=== PATIENT | female | born 1945 | race Caucasian/White ===

== ENCOUNTER 2017-10-26 15:45 | Inpatient (IN) ==
[2017-10-26] MEDS ORDERED: methylPREDNISolone 125 MG/2 ML VIAL IVP ONE (15:48)
[2017-10-26] MEDS ORDERED: Ipratropium/Albuterol Neb 3 ML IH ONE (15:48)
--- NOTE | 2017-10-26 15:49 | Emergency Department Note ---
Disposition Clinical Impression: Acute exacerbation of chronic obstructive airways disease, Community acquired pneumonia, NSTEMI (non-ST elevated myocardial infarction), Elevated troponin Disposition: Admitted As Inpatient Condition: Fair Referrals: Jim Figueroa MD [Primary Care Provider] - Time of Disposition: 18:30 SOB HPI - General Stated Complaint: SOB Time Seen by Provider: 10/26/17 15:48 Source: patient, EMS Mode of arrival: EMS Limitations: no limitations Nursing Notes Reviewed: Yes Vital Signs Reviewed: Yes - History of Present Illness 72-year-old female history of COPD on 2L home oxygen supplementation presents an emergency department via EMS for difficulty breathing. She reports progressive worsening shortness of breath for the past 4 days. She is been using your inhalers with minimal relief. She reports nonproductive cough. Denies any fevers. Denies any chest pain. She does feel more sure breath when she exerts herself and so recently she has a placed herself on 4 L nasal cannula. She denies being on any recent antibiotic or steroids. Of note her initial complaint was also bright red blood per rectum. She is not able to fully describe it. States daughter is at bedside and states she noticed in the toilet earlier today. Patient denies any abdominal pain. She denies any hemoptysis, hematemesis or black tarry stools. She is not take any anticoagulants. At this time she is currently getting a breathing treatment given by EMS which she reports some improvement. At this time will worker up for COPD exacerbation. Final disposition pending. - Related Data Home Medications Medication Instructions Recorded Confirmed Albuterol Sulfate [Ventolin Hfa] 2 puff IH Q4-6H PRN 10/26/17 10/26/17 Alendronate Sodium [Alendronate 70 mg PO FR 10/26/17 10/26/17 Sodium] Amlodipine Besylate [Amlodipine 10 mg PO DAILY 10/26/17 10/26/17 Besylate] Aspirin 81 mg PO DAILY 10/26/17 10/26/17 Baclofen [Lioresal] 10 mg PO TID PRN 10/26/17 10/26/17 Budesonide/Formoterol 160/4.5 2 puff IH BID 10/26/17 10/26/17 [Symbicort 160/4.5] Ergocalciferol (VITAMIN D2) 50,000 unit PO QWEEK 10/26/17 10/26/17 [Vitamin D2] Lisinopril [Zestril] 40 mg PO DAILY 10/26/17 10/26/17 Roflumilast [Daliresp] 500 mg PO DAILY 10/26/17 10/26/17 Tiotropium [Spiriva] 1 puff IH DAILY 10/26/17 10/26/17 Allergies Allergy/AdvReac Type Severity Reaction Status Date / Time No Known Allergies Allergy Verified 04/30/15 15:13 All systems ED: reviewed and negative except as stated. Review of Systems: As Per HPI Constitutional: Denies: fever, chills ENT ED: Denies: congestion Cardiovascular: Denies: chest pain Respiratory: Reports: cough, dyspnea Gastrointestinal: Reports: hematochezia. Denies: abdominal pain, nausea, vomiting, hematemesis, melena Genitourinary: Denies: urgency, dysuria Musculoskeletal: Denies: back pain, neck pain Integumentary: Denies: rash, abrasion, lesions Neurological: Denies: headache, weakness Psychiatric: Denies: anxiety Past Medical History - Past Medical History Attestation: Yes The following information was validated with the patient. Source: patient Medical history: Reports: hypertension, other - Social History Smoking Status: Current every day smoker Smokeless Tobacco Status: No Alcohol use: Reports: none Physical Exam - General Limitations: no limitations General appearance: alert, in distress (RESPIRATORY) - Head Head exam: atraumatic, normocephalic, normal inspection - Eye Eye exam: Present: normal appearance, PERRL, EOMI - ENT ENT exam: normal exam, normal oropharynx, mucous membranes moist - Neck Neck exam: Present: normal inspection, full ROM, trachea midline - Chest Chest inspection: Present: normal inspection, symmetric chest wall rise - Respiratory Respiratory exam: Present: respiratory distress, wheezes, prolonged expiratory phase, other (TIGHT AERATION) - Expanded Respiratory Exam Location: wheezes: Left, Right, rales: Lower, decreased breath sounds: Lower - Cardiovascular Cardiovascular exam: Present: regular rate, normal rhythm, normal heart sounds - Expanded Cardiovascular Exam Peripheral pulses: 2+: radial (R), radial (L) - Abdominal Exam Abdominal exam: Present: soft, Non-Tender, normal bowel sounds. Absent: tenderness, distention, guarding, rebound, rigidity - Rectal Exam Ignition Mechanic present during exam: Yes Rectal exam: Present: normal inspection, normal rectal tone, heme (-) stool, hemorrhoids (EXTERNAL). Absent: bloody stool - Extremities Exam Extremities exam: Present: normal inspection, full ROM, normal capillary refill , pedal edema (+2 PITTING, BILATERAL). Absent: tenderness - Back Exam Back exam: Present: normal inspection, full ROM. Absent: tenderness - Neurological Exam Neurological exam: Present: alert, oriented X3 - Psychiatric Psychiatric exam: Present: normal affect, normal mood - Skin Skin exam: Present: warm, dry, intact, normal color. Absent: rash, cyanosis, diaphoresis Course Course Narrative: Patient reports significant improvement after breathing treatments. She has better aeration with some scattered wheezing. Review of her chest x-ray shows bibasilar opacities with trace pleural effusion concerning for possible pneumonia. Patient has not been hospitalized in the past 3 months. Given her symptoms of shortness of breath and leukocytosis will treat her for possible pneumonia as well as her COPD exacerbation. Patient will be given Levaquin. She is responded well to the breathing treatment and steroids were continue this and consider admission. EKG did not show any acute ischemic changes. However her troponin did come back critical 1.76. Patient was given full dose aspirin as a result. A stool Hemoccult test was performed and negative for blood. Will touch base with cardiology interns of treating this with a heparin drip given her symptoms. Patients agreeable to admission for NSTEMI, COPD exacerbation, CAP. - Consultations Consultation #1: Spoke to cardiology Dr. Kurt Fernandez regarding the patient's presentation in case. Elevated troponin 1.76. Patient denies any chest pain. She is likely a COPD exacerbation with possible pneumonia on chest x-ray. Patient also initially per presented with complaint of bright red blood per rectum. Stool Hemoccult negative. Patient did have external hemorrhoids. Patients hemoglobin is 12. At this time the quarry plant crusher operator did recommend putting on low- dose heparin given the absence of the chest pain. Time: 18:15 Consultation #2: Spoke with on-call hospitalist tyron Burton to admit for NSTEMI, COPD exacerbation, CAP. No further orders at this time. Time: 18:22 Vital Signs Temperature 98.2 F 10/26/17 15:47 Pulse Rate 98 10/26/17 15:47 Respiratory Rate 18 10/26/17 15:47 Blood Pressure 132/86 10/26/17 15:47 O2 Sat by Pulse Oximetry 95 10/26/17 15:47 Temperature 98.9 F 10/26/17 15:52 Pulse Rate 113 10/26/17 18:28 Respiratory Rate 22 10/26/17 18:28 Blood Pressure 150/99 10/26/17 18:28 O2 Sat by Pulse Oximetry 94 10/26/17 18:28 Oxygen Delivery Oxygen Delivery Nasal Cannula Shortness of Breath/Dyspnea - MDM Narrative Medical decision making narrative: Patient was discussed with my attending physician who agrees with ED management and final disposition. They independently evaluated the patient. Please refer to their attestation to this encounter for additional information. This note was generated by [employer] voice recognition software and as a result grammatical or spelling errors may occur using this program. - Medical Records Medical records reviewed: Yes I reviewed the patient's medical records. - Lab Data Lab results reviewed: Yes I reviewed the patient's lab results. Result diagrams: 10/26/17 15:58 10/26/17 15:58 Lab Results 10/26/17 10/26/17 Range/Units 15:58 15:58 WBC 17.1 H (4.3-11.1) K/mcL RBC 4.54 (3.82-4.97) M/mcL Hgb 12.6 (11.5-15.4) g/dL Hct 40.5 (35.3-44.9) % MCV 89.2 (83.0-100.0) fL MCH 27.8 L (28.0-33.3) pg MCHC 31.1 L (31.6-35.5) g/dL RDW 15.2 H (11.5-14.5) % Plt Count 327 (140-400) K/mcL MPV 10.4 (9.4-12.4) fL Immature Gran % 1.0 (0-4) % Seg Neutrophils % 84.2 % Lymphocytes % 8.7 % Monocytes % 5.2 % Eosinophils % 0.6 % Basophils % 0.3 % Neutrophils # 14.4 H (1.6-8.9) K/mcL Lymphocytes # 1.5 (0.6-4.6) K/mcL Monocytes # 0.9 (0.0-1.3) K/mcL Eosinophils # 0.1 (0.0-0.6) K/mcL Basophils # 0.1 (0.0-0.2) K/mcL Sodium 142 (136-145) mEq/L Potassium 4.5 (3.5-5.1) mEq/L Chloride 100 (98-107) mEq/L Carbon Dioxide 32 H (23-29) mEq/L BUN 20 (8-23) mg/dL Creatinine 0.70 (0.60-1.20) mg/dL Est GFR ( Amer) > 60 (> 60) Est GFR (Non-Af Amer) > 60 (> 60) BUN/Creatinine Ratio 29 H (6-26) Glucose 100 (70-105) mg/dL Calculated Osmolality 297 (280-300) Calcium 9.3 (8.6-10.3) mg/dL Troponin I 1.76 H* (< 0.04) ng/mL - Radiology Data Radiology results reviewed: Yes I reviewed the patient's radiology results. Chest X-Ray 10/26/17 15:48 IMPRESSION: 1. Increased bibasilar pulmonary opacities may represent atelectasis, and/or pneumonia. Recommend radiographic follow-up to complete resolution. 2. Question trace bilateral pleural effusions. D/ / Denny Steve MD / Denny Steve MD Interpreting Provider: Denny Steve MD - EKG Data EKG attestation: Yes I reviewed and interpreted this EKG. EKG results narrative: EKG performed 1547 normal sinus rhythm with short MT interval 97 beats per minute, MT interval 108, no ST elevation or depression, no T wave inversion, intervals within normal limits. Compared to prior EKG performed 08/29/2012 shows consistent similar findings. There was finding of prolonged QT interval on prior EKG that is not present on today's EKG. No signs of acute ischemic changes. On repeat EKG 1704 sinus tachycardia [address] morphology. No acute ischemic changes. No STEMI. Attestation Statement - Attestation Attestation: I, Louis Mayfield DO, examined this patient [id number] and my medical decision-making was reviewed with Jeffrey Ramos DO , Resident Physician. I agree with the documented findings, disposition and treatment plan as described except to the extent set forth below. Please see my progress notes for details.
[2017-10-26 16:29] LABS: Basophils # 0.1 K/mcL (0.0-0.2); Basophils % 0.3 %; Eosinophils # 0.1 K/mcL (0.0-0.6); Eosinophils % 0.6 %; Hematocrit 40.5 % (35.3-44.9); Hemoglobin 12.6 g/dL (11.5-15.4); Lymphocytes # 1.5 K/mcL (0.6-4.6); Lymphocytes % 8.7 %; Mean Corpuscular HGB Conc 31.1 g/dL (31.6-35.5); Mean Corpuscular Hemoglobin 27.8 pg (28.0-33.3); Mean Corpuscular Volume 89.2 fL (83.0-100.0); Mean Platelet Volume 10.4 fL (9.4-12.4); Monocytes # 0.9 K/mcL (0.0-1.3); Monocytes % 5.2 %; Neutrophils # 14.4 K/mcL (1.6-8.9); Platelet Count 327 K/mcL (140-400); Red Blood Count 4.54 M/mcL (3.82-4.97); Red Cell Distribution Width 15.2 % (11.5-14.5); Segmented Neutrophils % 84.2 %
[2017-10-26 16:47] LABS: BUN/Creatinine Ratio 29 (6-26); Blood Urea Nitrogen 20 mg/dL (8-23); Calcium 9.3 mg/dL (8.6-10.3); Carbon Dioxide 32 mEq/L (23-29); Chloride 100 mEq/L (98-107); Glucose 100 mg/dL (70-105); Osmolality,Calculated 297 (280-300); Potassium 4.5 mEq/L (3.5-5.1); Sodium 142 mEq/L (136-145); eGFR For African Americans > 60 (> 60); eGFR For Non-African Americans > 60 (> 60)
[2017-10-26 16:49] LABS: Troponin I 1.76 ng/mL (< 0.04)
[2017-10-26] MEDS ORDERED: Aspirin 81 MG TAB.CHEW PO STA (16:51)
[2017-10-26] MEDS ORDERED: Levofloxacin 750 MG/150 ML 750 MG/150 ML BAG IVPB ONE (16:58)
[2017-10-26] MEDS ORDERED: *HR* Heparin 5,000 UNIT/ML VIAL IVP ONE ×2 (17:54→18:20)
[2017-10-26] MEDS ORDERED: *HR* Heparin 5,000 UNIT/ML VIAL IVP PRN ×4 (17:54→18:20)
[2017-10-26] MEDS ORDERED: Heparin 25,000 UNIT/500 ML D5W 25,000 UNIT/500 ML BAG IVC SCH ×2 (18:00→18:30)
--- NOTE | 2017-10-26 18:04 | Emergency Department Note ---
Disposition Clinical Impression: Community acquired pneumonia, Acute exacerbation of chronic obstructive airways disease, Elevated troponin Disposition: Admitted As Inpatient Condition: Fair Referrals: Jim Figueroa MD [Primary Care Provider] - Time of Disposition: 18:22 General Adult HPI - General Chief complaint: ED Shortness of Breath/Dyspnea Stated complaint: SOB Time Seen by Provider: 10/26/17 15:48 Source: patient, EMS Mode of arrival: EMS Limitations: no limitations - History of Present Illness Pain Scale: 0 - Related Data Home Medications Medication Instructions Recorded Confirmed Albuterol Sulfate [Ventolin Hfa] 2 puff IH Q4-6H PRN 10/26/17 10/26/17 Alendronate Sodium [Alendronate 70 mg PO FR 10/26/17 10/26/17 Sodium] Amlodipine Besylate [Amlodipine 10 mg PO DAILY 10/26/17 10/26/17 Besylate] Aspirin 81 mg PO DAILY 10/26/17 10/26/17 Baclofen [Lioresal] 10 mg PO TID PRN 10/26/17 10/26/17 Budesonide/Formoterol 160/4.5 2 puff IH BID 10/26/17 10/26/17 [Symbicort 160/4.5] Ergocalciferol (VITAMIN D2) 50,000 unit PO QWEEK 10/26/17 10/26/17 [Vitamin D2] Lisinopril [Zestril] 40 mg PO DAILY 10/26/17 10/26/17 Roflumilast [Daliresp] 500 mg PO DAILY 10/26/17 10/26/17 Tiotropium [Spiriva] 1 puff IH DAILY 10/26/17 10/26/17 Allergies Allergy/AdvReac Type Severity Reaction Status Date / Time No Known Allergies Allergy Verified 04/30/15 15:13 Past Medical History - Past Medical History Medical history: Reports: hypertension, other Psychiatric history: Reports: no psych history - Social History Smoking Status: Current every day smoker Smokeless Tobacco Status: No Alcohol use: Reports: none Drug use: Reports: none Physical Exam - General Limitations: no limitations General appearance: alert Course Vital Signs Temperature 98.2 F 10/26/17 15:47 Pulse Rate 98 10/26/17 15:47 Respiratory Rate 18 10/26/17 15:47 Blood Pressure 132/86 10/26/17 15:47 O2 Sat by Pulse Oximetry 95 10/26/17 15:47 Temperature 98.9 F 10/26/17 15:52 Pulse Rate 110 10/26/17 17:43 Respiratory Rate 15 10/26/17 17:43 Blood Pressure 122/40 10/26/17 17:43 O2 Sat by Pulse Oximetry 93 10/26/17 17:43 Oxygen Delivery Oxygen Delivery Nasal Cannula Medical Decision Making - Lab Data Result diagrams: 10/26/17 15:58 10/26/17 15:58 Lab Results 10/26/17 10/26/17 Range/Units 15:58 15:58 WBC 17.1 H (4.3-11.1) K/mcL RBC 4.54 (3.82-4.97) M/mcL Hgb 12.6 (11.5-15.4) g/dL Hct 40.5 (35.3-44.9) % MCV 89.2 (83.0-100.0) fL MCH 27.8 L (28.0-33.3) pg MCHC 31.1 L (31.6-35.5) g/dL RDW 15.2 H (11.5-14.5) % Plt Count 327 (140-400) K/mcL MPV 10.4 (9.4-12.4) fL Immature Gran % 1.0 (0-4) % Seg Neutrophils % 84.2 % Lymphocytes % 8.7 % Monocytes % 5.2 % Eosinophils % 0.6 % Basophils % 0.3 % Neutrophils # 14.4 H (1.6-8.9) K/mcL Lymphocytes # 1.5 (0.6-4.6) K/mcL Monocytes # 0.9 (0.0-1.3) K/mcL Eosinophils # 0.1 (0.0-0.6) K/mcL Basophils # 0.1 (0.0-0.2) K/mcL Sodium 142 (136-145) mEq/L Potassium 4.5 (3.5-5.1) mEq/L Chloride 100 (98-107) mEq/L Carbon Dioxide 32 H (23-29) mEq/L BUN 20 (8-23) mg/dL Creatinine 0.70 (0.60-1.20) mg/dL Est GFR ( Amer) > 60 (> 60) Est GFR (Non-Af Amer) > 60 (> 60) BUN/Creatinine Ratio 29 H (6-26) Glucose 100 (70-105) mg/dL Calculated Osmolality 297 (280-300) Calcium 9.3 (8.6-10.3) mg/dL Troponin I 1.76 H* (< 0.04) ng/mL Critical Care Time Critical Care Time: Yes Total Critical Care Time: 35 Attestation: Critical care performed: Time is exclusive of separately billable procedures. Time includes: direct patient care, patient reassessment, coordination of patient care, interpretation of data (laboratory data, radiology data, and respiratory data), review of patient's medical records, medical consultation and documentation of patient care. Procedures included in critical care time: Procedures excluded from critical care time: Attestation Statement - Attestation Attestation: I, Louis Mayfield DO, examined this patient [id number] and my medical decision-making was reviewed with Jeffrey Ramos DO , Resident Physician. I agree with the documented findings, disposition and treatment plan as described except to the extent set forth below. Please see my progress notes for details. 72-year-old female presents to the emergency room with what she describes as acute exacerbation of her COPD. Over the last several days she has had a persistent cough and increased work of breathing and shortness of breath with anything that she does. She denies any chest pain fevers chills nausea vomiting or diarrhea. She has had nonproductive cough with intermittent sputum. Patient denies any other medical issues or symptoms at this point. She has been trying to manage her symptoms at home with her breathing treatments but has not resolved the issue at this time. She does typically use 2 L oxygen at home. She feels issues required more oxygen at this time. Patient denies any other symptoms or issues on presentation. Patient is sitting upright in the bed with breathing treatments and placed by EMS on presentation. Patient's lungs are diffusely wheezy with intermittent coarse crackles. Patient's heart is regular. Abdomen is soft nontender nondistended no guarding no rigidity. Chest x-ray EKG CBC chemistry troponin and BMP will be ordered here at this time in the emergency room. Patient will be started on antibiotics as really needed. Patient does not have any recent admissions or hospitalizations. Medical intervention. Patient will most likely require admission once the workup and treatment course are completed. See detailed documentation of physical exam, medical intervention, medical decision-making and disposition in the resident physician's note. No critical care of this patient's treatment course at this time. 1800 Patient is still having increased work of breathing. Treatments will be utilized. Patient's chest x-ray does show bilateral infiltrates. Antibiotic regimen started. Hospitalist was contacted for admission. No other acute issues pathology noted at this time. Patient will be stabilized the hospital setting for what appears to be COPD exacerbation secondary to bilateral pneumonia. Patient does not have any acute signs of septic-like presentation and has been resuscitated and evaluated appropriately here in the emergency room. Patient also noted have a significantly elevated troponin of 1.76. Repeat EKG was collected with no acute changes at this time. The morphology was reviewed from previous EKGs. Heparin infusion was started. Patient denies any GI bleed and colonic-like stools at this point. Patient had bright red blood on her stool. Rectal examination was deferred at this point patient does not have any occult bleed history. Cardiology will be consult with the hospitalist will be informed of the recommendations for the admission process. 1820 Discussion was had with the on-call accounts administrator. Recommended a second hyperbaric. Patient does not have any active bleeding based on rectal examination occult testing at this time. Hemoglobin is stable. This benefits and alternatives were discussed with the accounts administrator as well as the patient. Patient will be admitted at this time.
[2017-10-26 19:55] LABS: INR 1.1; Prothrombin Time 12.2 Seconds (9.4-12.1)
[2017-10-26 19:58] LABS: Activated Partial Thrombo Time 25.5 Seconds (26.0-36.0)
[2017-10-26] MEDS ORDERED: Naloxone 0.4 MG/ML INJ IVP PRN (21:20)
[2017-10-26] MEDS ORDERED: Ipratropium/Albuterol Neb 3 ML IH PRN (21:24)
[2017-10-26] MEDS: Ipratropium/Albuterol Neb 3 ML IH SCH (22:36)
--- NOTE | 2017-10-26 23:05 | Internal Med History&Physical ---
Date of Encounter: 10/26/17 Time of Encounter: 20:00 Internal Medicine - H&P: HPI Chief complaint: Shortness of breath Admitted From: Home Plans for Post Hospital Care: Home History of present illness: Ms. Montenegro is a 72 year old female present to ER for shortness of breath. Past medical history is significant for COPD on home oxygen. Patient presented to ER for shortness of breath for 2 days. Patient has nonproductive cough. No fever. Patient to use 2 L oxygen at home, apparently, her oxygen requirement has increased and the need 4-5 L ER to maintain oxygen saturation. Patient denies chest pain, nausea, or diaphoresis. Patient has bilateral increased leg swelling. In the emergency room, chest x-ray shows bilateral basal pneumonia. Patient was treated with antibiotic, steroid, and bronchodilator. Her symptoms has improved. Patient's first of troponin shows 1.76, however repeat troponin is less than 0.03, patient had no chest pain and EKG is unremarkable, consider lab error on first troponin. heparin drip will be discontinued. Past Med Surg Social Fam HX - Past Medical History Medical history: COPD, coronary artery disease, hyperlipidemia, hypertension, osteoporosis, other Psychiatric history: no psych history - Social History Smoking Status: Current every day smoker Smokeless Tobacco Status: No Alcohol use: none Drug use: none - Family History Mother Hx Family Cardiac Disorders: Yes Internal Medicine - H&P: Meds Albuterol Sulfate [Ventolin Hfa] 2 puff IH Q4-6H PRN 10/26/17 [History] Alendronate Sodium [Alendronate Sodium] 70 mg PO FR 10/26/17 [History] Amlodipine Besylate [Amlodipine Besylate] 10 mg PO DAILY 10/26/17 [History] Aspirin 81 mg PO DAILY 10/26/17 [History] Baclofen [Lioresal] 10 mg PO TID PRN 10/26/17 [History] Budesonide/Formoterol 160/4.5 [Symbicort 160/4.5] 2 puff IH BID 10/26/17 [ History] Ergocalciferol (VITAMIN D2) [Vitamin D2] 50,000 unit PO QWEEK 10/26/17 [History] Lisinopril [Zestril] 40 mg PO DAILY 10/26/17 [History] Roflumilast [Daliresp] 500 mg PO DAILY 10/26/17 [History] Tiotropium [Spiriva] 1 puff IH DAILY 10/26/17 [History] 3 Allergy/AdvReac Type Severity Reaction Status Date / Time No Known Allergies Allergy Verified 04/30/15 15:13 All Systems PM: A 10-system review of systems was performed and is negative for pertinent findings except as documented above in the HPI. - Constitutional Vitals: Temp Pulse Resp BP Pulse Ox 98.8 F 118 20 128/83 96 10/26/17 21:20 10/26/17 21:20 10/26/17 22:36 10/26/17 22:36 10/26/17 22:36 General appearance: Present: mild distress, A&O X 3, answers questions appropriately - Head Head exam: Present: atraumatic, normocephalic - Eye Eye exam: Present: PERRL, conjuntiva pink, sclera anicteric Pupils: Present: PERRL - Neck Neck exam general surgery: Present: supple, trachea midline. Absent: lymphadenopathy - Respiratory Respiratory exam: Present: CTAB. Absent: accessory muscle use, rales, rhonchi, wheezes Additional comments: Coarse breath sound b/l - Cardiovascular Cardiovascular exam: Present: RRR, +S1, +S2. Absent: diastolic murmur, gallop, rubs, systolic murmur - GI/Abdominal GI/Abdominal exam: Present: normal bowel sounds, soft, no peritoneal signs. Absent: distended, tenderness - Extremities Exam Extremities exam: Present: pedal edema (Bilaterally moderate pedal pitting edema ), warm, radial pulses palpable and symmetrical. Absent: calf tenderness, cyanotic - Neurological Exam Neurological exam: Present: CN II-XII intact, oriented X3, no focal deficits. Absent: pronater drift, facial droop, speech deficit - Skin Skin exam: Present: dry, intact Internal Med - H&P Results - Labs CBC & Chem 7: 10/26/17 15:58 10/26/17 15:58 Labs: Cardiac Enzymes 10/26/17 Range/Units 22:21 Troponin I < 0.03 (< 0.04) ng/mL - EKG Data -: EKG Interpreted by Myself EKG shows normal: sinus rhythm Rate: tachycardia - Assessment and plan (1) DVT prophylaxis Current Visit: Yes Status: Acute Assessment and plan: Heparin subcutaneously (2) Acute exacerbation of chronic obstructive airways disease Current Visit: Yes Status: Acute Assessment and plan: Patient has history of COPD on home oxygen. Increased shortness of breath with wheezing. Improved after treatment. - Place patient on antibiotic, steroid, and bronchodilator - Continuous oxygen supportive treatment (3) Community acquired pneumonia Current Visit: Yes Status: Acute Assessment and plan: We will treat patient with IV Levaquin. Continue supportive treatment and symptomatic treatment Qualifiers: Laterality: unspecified laterality Qualified Code(s): J18.9 - Pneumonia, unspecified organism (4) Elevated troponin Current Visit: Yes Status: Acute Assessment and plan: Patient has first troponin 1.76. However second troponin is within normal limit. Consider lab error as patient has no chest pain and negative EKG. - Hold heparin drip - Continue follow the 3rd troponin - Continue cardiac monitoring (5) Leg swelling Current Visit: Yes Status: Acute Assessment and plan: We will check echocardiogram and BNP to rule out CHF. - Time Spent With Patient Total time spent is greater than 50% in coordination of care (as documented) at patient's floor/unit and/or counseling patient: 40 minutes Greater than 35 minutes
[2017-10-27] MEDS: Ipratropium/Albuterol Neb 3 ML IH SCH ×4 (03:20→21:46)
[2017-10-27 05:18] LABS: Basophils % 0.2 %; Hematocrit 37.2 % (35.3-44.9); Hemoglobin 11.7 g/dL (11.5-15.4); Lymphocytes % 6.5 %; Mean Corpuscular HGB Conc 31.5 g/dL (31.6-35.5); Mean Corpuscular Hemoglobin 28.2 pg (28.0-33.3); Mean Corpuscular Volume 89.6 fL (83.0-100.0); Mean Platelet Volume 11.1 fL (9.4-12.4); Monocytes % 0.9 %; Platelet Count 313 K/mcL (140-400); Red Blood Count 4.15 M/mcL (3.82-4.97); Red Cell Distribution Width 15.1 % (11.5-14.5); Segmented Neutrophils % 91.4 %
[2017-10-27 05:19] LABS: Lymphocytes # 0.9 K/mcL (0.6-4.6); Monocytes # 0.1 K/mcL (0.0-1.3); Neutrophils # 12.1 K/mcL (1.6-8.9)
[2017-10-27] MEDS: *HR* Heparin 5,000 UNIT/ML VIAL SQ SCH ×2 (05:37→17:45)
[2017-10-27 07:08] LABS: BUN/Creatinine Ratio 26 (6-26); Blood Urea Nitrogen 26 mg/dL (8-23); Calcium 8.9 mg/dL (8.6-10.3); Carbon Dioxide 32 mEq/L (23-29); Chloride 101 mEq/L (98-107); Glucose 192 mg/dL (70-105); Magnesium 1.8 mg/dL (1.6-2.6); Osmolality,Calculated 298 (280-300); Potassium 4.8 mEq/L (3.5-5.1); Sodium 139 mEq/L (136-145); eGFR For African Americans > 60 (> 60); eGFR For Non-African Americans 54 (> 60)
[2017-10-27] MEDS: Aspirin 81 MG TAB.CHEW PO SCH (09:30)
[2017-10-27] MEDS: Lisinopril 20 MG TABLET PO SCH (09:30)
[2017-10-27] MEDS: (Roflumilast [Daliresp] 500 MG) PO SCH (09:30)
[2017-10-27] MEDS: predniSONE 20 MG TABLET PO SCH (09:30)
[2017-10-27] MEDS: amLODIPine 5 MG TABLET PO SCH (09:30)
--- NOTE | 2017-10-27 09:49 | Internal Med Progress Note ---
Date of Encounter: 10/27/17 Time of Encounter: 09:46 - Assessment and plan (1) Acute exacerbation of chronic obstructive airways disease Current Visit: Yes Status: Acute Assessment and plan: Acute on chronic hypoxic respiratory failure secondary to acute COPD exacerbation due to community-acquired pneumonia/unknown agent in combination with acute CHF exacerbation systolic versus diastolic Continue prednisone and Levaquin day #2 Start IV Lasix, echocardiogram pending Oxygen therapy and DuoNeb nebs Chest x-ray shows bibasilar opacities (2) Community acquired pneumonia Current Visit: Yes Status: Acute Assessment and plan: Levaquin Qualifiers: Laterality: unspecified laterality Qualified Code(s): J18.9 - Pneumonia, unspecified organism (3) Elevated troponin Current Visit: Yes Status: Acute Assessment and plan: Patient has first troponin 1.76. Likely lab error. However second and third troponins were normal, the patient has no chest pain and has a normal EKG. - Heparin drip was discontinued - Continue cardiac monitoring (4) Leg swelling Current Visit: Yes Status: Acute Assessment and plan: echocardiogram - Time Spent With Patient Total time spent is greater than 50% in coordination of care (as documented) at patient's floor/unit and/or counseling patient: - Subjective Interval history: Feeling less short of breath, her legs have become very swollen, denies any chest pain, no abdominal pain, no diarrhea or dysuria - Constitutional Vitals: Temp Pulse Resp BP Pulse Ox 97.8 F 99 15 138/77 93 10/27/17 06:57 10/27/17 06:57 10/27/17 06:57 10/27/17 06:57 10/27/17 06:57 General appearance: Present: mild distress, A&O X 3, answers questions appropriately - Head Head exam: Present: atraumatic, normocephalic - Eye Eye exam: Present: PERRL, conjuntiva pink, sclera anicteric Pupils: Present: PERRL - Neck Neck exam general surgery: Present: supple, trachea midline. Absent: lymphadenopathy - Respiratory Respiratory exam: Present: decreased breath sounds, CTAB, rales (Very diminished breath sounds with diffuse minimal wheezing and bibasilar crackles). Absent: accessory muscle use, rhonchi, wheezes - Cardiovascular Cardiovascular exam: Present: RRR, +S1, +S2. Absent: diastolic murmur, gallop, rubs, systolic murmur - GI/Abdominal GI/Abdominal exam: Present: normal bowel sounds, soft, no peritoneal signs. Absent: distended, tenderness - Extremities Exam Extremities exam: Present: pedal edema (+3 pitting edema in both lower extremities), warm, radial pulses palpable and symmetrical. Absent: calf tenderness, cyanotic - Neurological Exam Neurological exam: Present: CN II-XII intact, oriented X3, no focal deficits. Absent: pronater drift, facial droop, speech deficit - Skin Skin exam: Present: dry, intact Internal Medicine: Result - Labs CBC & Chem 7: 10/27/17 04:18 10/27/17 06:35 Labs: Short CBC 10/27/17 Range/Units 04:18 WBC 13.2 H (4.3-11.1) K/mcL Hgb 11.7 (11.5-15.4) g/dL Hct 37.2 (35.3-44.9) % Plt Count 313 (140-400) K/mcL Neutrophils # 12.1 H (1.6-8.9) K/mcL BMP 10/27/17 10/27/17 04:18 06:35 Sodium Cancelled 139 Potassium Cancelled 4.8 Chloride Cancelled 101 Carbon Dioxide Cancelled 32 H BUN Cancelled 26 H Creatinine Cancelled 1.00 Glucose Cancelled 192 H Calcium Cancelled 8.9 Cardiac Enzymes 10/26/17 10/27/17 Range/Units 22:21 04:18 Troponin I < 0.03 < 0.03 (< 0.04) ng/mL - ABG Interpretation ABG results: PT/INR, D-dimer PT 12.2 Seconds (9.4-12.1) H 10/26/17 15:58 Consult Discharge Plan - Plan
[2017-10-27] MEDS: Budesonide/Formoterol 160/4.5 MDI IH SCH ×2 (10:47→21:46)
[2017-10-27] MEDS ORDERED: Perflutren Lipid Microsphere 1.3 ML in 0.9 % Sodium Chloride 8.7 ML IVP ONE (12:54)
[2017-10-27] MEDS: Furosemide 20 MG/2 ML VIAL IVP SCH ×2 (13:56→20:32)
[2017-10-28] MEDS: Ipratropium/Albuterol Neb 3 ML IH SCH ×3 (03:37→15:24)
[2017-10-28] MEDS: *HR* Heparin 5,000 UNIT/ML VIAL SQ SCH (06:19)
[2017-10-28 07:16] VITALS: BP 126/77
[2017-10-28] MEDS: Aspirin 81 MG TAB.CHEW PO SCH (09:43)
[2017-10-28] MEDS: (Roflumilast [Daliresp] 500 MG) PO SCH (09:43)
[2017-10-28] MEDS: Lisinopril 20 MG TABLET PO SCH (09:43)
[2017-10-28] MEDS: amLODIPine 5 MG TABLET PO SCH (09:43)
[2017-10-28] MEDS: predniSONE 20 MG TABLET PO SCH (09:43)
[2017-10-28] MEDS: Furosemide 20 MG/2 ML VIAL IVP SCH (09:43)
[2017-10-28] MEDS: Budesonide/Formoterol 160/4.5 MDI IH SCH (09:50)
--- NOTE | 2017-10-28 11:01 | Discharge Summary ---
- NOTES TO OUTPATIENT PROVIDER Notes to Outpatient Provider: Complete 5 more days of Levquin, quit smoking. Prednisone taper: 40 mg daily for 3 days, 30 mg for 3 days, 20 mg for 3 days, 10 mg for 3 days Date of Encounter: 10/28/17 Time of Encounter: 10:59 - Discharge Diagnosis (1) Acute exacerbation of chronic obstructive airways disease Priority: Primary Status: Acute Assessment and Plan: Acute on chronic hypoxic respiratory failure secondary to acute COPD exacerbation due to community-acquired pneumonia/unknown agent in combination with acute diastolic CHF exacerbation (2) Community acquired pneumonia Priority: Primary Status: Acute Assessment and Plan: Levaquin Qualifiers: Laterality: unspecified laterality Qualified Code(s): J18.9 - Pneumonia, unspecified organism (3) Elevated troponin Priority: Secondary Status: Acute Assessment and Plan: Patient has first troponin 1.76. Likely lab error. However second and third troponins were normal, the patient has no chest pain and has a normal EKG. - Heparin drip was discontinued (4) Leg swelling Priority: Secondary Status: Acute Assessment and Plan: Hospital course: Ms. Montenegro is a 72 year old female with Past medical history is significant for COPD on home oxygen 2 L , COAD, HTN, HLD, osteoporosis, tobacco use, who presented to the ER for shortness of breath for 2 days. Patient had nonproductive cough. No fever. Apparently, her oxygen requirements increased at home to 4-5 L to maintain oxygen saturation. Patient denied chest pain, nausea, or diaphoresis. Patient had bilateral increased leg swelling. In the emergency room, chest x-ray shows bilateral basal pneumonia. Her symptoms has improved. Improved on Lasix, echocardiogram showed an ejection fraction of 70% with mild diastolic dysfunction, mild aortic stenosis suggested Chest x-ray shows bibasilar opacities Patient had a first troponin of 1.76. Likely lab error as her second and third troponins were normal, the patient had no chest pain and has a normal EKG. - Heparin drip was discontinued Continue prednisone and Levaquin Time spent discussing smoking cessation with patient: 3 to 10 minutes - Time Spent with Patient Total time spent providing and/or coordinating discharge services: Greater than 30 minutes (40 min) - Discharge Medications Prescriptions: Furosemide [Lasix] 20 mg PO DAILY #30 tablet Levofloxacin [Levaquin] 500 mg PO DAILY #5 tablet predniSONE [PredniSONE] 10 mg PO DAILY 12 Days tablet Home Medications: Albuterol Sulfate [Ventolin Hfa] 2 puff IH Q4-6H PRN 10/26/17 [History] Alendronate Sodium 70 mg PO FR 10/26/17 [History] Amlodipine Besylate 10 mg PO DAILY 10/26/17 [History] Aspirin 81 mg PO DAILY 10/26/17 [History] Baclofen [Lioresal] 10 mg PO TID PRN 10/26/17 [History] Budesonide/Formoterol 160/4.5 [Symbicort 160/4.5] 2 puff IH BID 10/26/17 [ History] Ergocalciferol (VITAMIN D2) [Vitamin D2] 50,000 unit PO QWEEK 10/26/17 [History] Lisinopril [Zestril] 40 mg PO DAILY 10/26/17 [History] Roflumilast [Daliresp] 500 mg PO DAILY 10/26/17 [History] Tiotropium [Spiriva] 1 puff IH DAILY 10/26/17 [History] Furosemide [Lasix] 20 mg PO DAILY #30 tablet 10/28/17 [Rx] Levofloxacin [Levaquin] 500 mg PO DAILY #5 tablet 10/28/17 [Rx] predniSONE [PredniSONE] 10 mg PO DAILY 12 Days tablet 10/28/17 [Rx] Allergies/Adverse Reactions: 3 Allergy/AdvReac Type Severity Reaction Status Date / Time No Known Allergies Allergy Verified 04/30/15 15:13 Date of admission: 10/26/17 21:20 Primary care physician: Jim Figueroa MD Consults: 10/27/17 20:33 Consult to Occupational Therapy [CONS] Routine Comment: Evaluate, develop and implement POC Reason for Consult: pt lives at home alone, may need home PT/OT or rehab. Does patient have active BEDREST order?: No Is patient medically & hemodynamically stable?: Yes Patient assessed for mobility or mobilized this visit?: Yes Consult to Physical Therapy [CONS] Routine Comment: Evaluate, develop and implement POC Reason for Consult: pt lives at home alone, may need home PT/OT or rehab. Does patient have active BEDREST order?: No Is patient medically & hemodynamically stable?: Yes Patient assessed for mobility or mobilized this visit?: Yes - Constitutional Vitals: Temp Pulse Resp BP Pulse Ox 97.8 F 86 16 126/77 90 10/28/17 07:12 10/28/17 07:12 10/28/17 09:53 10/28/17 07:12 10/28/17 09:53 General appearance: Present: mild distress, A&O X 3, answers questions appropriately - Head Head exam: Present: atraumatic, normocephalic - Eye Eye exam: Present: PERRL, conjuntiva pink, sclera anicteric Pupils: Present: PERRL - Neck Neck exam general surgery: Present: supple, trachea midline. Absent: lymphadenopathy - Respiratory Respiratory exam: Present: decreased breath sounds, CTAB. Absent: accessory muscle use, rales, rhonchi, wheezes - Cardiovascular Cardiovascular exam: Present: RRR, +S1, +S2. Absent: diastolic murmur, gallop, rubs, systolic murmur - GI/Abdominal GI/Abdominal exam: Present: normal bowel sounds, soft, no peritoneal signs. Absent: distended, tenderness - Extremities Exam Extremities exam: Present: warm, radial pulses palpable and symmetrical. Absent : calf tenderness, cyanotic, pedal edema - Neurological Exam Neurological exam: Present: CN II-XII intact, oriented X3, no focal deficits. Absent: pronater drift, facial droop, speech deficit - Skin Skin exam: Present: dry, intact - Patient Status Disposition: Transfer SNF Condition: Fair Overall status at discharge: patient is progressing back to baseline - Discharge Instructions Follow Up With: Jim Figueroa MD [Primary Care Provider] - Forms: ED Satisfaction Letter Additional Instructions: Complete 5 more days of Levquin, quit smoking. Prednisone taper: 40 mg daily for 3 days, 30 mg for 3 days, 20 mg for 3 days, 10 mg for 3 days - Diet and Activity Activity: increase activity as tolerated Diet: low fat, low cholesterol
--- NOTE | 2017-10-28 11:18 | Physician Discharge Referral ---
ExtendedCare Referral Info Provider in Charge after Transfer: PCP Institutional Level of Care: Skilled - Diagnosis (1) Acute exacerbation of chronic obstructive airways disease Status: Acute (2) Community acquired pneumonia Status: Acute (3) Elevated troponin Status: Acute (4) Leg swelling Status: Acute - Transfer Medications Prescriptions: Furosemide [Lasix] 20 mg PO DAILY #30 tablet Levofloxacin [Levaquin] 500 mg PO DAILY #5 tablet predniSONE [PredniSONE] 10 mg PO DAILY 12 Days tablet Home Medications: Albuterol Sulfate [Ventolin Hfa] 2 puff IH Q4-6H PRN 10/26/17 [History] Alendronate Sodium 70 mg PO FR 10/26/17 [History] Amlodipine Besylate 10 mg PO DAILY 10/26/17 [History] Aspirin 81 mg PO DAILY 10/26/17 [History] Baclofen [Lioresal] 10 mg PO TID PRN 10/26/17 [History] Budesonide/Formoterol 160/4.5 [Symbicort 160/4.5] 2 puff IH BID 10/26/17 [ History] Ergocalciferol (VITAMIN D2) [Vitamin D2] 50,000 unit PO QWEEK 10/26/17 [History] Lisinopril [Zestril] 40 mg PO DAILY 10/26/17 [History] Roflumilast [Daliresp] 500 mg PO DAILY 10/26/17 [History] Tiotropium [Spiriva] 1 puff IH DAILY 10/26/17 [History] Furosemide [Lasix] 20 mg PO DAILY #30 tablet 10/28/17 [Rx] Levofloxacin [Levaquin] 500 mg PO DAILY #5 tablet 10/28/17 [Rx] predniSONE [PredniSONE] 10 mg PO DAILY 12 Days tablet 10/28/17 [Rx] Allergies/Adverse Reactions: 3 Allergy/AdvReac Type Severity Reaction Status Date / Time No Known Allergies Allergy Verified 04/30/15 15:13 - Respiratory Orders Oxygen / L per min (2) Smoking Cessation: Smoking cessation has been advised. For more information, call the [place] Tobacco Quit Line at 4-647-FIOR-NOW. - Advance Directives Code Status: Full Code - Diet Orders No Added Salt (MALIK) House Supplement per Dietary: Complete 5 more days of Levquin, quit smoking. Prednisone taper: 40 mg daily for 3 days, 30 mg for 3 days, 20 mg for 3 days, 10 mg for 3 days. COntinue Lasix CERTIFICATION: I certify that the transfer of the above named patient to an Extended Care Facility is necessary for the continuing treatment of the diagnosis listed. The above information is true and accurate reflection of patient's current condition. Confidential - Redisclosure prohibited without a patient's written consent.
--- NOTE | 2017-10-28 16:16 | Physician Discharge Referral ---
Home Health/Hosp Referral Info Transfer to: Home Health Provider in Charge Post Discharge: PCP - Diagnosis (1) Acute exacerbation of chronic obstructive airways disease Status: Acute (2) Community acquired pneumonia Status: Acute (3) Elevated troponin Status: Acute (4) Leg swelling Status: Acute - Respiratory Orders Smoking Cessation: Smoking cessation has been advised. For more information, call the [place] Tobacco Quit Line at 9-928-XOSC-NOW. - Diet/Nutrition Diet/Nutrition Orders: No Added Salt (MALIK) - Services Needed Following services are medically necessary services: Nursing, Home Health Aide, Physical Therapy, Occupational Therapy Home Care Orders: Complete 5 more days of Levquin, quit smoking. Prednisone taper: 40 mg daily for 3 days, 30 mg for 3 days, 20 mg for 3 days, 10 mg for 3 days. COntinue Lasix - Transfer Medications Prescriptions: Furosemide [Lasix] 20 mg PO DAILY #30 tablet Levofloxacin [Levaquin] 500 mg PO DAILY #5 tablet predniSONE [PredniSONE] 10 mg PO DAILY 12 Days tablet Home Medications: Albuterol Sulfate [Ventolin Hfa] 2 puff IH Q4-6H PRN 10/26/17 [History] Alendronate Sodium 70 mg PO FR 10/26/17 [History] Amlodipine Besylate 10 mg PO DAILY 10/26/17 [History] Aspirin 81 mg PO DAILY 10/26/17 [History] Baclofen [Lioresal] 10 mg PO TID PRN 10/26/17 [History] Budesonide/Formoterol 160/4.5 [Symbicort 160/4.5] 2 puff IH BID 10/26/17 [ History] Ergocalciferol (VITAMIN D2) [Vitamin D2] 50,000 unit PO QWEEK 10/26/17 [History] Lisinopril [Zestril] 40 mg PO DAILY 10/26/17 [History] Roflumilast [Daliresp] 500 mg PO DAILY 10/26/17 [History] Tiotropium [Spiriva] 1 puff IH DAILY 10/26/17 [History] Furosemide [Lasix] 20 mg PO DAILY #30 tablet 10/28/17 [Rx] Levofloxacin [Levaquin] 500 mg PO DAILY #5 tablet 10/28/17 [Rx] predniSONE [PredniSONE] 10 mg PO DAILY 12 Days tablet 10/28/17 [Rx] Allergies/Adverse Reactions: 3 Allergy/AdvReac Type Severity Reaction Status Date / Time No Known Allergies Allergy Verified 04/30/15 15:13 Certification: Further, I certify that my clinical findings support that this patient is homebound (i.e. absences from home require considerable and taxing effort and are for medical reasons or rastafarian services or infrequently or short duration when for other reasons) because: Homebound Reason: Patient requires assistance of a person or device to safely leave home Attestation: My signature below is to certify that this patient is under my care and that I, or nurse practitioner, or a physician's education administrative assistant working with me, has a face-to -face encounter with this patient.
[2017-10-28] MEDS ORDERED: Levofloxacin 750 MG/150 ML 750 MG/150 ML BAG IVPB SCH (18:00)
--- NOTE | 2017-10-29 17:10 | Electrocardiograph Report ---
[place] [id number] Test Date: 2017-10-26 Pat Name: Lina Montenegro Department: 103 Room: [facility] Gender: F Highway Maintainer: MSC : [id number] Requested By: Jeffrey Ramos Order Number: [id number] Reading MD: Kristal Fernandez Measurements Intervals [place] Rate: 97 P: 73 [place]: 108 QRS: 67 QRSD: 90 T: 69 QT: 317 QTc: 372 Interpretive Statements SINUS RHYTHM WITH SHORT [place] INTERVAL Electronically Signed On 10-29-2017 17:08:47 EDT by Kristal Fernandez
--- NOTE | 2017-10-29 17:11 | Electrocardiograph Report ---
[place] [id number] Test Date: 2017-10-26 Pat Name: Lina Montenegro Department: 103 Room: 2N1 Gender: F Director Property: MSC : 1945 Requested By: Louis Mayfield Order Number: [id number] Reading MD: Kristal Fernandez Measurements Intervals [place] Rate: 102 P: 76 NV: 137 QRS: 69 QRSD: 94 T: 71 QT: 310 QTc: 369 Interpretive Statements SINUS TACHYCARDIA ABNORMAL RHYTHM ECG Electronically Signed On 10-29-2017 17:10:16 EDT by Kristal Fernandez
== END 2017-10-28 16:28 | DRG 193 ==
LOC: EMEROO 15:45 → 2NENU 15:45
PROVIDERS: ADMIT Internal Medicine Cardiovascular Disease; ATTEND Internal Medicine Cardiovascular Disease

== ENCOUNTER 2018-05-09 21:50 | Inpatient (IN) ==
[2018-05-09] MEDS ORDERED: Ipratropium/Albuterol Neb 3 ML IH ONE (22:09)
[2018-05-09] MEDS ORDERED: methylPREDNISolone 125 MG/2 ML VIAL IVP ONE (22:09)
--- NOTE | 2018-05-09 22:09 | Emergency Department Note ---
Disposition Clinical Impression: COPD exacerbation, Hypoxia Acute and chronic respiratory failure Qualifiers: Respiratory failure complication: hypoxia and hypercapnia Qualified Code(s): J96.21 - Acute and chronic respiratory failure with hypoxia Disposition: Admitted As Inpatient Condition: Serious Time of Disposition: 00:51 SOB HPI - General Chief Complaint: ED Shortness of Breath/Dyspnea Stated Complaint: Aaron Time Seen by Provider: 05/09/18 22:03 Source: EMS Mode of arrival: EMS Limitations: altered mental status Nursing Notes Reviewed: Yes Vital Signs Reviewed: Yes - History of Present Illness 73-year-old female reported history of COPD on 2L home oxygen supplementation presenting to the emergency department via EMS for hypoxia, difficulty breathing and altered mental status. History was obtained through the EMS report. They report an EMS call earlier today for the patient's difficulty breathing when they evaluated the patient they exchanged the oxygen tubing and the patient's oxygen saturation went up as well as her mental status. Patient also did not want to be transferred for evaluation. Earlier this evening similar episode with daughter they attempted to increase her oxygen without any significant improvement. Squad was called and her oxygen was increased at 4 L nasal cannula and she was 89% when patient was being transport via squad she had the saturated to 70% and was then supplemented on non-rebreather. Currently the patient is 100% on non-rebreather. She opens her eyes to voice and follow some commands. On auscultation she has bilateral crackles with tightness in wheezing concerning for COPD versus pneumonia. Will attempt BiPAP at this time and consider intubation. Suspect this is a component of CO2 retention. Pt Subjective Complaint: shortness of breath - Related Data Home Medications Medication Instructions Recorded Confirmed Alendronate Sodium 70 mg PO FR 10/26/17 05/09/18 Amlodipine Besylate 10 mg PO DAILY 10/26/17 05/09/18 Aspirin 81 mg PO DAILY 10/26/17 05/09/18 Ergocalciferol (VITAMIN D2) 50,000 unit PO QWEEK 10/26/17 05/09/18 [Vitamin D2] Lisinopril [Zestril] 40 mg PO DAILY 10/26/17 05/09/18 Tiotropium [Spiriva] 1 puff IH DAILY 10/26/17 05/09/18 Previous Rx's Medication Instructions Recorded Furosemide [Lasix] 20 mg PO DAILY #30 tablet 10/28/17 Allergies Allergy/AdvReac Type Severity Reaction Status Date / Time No Known Allergies Allergy Verified 04/30/15 15:13 Limitations: ROS unobtainable due to patients medical condition Past Medical History - Past Medical History Source: old records reviewed Medical history: Reports: COPD, coronary artery disease, hyperlipidemia, hypertension, osteoporosis, other Psychiatric history: Reports: no psych history - Social History Smoking Status: Current every day smoker Smokeless Tobacco Status: No Alcohol use: Reports: none Drug use: Reports: none Physical Exam - General Limitations: altered mental status General appearance: obtunded, other (Patient is somnolent but opens eyes to voice) - Head Head exam: atraumatic, normocephalic, normal inspection - Eye Eye exam: Present: normal appearance, PERRL, EOMI. Absent: nystagmus - ENT ENT exam: normal exam, normal oropharynx, mucous membranes moist, other (Dentures) - Neck Neck exam: Present: normal inspection, full ROM, trachea midline - Chest Chest inspection: Present: normal inspection, symmetric chest wall rise. Absent: tenderness - Respiratory Respiratory exam: Present: wheezes, prolonged expiratory phase, other (Tight aeration with crackles and wheezing) - Expanded Respiratory Exam Location: wheezes: Right, Left, rales: Left, Right, decreased breath sounds: Left, Right - Cardiovascular Cardiovascular exam: Present: regular rate, normal rhythm, normal heart sounds. Absent: systolic murmur, diastolic murmur - Expanded Cardiovascular Exam Peripheral pulses: 2+: radial (R), radial (L) - Abdominal Exam Abdominal exam: Present: soft, Non-Tender, distention. Absent: tenderness, guarding, rebound, rigidity - Extremities Exam Extremities exam: Present: normal inspection, full ROM, normal capillary refill. Absent: tenderness, pedal edema - Expanded Neurological Exam Coma Scale Eye Opening: To Voice Coma Scale Motor Response: Localizes to Pain Coma Scale Verbal Response: None Coma Scale Total: 9 - Skin Skin exam: Present: warm, dry, intact, normal color. Absent: rash, cyanosis Course Course Narrative: Patient presents somnolent and in some respiratory distress. She opens her eyes to voice and withdrawals the pain. She is unable to follow simple commands at this time. Her oxygen saturation is 100% on the non-rebreather. We had brought it down to 4 L nasal cannula and she remains 100%. Her lungs sounds are tight with some diffuse wheezing and crackles. Concern for CO2 retention caused by COPD exacerbation. At this time will attempt BiPAP but may consider immediate intubation if not improving significantly. She has not been admitted recently. - Reevaluation(s) Reevaluation #1: Her daughter is now at bedside to assist with the history. States some confusio n today and somnolent. Similar episode earlier this year due to pneumonia. Recently saw her hammer operator Dr. Oliveira who reports she has severe COPD. No reported recent illness or fever. Her initial GBG shows a CO2 retention with acidosis of 7.18. Her bicarb is greater than 40 which makes is appear more acute on chronic hypercapnia. Clinically she is improving as she is following some commands but denies quickly as we had hoped. We have discussed code status with the daughter who wishes to await her brother the patient's son to determine further code status. Her chest x-ray does not reveal pneumonia. CT of the head did not reveal any abnormality. Patient has been administered trip le DuoNeb treatment and steroid. Time: 23:26 Reevaluation #2: Clinically the patient is improving to where she opens her eyes to voice which she was doing before but is now following simple commands such as squeezing my fingers and giving me a thumbs up. Her blood gas however shows the opposite. She has been on the BiPAP for almost an hour and her CO2 level on the arterial blood gases 130 with a pH of 7.18. At this time anticipate intubation after discussing with the family which states they patient did not discuss intubation or CPR however at this time would be agreeable to endotracheal intubation. Time: 23:52 Reevaluation #3: Agent was successively intubated. She is synchronized with the ventilator. The ET tube appears within appropriate position. Patient will be started on jak thromycin and ceftriaxone and admitted to the intensive care unit. - Consultations Consultation #1: Spoke with on-call hospitalist tyron Barrow to admit for hypoxia, CO2 retention, COPD exacerbation, respiratory failure. Patient will be admitted to the intensive care unit. No further orders at this time Time: 00:50 Vital Signs Temperature 98.1 F 05/09/18 21:53 Pulse Rate 95 05/09/18 21:53 Respiratory Rate 24 05/09/18 21:53 Blood Pressure 141/59 05/09/18 21:53 O2 Sat by Pulse Oximetry 99 05/09/18 21:53 Temperature 98.1 F 05/09/18 21:53 Pulse Rate 129 05/10/18 00:42 Respiratory Rate 16 05/10/18 01:00 Blood Pressure 170/96 05/10/18 01:00 O2 Sat by Pulse Oximetry 100 05/10/18 00:42 Oxygen Delivery Oxygen Delivery Ventilator Procedures - Intubation Time out performed: Yes sedative: Etomidate Mg Given: 20 paralytic: Rocuronium Mg Given: 70 Laryngoscope: Yen ET Tube Size: 7.5 ET Tube Uncuffed: No Tube Secured Depth (cm): 22 Tube Secured Location: lips Tube Placement Confirmation: visualized tube passing through cords, equal breath sounds bilaterally, no breath sounds over epigastrium, confirmation by capnometry Patient Tolerated Procedure: well, no complications Intubation Complications: none Shortness of Breath/Dyspnea - MDM Narrative Medical decision making narrative: Patient was discussed with my attending physician who agrees with ED management and final disposition. They independently evaluated the patient. Please refer to their attestation to this encounter for additional information. This note was generated by [employer] voice recognition software and as a result grammatical or spelling errors may occur using this program. - Medical Records Medical records reviewed: Yes I reviewed the patient's medical records. - Lab Data Lab results reviewed: Yes I reviewed the patient's lab results. Result diagrams: 05/09/18 22:10 05/09/18 22:10 Lab Results 05/09/18 05/09/18 05/09/18 Range/Units 22:10 22:10 22:56 WBC 11.2 H (4.3-11.1) K/mcL RBC 4.53 (3.82-4.97) M/mcL Hgb 12.4 (11.5-15.4) g/dL Hct 42.8 (35.3-44.9) % MCV 94.5 (83.0-100.0) fL MCH 27.4 L (28.0-33.3) pg MCHC 29.0 L (31.6-35.5) g/dL RDW 14.8 H (11.5-14.5) % Plt Count 182 (140-400) K/mcL MPV 10.4 (9.4-12.4) fL Immature Gran % 0.4 (0-4) % Seg Neutrophils % 90.6 % Lymphocytes % 3.8 % Monocytes % 4.9 % Eosinophils % 0.0 % Basophils % 0.3 % Neutrophils # 10.2 H (1.6-8.9) K/mcL Lymphocytes # 0.4 L (0.6-4.6) K/mcL Monocytes # 0.6 (0.0-1.3) K/mcL Eosinophils # 0.0 (0.0-0.6) K/mcL Basophils # 0.0 (0.0-0.2) K/mcL Platelet Estimate Normal (Normal) Hypochromasia Present A (Not Present) Sample Site ABG pH (7.32-7.45) pH Units ABG pCO2 (35-45) mmHg ABG pO2 (85-104) mmHg ABG HCO3 (21-27) mEq/L ABG Total CO2 (20-26) mEq/L ABG O2 Saturation (95-98) % ABG Base Excess (-2 to 3) mEq/L Brendon Test VBG pH (7.32-7.42) pH Units VBG pCO2 (41-51) mmHg VBG pO2 (25-50) mmHg VBG HCO3 (21-27) mEq/L O2 Delivery Device Blood Gas Modality Inspired O2 (1-15=lpm [id number]=%) PEEP cm H2O Sodium 142 (136-145) mEq/L Potassium 4.7 (3.5-5.1) mEq/L Chloride 100 (98-107) mEq/L Carbon Dioxide 38 H (23-29) mEq/L BUN 34 H (8-23) mg/dL Creatinine 1.08 (0.60-1.20) mg/dL Est GFR ( Amer) 60 (> 60) Est GFR (Non-Af Amer) 49 L (> 60) BUN/Creatinine Ratio 31 H (6-26) Glucose 197 H (70-105) mg/dL Calculated Osmolality 307 H (280-300) Lactic Acid 0.6 (0.5-2.2) mmol/L Calcium 9.2 (8.6-10.3) mg/dL Troponin I < 0.03 (< 0.04) ng/mL B-Natriuretic Peptide (Less than 100) pg/mL Urine Color (Yellow) Urine Clarity (Clear) Urine pH (5.0-8.0) pH Units Ur Specific Merrill (1.010-1.025) Urine Protein (Neg-Trace) mg/dL Urine Glucose (UA) (Normal) mg/dL Urine Ketones (Negative) mg/dL Urine Blood (Negative) Urine Nitrite (Negative) Urine Bilirubin (Negative) Urine Urobilinogen (Normal) mg/dL Ur Leukocyte Esterase (Negative) Urine Microscopic RBC (0-3) per hpf Urine Microscopic WBC (0-3) per hpf Ur Squamous Epith Cells (None-Few) per lpf Urine Bacteria (None-Few) per hpf Hyaline Casts (None-Few) per lpf Ur Culture Indicated? (NO) Person Notif of Crit 05/09/18 05/09/18 05/09/18 Range/Units 22:56 23:02 23:28 WBC (4.3-11.1) K/mcL RBC (3.82-4.97) M/mcL Hgb (11.5-15.4) g/dL Hct (35.3-44.9) % MCV (83.0-100.0) fL MCH (28.0-33.3) pg MCHC (31.6-35.5) g/dL RDW (11.5-14.5) % Plt Count (140-400) K/mcL MPV (9.4-12.4) fL Immature Gran % (0-4) % Seg Neutrophils % % Lymphocytes % % Monocytes % % Eosinophils % % Basophils % % Neutrophils # (1.6-8.9) K/mcL Lymphocytes # (0.6-4.6) K/mcL Monocytes # (0.0-1.3) K/mcL Eosinophils # (0.0-0.6) K/mcL Basophils # (0.0-0.2) K/mcL Platelet Estimate (Normal) Hypochromasia (Not Present) Sample Site L Radial ABG pH 7.12 L* (7.32-7.45) pH Units ABG pCO2 131 H* (35-45) mmHg ABG pO2 66 L (85-104) mmHg ABG HCO3 42 H (21-27) mEq/L ABG Total CO2 46 H (20-26) mEq/L ABG O2 Saturation 81 L (95-98) % ABG Base Excess 7 H (-2 to 3) mEq/L Brendon Test N/A VBG pH 7.18 L* (7.32-7.42) pH Units VBG pCO2 109 H* (41-51) mmHg VBG pO2 55 H (25-50) mmHg VBG HCO3 41 H (21-27) mEq/L O2 Delivery Device BiPAP Blood Gas Modality BiLevel Inspired O2 40.0 (1-15=lpm [id number]=%) PEEP 7 cm H2O Sodium (136-145) mEq/L Potassium (3.5-5.1) mEq/L Chloride (98-107) mEq/L Carbon Dioxide (23-29) mEq/L BUN (8-23) mg/dL Creatinine (0.60-1.20) mg/dL Est GFR ( Amer) (> 60) Est GFR (Non-Af Amer) (> 60) BUN/Creatinine Ratio (6-26) Glucose (70-105) mg/dL Calculated Osmolality (280-300) Lactic Acid (0.5-2.2) mmol/L Calcium (8.6-10.3) mg/dL Troponin I (< 0.04) ng/mL B-Natriuretic Peptide 75 (Less than 100) pg/mL Urine Color (Yellow) Urine Clarity (Clear) Urine pH (5.0-8.0) pH Units Ur Specific Merrill (1.010-1.025) Urine Protein (Neg-Trace) mg/dL Urine Glucose (UA) (Normal) mg/dL Urine Ketones (Negative) mg/dL Urine Blood (Negative) Urine Nitrite (Negative) Urine Bilirubin (Negative) Urine Urobilinogen (Normal) mg/dL Ur Leukocyte Esterase (Negative) Urine Microscopic RBC (0-3) per hpf Urine Microscopic WBC (0-3) per hpf Ur Squamous Epith Cells (None-Few) per lpf Urine Bacteria (None-Few) per hpf Hyaline Casts (None-Few) per lpf Ur Culture Indicated? (NO) Person Notif of Crit 05/10/18 Range/Units 00:20 WBC (4.3-11.1) K/mcL RBC (3.82-4.97) M/mcL Hgb (11.5-15.4) g/dL Hct (35.3-44.9) % MCV (83.0-100.0) fL MCH (28.0-33.3) pg MCHC (31.6-35.5) g/dL RDW (11.5-14.5) % Plt Count (140-400) K/mcL MPV (9.4-12.4) fL Immature Gran % (0-4) % Seg Neutrophils % % Lymphocytes % % Monocytes % % Eosinophils % % Basophils % % Neutrophils # (1.6-8.9) K/mcL Lymphocytes # (0.6-4.6) K/mcL Monocytes # (0.0-1.3) K/mcL Eosinophils # (0.0-0.6) K/mcL Basophils # (0.0-0.2) K/mcL Platelet Estimate (Normal) Hypochromasia (Not Present) Sample Site ABG pH (7.32-7.45) pH Units ABG pCO2 (35-45) mmHg ABG pO2 (85-104) mmHg ABG HCO3 (21-27) mEq/L ABG Total CO2 (20-26) mEq/L ABG O2 Saturation (95-98) % ABG Base Excess (-2 to 3) mEq/L Brendon Test VBG pH (7.32-7.42) pH Units VBG pCO2 (41-51) mmHg VBG pO2 (25-50) mmHg VBG HCO3 (21-27) mEq/L O2 Delivery Device Blood Gas Modality Inspired O2 (1-15=lpm [id number]=%) PEEP cm H2O Sodium (136-145) mEq/L Potassium (3.5-5.1) mEq/L Chloride (98-107) mEq/L Carbon Dioxide (23-29) mEq/L BUN (8-23) mg/dL Creatinine (0.60-1.20) mg/dL Est GFR ( Amer) (> 60) Est GFR (Non-Af Amer) (> 60) BUN/Creatinine Ratio (6-26) Glucose (70-105) mg/dL Calculated Osmolality (280-300) Lactic Acid (0.5-2.2) mmol/L Calcium (8.6-10.3) mg/dL Troponin I (< 0.04) ng/mL B-Natriuretic Peptide (Less than 100) pg/mL Urine Color Yellow (Yellow) Urine Clarity Cloudy A (Clear) Urine pH 5.0 (5.0-8.0) pH Units Ur Specific Merrill 1.025 (1.010-1.025) Urine Protein 30 H (Neg-Trace) mg/dL Urine Glucose (UA) Normal (Normal) mg/dL Urine Ketones Negative (Negative) mg/dL Urine Blood Negative (Negative) Urine Nitrite Negative (Negative) Urine Bilirubin Negative (Negative) Urine Urobilinogen Normal (Normal) mg/dL Ur Leukocyte Esterase Negative (Negative) Urine Microscopic RBC 0-3 (0-3) per hpf Urine Microscopic WBC 0-3 (0-3) per hpf Ur Squamous Epith Cells Many H (None-Few) per lpf Urine Bacteria None Seen (None-Few) per hpf Hyaline Casts Moderate H (None-Few) per lpf Ur Culture Indicated? NO (NO) Person Notif of Crit - Radiology Data Radiology results reviewed: Yes I reviewed the patient's radiology results. Head CT 05/09/18 22:49 IMPRESSION: No acute intracranial abnormality. D/ / Nestor Meraz MD / Nestor Meraz MD Interpreting Provider: Nestro Meraz MD Chest X-Ray 05/10/18 00:16 IMPRESSION: 1. ETT tip 6 cm above the beau. 2. Otherwise, stable chest without acute cardiopulmonary abnormality. D/ / Ritika Pittman MD / Ritika Pittman MD Interpreting Provider: Ritika Pittman MD - EKG Data EKG attestation: Yes I reviewed and interpreted this EKG. EKG results narrative: EKG performed 2202 normal sinus rhythm 96 beats per minute, normal axis, good R wave progression, intervals appear within normal limits. No acute ischemic changes.
[2018-05-09 23:02] LABS: Mean Corpuscular Hemoglobin 27.4 pg (28.0-33.3)
[2018-05-09 23:04] LABS: Basophils % 0.3 %; Hematocrit 42.8 % (35.3-44.9); Hemoglobin 12.4 g/dL (11.5-15.4); Immature Granulocytes % 0.4 % (0-4); Lymphocytes # 0.4 K/mcL (0.6-4.6); Lymphocytes % 3.8 %; Mean Corpuscular Volume 94.5 fL (83.0-100.0); Mean Platelet Volume 10.4 fL (9.4-12.4); Monocytes # 0.6 K/mcL (0.0-1.3); Monocytes % 4.9 %; Platelet Count 182 K/mcL (140-400); Red Blood Count 4.53 M/mcL (3.82-4.97); Red Cell Distribution Width 14.8 % (11.5-14.5); Segmented Neutrophils % 90.6 %
[2018-05-09 23:07] LABS: Neutrophils # 10.2 K/mcL (1.6-8.9)
[2018-05-09 23:19] LABS: VBG HCO3 41 mEq/L (21-27); VBG PCO2 109 mmHg (41-51); VBG PH 7.18 pH Units (7.32-7.42); VBG PO2 55 mmHg (25-50)
[2018-05-09 23:23] LABS: BUN/Creatinine Ratio 31 (6-26); Blood Urea Nitrogen 34 mg/dL (8-23); Calcium 9.2 mg/dL (8.6-10.3); Carbon Dioxide 38 mEq/L (23-29); Chloride 100 mEq/L (98-107); Glucose 197 mg/dL (70-105); Osmolality,Calculated 307 (280-300); Potassium 4.7 mEq/L (3.5-5.1); Sodium 142 mEq/L (136-145); Troponin I < 0.03 ng/mL (< 0.04); eGFR For Non-African Americans 49 (> 60)
[2018-05-09 23:32] LABS: ABG Base Excess 7 mEq/L (-2 to 3); ABG HCO3 42 mEq/L (21-27); ABG Oxygen Saturation 81 % (95-98); ABG PCO2 131 mmHg (35-45); ABG PH 7.12 pH Units (7.32-7.45); ABG PO2 66 mmHg (85-104); ABG TCO2 46 mEq/L (20-26); Blood Gas Modality BiLevel; Blood Gas PEEP 7 cm H2O
[2018-05-09 23:37] LABS: Hypochromasia Present (Not Present)
[2018-05-09 23:38] LABS: Platelet Estimate Normal (Normal)
[2018-05-10] MEDS ORDERED: Propofol 500 MG/50 ML INFUS..BTL ONE (00:14)
[2018-05-10] MEDS ORDERED: *HR* FentaNYL (PF) 100 MCG/2 ML VIAL IVP ONE (00:21)
[2018-05-10] MEDS ORDERED: *HR* Rocuronium Bromide 50 MG/5 ML VIAL IVP ONE (00:22)
[2018-05-10] MEDS ORDERED: *HR* Etomidate 20 MG/10 ML AMPUL IVP ONE (00:22)
[2018-05-10 00:35] LABS: Bilirubin,Urine Negative (Negative); Blood,Urine Negative (Negative); Clarity,Urine Cloudy (Clear); Color,Urine Yellow (Yellow); Glucose,Urine (UA) Normal (Normal); Ketones,Urine Negative (Negative); Leukocyte Esterase,Urine Negative (Negative); Nitrite,Urine Negative (Negative); Protein,Urine 30 mg/dL (Neg-Trace); Specific Gravity,Urine 1.025 (1.010-1.025); Urobilinogen,Urine Normal (Normal)
[2018-05-10 00:36] LABS: Bacteria,Urine None Seen per hpf (None-Few); RBC,Urine 0-3 per hpf (0-3); Squamous Epithelial Cell,Urine Many per lpf (None-Few); WBC,Urine 0-3 per hpf (0-3)
[2018-05-10] MEDS ORDERED: Azithromycin 500 MG in D5% in Water 250 ML IVPB ONE (00:47)
[2018-05-10] MEDS ORDERED: cefTRIAXone 2,000 MG in Water for inj. (sterile) 20 ML 20 ML IVPB ONE (00:47)
[2018-05-10] MEDS ORDERED: Naloxone 0.4 MG/ML INJ IVP PRN (00:56)
[2018-05-10 01:00] LABS: Hyaline Casts,Urine Moderate per lpf (None-Few)
[2018-05-10] MEDS ORDERED: Artificial Tears SOLN 15 ML BOTTLE BOTH EYES PRN (01:00)
--- NOTE | 2018-05-10 01:09 | Internal Med History&Physical ---
Addendum entered and electronically signed by Flo Low MD 05/10/18 06:21: At least 30 minutes of critical care time was spent in the management of this patient. Original Note: <Bhargav Garduno - Last Filed: 05/10/18 03:29> Date of Encounter: 05/10/18 Time of Encounter: 01:52 Internal Medicine - H&P: HPI Chief complaint: shortenss of breath Admitted From: Emergency Dept Plans for Post Hospital Care: Home History of present illness: Ms. Montenegro is a 73 year old female with past medical history of COPD (wears 2L oxygen at home), hypertension, hyperlipidemia, spinal stenosis, coronary artery disease, carotid stenosis, osteoporosis, history of tobacco use, diastolic CHF. Patient presented to the emergency department earlier this evening via EMS for chief complaint of hypoxia, difficulty in breathing, altered mental status. Her oxygen saturation's were low at home on her usual 2 L of oxygen. Her oxygen was increased to 4 L without any improvement. When patient was initially evaluated by EMS she did not want transferred to the emergency department for further evaluation. Patient's oxygen saturation eventually decreased down to 70%, with altered mental status and she was brought to the emergency department by EMS. Per ED notes, on initial evaluation she would respond to voice and follow simple commands. Initial ABG in the emergency department showed pH 7.12, CO2 131, O2 66, HCO3 42. She was initially treated with BiPAP with very little improvement and continue to Desat, and then was subsequently intubated. Past Med Surg Social Fam HX - Past Medical History Medical history: COPD, coronary artery disease, hyperlipidemia, hypertension, osteoporosis, other Additional medical history: lung problems Psychiatric history: no psych history - Past Surgical History Additional surgical history: Back surgery - Social History Smoking Status: Current every day smoker Smokeless Tobacco Status: No Alcohol use: none Drug use: none - Family History Mother Hx Family Cardiac Disorders: Yes Internal Medicine - H&P: Meds Alendronate Sodium 70 mg PO FR 10/26/17 [History] Amlodipine Besylate 10 mg PO DAILY 10/26/17 [History] Aspirin 81 mg PO DAILY 10/26/17 [History] Ergocalciferol (VITAMIN D2) [Vitamin D2] 50,000 unit PO QWEEK 10/26/17 [History] Lisinopril [Zestril] 40 mg PO DAILY 10/26/17 [History] Tiotropium [Spiriva] 1 puff IH DAILY 10/26/17 [History] Furosemide [Lasix] 20 mg PO DAILY #30 tablet 10/28/17 [Rx] Allergy/AdvReac Type Severity Reaction Status Date / Time No Known Allergies Allergy Verified 04/30/15 15:13 ROS unobtainable: due to endotracheal tube, due to mental status - Constitutional Vitals: Temp Pulse Resp BP Pulse Ox 98.1 F 129 16 170/96 100 05/09/18 21:53 05/10/18 00:42 05/10/18 01:00 05/10/18 01:00 05/10/18 00:42 Exam: patient is intubated, sedated. She is laying in bed and appears comfortable. - Head Head exam: Present: atraumatic, normocephalic - Eye Eye exam: Present: PERRL. Absent: conjunctival injection, nystagmus, scleral icterus Pupils: Present: PERRL - ENT ENT exam: Present: mucous membranes dry - Neck Neck exam general surgery: Present: supple, trachea midline - Respiratory Additional comments: diffuse rales and wheezes present in all lung mojica. - Cardiovascular Cardiovascular exam: Present: RRR, +S1, +S2. Absent: bradycardia, clicks, diastolic murmur, gallop, systolic murmur - GI/Abdominal GI/Abdominal exam: Present: distended, hyperactive bowel sounds, soft. Absent: firm, guarding, splenomegaly Additional comments: soft, distended, no grimacing with abdominal palpation. Bowel sounds present. - Extremities Exam Extremities exam: Present: pedal edema (+1 bialteral lower extremity pitting edema. ), radial pulses palpable and symmetrical. Absent: cyanotic - Skin Skin exam: Present: dry, intact. Absent: cyanosis, erythema Internal Med - H&P Results - Labs CBC & Chem 7: 05/09/18 22:10 05/09/18 22:10 Labs: Short CBC 05/09/18 Range/Units 22:10 WBC 11.2 H (4.3-11.1) K/mcL Hgb 12.4 (11.5-15.4) g/dL Hct 42.8 (35.3-44.9) % Plt Count 182 (140-400) K/mcL Neutrophils # 10.2 H (1.6-8.9) K/mcL BMP 05/09/18 22:10 Sodium 142 Potassium 4.7 Chloride 100 Carbon Dioxide 38 H BUN 34 H Creatinine 1.08 Glucose 197 H Calcium 9.2 Cardiac Enzymes 05/09/18 Range/Units 22:10 Troponin I < 0.03 (< 0.04) ng/mL Urine 05/10/18 Range/Units 00:20 Urine Color Yellow (Yellow) Urine Clarity Cloudy A (Clear) Urine pH 5.0 (5.0-8.0) pH Units Ur Specific [place] 1.025 (1.010-1.025) Urine Protein 30 H (Neg-Trace) mg/dL Urine Glucose (UA) Normal (Normal) mg/dL - ABG Interpretation ABG results: 05/09/18 05/09/18 23:02 23:28 ABG pH 7.12 L* ABG pCO2 131 H* ABG pO2 66 L ABG HCO3 42 H ABG Total CO2 46 H ABG O2 Saturation 81 L ABG Base Excess 7 H VBG pH 7.18 L* VBG pCO2 109 H* VBG pO2 55 H VBG HCO3 41 H - Impressions ITS Impressions Chest X-Ray 05/09/18 22:05 IMPRESSION: No acute findings. D/ / 05/09/2018 22:46:32 Gio Montenegro MD / Frances Simon Interpreting Provider: Gio Montenegro MD Head CT 05/09/18 22:49 IMPRESSION: No acute intracranial abnormality. D/ / Nestor Meraz MD / Nestor Meraz MD Interpreting Provider: Nestor Meraz MD - Assessment and plan (1) Acute on chronic respiratory failure with hypoxia and hypercapnia Current Visit: Yes Status: Acute Assessment and plan: 73-year-old female admitted for hypoxia, difficulty in breathing, altered mental status secondary to CO2 narcosis. EMS was called by family due to decreased O2 saturation, but patient was initially reluctant to come to ER for evaluation. Etiology likely secondary to COPD exacerbation. Patient met two sirs criteria upon arriving to ER with tachycardia, tachypnea. Did not meet sepsis criteria, as WBC was borderline at 11.2, CXR showed no focal consolidation. lactic acid normal. No known source of infection at this time. in ED, ABG showed pH: 7.12, PCO2 131, PO2 66. Patient failed to improve with BiPAP and was intubated in ER. Plan: blood cultures x2, sputum culture, respiratory infectious panel, legionella, strep pneumo antigens pending scheduled DuoNe Levaquin day 1 continue mechanical ventilation with FIO2 60%, Tv: 400, RR: 16, PEEP: 5 repeat ABG and CXR with morning labs. sedation with propofol and fentanyl (2) Acute exacerbation of chronic obstructive airways disease Current Visit: No Status: Acute Assessment and plan: plan as above (3) Altered mental status Current Visit: Yes Status: Acute Assessment and plan: Emergency department, she would follow some commands and open eyes to voice. Etiology likely secondary to retained CO2 Plan as #1 above. Qualifiers: Altered mental status type: somnolence Qualified Code(s): R40.0 - Somnolence (4) Diastolic CHF Current Visit: Yes Status: Acute Assessment and plan: Last echo from 10/27/17 showed EF 70%, normal LV chamber size and function, mild diastolic dysfunction, mild aortic stenosis, no pulmonary hypertension Plan: hold lasix for now, reassess volume status and diurese as needed. Qualifiers: Heart failure chronicity: chronic Qualified Code(s): I50.32 - Chronic diastolic (congestive) heart failure (5) Hyperlipidemia Current Visit: Yes Status: Acute Qualifiers: Hyperlipidemia type: unspecified Qualified Code(s): E78.5 - Hyperlipidemia, unspecified (6) Coronary artery disease Current Visit: Yes Status: Acute Qualifiers: Coronary Disease-Associated Artery/Lesion type: unspecified vessel or lesion type [place] vs. transplanted heart: unspecified whether [place] or transplanted heart Associated angina: angina presence unspecified Qualified Code(s): I25.10 - Atherosclerotic heart disease of [place] coronary artery without angina pectoris (7) DVT prophylaxis Current Visit: No Status: Acute Assessment and plan: Heparin SQ protonix for GI prophylaxis - Time Spent With Patient Total time spent is greater than 50% in coordination of care (as documented) at patient's floor/unit and/or counseling patient: <Flo Low - Last Filed: 05/10/18 06:21> Date of Encounter: 05/10/18 Internal Medicine - H&P: HPI History of present illness: Ms. Montenegro is a 73 year old female All Systems PM: A 10-system review of systems was performed and is negative for pertinent findings except as documented above in the HPI. - Constitutional Vitals: Temp Pulse Resp BP Pulse Ox 98.8 F 91 16 92/59 100 05/10/18 04:00 05/10/18 06:00 05/10/18 06:00 05/10/18 06:00 05/10/18 06:00 Internal Med - H&P Results - Labs CBC & Chem 7: 05/10/18 05:21 05/10/18 05:21 Labs: Short CBC 05/09/18 05/10/18 Range/Units 22:10 05:21 WBC 11.2 H 9.3 (4.3-11.1) K/mcL Hgb 12.4 11.7 (11.5-15.4) g/dL Hct 42.8 40.2 (35.3-44.9) % Plt Count 182 169 (140-400) K/mcL Neutrophils # 10.2 H 8.7 (1.6-8.9) K/mcL BMP 05/09/18 05/10/18 22:10 05:21 Sodium 142 144 Potassium 4.7 4.2 Chloride 100 103 Carbon Dioxide 38 H 33 H BUN 34 H 39 H Creatinine 1.08 1.38 H Glucose 197 H 174 H Calcium 9.2 8.3 L Cardiac Enzymes 05/09/18 Range/Units 22:10 Troponin I < 0.03 (< 0.04) ng/mL Liver Function 05/10/18 Range/Units 05:21 Total Bilirubin 0.5 (0.3-1.0) mg/dL AST 17 (13-39) Units/L ALT 18 (7-52) Units/L Alkaline Phosphatase 72 (34-104) Units/L Albumin 3.4 L (3.5-5.7) g/dL Urine 05/10/18 Range/Units 00:20 Urine Color Yellow (Yellow) Urine Clarity Cloudy A (Clear) Urine pH 5.0 (5.0-8.0) pH Units Ur Specific [place] 1.025 (1.010-1.025) Urine Protein 30 H (Neg-Trace) mg/dL Urine Glucose (UA) Normal (Normal) mg/dL - ABG Interpretation ABG results: 05/09/18 05/09/18 05/10/18 23:02 23:28 02:11 ABG pH 7.12 L* 7.31 L D ABG pCO2 131 H* 73 H* D ABG pO2 66 L 133 H D ABG HCO3 42 H 37 H ABG Total CO2 46 H 39 H ABG O2 Saturation 81 L 99 H ABG Base Excess 7 H 7 H VBG pH 7.18 L* VBG pCO2 109 H* VBG pO2 55 H VBG HCO3 41 H 05/10/18 04:59 ABG pH 7.34 ABG pCO2 64 H ABG pO2 63 L D ABG HCO3 35 H ABG Total CO2 37 H ABG O2 Saturation 89 L ABG Base Excess 7 H VBG pH VBG pCO2 VBG pO2 VBG HCO3 - Impressions ITS Impressions Chest X-Ray 05/09/18 22:05 IMPRESSION: No acute findings. D/ / 05/09/2018 22:46:32 Gio Montenegro MD / Frances Simon Interpreting Provider: Gio Montenegro MD Head CT 05/09/18 22:49 IMPRESSION: No acute intracranial abnormality. D/ / Nestor Meraz MD / Nestor Meraz MD Interpreting Provider: Nestor Meraz MD Chest X-Ray 05/10/18 00:16 IMPRESSION: 1. ETT tip 6 cm above the beau. 2. Otherwise, stable chest without acute cardiopulmonary abnormality. D/ / Ritika Pittman MD / Ritika Pittman MD Interpreting Provider: Ritika Pittman MD - Time Spent With Patient Total time spent is greater than 50% in coordination of care (as documented) at patient's floor/unit and/or counseling patient: - Attending Attestation I performed a history and physical examination of the patient and discussed her management with the resident. I reviewed the resident's note and agree with the documented findings and plan of care. Patient admitted for COPD exacerbation.; currently intubated with improving repeat ABGs.
--- NOTE | 2018-05-10 01:58 | Emergency Department Note ---
Disposition Clinical Impression: COPD exacerbation, Hypoxia Acute and chronic respiratory failure Qualifiers: Respiratory failure complication: hypoxia and hypercapnia Qualified Code(s): J96.21 - Acute and chronic respiratory failure with hypoxia Disposition: Admitted As Inpatient Condition: Serious General Adult HPI - General Chief complaint: ED Shortness of Breath/Dyspnea Stated complaint: Aaron/AMS Time Seen by Provider: 05/09/18 22:03 Source: EMS Mode of arrival: EMS Limitations: altered mental status Nursing Notes Reviewed: Yes Vital Signs Reviewed: Yes - History of Present Illness Pain Scale: 0 - Related Data Home Medications Medication Instructions Recorded Confirmed Alendronate Sodium 70 mg PO FR 10/26/17 05/09/18 Amlodipine Besylate 10 mg PO DAILY 10/26/17 05/09/18 Aspirin 81 mg PO DAILY 10/26/17 05/09/18 Ergocalciferol (VITAMIN D2) 50,000 unit PO QWEEK 10/26/17 05/09/18 [Vitamin D2] Lisinopril [Zestril] 40 mg PO DAILY 10/26/17 05/09/18 Tiotropium [Spiriva] 1 puff IH DAILY 10/26/17 05/09/18 Previous Rx's Medication Instructions Recorded Furosemide [Lasix] 20 mg PO DAILY #30 tablet 10/28/17 Allergies Allergy/AdvReac Type Severity Reaction Status Date / Time No Known Allergies Allergy Verified 04/30/15 15:13 Past Medical History - Past Medical History Medical history: Reports: COPD, coronary artery disease, hyperlipidemia, hypertension, osteoporosis, other Psychiatric history: Reports: no psych history - Social History Smoking Status: Current every day smoker Smokeless Tobacco Status: No Alcohol use: Reports: none Drug use: Reports: none Physical Exam - General Limitations: altered mental status General appearance: obtunded, other (Patient is somnolent but opens eyes to voice) Course Vital Signs Temperature 98.1 F 05/09/18 21:53 Pulse Rate 95 05/09/18 21:53 Respiratory Rate 24 05/09/18 21:53 Blood Pressure 141/59 05/09/18 21:53 O2 Sat by Pulse Oximetry 99 05/09/18 21:53 Temperature 97.9 F 05/10/18 01:26 Pulse Rate 98 05/10/18 01:45 Respiratory Rate 16 05/10/18 01:31 Blood Pressure 99/66 05/10/18 01:31 O2 Sat by Pulse Oximetry 100 05/10/18 01:31 Oxygen Delivery Oxygen Delivery Ventilator Medical Decision Making - Medical Records Medical records reviewed: Yes I reviewed the patient's medical records. - Lab Data Lab results reviewed: Yes I reviewed the patient's lab results. Result diagrams: 05/09/18 22:10 05/09/18 22:10 Lab Results 05/09/18 05/09/18 05/09/18 Range/Units 22:10 22:10 22:56 WBC 11.2 H (4.3-11.1) K/mcL RBC 4.53 (3.82-4.97) M/mcL Hgb 12.4 (11.5-15.4) g/dL Hct 42.8 (35.3-44.9) % MCV 94.5 (83.0-100.0) fL MCH 27.4 L (28.0-33.3) pg MCHC 29.0 L (31.6-35.5) g/dL RDW 14.8 H (11.5-14.5) % Plt Count 182 (140-400) K/mcL MPV 10.4 (9.4-12.4) fL Immature Gran % 0.4 (0-4) % Seg Neutrophils % 90.6 % Lymphocytes % 3.8 % Monocytes % 4.9 % Eosinophils % 0.0 % Basophils % 0.3 % Neutrophils # 10.2 H (1.6-8.9) K/mcL Lymphocytes # 0.4 L (0.6-4.6) K/mcL Monocytes # 0.6 (0.0-1.3) K/mcL Eosinophils # 0.0 (0.0-0.6) K/mcL Basophils # 0.0 (0.0-0.2) K/mcL Platelet Estimate Normal (Normal) Hypochromasia Present A (Not Present) Sample Site ABG pH (7.32-7.45) pH Units ABG pCO2 (35-45) mmHg ABG pO2 (85-104) mmHg ABG HCO3 (21-27) mEq/L ABG Total CO2 (20-26) mEq/L ABG O2 Saturation (95-98) % ABG Base Excess (-2 to 3) mEq/L Brendon Test VBG pH (7.32-7.42) pH Units VBG pCO2 (41-51) mmHg VBG pO2 (25-50) mmHg VBG HCO3 (21-27) mEq/L O2 Delivery Device Blood Gas Modality Inspired O2 (1-15=lpm [id number]=%) PEEP cm H2O Sodium 142 (136-145) mEq/L Potassium 4.7 (3.5-5.1) mEq/L Chloride 100 (98-107) mEq/L Carbon Dioxide 38 H (23-29) mEq/L BUN 34 H (8-23) mg/dL Creatinine 1.08 (0.60-1.20) mg/dL Est GFR ( Amer) 60 (> 60) Est GFR (Non-Af Amer) 49 L (> 60) BUN/Creatinine Ratio 31 H (6-26) Glucose 197 H (70-105) mg/dL Calculated Osmolality 307 H (280-300) Lactic Acid 0.6 (0.5-2.2) mmol/L Calcium 9.2 (8.6-10.3) mg/dL Troponin I < 0.03 (< 0.04) ng/mL B-Natriuretic Peptide (Less than 100) pg/mL Urine Color (Yellow) Urine Clarity (Clear) Urine pH (5.0-8.0) pH Units Ur Specific [place] (1.010-1.025) Urine Protein (Neg-Trace) mg/dL Urine Glucose (UA) (Normal) mg/dL Urine Ketones (Negative) mg/dL Urine Blood (Negative) Urine Nitrite (Negative) Urine Bilirubin (Negative) Urine Urobilinogen (Normal) mg/dL Ur Leukocyte Esterase (Negative) Urine Microscopic RBC (0-3) per hpf Urine Microscopic WBC (0-3) per hpf Ur Squamous Epith Cells (None-Few) per lpf Urine Bacteria (None-Few) per hpf Hyaline Casts (None-Few) per lpf Ur Culture Indicated? (NO) Person Notif of Crit 05/09/18 05/09/18 05/09/18 Range/Units 22:56 23:02 23:28 WBC (4.3-11.1) K/mcL RBC (3.82-4.97) M/mcL Hgb (11.5-15.4) g/dL Hct (35.3-44.9) % MCV (83.0-100.0) fL MCH (28.0-33.3) pg MCHC (31.6-35.5) g/dL RDW (11.5-14.5) % Plt Count (140-400) K/mcL MPV (9.4-12.4) fL Immature Gran % (0-4) % Seg Neutrophils % % Lymphocytes % % Monocytes % % Eosinophils % % Basophils % % Neutrophils # (1.6-8.9) K/mcL Lymphocytes # (0.6-4.6) K/mcL Monocytes # (0.0-1.3) K/mcL Eosinophils # (0.0-0.6) K/mcL Basophils # (0.0-0.2) K/mcL Platelet Estimate (Normal) Hypochromasia (Not Present) Sample Site L Radial ABG pH 7.12 L* (7.32-7.45) pH Units ABG pCO2 131 H* (35-45) mmHg ABG pO2 66 L (85-104) mmHg ABG HCO3 42 H (21-27) mEq/L ABG Total CO2 46 H (20-26) mEq/L ABG O2 Saturation 81 L (95-98) % ABG Base Excess 7 H (-2 to 3) mEq/L Brendon Test N/A VBG pH 7.18 L* (7.32-7.42) pH Units VBG pCO2 109 H* (41-51) mmHg VBG pO2 55 H (25-50) mmHg VBG HCO3 41 H (21-27) mEq/L O2 Delivery Device BiPAP Blood Gas Modality BiLevel Inspired O2 40.0 (1-15=lpm [id number]=%) PEEP 7 cm H2O Sodium (136-145) mEq/L Potassium (3.5-5.1) mEq/L Chloride (98-107) mEq/L Carbon Dioxide (23-29) mEq/L BUN (8-23) mg/dL Creatinine (0.60-1.20) mg/dL Est GFR ( Amer) (> 60) Est GFR (Non-Af Amer) (> 60) BUN/Creatinine Ratio (6-26) Glucose (70-105) mg/dL Calculated Osmolality (280-300) Lactic Acid (0.5-2.2) mmol/L Calcium (8.6-10.3) mg/dL Troponin I (< 0.04) ng/mL B-Natriuretic Peptide 75 (Less than 100) pg/mL Urine Color (Yellow) Urine Clarity (Clear) Urine pH (5.0-8.0) pH Units Ur Specific [place] (1.010-1.025) Urine Protein (Neg-Trace) mg/dL Urine Glucose (UA) (Normal) mg/dL Urine Ketones (Negative) mg/dL Urine Blood (Negative) Urine Nitrite (Negative) Urine Bilirubin (Negative) Urine Urobilinogen (Normal) mg/dL Ur Leukocyte Esterase (Negative) Urine Microscopic RBC (0-3) per hpf Urine Microscopic WBC (0-3) per hpf Ur Squamous Epith Cells (None-Few) per lpf Urine Bacteria (None-Few) per hpf Hyaline Casts (None-Few) per lpf Ur Culture Indicated? (NO) Person Notif of Crit SHARIF DAY 05/10/18 Range/Units 00:20 WBC (4.3-11.1) K/mcL RBC (3.82-4.97) M/mcL Hgb (11.5-15.4) g/dL Hct (35.3-44.9) % MCV (83.0-100.0) fL MCH (28.0-33.3) pg MCHC (31.6-35.5) g/dL RDW (11.5-14.5) % Plt Count (140-400) K/mcL MPV (9.4-12.4) fL Immature Gran % (0-4) % Seg Neutrophils % % Lymphocytes % % Monocytes % % Eosinophils % % Basophils % % Neutrophils # (1.6-8.9) K/mcL Lymphocytes # (0.6-4.6) K/mcL Monocytes # (0.0-1.3) K/mcL Eosinophils # (0.0-0.6) K/mcL Basophils # (0.0-0.2) K/mcL Platelet Estimate (Normal) Hypochromasia (Not Present) Sample Site ABG pH (7.32-7.45) pH Units ABG pCO2 (35-45) mmHg ABG pO2 (85-104) mmHg ABG HCO3 (21-27) mEq/L ABG Total CO2 (20-26) mEq/L ABG O2 Saturation (95-98) % ABG Base Excess (-2 to 3) mEq/L Brendon Test VBG pH (7.32-7.42) pH Units VBG pCO2 (41-51) mmHg VBG pO2 (25-50) mmHg VBG HCO3 (21-27) mEq/L O2 Delivery Device Blood Gas Modality Inspired O2 (1-15=lpm [id number]=%) PEEP cm H2O Sodium (136-145) mEq/L Potassium (3.5-5.1) mEq/L Chloride (98-107) mEq/L Carbon Dioxide (23-29) mEq/L BUN (8-23) mg/dL Creatinine (0.60-1.20) mg/dL Est GFR ( Amer) (> 60) Est GFR (Non-Af Amer) (> 60) BUN/Creatinine Ratio (6-26) Glucose (70-105) mg/dL Calculated Osmolality (280-300) Lactic Acid (0.5-2.2) mmol/L Calcium (8.6-10.3) mg/dL Troponin I (< 0.04) ng/mL B-Natriuretic Peptide (Less than 100) pg/mL Urine Color Yellow (Yellow) Urine Clarity Cloudy A (Clear) Urine pH 5.0 (5.0-8.0) pH Units Ur Specific [place] 1.025 (1.010-1.025) Urine Protein 30 H (Neg-Trace) mg/dL Urine Glucose (UA) Normal (Normal) mg/dL Urine Ketones Negative (Negative) mg/dL Urine Blood Negative (Negative) Urine Nitrite Negative (Negative) Urine Bilirubin Negative (Negative) Urine Urobilinogen Normal (Normal) mg/dL Ur Leukocyte Esterase Negative (Negative) Urine Microscopic RBC 0-3 (0-3) per hpf Urine Microscopic WBC 0-3 (0-3) per hpf Ur Squamous Epith Cells Many H (None-Few) per lpf Urine Bacteria None Seen (None-Few) per hpf Hyaline Casts Moderate H (None-Few) per lpf Ur Culture Indicated? NO (NO) Person Notif of Crit - Radiology Data Radiology results reviewed: Yes I reviewed the patient's radiology results. Head CT 05/09/18 22:49 IMPRESSION: No acute intracranial abnormality. D/ / Nestor Meraz MD / Nestor Meraz MD Interpreting Provider: Nestor Meraz MD Chest X-Ray 05/10/18 00:16 IMPRESSION: 1. ETT tip 6 cm above the beau. 2. Otherwise, stable chest without acute cardiopulmonary abnormality. D/ / Ritika Pittman MD / Ritika Pittman MD Interpreting Provider: Ritika Pittman MD - EKG Data EKG #1 EKG attestation: Yes I reviewed and interpreted this EKG. EKG results narrative: EKG shows a normal sinus rhythm with ventricular rate of 96. No acute ST segment elevation or depression. No arrhythmia or ectopy. Critical Care Time Critical Care Time: Yes Total Critical Care Time: 60 Attestation: Critical care performed: Time is exclusive of separately billable procedures. Time includes: direct patient care, patient reassessment, coordination of patient care, interpretation of data (laboratory data, radiology data, and respiratory data), review of patient's medical records, medical consultation and documentation of patient care. Procedures included in critical care time: Procedures excluded from critical care time: Endotracheal intubation Attestation Statement - Attestation Attestation: I, Ryan Brown MD, personally evaluated this patient and discussed their management with the resident physician. I reviewed the resident's note and agree with the documented findings, medical decision making, and plan of care. 73-year-old female with history of COPD on home oxygen at 2-3 L/m by nasal cannula presents to the emergency department with difficulty breathing, hypoxia, and altered mental status. History obtained from EMS and family. Patient unable to provide any significant history or review of systems. EMS reports they were called to the house earlier today for altered mental status. They report they placed her on a shorter oxygen tubing and her oxygen saturations improved and she became more alert and refused to come to the hospital at that time. Again this evening they were called for decreased mental status and hypoxia. They report that she was on oxygen at 4 L by nasal cannula when they arrived and her O2 sat was 89. Her in the ambulance her oxygen saturation dropped into the 70s so they placed her on a nonrebreather. Her oxygen saturation improved to the mid and upper 90s on the nonrebreather however she has not showed any improvement in her mental status. On arrival here she does respond to verbal stimuli but is unable to answer questions or follow commands. No obvious gross focal deficits noted. Family arrived later and reported that she may have been more confused than usual yesterday. She is normally alert and oriented and actually lives alone and cares for herself but family keeps a close check on her. On examination patient is a well-developed well-nourished elderly female. She is drowsy and somnolent but responds to verbal stimuli. She is unable to answer questions or follow commands. There is no cyanosis or diaphoresis. Breath sounds are markedly decreased bilaterally with some coarse rhonchi bilaterally and some faint expiratory wheezes bilaterally. Heart regular rate and rhythm. Abdomen soft with normal bowel sounds. No obvious tenderness. No significant tympany or distention. No gross focal neurological deficits. Patient moves all 4 extremities. Labs reviewed. Patient is acidotic and hypercapnic. He was placed on BiPAP and seemed to improve clinically and was able to answer some questions and follow commands however on repeat labs her condition seems to be worsening. Her pH dropped from 7.18-7.12 and her PCO2 increased from 109-131. At this point the decision was made to go ahead and intubate patient. After discussion with family and patient they were agreeable to this. Patient was intubated orally on first attempt by Dr. Ramos under my direct supervision. She received etomidate IV for the intubation. After intubated patient received rocuronium IV and was placed on propofol and fentanyl for sedation. The hospitalist, Dr. Saavedra, was consulted and accepted admission of the patient to ICU.
[2018-05-10] MEDS ORDERED: Levofloxacin 750 MG/150 ML 750 MG/150 ML BAG IVPB SCH (02:00)
[2018-05-10] MEDS: Nystatin OINT 15 GM TUBE TP SCH ×5 (02:02→20:32)
[2018-05-10] MEDS: FentaNYL (PF) 1,000 MCG in 0.9 % Sodium Chloride 80 ML IVC SCH ×4 (02:03→23:54)
[2018-05-10 02:19] LABS: ABG Base Excess 7 mEq/L (-2 to 3); ABG HCO3 37 mEq/L (21-27); ABG Oxygen Saturation 99 % (95-98); ABG PCO2 73 mmHg (35-45); ABG PH 7.31 pH Units (7.32-7.45); ABG PO2 133 mmHg (85-104); ABG TCO2 39 mEq/L (20-26); Blood Gas Modality PRVC; Blood Gas PEEP 5 cm H2O; Blood Gas Respiration Rate 16; Blood Gas VT 400 cc
[2018-05-10] MEDS: Dexmedetomidine HCl 400 MCG/100 ML MLS IVC SCH ×5 (03:41→23:53)
[2018-05-10] MEDS: Artificial Tears SOLN 15 ML BOTTLE BOTH EYES SCH ×6 (03:45→23:02)
[2018-05-10] MEDS: Ipratropium/Albuterol Neb 3 ML IH SCH ×6 (03:48→23:26)
[2018-05-10] MEDS ORDERED: 0.9 % Sodium Chloride 1,000 ML IVC ONE ×3 (04:04→13:38)
[2018-05-10 04:59] LABS: Adenovirus Not Detected (Not Detect); Bordetella Pertussis Not Detected (Not Detect); Chlamydophila pneumoniae Not Detected (Not Detect); Coronavirus 229E Not Detected (Not Detect); Coronavirus HKU1 Not Detected (Not Detect); Coronavirus NL63 Not Detected (Not Detect); Coronavirus OC43 Not Detected (Not Detect); Human Metapneumovirus Not Detected (Not Detect); Human Rhinovirus/Enterovirus Not Detected (Not Detect); Influenza A Subtype 2009 H1 Not Detected (Not Detect); Influenza A Untypeable Not Detected (Not Detect); Influenza B Not Detected (Not Detect); Mycoplasma pneumoniae Not Detected (Not Detect); Parainfluenza Virus 1 Not Detected (Not Detect); Parainfluenza Virus 2 Not Detected (Not Detect); Parainfluenza Virus 3 Not Detected (Not Detect); Parainfluenza Virus 4 Not Detected (Not Detect); Respiratory Syncytial Virus DETECTED (Not Detect)
[2018-05-10 05:04] LABS: ABG Base Excess 7 mEq/L (-2 to 3); ABG HCO3 35 mEq/L (21-27); ABG Oxygen Saturation 89 % (95-98); ABG PCO2 64 mmHg (35-45); ABG PH 7.34 pH Units (7.32-7.45); ABG PO2 63 mmHg (85-104); ABG TCO2 37 mEq/L (20-26); Blood Gas Modality ASSIST CONTROL; Blood Gas PEEP 5 cm H2O; Blood Gas Respiration Rate 16; Blood Gas VT 400 cc
[2018-05-10] MEDS: *HR* Heparin 5,000 UNIT/ML VIAL SQ SCH ×3 (05:16→20:32)
[2018-05-10] MEDS: Pantoprazole 40 MG VIAL IVP SCH (05:16)
[2018-05-10 05:43] LABS: Basophils % 0.1 %; Hematocrit 40.2 % (35.3-44.9); Hemoglobin 11.7 g/dL (11.5-15.4); Immature Granulocytes % 0.4 % (0-4); Lymphocytes # 0.3 K/mcL (0.6-4.6); Lymphocytes % 2.7 %; Mean Corpuscular HGB Conc 29.1 g/dL (31.6-35.5); Mean Corpuscular Hemoglobin 27.5 pg (28.0-33.3); Mean Corpuscular Volume 94.4 fL (83.0-100.0); Mean Platelet Volume 10.6 fL (9.4-12.4); Monocytes # 0.3 K/mcL (0.0-1.3); Monocytes % 2.7 %; Neutrophils # 8.7 K/mcL (1.6-8.9); Platelet Count 169 K/mcL (140-400); Red Blood Count 4.26 M/mcL (3.82-4.97); Red Cell Distribution Width 14.6 % (11.5-14.5); Segmented Neutrophils % 94.1 %
[2018-05-10 05:55] LABS: VBG Ionized Calcium 1.07 mmol/L (1.15-1.35)
[2018-05-10 06:09] LABS: Alanine Aminotransferase 18 Units/L (7-52); Albumin 3.4 g/dL (3.5-5.7); Albumin/Globulin Ratio 1.4 (1.1-2.2); Alkaline Phosphatase 72 Units/L (34-104); Aspartate Amino Transferase 17 Units/L (13-39); BUN/Creatinine Ratio 28 (6-26); Bilirubin,Total 0.5 mg/dL (0.3-1.0); Blood Urea Nitrogen 39 mg/dL (8-23); Calcium 8.3 mg/dL (8.6-10.3); Carbon Dioxide 33 mEq/L (23-29); Chloride 103 mEq/L (98-107); Globulin 2.5 g/dL (2.4-3.5); Glucose 174 mg/dL (70-105); Magnesium 1.9 mg/dL (1.6-2.6); Osmolality,Calculated 312 (280-300); Phosphorous < 1.0 mg/dL (2.7-4.5); Potassium 4.2 mEq/L (3.5-5.1); Sodium 144 mEq/L (136-145); Total Protein 5.9 g/dL (6.4-8.9); eGFR For Non-African Americans 37 (> 60)
[2018-05-10] MEDS ORDERED: Potassium Phosphate 44 MEQ in 0.9 % Sodium Chloride 250 ML IVPB ONE (06:13)
--- NOTE | 2018-05-10 07:08 | Pulmonology Consult Note ---
<Bethany Lopez S - Last Filed: 05/10/18 10:49> Date of Encounter: 05/10/18 Medications and Allergies Alendronate Sodium 70 mg PO FR 10/26/17 [History] Amlodipine Besylate 10 mg PO DAILY 10/26/17 [History] Aspirin 81 mg PO DAILY 10/26/17 [History] Ergocalciferol (VITAMIN D2) [Vitamin D2] 50,000 unit PO QWEEK 10/26/17 [History] Lisinopril [Zestril] 40 mg PO DAILY 10/26/17 [History] Tiotropium [Spiriva] 1 puff IH DAILY 10/26/17 [History] Albuterol Sulfate [Ventolin Hfa] 2 puff IH Q4H PRN 05/10/18 [History] Budesonide/Formoterol 160/4.5 [Symbicort 160/4.5] 2 puff IH BID 05/10/18 [History] Furosemide [Lasix] 20 mg PO DAILY PRN 05/10/18 [History] Allergy/AdvReac Type Severity Reaction Status Date / Time No Known Allergies Allergy Verified 05/10/18 09:26 All Systems: The remainder of the systems were reviewed and are negative Physical Examination Vital Signs: Vital Signs, Last 4 Hours Temp Pulse Resp BP Pulse Ox 05/10/18 09:00 85 16 80/54 95 05/10/18 08:15 14 97 05/10/18 08:00 76 16 73/53 95 05/10/18 07:27 79 05/10/18 07:00 98.8 F 79 16 80/54 100 05/10/18 06:00 91 16 92/59 100 Ventilator Settings Ventilator Settings: Ventilator Settings, Last 8 Hours Ventilator Tidal Volume 400 Setting Ventilator Tidal Volume 400 Setting Ventilator Tidal Volume 400 Setting Ventilator Tidal Volume 400 Setting Ventilator Tidal Volume 400 Setting Ventilator Tidal Volume 400 Setting Ventilator Tidal Volume 400 Setting Ventilator Tidal Volume 400 Setting Ventilator Tidal Volume 400 Setting Ventilator Tidal Volume 400 Setting Ventilator Tidal Volume 400 Setting Ventilator Tidal Volume 400 Setting Ventilator Tidal Volume 400 Setting Ventilator Respiratory Rate 16 Setting Ventilator Respiratory Rate 14 Setting Ventilator Respiratory Rate 16 Setting Ventilator Respiratory Rate 16 Setting Ventilator Respiratory Rate 16 Setting Ventilator Respiratory Rate 16 Setting Ventilator Respiratory Rate 16 Setting Ventilator Respiratory Rate 16 Setting Ventilator Respiratory Rate 16 Setting Ventilator Respiratory Rate 16 Setting Ventilator Respiratory Rate 16 Setting Ventilator Respiratory Rate 16 Setting Ventilator Respiratory Rate 16 Setting Actual Respiratory Rate 16 Actual Respiratory Rate 14 Actual Respiratory Rate 16 Actual Respiratory Rate 16 Actual Respiratory Rate 16 Actual Respiratory Rate 16 Actual Respiratory Rate 16 Actual Respiratory Rate 16 Actual Respiratory Rate 16 Actual Respiratory Rate 16 Actual Respiratory Rate 16 Positive End Expiratory 5 Pressure Positive End Expiratory 5 Pressure Positive End Expiratory 5 Pressure Positive End Expiratory 5 Pressure Positive End Expiratory 5 Pressure Positive End Expiratory 5 Pressure Positive End Expiratory 5 Pressure Positive End Expiratory 5 Pressure Positive End Expiratory 5 Pressure Positive End Expiratory 5 Pressure Positive End Expiratory 5 Pressure Positive End Expiratory 5 Pressure Positive End Expiratory 5 Pressure Peak Inspiratory Airway 38 Pressure Peak Inspiratory Airway 42 Pressure Peak Inspiratory Airway 38 Pressure Peak Inspiratory Airway 38 Pressure Peak Inspiratory Airway 38 Pressure Peak Inspiratory Airway 37 Pressure Peak Inspiratory Airway 38 Pressure Peak Inspiratory Airway 33 Pressure Peak Inspiratory Airway 40 Pressure Peak Inspiratory Airway 37 Pressure Peak Inspiratory Airway 42 Pressure Results - Laboratory Findings CBC and BMP: 05/10/18 05:21 05/10/18 05:21 ABG ABG pH 7.34 pH Units (7.32-7.45) 05/10/18 04:59 ABG pCO2 64 mmHg (35-45) H 05/10/18 04:59 ABG pO2 63 mmHg (85-104) L D 05/10/18 04:59 ABG O2 Saturation 89 % (95-98) L 05/10/18 04:59 PT/INR, D-dimer PT 14.3 Seconds (9.4-12.1) H 05/10/18 08:20 Abnormal lab findings: Abnormal lab results MCH 27.5 pg (28.0-33.3) L 05/10/18 05:21 MCHC 29.1 g/dL (31.6-35.5) L 05/10/18 05:21 RDW 14.6 % (11.5-14.5) H 05/10/18 05:21 Lymphocytes # 0.3 K/mcL (0.6-4.6) L 05/10/18 05:21 Hypochromasia Present (Not Present) A 05/09/18 22:10 PT 14.3 Seconds (9.4-12.1) H 05/10/18 08:20 ABG pCO2 64 mmHg (35-45) H 05/10/18 04:59 ABG pO2 63 mmHg (85-104) L D 05/10/18 04:59 ABG HCO3 35 mEq/L (21-27) H 05/10/18 04:59 ABG Total CO2 37 mEq/L (20-26) H 05/10/18 04:59 ABG O2 Saturation 89 % (95-98) L 05/10/18 04:59 ABG Base Excess 7 mEq/L (-2 to 3) H 05/10/18 04:59 VBG pH 7.18 pH Units (7.32-7.42) L* 05/09/18 23:02 VBG pCO2 109 mmHg (41-51) H* 05/09/18 23:02 VBG pO2 55 mmHg (25-50) H 05/09/18 23:02 VBG HCO3 41 mEq/L (21-27) H 05/09/18 23:02 Carbon Dioxide 33 mEq/L (23-29) H 05/10/18 05:21 BUN 39 mg/dL (8-23) H 05/10/18 05:21 Creatinine 1.38 mg/dL (0.60-1.20) H 05/10/18 05:21 Est GFR ( Amer) 45 (> 60) L 05/10/18 05:21 Est GFR (Non-Af Amer) 37 (> 60) L 05/10/18 05:21 BUN/Creatinine Ratio 28 (6-26) H 05/10/18 05:21 Glucose 174 mg/dL (70-105) H 05/10/18 05:21 Calculated Osmolality 312 (280-300) H 05/10/18 05:21 Calcium 8.3 mg/dL (8.6-10.3) L 05/10/18 05:21 Venous Ioniz Calcium 1.07 mmol/L (1.15-1.35) L 05/10/18 05:52 Phosphorus < 1.0 mg/dL (2.7-4.5) L* 05/10/18 05:21 Serum Total Protein 5.9 g/dL (6.4-8.9) L 05/10/18 05:21 Albumin 3.4 g/dL (3.5-5.7) L 05/10/18 05:21 Urine Clarity Cloudy (Clear) A 05/10/18 00:20 Urine Protein 30 mg/dL (Neg-Trace) H 05/10/18 00:20 Ur Squamous Epith Cells Many per lpf (None-Few) H 05/10/18 00:20 Hyaline Casts Moderate per lpf (None-Few) H 05/10/18 00:20 RSV (PCR) DETECTED (Not Detect) A 05/10/18 02:33 - Microbiology Findings Microbiology Findings: Microbiology, Last 48 Hours 05/10/18 03:14 Sputum Culture - Preliminary Sputum 05/10/18 02:36 Legionella Antigen - Final Urine,[place] Streptococcus pneumoniae Antigen (M - Final 05/09/18 22:56 Blood Culture - Preliminary Peripheral Venipuncture Culture is incubating and being continuously monitored for growth. Final report to follow. 05/09/18 22:56 Blood Culture - Preliminary Peripheral Venipuncture Culture is incubating and being continuously monitored for growth. Final report to follow. - Clinical Findings Intake & Output: Intake & Output 05/09/18 05/10/18 05/10/18 23:59 07:59 15:59 Intake Total 1249.0 / 1249.0 0 / 0 Output Total 250 / 250 Balance 999 / 999.0 0 / 0 Weight 83.189 kg 84.4 kg Consult Discharge Plan - Plan Referrals: Jim Figueroa MD [Primary Care Provider] - - Attending Attestation I saw and evaluated this patient and my medical decision-making was reviewed with the Resident Physician. I agree with the documented findings, disposition and treatment plan as described except to the extent set forth below. We independently had [id number] contact with the patient I spent 45 minutes of Critical Care time with this patient. It involved decision making of high complexity to assess, manipulate, and support vital organ system failure and/or to prevent further life threatening deterioration of the patient's condition. The time involved in the performance of separately reportable procedures was not counted toward critical care time. Patient seen and examined at bedside Labs, radiology, chart personally reviewed. Management was reviewed during multidisciplinary critical care rounds. OVERNIGHT ASSOCIATE: Patient is conscious following commands no focal neurological deficit metabolic encephalopathy is improving after improved gas exchange. Pulm: Patient presented with viral exacerbation of COPD with worsening V/Q mismatch causing acute on chronic hypoxic and hypercarbic respiratory failure patient needing intubation failed BiPAP therapy chest x-ray did not show evidence of any lobar pneumonia cover with broad-spectrum antibiotic as patient has background history of very severe obstructive ventilatory impairment. Adjusted tidal volume inspiratory time and respiratory rate to reduce air-trapping. Cards: Patient is hemodynamically unstable trend her troponins will get an echo most likely she is volume depleted lactic acid is normal no evidence of tissue hyperperfusion with patient has compromised urine output resuscitate with fluids if patient does not respond to that and we will start her on vasopressors. Culture sent. FEN-GI: Patient has abdominal tenderness with guarding and rigidity concern for intra-abdominal process will get a CT abdomen pelvis without contrast will keep her nothing by mouth Renal: Patient has acute kidney injury most likely prerenal versus ATN will reevaluate and trend serum creatinine. ID: Cultures sent to follow cultures to start on broad-spectrum gram-negative coverage if there is any respiratory or intra-abdominal source. Heme/Onc: Thromboprophylaxis Endo: Glucose Monitored Integ/MSK: Skin Care per routine ICU Nursing Protocol to prevent ulcers. Lines: All lines examined without evidence of infection : Dispo: Patient is critically ill , tried contacting the son . CODE:Full Code <Marilyn Renteria R - Last Filed: 05/10/18 15:34> Date of Encounter: 05/10/18 Time of Encounter: 07:07 Assessment and Plan (1) Acute on chronic respiratory failure with hypoxia and hypercapnia Current Visit: Yes Status: Acute 73-year-old female admitted for hypoxia, difficulty in breathing, altered mental status secondary to CO2 narcosis. EMS was called by family due to decreased O2 saturation, but patient was initially reluctant to come to ER for evaluation. Etiology likely secondary to COPD exacerbation. Patient met two sirs criteria upon arriving to ER with tachycardia, tachypnea. Did not meet sepsis criteria, as WBC was borderline at 11.2 - and has decreased to 9.3 this morning, CXR showed no focal consolidation. lactic acid normal. No known source of infection at this time. in ED, ABG showed pH: 7.12, PCO2 131, PO2 66. Patient failed to improve with BiPAP and was intubated in ER. Repeat ABG pH 7.34, PCO2 64, PO2 63, HCO3 35 Plan: blood cultures x2, sputum culture Respiratory infectious panel positive for RSV Legionella and strep pneumo antigens pending scheduled DuoNebs Levaquin day 1 Solumedrol continue mechanical ventilation with FIO2 35%, Tv: 400, RR: 16, PEEP: 5 repeat ABG and CXR sedation with Precedex and fentanyl (2) Acute exacerbation of chronic obstructive airways disease Current Visit: Yes Status: Acute Plan as above (3) Altered mental status Current Visit: Yes Status: Acute Was able to follow some commands in ED - likely secondary to CO2 retention Continue to wean from sedation and assess mental status Plan as #1 above Qualifiers: Altered mental status type: somnolence Qualified Code(s): R40.0 - Somnolence (4) SARAHI (acute kidney injury) Current Visit: Yes Status: Acute Pt has an increase in Cre from 1.10 to 1.38 today Pt has been anuric since 8 am with no urine on bladder scan 1L NS bolus given Trend BMP and continue to hydrate Diurese as needed, consider nephro consult (5) Diastolic CHF Current Visit: Yes Status: Acute Last echo from 10/27/17 showed EF 70%, normal LV chamber size and function, mild diastolic dysfunction, mild aortic stenosis, no pulmonary hypertension Plan: hold lasix for now, reassess volume status and diurese as needed. Qualifiers: Heart failure chronicity: chronic Qualified Code(s): I50.32 - Chronic diastolic (congestive) heart failure (6) Coronary artery disease Current Visit: Yes Status: Acute Qualifiers: Coronary Disease-Associated Artery/Lesion type: unspecified vessel or lesion type [place] vs. transplanted heart: unspecified whether [place] or transplanted heart Associated angina: angina presence unspecified Qualified Code(s): I25.10 - Atherosclerotic heart disease of [place] coronary artery without angina pectoris (7) Hypophosphatemia Current Visit: Yes Status: Acute Phos <1.0 with labs in ICU Nutra-Phos given Repeat Phos level 4.5 Replace as needed (8) DVT prophylaxis Current Visit: No Status: Acute Heparin SQ protonix for GI prophylaxis History of Present Illness Consult date: 05/10/18 Requesting physician: Bhargav Garduno Reason for consult: dyspnea, other (intubated) Chief complaint: SOB History of present illness: Pt is a 73 yo female presenting from home via EMS for SOB. She has a PMHx of COPD and wears 2L oxygen at home, HTN, HLD, CAD, and CHF. She was feeling more short of breath and her O2 sats were low at home, so she increased her oxygen to 4L without improvement. Once arriving at [facility], an initial trial of BiPAP was unsuccessful and the patient was intubated. Her initial ABG showed pH 7.12, CO2 131, O2 66, HCO3 42. Repeat ABG this am was improved at pH 7.34, CO2 64, O2 63, HCO3 35. Respiratory infectious panel showed a positive RSV. The patient is currently on Levaquin, Solumedrol, and breathing treatments. Pt abdomen was distended, hard and tender this am. BP declining. Will stabilize with fluids and place PICC line for potential pressors. CT abdomen/pelvis ordered, awaiting results. Bladder scan negative for urine and no UOP this am. 3L bolus of NS has been given, will continue to try to hydrate pt with fluids. Echo ordered to determine if EF has declined. Past Med Surg Social Fam HX - Past Medical History Medical history: COPD, coronary artery disease, hyperlipidemia, hypertension, osteoporosis, other Additional medical history: lung problems Psychiatric history: no psych history - Past Surgical History Additional surgical history: Back surgery - Social History Smoking Status: Current every day smoker Smokeless Tobacco Status: No Alcohol use: none Drug use: none - Family History Mother History Unknown: Yes Hx Family Cardiac Disorders: Yes ROS unobtainable: due to endotracheal tube All Systems: The remainder of the systems were reviewed and are negative Physical Examination Vital Signs: Vital Signs, Last 4 Hours Temp Pulse Resp BP Pulse Ox 05/10/18 06:00 91 16 92/59 100 05/10/18 05:02 16 101/61 97 05/10/18 05:00 95 16 101/61 97 05/10/18 04:00 98.8 F 100 16 70/54 99 05/10/18 03:48 16 82/51 97 General appearance: no acute distress, asleep Eyes: nonicteric ENT: oropharynx dry Neck: supple Effort: mildly labored Inspection: hyperextended Auscultation: bilateral: wheezes Cardiovascular: regular rate and rhythm Gastrointestinal: tender, guarding Integumentary: normal Extremities: no cyanosis, no edema, pulses normal pupils equal and round Ventilator Settings Ventilator Settings: Ventilator Settings, Last 8 Hours Ventilator Tidal Volume 400 Setting Ventilator Tidal Volume 400 Setting Ventilator Tidal Volume 400 Setting Ventilator Tidal Volume 400 Setting Ventilator Tidal Volume 400 Setting Ventilator Tidal Volume 400 Setting Ventilator Tidal Volume 400 Setting Ventilator Tidal Volume 400 Setting Ventilator Tidal Volume 400 Setting Ventilator Tidal Volume 400 Setting Ventilator Tidal Volume 400 Setting Ventilator Tidal Volume 400 Setting Ventilator Respiratory Rate 16 Setting Ventilator Respiratory Rate 16 Setting Ventilator Respiratory Rate 16 Setting Ventilator Respiratory Rate 16 Setting Ventilator Respiratory Rate 16 Setting Ventilator Respiratory Rate 16 Setting Ventilator Respiratory Rate 16 Setting Ventilator Respiratory Rate 16 Setting Ventilator Respiratory Rate 16 Setting Ventilator Respiratory Rate 16 Setting Ventilator Respiratory Rate 16 Setting Ventilator Respiratory Rate 16 Setting Actual Respiratory Rate 16 Actual Respiratory Rate 16 Actual Respiratory Rate 16 Actual Respiratory Rate 16 Actual Respiratory Rate 16 Actual Respiratory Rate 16 Actual Respiratory Rate 16 Actual Respiratory Rate 16 Actual Respiratory Rate 16 Actual Respiratory Rate 16 Positive End Expiratory 5 Pressure Positive End Expiratory 5 Pressure Positive End Expiratory 5 Pressure Positive End Expiratory 5 Pressure Positive End Expiratory 5 Pressure Positive End Expiratory 5 Pressure Positive End Expiratory 5 Pressure Positive End Expiratory 5 Pressure Positive End Expiratory 5 Pressure Positive End Expiratory 5 Pressure Positive End Expiratory 5 Pressure Positive End Expiratory 5 Pressure Peak Inspiratory Airway 38 Pressure Peak Inspiratory Airway 37 Pressure Peak Inspiratory Airway 38 Pressure Peak Inspiratory Airway 33 Pressure Peak Inspiratory Airway 40 Pressure Peak Inspiratory Airway 37 Pressure Peak Inspiratory Airway 42 Pressure Peak Inspiratory Airway 36 Pressure Peak Inspiratory Airway 42 Pressure Peak Inspiratory Airway 35 Pressure Results - Laboratory Findings CBC and BMP: 05/10/18 05:21 05/10/18 05:21 ABG ABG pH 7.34 pH Units (7.32-7.45) 05/10/18 04:59 ABG pCO2 64 mmHg (35-45) H 05/10/18 04:59 ABG pO2 63 mmHg (85-104) L D 05/10/18 04:59 ABG O2 Saturation 89 % (95-98) L 05/10/18 04:59 Abnormal lab findings: Abnormal lab results MCH 27.5 pg (28.0-33.3) L 05/10/18 05:21 MCHC 29.1 g/dL (31.6-35.5) L 05/10/18 05:21 RDW 14.6 % (11.5-14.5) H 05/10/18 05:21 Lymphocytes # 0.3 K/mcL (0.6-4.6) L 05/10/18 05:21 Hypochromasia Present (Not Present) A 05/09/18 22:10 ABG pCO2 64 mmHg (35-45) H 05/10/18 04:59 ABG pO2 63 mmHg (85-104) L D 05/10/18 04:59 ABG HCO3 35 mEq/L (21-27) H 05/10/18 04:59 ABG Total CO2 37 mEq/L (20-26) H 05/10/18 04:59 ABG O2 Saturation 89 % (95-98) L 05/10/18 04:59 ABG Base Excess 7 mEq/L (-2 to 3) H 05/10/18 04:59 VBG pH 7.18 pH Units (7.32-7.42) L* 05/09/18 23:02 VBG pCO2 109 mmHg (41-51) H* 05/09/18 23:02 VBG pO2 55 mmHg (25-50) H 05/09/18 23:02 VBG HCO3 41 mEq/L (21-27) H 05/09/18 23:02 Carbon Dioxide 33 mEq/L (23-29) H 05/10/18 05:21 BUN 39 mg/dL (8-23) H 05/10/18 05:21 Creatinine 1.38 mg/dL (0.60-1.20) H 05/10/18 05:21 Est GFR ( Amer) 45 (> 60) L 05/10/18 05:21 Est GFR (Non-Af Amer) 37 (> 60) L 05/10/18 05:21 BUN/Creatinine Ratio 28 (6-26) H 05/10/18 05:21 Glucose 174 mg/dL (70-105) H 05/10/18 05:21 Calculated Osmolality 312 (280-300) H 05/10/18 05:21 Calcium 8.3 mg/dL (8.6-10.3) L 05/10/18 05:21 Venous Ioniz Calcium 1.07 mmol/L (1.15-1.35) L 05/10/18 05:52 Phosphorus < 1.0 mg/dL (2.7-4.5) L* 05/10/18 05:21 Serum Total Protein 5.9 g/dL (6.4-8.9) L 05/10/18 05:21 Albumin 3.4 g/dL (3.5-5.7) L 05/10/18 05:21 Urine Clarity Cloudy (Clear) A 05/10/18 00:20 Urine Protein 30 mg/dL (Neg-Trace) H 05/10/18 00:20 Ur Squamous Epith Cells Many per lpf (None-Few) H 05/10/18 00:20 Hyaline Casts Moderate per lpf (None-Few) H 05/10/18 00:20 RSV (PCR) DETECTED (Not Detect) A 05/10/18 02:33 - Microbiology Findings Microbiology Findings: Microbiology, Last 48 Hours 05/10/18 03:14 Sputum Culture - Preliminary Sputum 05/10/18 02:36 Legionella Antigen - Final Urine,[place] Streptococcus pneumoniae Antigen (M - Final 05/09/18 22:56 Blood Culture - Preliminary Peripheral Venipuncture Culture is incubating and being continuously monitored for growth. Final report to follow. 05/09/18 22:56 Blood Culture - Preliminary Peripheral Venipuncture Culture is incubating and being continuously monitored for growth. Final report to follow. - Clinical Findings Intake & Output: Intake & Output 05/09/18 05/09/18 05/10/18 15:59 23:59 07:59 Intake Total 1249.0 / 1249.0 Output Total 250 / 250 Balance 999 / 999.0 Weight 83.189 kg 84.4 kg
[2018-05-10] MEDS ORDERED: Calcium Gluconate 2,000 MG in 0.9 % Sodium Chloride 100 ML IVPB ONE (07:12)
[2018-05-10] MEDS: MethylPREDNISolone 40 MG/ML VIAL IVP SCH ×3 (07:58→23:01)
[2018-05-10] MEDS: Chlorhexidine Rinse 15 ML MOUTHWASH MM SCH ×2 (07:58→19:49)
[2018-05-10 08:48] LABS: INR 1.3; Prothrombin Time 14.3 Seconds (9.4-12.1)
[2018-05-10 14:12] LABS: Phosphorous 4.5 mg/dL (2.7-4.5)
[2018-05-10] MEDS ORDERED: Furosemide 40 MG/4 ML VIAL IVP SCH (14:15)
[2018-05-10] MEDS ORDERED: *HR* LORazepam 2 MG/ML VIAL IVP ONE (14:53)
[2018-05-10] MEDS: Piperacillin/Tazobactam 3.375 GM in 0.9 % Sodium Chloride Mini Bag 100 ML IVPB SCH ×2 (15:47→23:01)
[2018-05-10 15:50] LABS: Albumin 3.2 g/dL (3.5-5.7); Albumin/Globulin Ratio 1.4 (1.1-2.2); Bilirubin,Total 0.3 mg/dL (0.3-1.0); Calcium 8.2 mg/dL (8.6-10.3); Globulin 2.3 g/dL (2.4-3.5); Total Protein 5.5 g/dL (6.4-8.9)
--- NOTE | 2018-05-10 16:12 | Electrocardiograph Report ---
[address] [place], [place] [address] Test Date: 2018-05-09 Pat Name: Lina Montenegro Department: [id number] Room: [facility] Gender: F Edger Technician: : 1945 Requested By: Jeffrey Ramos Order Number: [id number] Reading MD: Lalito Clark Measurements Intervals [place] Rate: 96 P: 82 NC: 151 QRS: 84 QRSD: 98 T: 70 QT: 331 QTc: 419 Interpretive Statements Sinus rhythm Electronically Signed On 05-10-2018 16:10:14 EST by Lalito Clark
[2018-05-10] MEDS ORDERED: Perflutren Lipid Microsphere 1.3 ML in 0.9 % Sodium Chloride 8.7 ML IVP ONE (18:48)
[2018-05-11 03:07] LABS: VBG Ionized Calcium 1.06 mmol/L (1.15-1.35)
[2018-05-11] MEDS: Artificial Tears SOLN 15 ML BOTTLE BOTH EYES SCH ×6 (03:09→23:07)
[2018-05-11 03:11] LABS: Basophils % 0.1 %; Hematocrit 38.4 % (35.3-44.9); Hemoglobin 11.5 g/dL (11.5-15.4); Immature Granulocytes % 0.5 % (0-4); Lymphocytes # 0.3 K/mcL (0.6-4.6); Lymphocytes % 2.9 %; Mean Corpuscular HGB Conc 29.9 g/dL (31.6-35.5); Mean Corpuscular Hemoglobin 27.5 pg (28.0-33.3); Mean Corpuscular Volume 91.9 fL (83.0-100.0); Mean Platelet Volume 10.8 fL (9.4-12.4); Monocytes # 0.4 K/mcL (0.0-1.3); Monocytes % 4.7 %; Neutrophils # 7.8 K/mcL (1.6-8.9); Platelet Count 147 K/mcL (140-400); Red Blood Count 4.18 M/mcL (3.82-4.97); Red Cell Distribution Width 14.9 % (11.5-14.5); Segmented Neutrophils % 91.8 %
[2018-05-11 03:24] LABS: Albumin 3.2 g/dL (3.5-5.7); Albumin/Globulin Ratio 1.2 (1.1-2.2); Bilirubin,Total 0.4 mg/dL (0.3-1.0); Calcium 8.1 mg/dL (8.6-10.3); Globulin 2.6 g/dL (2.4-3.5); Magnesium 2.4 mg/dL (1.6-2.6); Phosphorous 3.2 mg/dL (2.7-4.5); Potassium 4.3 mEq/L (3.5-5.1); Total Protein 5.8 g/dL (6.4-8.9)
[2018-05-11] MEDS: Ipratropium/Albuterol Neb 3 ML IH SCH ×6 (03:31→23:36)
[2018-05-11] MEDS: *HR* Heparin 5,000 UNIT/ML VIAL SQ SCH ×3 (05:06→21:10)
[2018-05-11] MEDS: Pantoprazole 40 MG VIAL IVP SCH (05:06)
--- NOTE | 2018-05-11 06:40 | Pulmonology Progress Note ---
<Betahny Lopez S - Last Filed: 05/11/18 14:26> Date of Encounter: 05/11/18 Objective PUL Vital signs: Last Vital Signs Temp 97.7 F 05/11/18 11:25 Pulse 128 05/11/18 12:00 Resp 19 05/11/18 14:06 BP 132/71 05/11/18 14:06 Pulse Ox 93 05/11/18 14:06 Ventilator Settings Ventilator Settings: Ventilator Settings, Last 8 Hours Ventilator Tidal Volume 400 Setting Ventilator Tidal Volume 400 Setting Ventilator Tidal Volume 400 Setting Ventilator Tidal Volume 400 Setting Ventilator Tidal Volume 400 Setting Ventilator Tidal Volume 400 Setting Ventilator Respiratory Rate 14 Setting Ventilator Respiratory Rate 14 Setting Ventilator Respiratory Rate 14 Setting Ventilator Respiratory Rate 14 Setting Ventilator Respiratory Rate 14 Setting Ventilator Respiratory Rate 14 Setting Ventilator Respiratory Rate 14 Setting Actual Respiratory Rate 14 Actual Respiratory Rate 15 Actual Respiratory Rate 15 Actual Respiratory Rate 14 Actual Respiratory Rate 14 Actual Respiratory Rate 15 Actual Respiratory Rate 14 Actual Respiratory Rate 15 Positive End Expiratory 5 Pressure Positive End Expiratory 5 Pressure Positive End Expiratory 5 Pressure Positive End Expiratory 5 Pressure Positive End Expiratory 5 Pressure Positive End Expiratory 5 Pressure Positive End Expiratory 5 Pressure Positive End Expiratory 5 Pressure Positive End Expiratory 5 Pressure Peak Inspiratory Airway 35 Pressure Peak Inspiratory Airway 35 Pressure Peak Inspiratory Airway 13 Pressure Peak Inspiratory Airway 19 Pressure Peak Inspiratory Airway 35 Pressure Peak Inspiratory Airway 36 Pressure Peak Inspiratory Airway 34 Pressure Peak Inspiratory Airway 0.37 Pressure Peak Inspiratory Airway 37 Pressure Results - Laboratory Findings CBC and BMP: 05/11/18 02:58 05/11/18 02:58 ABG ABG pH 7.34 pH Units (7.32-7.45) 05/10/18 04:59 ABG pCO2 64 mmHg (35-45) H 05/10/18 04:59 ABG pO2 63 mmHg (85-104) L D 05/10/18 04:59 ABG O2 Saturation 89 % (95-98) L 05/10/18 04:59 PT/INR, D-dimer PT 14.3 Seconds (9.4-12.1) H 05/10/18 08:20 Abnormal lab findings: Abnormal lab results MCH 27.5 pg (28.0-33.3) L 05/11/18 02:58 MCHC 29.9 g/dL (31.6-35.5) L 05/11/18 02:58 RDW 14.9 % (11.5-14.5) H 05/11/18 02:58 Lymphocytes # 0.3 K/mcL (0.6-4.6) L 05/11/18 02:58 Hypochromasia Present (Not Present) A 05/09/18 22:10 PT 14.3 Seconds (9.4-12.1) H 05/10/18 08:20 ABG pCO2 64 mmHg (35-45) H 05/10/18 04:59 ABG pO2 63 mmHg (85-104) L D 05/10/18 04:59 ABG HCO3 35 mEq/L (21-27) H 05/10/18 04:59 ABG Total CO2 37 mEq/L (20-26) H 05/10/18 04:59 ABG O2 Saturation 89 % (95-98) L 05/10/18 04:59 ABG Base Excess 7 mEq/L (-2 to 3) H 05/10/18 04:59 VBG pH 7.18 pH Units (7.32-7.42) L* 05/09/18 23:02 VBG pCO2 109 mmHg (41-51) H* 05/09/18 23:02 VBG pO2 55 mmHg (25-50) H 05/09/18 23:02 VBG HCO3 41 mEq/L (21-27) H 05/09/18 23:02 Chloride 108 mEq/L (98-107) H 05/11/18 02:58 BUN 51 mg/dL (8-23) H 05/11/18 02:58 Creatinine 1.53 mg/dL (0.60-1.20) H 05/11/18 02:58 Est GFR ( Amer) 40 (> 60) L 05/11/18 02:58 Est GFR (Non-Af Amer) 33 (> 60) L 05/11/18 02:58 BUN/Creatinine Ratio 33 (6-26) H 05/11/18 02:58 Glucose 260 mg/dL (70-105) H 05/11/18 02:58 POC Glucose 155 mg/dL (70-99) H 05/10/18 11:18 Calculated Osmolality 321 (280-300) H 05/11/18 02:58 Calcium 8.1 mg/dL (8.6-10.3) L 05/11/18 02:58 Venous Ioniz Calcium 1.06 mmol/L (1.15-1.35) L 05/11/18 03:04 Serum Total Protein 5.8 g/dL (6.4-8.9) L 05/11/18 02:58 Albumin 3.2 g/dL (3.5-5.7) L 05/11/18 02:58 Urine Clarity Cloudy (Clear) A 05/10/18 00:20 Urine Protein 30 mg/dL (Neg-Trace) H 05/10/18 00:20 Ur Squamous Epith Cells Many per lpf (None-Few) H 05/10/18 00:20 Hyaline Casts Moderate per lpf (None-Few) H 05/10/18 00:20 RSV (PCR) DETECTED (Not Detect) A 05/10/18 02:33 - Microbiology Findings Microbiology Findings: Microbiology, Last 48 Hours 05/10/18 03:14 Sputum Culture - Preliminary Sputum 05/10/18 02:36 Legionella Antigen - Final Urine,[place] Streptococcus pneumoniae Antigen (M - Final 05/09/18 22:56 Blood Culture - Preliminary Peripheral Venipuncture Culture is incubating and being continuously monitored for growth. Final report to follow. 05/09/18 22:56 Blood Culture - Preliminary Peripheral Venipuncture Culture is incubating and being continuously monitored for growth. Final report to follow. - Clinical Findings Intake & Output: Intake & Output 05/10/18 05/11/18 05/11/18 23:59 07:59 15:59 Intake Total 440 / 440 200 / 200 315 / 315 Output Total 500 / 500 300 / 300 100 / 100 Balance -60 / -60 -100 / -100 215 / 215 Weight 85 kg Consult Discharge Plan - Plan Referrals: Jim Figueroa MD [Primary Care Provider] - - Attending Attestation - Attending Attestation I saw and evaluated this patient and my medical decision-making was reviewed with the Resident Physician. I agree with the documented findings, disposition and treatment plan as described except to the extent set forth below. We independently had [id number] contact with the patient I spent 32 minutes of Critical Care time with this patient. It involved decision making of high complexity to assess, manipulate, and support vital organ system failure and/or to prevent further life threatening deterioration of the patient's condition. The time involved in the performance of separately reportable procedures was not counted toward critical care time. Patient seen and examined at bedside Labs, radiology, chart personally reviewed. Management was reviewed during multidisciplinary critical care rounds. 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 05/11 is deeply sedated and is not waking up of following commands I asked the nurse to reduce the sedation and wake her up so we can put her on spontaneous breathing trial Pulm: Patient presented with viral exacerbation of COPD with worsening V/Q mismatch causing acute on chronic hypoxic and hypercarbic respiratory failure patient needing intubation failed BiPAP therapy chest x-ray did not show evidence of any lobar pneumonia cover with broad-spectrum antibiotic as patient has background history of very severe obstructive ventilatory impairment. Adjusted tidal volume inspiratory time and respiratory rate to reduce air-t rapping 05/11 patient has acceptable oxygenation and ventilation when she is more awake we will put her on spontaneous breathing trial if she passes a trial with good cough and gag reflex and she is not encephalopathy we will repeat a blood gas before extubating her. To continue treating for COPD exacerbation and possible pneumonia.. Cards: Patient is hemodynamically unstable trend her troponins will get an echo most likely she is volume depleted lactic acid is normal no evidence of tissue hyperperfusion with patient has compromised urine output resuscitate with fluids if patient does not respond to that and we will start her on vasopressors. Culture sent. 05/11 patient is hemodynamically stable. FEN-GI: Patient has abdominal tenderness with guarding and rigidity concern for intra-abdominal process will get a CT abdomen pelvis without contrast will keep her nothing by mouth 05/11 CT abdomen pelvis did not show any acute process i will keep her nothing by mouth as we are planning to extubate her. Renal: Patient has acute kidney injury most likely prerenal vs ATN will volume depleted reassess serum creatinine. ID: Cultures sent to follow cultures to continue Broad spectrum antibiotics Heme/Onc: Thromboprophylaxis Endo: Glucose Monitored Integ/MSK: Skin Care per routine ICU Nursing Protocol to prevent ulcers. Lines: All lines examined without evidence of infection : Dispo: Patient is critically ill CODE:Full Code <Marilyn Renteria R - Last Filed: 05/11/18 15:10> Date of Encounter: 05/11/18 Time of Encounter: 06:40 Assessment and Plan (1) Acute on chronic respiratory failure with hypoxia and hypercapnia Current Visit: Yes Status: Acute 73-year-old female admitted for hypoxia, difficulty in breathing, altered mental status secondary to CO2 narcosis. EMS was called by family due to decreased O2 saturation, but patient was initially reluctant to come to ER for evaluation. Etiology likely secondary to COPD exacerbation. Patient met two sirs criteria upon arriving to ER with tachycardia, tachypnea. Did not meet sepsis criteria, as WBC was borderline at 11.2 - and has decreased to 9.3 this morning, CXR showed no focal consolidation. lactic acid normal. No known source of infection at this time. in ED, ABG showed pH: 7.12, PCO2 131, PO2 66. Patient failed to improve with BiPAP and was intubated in ER. Repeat ABG pH 7.34, PCO2 64, PO2 63, HCO3 35 Plan: blood cultures x2, sputum culture Respiratory infectious panel positive for RSV Legionella and strep pneumo antigens pending scheduled DuoNebs Zosyn day 2 - switched back to Levaquin today after no abdominal source of infection Solumedrol continue mechanical ventilation with FIO2 35%, Tv: 400, RR: 16, PEEP: 5 repeat ABG and CXR sedation with Precedex 0.3 and fentanyl 50 (2) Acute exacerbation of chronic obstructive airways disease Current Visit: Yes Status: Acute Plan as #1 above (3) Altered mental status Current Visit: Yes Status: Acute Was able to follow some commands in ED - likely secondary to CO2 retention Continue to wean from sedation and assess mental status Plan as #1 above Qualifiers: Altered mental status type: somnolence Qualified Code(s): R40.0 - Somnolence (4) SARAHI (acute kidney injury) Current Visit: Yes Status: Acute Pt has an increase in Cre from 1.10 on admission to 1.54 today 3L NS bolus given 1L UOP Trend BMP and continue to hydrate Diurese as needed, consider nephro consult (5) Diastolic CHF Current Visit: Yes Status: Acute Last echo from 10/27/17 showed EF 70%, normal LV chamber size and function, mild diastolic dysfunction, mild aortic stenosis, no pulmonary hypertension Plan: hold lasix for now, reassess volume status and diurese as needed. Qualifiers: Heart failure chronicity: chronic Qualified Code(s): I50.32 - Chronic diastolic (congestive) heart failure (6) Coronary artery disease Current Visit: Yes Status: Acute Qualifiers: Coronary Disease-Associated Artery/Lesion type: unspecified vessel or lesion type [place] vs. transplanted heart: unspecified whether [place] or transplanted heart Associated angina: angina presence unspecified Qualified Code(s): I25.10 - Atherosclerotic heart disease of [place] coronary artery without angina pectoris (7) Hypophosphatemia Current Visit: Yes Status: Resolved <1.0 on admission Repeat after Nutra-Phos was 4.5 - likely lab error Continue to monitor and replace as needed (8) DVT prophylaxis Current Visit: No Status: Acute Heparin SQ protonix for GI prophylaxis Subjective Principal diagnosis: Acute Respiratory failure Interval history: Pt had not events overnight. Continues to do well on the ventilator. Sedation was decreased and pt became more alert. HR increased to the 120s so Lopressor 5mg Q6H PRN was ordered. 1L LR ordered for tachycardia and decreased UOP. Pt began CPAP trial at 1200 and tolerated it well. Will try to extubate and observe overnight. Objective PUL Vital signs: Last Vital Signs Temp 98 F 05/11/18 03:02 Pulse 72 05/11/18 06:00 Resp 14 05/11/18 06:00 BP 141/81 05/11/18 06:00 Pulse Ox 98 05/11/18 06:00 General appearance: no acute distress Eyes: nonicteric ENT: oropharynx dry Neck: supple Effort: mildly labored Auscultation: bilateral: diminished breath sounds, wheezes Cardiovascular: regular rate and rhythm Gastrointestinal: tender, guarding Integumentary: normal Extremities: no cyanosis, no edema, pulses normal unable to assess due to mental status Ventilator Settings Ventilator Settings: Ventilator Settings, Last 8 Hours Ventilator Tidal Volume 400 Setting Ventilator Tidal Volume 400 Setting Ventilator Tidal Volume 400 Setting Ventilator Tidal Volume 400 Setting Ventilator Tidal Volume 400 Setting Ventilator Tidal Volume 400 Setting Ventilator Tidal Volume 400 Setting Ventilator Tidal Volume 400 Setting Ventilator Tidal Volume 400 Setting Ventilator Tidal Volume 400 Setting Ventilator Tidal Volume 400 Setting Ventilator Tidal Volume 400 Setting Ventilator Respiratory Rate 14 Setting Ventilator Respiratory Rate 14 Setting Ventilator Respiratory Rate 14 Setting Ventilator Respiratory Rate 14 Setting Ventilator Respiratory Rate 14 Setting Ventilator Respiratory Rate 14 Setting Ventilator Respiratory Rate 14 Setting Ventilator Respiratory Rate 14 Setting Ventilator Respiratory Rate 14 Setting Ventilator Respiratory Rate 14 Setting Ventilator Respiratory Rate 14 Setting Ventilator Respiratory Rate 14 Setting Actual Respiratory Rate 14 Actual Respiratory Rate 14 Actual Respiratory Rate 14 Actual Respiratory Rate 14 Actual Respiratory Rate 14 Actual Respiratory Rate 14 Actual Respiratory Rate 14 Actual Respiratory Rate 14 Actual Respiratory Rate 14 Actual Respiratory Rate 14 Actual Respiratory Rate 14 Actual Respiratory Rate 14 Positive End Expiratory 5 Pressure Positive End Expiratory 5 Pressure Positive End Expiratory 5 Pressure Positive End Expiratory 5 Pressure Positive End Expiratory 5 Pressure Positive End Expiratory 5 Pressure Positive End Expiratory 5 Pressure Positive End Expiratory 5 Pressure Positive End Expiratory 5 Pressure Positive End Expiratory 5 Pressure Positive End Expiratory 5 Pressure Positive End Expiratory 5 Pressure Peak Inspiratory Airway 38 Pressure Peak Inspiratory Airway 37 Pressure Peak Inspiratory Airway 38 Pressure Peak Inspiratory Airway 38 Pressure Peak Inspiratory Airway 38 Pressure Peak Inspiratory Airway 38 Pressure Peak Inspiratory Airway 37 Pressure Peak Inspiratory Airway 37 Pressure Peak Inspiratory Airway 36 Pressure Peak Inspiratory Airway 36 Pressure Peak Inspiratory Airway 36 Pressure Peak Inspiratory Airway 37 Pressure Results - Laboratory Findings CBC and BMP: 05/11/18 02:58 05/11/18 02:58 ABG ABG pH 7.34 pH Units (7.32-7.45) 05/10/18 04:59 ABG pCO2 64 mmHg (35-45) H 05/10/18 04:59 ABG pO2 63 mmHg (85-104) L D 05/10/18 04:59 ABG O2 Saturation 89 % (95-98) L 05/10/18 04:59 PT/INR, D-dimer PT 14.3 Seconds (9.4-12.1) H 05/10/18 08:20 Abnormal lab findings: Abnormal lab results MCH 27.5 pg (28.0-33.3) L 05/11/18 02:58 MCHC 29.9 g/dL (31.6-35.5) L 05/11/18 02:58 RDW 14.9 % (11.5-14.5) H 05/11/18 02:58 Lymphocytes # 0.3 K/mcL (0.6-4.6) L 05/11/18 02:58 Hypochromasia Present (Not Present) A 05/09/18 22:10 PT 14.3 Seconds (9.4-12.1) H 05/10/18 08:20 ABG pCO2 64 mmHg (35-45) H 05/10/18 04:59 ABG pO2 63 mmHg (85-104) L D 05/10/18 04:59 ABG HCO3 35 mEq/L (21-27) H 05/10/18 04:59 ABG Total CO2 37 mEq/L (20-26) H 05/10/18 04:59 ABG O2 Saturation 89 % (95-98) L 05/10/18 04:59 ABG Base Excess 7 mEq/L (-2 to 3) H 05/10/18 04:59 VBG pH 7.18 pH Units (7.32-7.42) L* 05/09/18 23:02 VBG pCO2 109 mmHg (41-51) H* 05/09/18 23:02 VBG pO2 55 mmHg (25-50) H 05/09/18 23:02 VBG HCO3 41 mEq/L (21-27) H 05/09/18 23:02 Chloride 108 mEq/L (98-107) H 05/11/18 02:58 BUN 51 mg/dL (8-23) H 05/11/18 02:58 Creatinine 1.53 mg/dL (0.60-1.20) H 05/11/18 02:58 Est GFR ( Amer) 40 (> 60) L 05/11/18 02:58 Est GFR (Non-Af Amer) 33 (> 60) L 05/11/18 02:58 BUN/Creatinine Ratio 33 (6-26) H 05/11/18 02:58 Glucose 260 mg/dL (70-105) H 05/11/18 02:58 POC Glucose 155 mg/dL (70-99) H 05/10/18 11:18 Calculated Osmolality 321 (280-300) H 05/11/18 02:58 Calcium 8.1 mg/dL (8.6-10.3) L 05/11/18 02:58 Venous Ioniz Calcium 1.06 mmol/L (1.15-1.35) L 05/11/18 03:04 Serum Total Protein 5.8 g/dL (6.4-8.9) L 05/11/18 02:58 Albumin 3.2 g/dL (3.5-5.7) L 05/11/18 02:58 Urine Clarity Cloudy (Clear) A 05/10/18 00:20 Urine Protein 30 mg/dL (Neg-Trace) H 05/10/18 00:20 Ur Squamous Epith Cells Many per lpf (None-Few) H 05/10/18 00:20 Hyaline Casts Moderate per lpf (None-Few) H 05/10/18 00:20 RSV (PCR) DETECTED (Not Detect) A 05/10/18 02:33 - Microbiology Findings Microbiology Findings: Microbiology, Last 48 Hours 05/10/18 03:14 Sputum Culture - Preliminary Sputum 05/10/18 02:36 Legionella Antigen - Final Urine,[place] Streptococcus pneumoniae Antigen (M - Final 05/09/18 22:56 Blood Culture - Preliminary Peripheral Venipuncture Culture is incubating and being continuously monitored for growth. Final report to follow. 05/09/18 22:56 Blood Culture - Preliminary Peripheral Venipuncture Culture is incubating and being continuously monitored for growth. Final report to follow. - Clinical Findings Intake & Output: Intake & Output 05/10/18 05/10/18 05/11/18 15:59 23:59 07:59 Intake Total 165 / 165 440 / 440 100 / 100 Output Total 100 / 100 500 / 500 150 / 150 Balance 65 / 65 -60 / -60 -50 / -50 Weight 85 kg
[2018-05-11] MEDS ORDERED: Calcium Gluconate 2,000 MG in 0.9 % Sodium Chloride 100 ML IVPB ONE (06:43)
[2018-05-11] MEDS: FentaNYL (PF) 1,000 MCG in 0.9 % Sodium Chloride 80 ML IVC SCH ×2 (07:05→18:35)
[2018-05-11] MEDS: MethylPREDNISolone 40 MG/ML VIAL IVP SCH ×3 (07:39→23:07)
[2018-05-11] MEDS: Piperacillin/Tazobactam 3.375 GM in 0.9 % Sodium Chloride Mini Bag 100 ML IVPB SCH (07:39)
[2018-05-11] MEDS: Chlorhexidine Rinse 15 ML MOUTHWASH MM SCH ×2 (07:39→19:31)
[2018-05-11] MEDS: Nystatin OINT 15 GM TUBE TP SCH ×4 (07:40→19:32)
[2018-05-11] MEDS ORDERED: D5% in Water 1,000 ML IVC PRN (10:43)
[2018-05-11] MEDS ORDERED: *HR* Dextrose 50 % in Water (Syg) 50 ML SYRINGE IVP PRN (10:43)
[2018-05-11] MEDS ORDERED: Dextrose Gel 15 GM/37.5 ML TUBE PO PRN ×2 (10:43)
[2018-05-11] MEDS ORDERED: Albuterol 2.5 MG/3 ML NEBULIZER IH PRN (11:09)
[2018-05-11] MEDS ORDERED: Insulin LISPRO 300 UNITS/3 ML VIAL SQ SCH ×2 (11:30→21:00)
[2018-05-11] MEDS: *HR* Metoprolol 5 MG/5 ML VIAL IVP PRN (12:26)
[2018-05-11] MEDS: Levofloxacin 750 MG/150 ML 750 MG/150 ML BAG IVPB SCH (12:26)
[2018-05-11] MEDS: Insulin LISPRO 300 UNITS/3 ML VIAL SQ SCH ×4 (12:27→23:07)
[2018-05-11] MEDS ORDERED: Ringers Solution, Lactated 1,000 ML IVC ONE (14:08)
[2018-05-11 15:50] LABS: ABG Base Excess 3 mEq/L (-2 to 3); ABG HCO3 33 mEq/L (21-27); ABG Oxygen Saturation 72 % (95-98); ABG PCO2 84 mmHg (35-45); ABG PH 7.21 pH Units (7.32-7.45); ABG PO2 48 mmHg (85-104); ABG TCO2 36 mEq/L (20-26); Blood Gas Modality CPAP/PS; Blood Gas PEEP 5 cm H2O; Blood Gas Pressure Support 5 cm H2O
[2018-05-11] MEDS: Dexmedetomidine HCl 400 MCG/100 ML MLS IVC SCH ×2 (17:45→23:50)
[2018-05-12] MEDS: *HR* Metoprolol 5 MG/5 ML VIAL IVP PRN ×2 (00:48→12:17)
[2018-05-12] MEDS: FentaNYL (PF) 1,000 MCG in 0.9 % Sodium Chloride 80 ML IVC SCH ×3 (01:16→20:19)
[2018-05-12] MEDS: Ipratropium/Albuterol Neb 3 ML IH SCH ×6 (03:26→23:25)
[2018-05-12 03:32] LABS: VBG Ionized Calcium 1.23 mmol/L (1.15-1.35)
[2018-05-12 03:34] LABS: Basophils % 0.1 %; Hematocrit 38.3 % (35.3-44.9); Hemoglobin 11.3 g/dL (11.5-15.4); Immature Granulocytes % 0.7 % (0-4); Lymphocytes # 0.2 K/mcL (0.6-4.6); Lymphocytes % 1.9 %; Mean Corpuscular HGB Conc 29.5 g/dL (31.6-35.5); Mean Corpuscular Hemoglobin 27.1 pg (28.0-33.3); Mean Corpuscular Volume 91.8 fL (83.0-100.0); Mean Platelet Volume 10.9 fL (9.4-12.4); Monocytes # 0.4 K/mcL (0.0-1.3); Monocytes % 2.8 %; Platelet Count 169 K/mcL (140-400); Red Blood Count 4.17 M/mcL (3.82-4.97); Red Cell Distribution Width 15.4 % (11.5-14.5); Segmented Neutrophils % 94.5 %
[2018-05-12 03:48] LABS: Albumin/Globulin Ratio 1.1 (1.1-2.2); Bilirubin,Total 0.3 mg/dL (0.3-1.0); Calcium 8.5 mg/dL (8.6-10.3); Globulin 2.7 g/dL (2.4-3.5); Magnesium 2.2 mg/dL (1.6-2.6); Phosphorous 2.3 mg/dL (2.7-4.5); Potassium 4.2 mEq/L (3.5-5.1); Total Protein 5.7 g/dL (6.4-8.9)
[2018-05-12] MEDS: Insulin LISPRO 300 UNITS/3 ML VIAL SQ SCH ×6 (04:04→23:53)
[2018-05-12] MEDS: Artificial Tears SOLN 15 ML BOTTLE BOTH EYES SCH ×6 (04:04→23:52)
[2018-05-12] MEDS: Dexmedetomidine HCl 400 MCG/100 ML MLS IVC SCH ×5 (05:32→23:55)
[2018-05-12] MEDS: Pantoprazole 40 MG VIAL IVP SCH (05:33)
[2018-05-12] MEDS: *HR* Heparin 5,000 UNIT/ML VIAL SQ SCH ×3 (05:33→20:16)
--- NOTE | 2018-05-12 06:46 | Pulmonology Progress Note ---
Addendum entered and electronically signed by Marilyn Renteria 05/12/18 14:12: Original Note: <Marilyn Renteria - Last Filed: 05/12/18 07:07> Date of Encounter: 05/12/18 Time of Encounter: 06:46 Assessment and Plan (1) Acute on chronic respiratory failure with hypoxia and hypercapnia Current Visit: Yes Status: Acute 73-year-old female admitted for hypoxia, difficulty in breathing, altered mental status secondary to CO2 narcosis. EMS was called by family due to decreased O2 saturation, but patient was initially reluctant to come to ER for evaluation. Etiology likely secondary to COPD exacerbation. Patient met two sirs criteria upon arriving to ER with tachycardia, tachypnea. Did not meet sepsis criteria, as WBC was borderline at 11.2 - and has decreased to 9.3 this morning, CXR showed no focal consolidation. lactic acid normal. No known source of infection at this time. in ED, ABG showed pH: 7.12, PCO2 131, PO2 66. Patient failed to improve with BiPAP and was intubated in ER. Plan: blood cultures x2, sputum culture Respiratory infectious panel positive for RSV Legionella and strep pneumo antigens negative scheduled DuoNebs Zosyn day 3 - switched back to Levaquin yesterday after no abdominal source of infection Solumedrol continue mechanical ventilation with FIO2 35%, Tv: 400, RR: 14, PEEP: 5 and try another CPAP trial repeat ABG and CXR sedation with Precedex 0.7 and fentanyl 175 (2) Acute exacerbation of chronic obstructive airways disease Current Visit: Yes Status: Acute Plan as #1 above (3) Altered mental status Current Visit: Yes Status: Acute Was able to follow some commands in ED - likely secondary to CO2 retention Continue to wean from sedation and assess mental status Plan as #1 above Qualifiers: Altered mental status type: somnolence Qualified Code(s): R40.0 - Somnolence (4) SARAHI (acute kidney injury) Current Visit: Yes Status: Acute Pt has an increase in Cre from 1.10 on admission to 1.54 yesterday --> 1.14 today 3L NS bolus given 2L UOP Trend BMP and continue to hydrate Diurese as needed, consider nephro consult (5) Diastolic CHF Current Visit: Yes Status: Acute Last echo from 10/27/17 showed EF 70%, normal LV chamber size and function, mild diastolic dysfunction, mild aortic stenosis, no pulmonary hypertension Plan: hold lasix for now, reassess volume status and diurese as needed. Qualifiers: Heart failure chronicity: chronic Qualified Code(s): I50.32 - Chronic diastolic (congestive) heart failure (6) Coronary artery disease Current Visit: Yes Status: Acute Qualifiers: Coronary Disease-Associated Artery/Lesion type: unspecified vessel or lesion type [place] vs. transplanted heart: unspecified whether [place] or transplanted heart Associated angina: angina presence unspecified Qualified Code(s): I25.10 - Atherosclerotic heart disease of [place] coronary artery without angina pectoris (7) Hypophosphatemia Current Visit: Yes Status: Resolved <1.0 on admission Repeat after Nutra-Phos was 4.5 - likely lab error Continue to monitor and replace as needed (8) DVT prophylaxis Current Visit: No Status: Acute Heparin SQ protonix for GI prophylaxis Subjective Principal diagnosis: Acute Respiratory failure Interval history: Pt had o have sedation increased overnight. She did well on her CPAP trial but an ABG showed hypercapnia and hypoxia and the decision was made not to extubate her. Will try again today to see if she will tolerate extubation. Objective PUL Vital signs: Last Vital Signs Temp 100.3 F H 05/12/18 03:03 Pulse 109 05/12/18 06:00 Resp 14 05/12/18 06:00 BP 135/78 05/12/18 06:00 Pulse Ox 96 05/12/18 06:00 General appearance: no acute distress, asleep Eyes: nonicteric ENT: oropharynx dry Neck: supple Effort: mildly labored Auscultation: bilateral: diminished breath sounds, wheezes Cardiovascular: other (tachycardic) Gastrointestinal: soft, tender Integumentary: normal Extremities: no cyanosis, no edema, pulses normal pupils equal and round Ventilator Settings Ventilator Settings: Ventilator Settings, Last 8 Hours Ventilator Tidal Volume 400 Setting Ventilator Tidal Volume 400 Setting Ventilator Tidal Volume 400 Setting Ventilator Tidal Volume 400 Setting Ventilator Tidal Volume 400 Setting Ventilator Tidal Volume 400 Setting Ventilator Tidal Volume 400 Setting Ventilator Tidal Volume 400 Setting Ventilator Tidal Volume 400 Setting Ventilator Tidal Volume 400 Setting Ventilator Tidal Volume 400 Setting Ventilator Tidal Volume 400 Setting Ventilator Respiratory Rate 14 Setting Ventilator Respiratory Rate 14 Setting Ventilator Respiratory Rate 14 Setting Ventilator Respiratory Rate 14 Setting Ventilator Respiratory Rate 14 Setting Ventilator Respiratory Rate 14 Setting Ventilator Respiratory Rate 14 Setting Ventilator Respiratory Rate 14 Setting Ventilator Respiratory Rate 14 Setting Ventilator Respiratory Rate 14 Setting Ventilator Respiratory Rate 14 Setting Ventilator Respiratory Rate 14 Setting Actual Respiratory Rate 14 Actual Respiratory Rate 14 Actual Respiratory Rate 14 Actual Respiratory Rate 14 Actual Respiratory Rate 17 Actual Respiratory Rate 15 Actual Respiratory Rate 16 Actual Respiratory Rate 16 Actual Respiratory Rate 16 Actual Respiratory Rate 16 Actual Respiratory Rate 17 Actual Respiratory Rate 14 Positive End Expiratory 5 Pressure Positive End Expiratory 5 Pressure Positive End Expiratory 5 Pressure Positive End Expiratory 5 Pressure Positive End Expiratory 5 Pressure Positive End Expiratory 5 Pressure Positive End Expiratory 5 Pressure Positive End Expiratory 5 Pressure Positive End Expiratory 5 Pressure Positive End Expiratory 5 Pressure Positive End Expiratory 5 Pressure Positive End Expiratory 5 Pressure Peak Inspiratory Airway 46 Pressure Peak Inspiratory Airway 31 Pressure Peak Inspiratory Airway 31 Pressure Peak Inspiratory Airway 31 Pressure Peak Inspiratory Airway 16 Pressure Peak Inspiratory Airway 7.1 Pressure Peak Inspiratory Airway 7.6 Pressure Peak Inspiratory Airway 12 Pressure Peak Inspiratory Airway 11 Pressure Peak Inspiratory Airway 16 Pressure Peak Inspiratory Airway 23 Pressure Peak Inspiratory Airway 33 Pressure Results - Laboratory Findings CBC and BMP: 05/12/18 03:15 05/12/18 03:21 ABG ABG pH 7.21 pH Units (7.32-7.45) L 05/11/18 15:43 ABG pCO2 84 mmHg (35-45) H* 05/11/18 15:43 ABG pO2 48 mmHg (85-104) L* 05/11/18 15:43 ABG O2 Saturation 72 % (95-98) L 05/11/18 15:43 PT/INR, D-dimer PT 14.3 Seconds (9.4-12.1) H 05/10/18 08:20 Abnormal lab findings: Abnormal lab results WBC 12.7 K/mcL (4.3-11.1) H 05/12/18 03:15 Hgb 11.3 g/dL (11.5-15.4) L 05/12/18 03:15 MCH 27.1 pg (28.0-33.3) L 05/12/18 03:15 MCHC 29.5 g/dL (31.6-35.5) L 05/12/18 03:15 RDW 15.4 % (11.5-14.5) H 05/12/18 03:15 Neutrophils # 12.0 K/mcL (1.6-8.9) H 05/12/18 03:15 Lymphocytes # 0.2 K/mcL (0.6-4.6) L 05/12/18 03:15 Hypochromasia Present (Not Present) A 05/09/18 22:10 PT 14.3 Seconds (9.4-12.1) H 05/10/18 08:20 ABG pH 7.21 pH Units (7.32-7.45) L 05/11/18 15:43 ABG pCO2 84 mmHg (35-45) H* 05/11/18 15:43 ABG pO2 48 mmHg (85-104) L* 05/11/18 15:43 ABG HCO3 33 mEq/L (21-27) H 05/11/18 15:43 ABG Total CO2 36 mEq/L (20-26) H 05/11/18 15:43 ABG O2 Saturation 72 % (95-98) L 05/11/18 15:43 VBG pH 7.18 pH Units (7.32-7.42) L* 05/09/18 23:02 VBG pCO2 109 mmHg (41-51) H* 05/09/18 23:02 VBG pO2 55 mmHg (25-50) H 05/09/18 23:02 VBG HCO3 41 mEq/L (21-27) H 05/09/18 23:02 Chloride 108 mEq/L (98-107) H 05/12/18 03:21 Carbon Dioxide 33 mEq/L (23-29) H 05/12/18 03:21 BUN 55 mg/dL (8-23) H 05/12/18 03:21 Est GFR ( Amer) 56 (> 60) L 05/12/18 03:21 Est GFR (Non-Af Amer) 46 (> 60) L 05/12/18 03:21 BUN/Creatinine Ratio 48 (6-26) H 05/12/18 03:21 Glucose 219 mg/dL (70-105) H 05/12/18 03:21 POC Glucose 160 mg/dL (70-99) H 05/11/18 22:57 Calculated Osmolality 322 (280-300) H 05/12/18 03:21 Calcium 8.5 mg/dL (8.6-10.3) L 05/12/18 03:21 Phosphorus 2.3 mg/dL (2.7-4.5) L 05/12/18 03:21 Serum Total Protein 5.7 g/dL (6.4-8.9) L 05/12/18 03:21 Albumin 3.0 g/dL (3.5-5.7) L 05/12/18 03:21 Urine Clarity Cloudy (Clear) A 05/10/18 00:20 Urine Protein 30 mg/dL (Neg-Trace) H 05/10/18 00:20 Ur Squamous Epith Cells Many per lpf (None-Few) H 05/10/18 00:20 Hyaline Casts Moderate per lpf (None-Few) H 05/10/18 00:20 RSV (PCR) DETECTED (Not Detect) A 05/10/18 02:33 - Microbiology Findings Microbiology Findings: Microbiology, Last 48 Hours 05/10/18 03:14 Sputum Culture - Preliminary Sputum 05/10/18 02:36 Legionella Antigen - Final Urine,[place] Streptococcus pneumoniae Antigen (M - Final - Clinical Findings Intake & Output: Intake & Output 05/11/18 05/11/18 05/12/18 15:59 23:59 07:59 Intake Total 530 / 530 161.3 / 161.3 181.5 / 181.5 Output Total 100 / 100 525 / 525 150 / 150 Balance 430 / 430 -363.7 / -363.7 31.5 / 31.5 Weight 86 kg Consult Discharge Plan - Plan Referrals: Jim Figueroa MD [Primary Care Provider] - <Bethany Lopez S - Last Filed: 05/12/18 09:16> Date of Encounter: 05/12/18 Objective PUL Vital signs: Last Vital Signs Temp 99.1 F 05/12/18 07:56 Pulse 101 05/12/18 07:00 Resp 14 05/12/18 07:19 BP 130/76 05/12/18 07:00 Pulse Ox 97 05/12/18 07:19 Ventilator Settings Ventilator Settings: Ventilator Settings, Last 8 Hours Ventilator Tidal Volume 400 Setting Ventilator Tidal Volume 400 Setting Ventilator Tidal Volume 400 Setting Ventilator Tidal Volume 400 Setting Ventilator Tidal Volume 400 Setting Ventilator Tidal Volume 400 Setting Ventilator Tidal Volume 400 Setting Ventilator Tidal Volume 400 Setting Ventilator Tidal Volume 400 Setting Ventilator Tidal Volume 400 Setting Ventilator Respiratory Rate 14 Setting Ventilator Respiratory Rate 14 Setting Ventilator Respiratory Rate 14 Setting Ventilator Respiratory Rate 14 Setting Ventilator Respiratory Rate 14 Setting Ventilator Respiratory Rate 14 Setting Ventilator Respiratory Rate 14 Setting Ventilator Respiratory Rate 14 Setting Ventilator Respiratory Rate 14 Setting Ventilator Respiratory Rate 14 Setting Actual Respiratory Rate 14 Actual Respiratory Rate 15 Actual Respiratory Rate 14 Actual Respiratory Rate 14 Actual Respiratory Rate 14 Actual Respiratory Rate 14 Actual Respiratory Rate 17 Actual Respiratory Rate 15 Actual Respiratory Rate 16 Actual Respiratory Rate 16 Positive End Expiratory 5 Pressure Positive End Expiratory 5 Pressure Positive End Expiratory 5 Pressure Positive End Expiratory 5 Pressure Positive End Expiratory 5 Pressure Positive End Expiratory 5 Pressure Positive End Expiratory 5 Pressure Positive End Expiratory 5 Pressure Positive End Expiratory 5 Pressure Positive End Expiratory 5 Pressure Peak Inspiratory Airway 38 Pressure Peak Inspiratory Airway 46 Pressure Peak Inspiratory Airway 31 Pressure Peak Inspiratory Airway 31 Pressure Peak Inspiratory Airway 31 Pressure Peak Inspiratory Airway 16 Pressure Peak Inspiratory Airway 7.1 Pressure Peak Inspiratory Airway 7.6 Pressure Peak Inspiratory Airway 12 Pressure Results - Laboratory Findings CBC and BMP: 05/12/18 03:15 05/12/18 03:21 ABG ABG pH 7.21 pH Units (7.32-7.45) L 05/11/18 15:43 ABG pCO2 84 mmHg (35-45) H* 05/11/18 15:43 ABG pO2 48 mmHg (85-104) L* 05/11/18 15:43 ABG O2 Saturation 72 % (95-98) L 05/11/18 15:43 PT/INR, D-dimer PT 14.3 Seconds (9.4-12.1) H 05/10/18 08:20 Abnormal lab findings: Abnormal lab results WBC 12.7 K/mcL (4.3-11.1) H 05/12/18 03:15 Hgb 11.3 g/dL (11.5-15.4) L 05/12/18 03:15 MCH 27.1 pg (28.0-33.3) L 05/12/18 03:15 MCHC 29.5 g/dL (31.6-35.5) L 05/12/18 03:15 RDW 15.4 % (11.5-14.5) H 05/12/18 03:15 Neutrophils # 12.0 K/mcL (1.6-8.9) H 05/12/18 03:15 Lymphocytes # 0.2 K/mcL (0.6-4.6) L 05/12/18 03:15 Hypochromasia Present (Not Present) A 05/09/18 22:10 PT 14.3 Seconds (9.4-12.1) H 05/10/18 08:20 ABG pH 7.21 pH Units (7.32-7.45) L 05/11/18 15:43 ABG pCO2 84 mmHg (35-45) H* 05/11/18 15:43 ABG pO2 48 mmHg (85-104) L* 05/11/18 15:43 ABG HCO3 33 mEq/L (21-27) H 05/11/18 15:43 ABG Total CO2 36 mEq/L (20-26) H 05/11/18 15:43 ABG O2 Saturation 72 % (95-98) L 05/11/18 15:43 VBG pH 7.18 pH Units (7.32-7.42) L* 05/09/18 23:02 VBG pCO2 109 mmHg (41-51) H* 05/09/18 23:02 VBG pO2 55 mmHg (25-50) H 05/09/18 23:02 VBG HCO3 41 mEq/L (21-27) H 05/09/18 23:02 Chloride 108 mEq/L (98-107) H 05/12/18 03:21 Carbon Dioxide 33 mEq/L (23-29) H 05/12/18 03:21 BUN 55 mg/dL (8-23) H 05/12/18 03:21 Est GFR ( Amer) 56 (> 60) L 05/12/18 03:21 Est GFR (Non-Af Amer) 46 (> 60) L 05/12/18 03:21 BUN/Creatinine Ratio 48 (6-26) H 05/12/18 03:21 Glucose 219 mg/dL (70-105) H 05/12/18 03:21 POC Glucose 160 mg/dL (70-99) H 05/11/18 22:57 Calculated Osmolality 322 (280-300) H 05/12/18 03:21 Calcium 8.5 mg/dL (8.6-10.3) L 05/12/18 03:21 Phosphorus 2.3 mg/dL (2.7-4.5) L 05/12/18 03:21 Serum Total Protein 5.7 g/dL (6.4-8.9) L 05/12/18 03:21 Albumin 3.0 g/dL (3.5-5.7) L 05/12/18 03:21 Urine Clarity Cloudy (Clear) A 05/10/18 00:20 Urine Protein 30 mg/dL (Neg-Trace) H 05/10/18 00:20 Ur Squamous Epith Cells Many per lpf (None-Few) H 05/10/18 00:20 Hyaline Casts Moderate per lpf (None-Few) H 05/10/18 00:20 RSV (PCR) DETECTED (Not Detect) A 05/10/18 02:33 - Microbiology Findings Microbiology Findings: Microbiology, Last 48 Hours 05/10/18 03:14 Sputum Culture - Preliminary Sputum Gram Negative Vince - Clinical Findings Intake & Output: Intake & Output 05/11/18 05/12/18 05/12/18 23:59 07:59 15:59 Intake Total 161.3 / 161.3 181.5 / 181.5 Output Total 525 / 525 300 / 300 Balance -363.7 / -363.7 -118.5 / -118.5 Weight 86 kg - Attending Attestation - Attending Attestation I saw and evaluated this patient and my medical decision-making was reviewed with the Resident Physician. I agree with the documented findings, disposition and treatment plan as described except to the extent set forth below. We ind ependently had [id number] contact with the patient I spent 35 minutes of Critical Care time with this patient. It involved decision making of high complexity to assess, manipulate, and support vital organ system failure and/or to prevent further life threatening deterioration of the patient's condition. The time involved in the performance of separately reportable procedures was not counted toward critical care time. Patient seen and examined at bedside Labs, radiology, chart personally reviewed. Management was reviewed during multidisciplinary critical care rounds. HEALTH WORKER: Patient is conscious following commands no focal neurological deficit metabolic encephalopathy is improving after improved gas exchange. 05/11 is deeply sedated and is not waking up of following commands I asked the nurse to reduce the sedation and wake her up so we can put her on spontaneous br eathing trial 05/12 patient is conscious but not following commands but she was restless overnight we will try to do a spontaneous breathing trial today Pulm: Patient presented with viral exacerbation of COPD with worsening V/Q mismatch causing acute on chronic hypoxic and hypercarbic respiratory failure patient needing intubation failed BiPAP therapy chest x-ray did not show evidence of any lobar pneumonia cover with broad-spectrum antibiotic as patient has background history of very severe obstructive ventilatory impairment. Adjusted tidal volume inspiratory time and respiratory rate to reduce air- trapping 05/11 patient has acceptable oxygenation and ventilation when she is more awake we will put her on spontaneous breathing trial if she passes a trial with good cough and gag reflex and she is not encephalopathy we will repeat a blood gas before extubating her. To continue treating for COPD exacerbation and possible pneumonia.. 05/12 patient still has significant bronchospasm with high I:E ratio has acceptable oxygenation and ventilation since patient has this RSV infection with a background of COPD expect she will have adequate prolonged recovery he will try to do spontaneous breathing trial if she passes it she will need a blood gas analysis to make sure she is not profoundly hypercarbic before she gets extubated with her mental status and agitation she might be a poor candidate for extubation to BiPAP. Cards: Patient is hemodynamically unstable trend her troponins will get an echo most likely she is volume depleted lactic acid is normal no evidence of tissue hyperperfusion with patient has compromised urine output resuscitate with fluids if patient does not respond to that and we will start her on vasopressors. Culture sent. 05/11 patient is hemodynamically stable. 05/12 patient is hemodynamically stable no evidence of acute coronary syndrome. FEN-GI: Patient has abdominal tenderness with guarding and rigidity concern for intra-abdominal process will get a CT abdomen pelvis without contrast will keep her nothing by mouth 05/11 CT abdomen pelvis did not show any acute process i will keep her nothing by mouth as we are planning to extubate her. 05/12 if she does not pass her breathing trial will start her on minimal tube feeding. Renal: Labs and output reviewed kidney function lot better ID: sputum culture growing gram-negative rods will need to look for culture and sensitivity. To continue Levaquin. Heme/Onc: Thromboprophylaxis Endo: Glucose Monitored Integ/MSK: Skin Care per routine ICU Nursing Protocol to prevent ulcers. Lines: All lines examined without evidence of infection : Dispo: Patient is critically ill CODE:Full Code
[2018-05-12] MEDS: MethylPREDNISolone 40 MG/ML VIAL IVP SCH ×3 (08:54→23:52)
[2018-05-12] MEDS: Chlorhexidine Rinse 15 ML MOUTHWASH MM SCH ×2 (08:54→20:16)
[2018-05-12] MEDS: Nystatin OINT 15 GM TUBE TP SCH ×4 (08:55→20:20)
[2018-05-12] MEDS ORDERED: Haloperidol Lactate 5 MG/ML VIAL IVP ONE (09:45)
[2018-05-12] MEDS ORDERED: Ringers Solution, Lactated 1,000 ML IVC ONE (10:19)
[2018-05-13] MEDS: FentaNYL (PF) 1,000 MCG in 0.9 % Sodium Chloride 80 ML IVC SCH (00:52)
[2018-05-13] MEDS: Ipratropium/Albuterol Neb 3 ML IH SCH ×6 (03:33→23:24)
[2018-05-13 03:47] LABS: Basophils % 0.2 %; Hematocrit 37.6 % (35.3-44.9); Hemoglobin 11.6 g/dL (11.5-15.4); Immature Granulocytes % 0.9 % (0-4); Immature Platelets 5.4 % (1.1-6.1); Lymphocytes # 0.5 K/mcL (0.6-4.6); Lymphocytes % 4.2 %; Mean Corpuscular HGB Conc 30.9 g/dL (31.6-35.5); Mean Corpuscular Hemoglobin 27.5 pg (28.0-33.3); Mean Corpuscular Volume 89.1 fL (83.0-100.0); Mean Platelet Volume 11.2 fL (9.4-12.4); Monocytes # 0.4 K/mcL (0.0-1.3); Monocytes % 2.9 %; Neutrophils # 11.3 K/mcL (1.6-8.9); Platelet Count 173 K/mcL (140-400); Red Blood Count 4.22 M/mcL (3.82-4.97); Red Cell Distribution Width 15.7 % (11.5-14.5); Segmented Neutrophils % 91.8 %
[2018-05-13] MEDS: Insulin LISPRO 300 UNITS/3 ML VIAL SQ SCH ×6 (03:57→23:19)
[2018-05-13] MEDS: Artificial Tears SOLN 15 ML BOTTLE BOTH EYES SCH ×3 (03:58→11:09)
[2018-05-13 04:10] LABS: Alanine Aminotransferase 27 Units/L (7-52); Albumin 2.9 g/dL (3.5-5.7); Alkaline Phosphatase 63 Units/L (34-104); Aspartate Amino Transferase 30 Units/L (13-39); BUN/Creatinine Ratio 57 (6-26); Bilirubin,Total 0.5 mg/dL (0.3-1.0); Blood Urea Nitrogen 52 mg/dL (8-23); Calcium 8.4 mg/dL (8.6-10.3); Carbon Dioxide 35 mEq/L (23-29); Chloride 107 mEq/L (98-107); Glucose 193 mg/dL (70-105); Magnesium 2.3 mg/dL (1.6-2.6); Osmolality,Calculated 321 (280-300); Phosphorous 1.8 mg/dL (2.7-4.5); Potassium 4.5 mEq/L (3.5-5.1); Sodium 146 mEq/L (136-145); Total Protein 5.9 g/dL (6.4-8.9); eGFR For Non-African Americans > 60 (> 60)
[2018-05-13] MEDS: Dexmedetomidine HCl 400 MCG/100 ML MLS IVC SCH ×3 (04:57→23:17)
[2018-05-13] MEDS: *HR* Heparin 5,000 UNIT/ML VIAL SQ SCH ×3 (05:16→20:00)
[2018-05-13] MEDS: Pantoprazole 40 MG VIAL IVP SCH (05:16)
--- NOTE | 2018-05-13 09:27 | Pulmonology Progress Note ---
<AlphonsePacoVenkat W - Last Filed: 05/13/18 13:29> Date of Encounter: 05/13/18 Time of Encounter: 09:27 Assessment and Plan (1) Acute on chronic respiratory failure with hypoxia and hypercapnia Current Visit: Yes Status: Acute 73-year-old female admitted for hypoxia, difficulty in breathing, altered mental status secondary to CO2 narcosis. EMS was called by family due to decreased O2 saturation, but patient was initially reluctant to come to ER for evaluation. Etiology likely secondary to COPD exacerbation. Patient met two sirs criteria upon arriving to ER with tachycardia, tachypnea. Did not meet sepsis criteria, as WBC was borderline at 11.2 - and has decreased to 9.3 this morning, CXR showed no focal consolidation. lactic acid normal. No known source of infection at this time. in ED, ABG showed pH: 7.12, PCO2 131, PO2 66. Patient failed to improve with BiPAP and was intubated in ER. Plan: blood cultures x2, sputum culture Respiratory infectious panel positive for RSV Legionella and strep pneumo antigens negative scheduled DuoNebs Leavaquin day 4 Solumedrol Extubated currently on Oxymask 98% on 5 L (2) Acute exacerbation of chronic obstructive airways disease Current Visit: Yes Status: Acute plan as above (3) SARAHI (acute kidney injury) Current Visit: Yes Status: Resolved resolved (4) Altered mental status Current Visit: Yes Status: Acute resolved Qualifiers: Altered mental status type: somnolence Qualified Code(s): R40.0 - Somnolence (5) Hypophosphatemia Current Visit: Yes Status: Resolved <1.0 on admission Continue to monitor and replace as needed (6) DVT prophylaxis Current Visit: No Status: Acute Heparin SQ Subjective Principal diagnosis: Acute Respiratory failure Interval history: Patietn doing well today, still anxious especially when BiPAP is removed Objective PUL Vital signs: Last Vital Signs Temp 99.0 F 05/13/18 07:00 Pulse 113 05/13/18 07:36 Resp 17 05/13/18 08:04 BP 161/83 05/13/18 07:00 Pulse Ox 96 05/13/18 08:25 General appearance: appears uncomfortable, other Eyes: nonicteric ENT: oropharynx moist Auscultation: bilateral: wheezes Cardiovascular: regular rate and rhythm Gastrointestinal: normoactive bowel sounds, soft, non-tender Integumentary: normal Extremities: no cyanosis unable to assess due to mental status Ventilator Settings Ventilator Settings: Ventilator Settings, Last 8 Hours Ventilator Tidal Volume 400 Setting Ventilator Tidal Volume 400 Setting Ventilator Tidal Volume 400 Setting Ventilator Tidal Volume 400 Setting Ventilator Tidal Volume 400 Setting Ventilator Tidal Volume 400 Setting Ventilator Tidal Volume 400 Setting Ventilator Respiratory Rate 14 Setting Ventilator Respiratory Rate 14 Setting Ventilator Respiratory Rate 14 Setting Ventilator Respiratory Rate 14 Setting Ventilator Respiratory Rate 14 Setting Ventilator Respiratory Rate 14 Setting Ventilator Respiratory Rate 14 Setting Actual Respiratory Rate 19 Actual Respiratory Rate 14 Actual Respiratory Rate 14 Positive End Expiratory 5 Pressure Positive End Expiratory 5 Pressure Positive End Expiratory 5 Pressure Positive End Expiratory 5 Pressure Positive End Expiratory 5 Pressure Positive End Expiratory 5 Pressure Positive End Expiratory 5 Pressure Positive End Expiratory 5 Pressure Peak Inspiratory Airway 10 Pressure Peak Inspiratory Airway 41 Pressure Peak Inspiratory Airway 42 Pressure Results - Laboratory Findings CBC and BMP: 05/13/18 03:52 05/13/18 03:52 ABG ABG pH 7.21 pH Units (7.32-7.45) L 05/11/18 15:43 ABG pCO2 84 mmHg (35-45) H* 05/11/18 15:43 ABG pO2 48 mmHg (85-104) L* 05/11/18 15:43 ABG O2 Saturation 72 % (95-98) L 05/11/18 15:43 PT/INR, D-dimer PT 14.3 Seconds (9.4-12.1) H 05/10/18 08:20 Abnormal lab findings: Abnormal lab results WBC 12.3 K/mcL (4.3-11.1) H 05/13/18 03:52 MCH 27.5 pg (28.0-33.3) L 05/13/18 03:52 MCHC 30.9 g/dL (31.6-35.5) L 05/13/18 03:52 RDW 15.7 % (11.5-14.5) H 05/13/18 03:52 Neutrophils # 11.3 K/mcL (1.6-8.9) H 05/13/18 03:52 Lymphocytes # 0.5 K/mcL (0.6-4.6) L 05/13/18 03:52 Hypochromasia Present (Not Present) A 05/09/18 22:10 PT 14.3 Seconds (9.4-12.1) H 05/10/18 08:20 ABG pH 7.21 pH Units (7.32-7.45) L 05/11/18 15:43 ABG pCO2 84 mmHg (35-45) H* 05/11/18 15:43 ABG pO2 48 mmHg (85-104) L* 05/11/18 15:43 ABG HCO3 33 mEq/L (21-27) H 05/11/18 15:43 ABG Total CO2 36 mEq/L (20-26) H 05/11/18 15:43 ABG O2 Saturation 72 % (95-98) L 05/11/18 15:43 VBG pH 7.18 pH Units (7.32-7.42) L* 05/09/18 23:02 VBG pCO2 109 mmHg (41-51) H* 05/09/18 23:02 VBG pO2 55 mmHg (25-50) H 05/09/18 23:02 VBG HCO3 41 mEq/L (21-27) H 05/09/18 23:02 Sodium 146 mEq/L (136-145) H 05/13/18 03:52 Carbon Dioxide 35 mEq/L (23-29) H 05/13/18 03:52 BUN 52 mg/dL (8-23) H 05/13/18 03:52 BUN/Creatinine Ratio 57 (6-26) H 05/13/18 03:52 Glucose 193 mg/dL (70-105) H 05/13/18 03:52 POC Glucose 188 mg/dL (70-99) H 05/12/18 23:30 Calculated Osmolality 321 (280-300) H 05/13/18 03:52 Calcium 8.4 mg/dL (8.6-10.3) L 05/13/18 03:52 Phosphorus 1.8 mg/dL (2.7-4.5) L 05/13/18 03:52 Serum Total Protein 5.9 g/dL (6.4-8.9) L 05/13/18 03:52 Albumin 2.9 g/dL (3.5-5.7) L 05/13/18 03:52 Albumin/Globulin Ratio 1.0 (1.1-2.2) L 05/13/18 03:52 Urine Clarity Cloudy (Clear) A 05/10/18 00:20 Urine Protein 30 mg/dL (Neg-Trace) H 05/10/18 00:20 Ur Squamous Epith Cells Many per lpf (None-Few) H 05/10/18 00:20 Hyaline Casts Moderate per lpf (None-Few) H 05/10/18 00:20 RSV (PCR) DETECTED (Not Detect) A 05/10/18 02:33 - Microbiology Findings Microbiology Findings: Microbiology, Last 48 Hours 05/10/18 03:14 Sputum Culture - Preliminary Sputum Gram Negative Vince - Clinical Findings Intake & Output: Intake & Output 05/12/18 05/13/18 05/13/18 23:59 07:59 15:59 Intake Total 300 / 300 1068 / 1068 Output Total 350 / 350 375 / 375 Balance -50 / -50 693 / 693 Weight 86.9 kg Consult Discharge Plan - Plan Referrals: Jim Figueroa MD [Primary Care Provider] - <Bethany Lopez - Last Filed: 05/14/18 00:29> Date of Encounter: 05/14/18 Objective PUL Vital signs: Last Vital Signs Temp 99.1 F 05/13/18 23:00 Pulse 104 05/14/18 00:00 Resp 16 05/14/18 00:00 BP 133/77 05/14/18 00:00 Pulse Ox 96 05/14/18 00:00 Results - Laboratory Findings CBC and BMP: 05/13/18 03:52 05/13/18 03:52 ABG ABG pH 7.32 pH Units (7.32-7.45) 05/13/18 20:07 ABG pCO2 82 mmHg (35-45) H* 05/13/18 20:07 ABG pO2 64 mmHg (85-104) L 05/13/18 20:07 ABG O2 Saturation 89 % (95-98) L 05/13/18 20:07 PT/INR, D-dimer PT 14.3 Seconds (9.4-12.1) H 05/10/18 08:20 Abnormal lab findings: Abnormal lab results WBC 12.3 K/mcL (4.3-11.1) H 05/13/18 03:52 MCH 27.5 pg (28.0-33.3) L 05/13/18 03:52 MCHC 30.9 g/dL (31.6-35.5) L 05/13/18 03:52 RDW 15.7 % (11.5-14.5) H 05/13/18 03:52 Neutrophils # 11.3 K/mcL (1.6-8.9) H 05/13/18 03:52 Lymphocytes # 0.5 K/mcL (0.6-4.6) L 05/13/18 03:52 Hypochromasia Present (Not Present) A 05/09/18 22:10 PT 14.3 Seconds (9.4-12.1) H 05/10/18 08:20 ABG pCO2 82 mmHg (35-45) H* 05/13/18 20:07 ABG pO2 64 mmHg (85-104) L 05/13/18 20:07 ABG HCO3 43 mEq/L (21-27) H 05/13/18 20:07 ABG Total CO2 45 mEq/L (20-26) H 05/13/18 20:07 ABG O2 Saturation 89 % (95-98) L 05/13/18 20:07 ABG Base Excess 12 mEq/L (-2 to 3) H 05/13/18 20:07 VBG pH 7.18 pH Units (7.32-7.42) L* 05/09/18 23:02 VBG pCO2 109 mmHg (41-51) H* 05/09/18 23:02 VBG pO2 55 mmHg (25-50) H 05/09/18 23:02 VBG HCO3 41 mEq/L (21-27) H 05/09/18 23:02 Sodium 146 mEq/L (136-145) H 05/13/18 03:52 Carbon Dioxide 35 mEq/L (23-29) H 05/13/18 03:52 BUN 52 mg/dL (8-23) H 05/13/18 03:52 BUN/Creatinine Ratio 57 (6-26) H 05/13/18 03:52 Glucose 193 mg/dL (70-105) H 05/13/18 03:52 POC Glucose 152 mg/dL (70-99) H 05/13/18 22:56 Calculated Osmolality 321 (280-300) H 05/13/18 03:52 Calcium 8.4 mg/dL (8.6-10.3) L 05/13/18 03:52 Phosphorus 1.8 mg/dL (2.7-4.5) L 05/13/18 03:52 Serum Total Protein 5.9 g/dL (6.4-8.9) L 05/13/18 03:52 Albumin 2.9 g/dL (3.5-5.7) L 05/13/18 03:52 Albumin/Globulin Ratio 1.0 (1.1-2.2) L 05/13/18 03:52 Urine Clarity Cloudy (Clear) A 05/10/18 00:20 Urine Protein 30 mg/dL (Neg-Trace) H 05/10/18 00:20 Ur Squamous Epith Cells Many per lpf (None-Few) H 05/10/18 00:20 Hyaline Casts Moderate per lpf (None-Few) H 05/10/18 00:20 RSV (PCR) DETECTED (Not Detect) A 05/10/18 02:33 - Microbiology Findings Microbiology Findings: Microbiology, Last 48 Hours 05/10/18 03:14 Sputum Culture - Preliminary Sputum Gram Negative Vince - Clinical Findings Intake & Output: Intake & Output 05/13/18 05/13/18 05/14/18 15:59 23:59 07:59 Intake Total 150 / 150 100 / 100 Output Total 700 / 700 1150 / 1150 Balance -550 / -550 -1050 / -1050 - Attending Attestation - Attending Attestation I saw and evaluated this patient and my medical decision-making was reviewed with the Resident Physician. I agree with the documented findings, disposition and treatment plan as described except to the extent set forth below. We independently had [id number] contact with the patient I spent 32 minutes of Critical Care time with this patient. It involved decision making of high complexity to assess, manipulate, and support vital organ system failure and/or to prevent further life threatening deterioration of the patient's condition. The time involved in the performance of separately reportable procedures was not counted toward critical care time. Patient seen and examined at bedside Labs, radiology, chart personally reviewed. Management was reviewed during multidisciplinary critical care rounds. PROMOTION WRITER: Patient is conscious following commands no focal neurological deficit metabolic encephalopathy is improving after improved gas exchange. 05/11 is deeply sedated and is not waking up of following commands I asked the nurse to reduce the sedation and wake her up so we can put her on spontaneous breathing trial 05/12 patient is conscious but not following commands but she was restless overnight we will try to do a spontaneous breathing trial today 05/13 patient is more awake following commands we will try to extubate today. Pulm: Patient presented with viral exacerbation of COPD with worsening V/Q mismatch causing acute on chronic hypoxic and hypercarbic respiratory failure patient needing intubation failed BiPAP therapy chest x-ray did not show evid ence of any lobar pneumonia cover with broad-spectrum antibiotic as patient has background history of very severe obstructive ventilatory impairment. Adjusted tidal volume inspiratory time and respiratory rate to reduce air-trapping 05/11 patient has acceptable oxygenation and ventilation when she is more awake we will put her on spontaneous breathing trial if she passes a trial with good cough and gag reflex and she is not encephalopathy we will repeat a blood gas before extubating her. To continue treating for COPD exacerbation and possible pneumonia.. 05/12 patient still has significant bronchospasm with high I:E ratio has acceptable oxygenation and ventilation since patient has this RSV infection with a background of COPD expect she will have adequate prolonged recovery he will try to do spontaneous breathing trial if she passes it she will need a blood gas analysis to make sure she is not profoundly hypercarbic before she gets extubated with her mental status and agitation she might be a poor candidate for extubation to BiPAP. 05/13 this is the first day her clinical exam is lot better the ICU her I:E ratio lot better if patient passes responders breathing trial will extubate her to nasal cannula first and she will need BiPAP at night. Cards: Patient is hemodynamically unstable trend her troponins will get an echo most likely she is volume depleted lactic acid is normal no evidence of tissue hyperperfusion with patient has compromised urine output resuscitate with fluids if patient does not respond to that and we will start her on vasopressors. Culture sent. 05/11 patient is hemodynamically stable. 05/12 patient is hemodynamically stable no evidence of acute coronary syndrome. 05/13 Patient is hemodynamically stable FEN-GI: Patient has abdominal tenderness with guarding and rigidity concern for intra-abdominal process will get a CT abdomen pelvis without contrast will keep her nothing by mouth 05/11 CT abdomen pelvis did not show any acute process i will keep her nothing by mouth as we are planning to extubate her. 05/12 if she does not pass her breathing trial will start her on minimal tube feeding. 05/13 patient is extubated will advance diet in the evening. Renal: Labs and output reviewed kidney function lot better ID: sputum culture growing gram-negative rods will need to look for culture and sensitivity. To continue Levaquin. Heme/Onc: Thromboprophylaxis Endo: Glucose Monitored Integ/MSK: Skin Care per routine ICU Nursing Protocol to prevent ulcers. Lines: All lines examined without evidence of infection : Dispo: Patient to remain in ICU CODE:Full Code
[2018-05-13] MEDS: MethylPREDNISolone 40 MG/ML VIAL IVP SCH ×3 (10:16→23:14)
[2018-05-13] MEDS: Chlorhexidine Rinse 15 ML MOUTHWASH MM SCH (10:16)
[2018-05-13] MEDS: Nystatin OINT 15 GM TUBE TP SCH ×4 (10:17→19:58)
[2018-05-13] MEDS: Levofloxacin 750 MG/150 ML 750 MG/150 ML BAG IVPB SCH (13:37)
[2018-05-13] MEDS: *HR* Metoprolol 5 MG/5 ML VIAL IVP PRN (15:37)
[2018-05-13] MEDS ORDERED: hydrALAZINE 10 MG TABLET PO PRN (17:12)
[2018-05-13] MEDS: *HR* LORazepam 2 MG/ML VIAL IVP PRN (18:29)
[2018-05-13 20:11] LABS: ABG Base Excess 12 mEq/L (-2 to 3); ABG HCO3 43 mEq/L (21-27); ABG Oxygen Saturation 89 % (95-98); ABG PCO2 82 mmHg (35-45); ABG PH 7.32 pH Units (7.32-7.45); ABG PO2 64 mmHg (85-104); ABG TCO2 45 mEq/L (20-26)
[2018-05-13] MEDS ORDERED: Furosemide 20 MG/2 ML VIAL IVP ONE (20:26)
[2018-05-13] MEDS: Piperacillin/Tazobactam 3.375 GM in 0.9 % Sodium Chloride Mini Bag 100 ML IVPB SCH (21:58)
[2018-05-14] MEDS: Piperacillin/Tazobactam 3.375 GM in 0.9 % Sodium Chloride Mini Bag 100 ML IVPB SCH ×3 (03:54→19:39)
[2018-05-14] MEDS: Insulin LISPRO 300 UNITS/3 ML VIAL SQ SCH ×6 (03:55→23:17)
[2018-05-14] MEDS: Dexmedetomidine HCl 400 MCG/100 ML MLS IVC SCH ×5 (03:58→23:50)
[2018-05-14] MEDS: Ipratropium/Albuterol Neb 3 ML IH SCH ×6 (04:03→23:38)
[2018-05-14 04:28] LABS: VBG Ionized Calcium 1.07 mmol/L (1.15-1.35)
[2018-05-14 04:33] LABS: Basophils # 0.1 K/mcL (0.0-0.2); Basophils % 0.3 %; Hematocrit 40.7 % (35.3-44.9); Hemoglobin 12.4 g/dL (11.5-15.4); Immature Granulocytes % 1.3 % (0-4); Lymphocytes # 0.6 K/mcL (0.6-4.6); Lymphocytes % 3.7 %; Mean Corpuscular HGB Conc 30.5 g/dL (31.6-35.5); Mean Corpuscular Hemoglobin 27.1 pg (28.0-33.3); Mean Corpuscular Volume 88.9 fL (83.0-100.0); Mean Platelet Volume 11.1 fL (9.4-12.4); Monocytes # 0.4 K/mcL (0.0-1.3); Monocytes % 2.8 %; Neutrophils # 14.6 K/mcL (1.6-8.9); Platelet Count 180 K/mcL (140-400); Red Blood Count 4.58 M/mcL (3.82-4.97); Red Cell Distribution Width 15.9 % (11.5-14.5); Segmented Neutrophils % 91.9 %
[2018-05-14 04:44] LABS: Alanine Aminotransferase 92 Units/L (7-52); Albumin/Globulin Ratio 1.1 (1.1-2.2); Alkaline Phosphatase 65 Units/L (34-104); Aspartate Amino Transferase 83 Units/L (13-39); BUN/Creatinine Ratio 53 (6-26); Blood Urea Nitrogen 51 mg/dL (8-23); Calcium 8.2 mg/dL (8.6-10.3); Carbon Dioxide 39 mEq/L (23-29); Chloride 102 mEq/L (98-107); Globulin 2.8 g/dL (2.4-3.5); Glucose 173 mg/dL (70-105); Magnesium 2.2 mg/dL (1.6-2.6); Osmolality,Calculated 320 (280-300); Phosphorous 3.6 mg/dL (2.7-4.5); Potassium 4.7 mEq/L (3.5-5.1); Sodium 146 mEq/L (136-145); Total Protein 5.8 g/dL (6.4-8.9); eGFR For Non-African Americans 57 (> 60)
[2018-05-14] MEDS: *HR* Heparin 5,000 UNIT/ML VIAL SQ SCH ×3 (05:27→19:37)
[2018-05-14] MEDS: *HR* LORazepam 2 MG/ML VIAL IVP PRN ×2 (05:28→14:26)
[2018-05-14] MEDS: Pantoprazole 40 MG VIAL IVP SCH (05:32)
[2018-05-14] MEDS: Levofloxacin 750 MG/150 ML 750 MG/150 ML BAG IVPB SCH (08:08)
[2018-05-14] MEDS: MethylPREDNISolone 40 MG/ML VIAL IVP SCH ×3 (08:08→23:21)
[2018-05-14] MEDS: Nystatin OINT 15 GM TUBE TP SCH ×4 (08:14→19:41)
[2018-05-14] MEDS ORDERED: Furosemide 20 MG/2 ML VIAL IVP ONE (08:59)
--- NOTE | 2018-05-14 09:20 | Pulmonology Progress Note ---
<Venkat Cunha W - Last Filed: 05/14/18 15:38> Date of Encounter: 05/14/18 Time of Encounter: 09:16 Assessment and Plan (1) Acute on chronic respiratory failure with hypoxia and hypercapnia Current Visit: Yes Status: Acute 73-year-old female admitted for hypoxia, difficulty in breathing, altered mental status secondary to CO2 narcosis. EMS was called by family due to decreased O2 saturation, but patient was initially reluctant to come to ER for evaluation. Etiology likely secondary to COPD exacerbation. Patient met two sirs criteria upon arriving to ER with tachycardia, tachypnea. Did not meet sepsis criteria, as WBC was borderline at 11.2 - and has decreased to 9.3 this morning, CXR showed no focal consolidation. lactic acid normal. No known source of infection at this time. in ED, ABG showed pH: 7.12, PCO2 131, PO2 66. Patient failed to improve with BiPAP and was intubated in ER. Plan: blood cultures x2, sputum culture Respiratory infectious panel positive for RSV sputum cx positiive for S. maltoph sensitive to Levaquin Legionella and strep pneumo antigens negative scheduled DuoNebs Leavaquin day 5 Solumedrol 20 Lasix given overnight and repeat dose this AM Extubated currently on BiPAP wean off as tolerated Ativan PRN for anxiety related to SOB (2) Acute exacerbation of chronic obstructive airways disease Current Visit: Yes Status: Acute plan as above (3) SARAHI (acute kidney injury) Current Visit: Yes Status: Resolved resolved (4) Hypophosphatemia Current Visit: Yes Status: Resolved <1.0 on admission Continue to monitor and replace as needed (5) DVT prophylaxis Current Visit: No Status: Acute Heparin SQ Subjective Principal diagnosis: Acute Respiratory failure Interval history: Patient required Bipap last night dut to respiratory distress likely a large co mponent was her anxiety. On ativan PRN for her anxiety/SOB. Objective PUL Vital signs: Last Vital Signs Temp 97.8 F 05/14/18 07:24 Pulse 88 05/14/18 08:00 Resp 17 05/14/18 08:06 BP 123/78 05/14/18 08:00 Pulse Ox 96 05/14/18 08:06 General appearance: other (anxious when off BiPAP good when on BiPAP) Eyes: nonicteric ENT: oropharynx moist Auscultation: bilateral: wheezes Cardiovascular: regular rate and rhythm Gastrointestinal: normoactive bowel sounds, soft Integumentary: normal anxious Results - Laboratory Findings CBC and BMP: 05/14/18 04:15 05/14/18 04:15 ABG ABG pH 7.32 pH Units (7.32-7.45) 05/13/18 20:07 ABG pCO2 82 mmHg (35-45) H* 05/13/18 20:07 ABG pO2 64 mmHg (85-104) L 05/13/18 20:07 ABG O2 Saturation 89 % (95-98) L 05/13/18 20:07 PT/INR, D-dimer PT 14.3 Seconds (9.4-12.1) H 05/10/18 08:20 Abnormal lab findings: Abnormal lab results WBC 15.9 K/mcL (4.3-11.1) H 05/14/18 04:15 MCH 27.1 pg (28.0-33.3) L 05/14/18 04:15 MCHC 30.5 g/dL (31.6-35.5) L 05/14/18 04:15 RDW 15.9 % (11.5-14.5) H 05/14/18 04:15 Neutrophils # 14.6 K/mcL (1.6-8.9) H 05/14/18 04:15 Hypochromasia Present (Not Present) A 05/09/18 22:10 PT 14.3 Seconds (9.4-12.1) H 05/10/18 08:20 ABG pCO2 82 mmHg (35-45) H* 05/13/18 20:07 ABG pO2 64 mmHg (85-104) L 05/13/18 20:07 ABG HCO3 43 mEq/L (21-27) H 05/13/18 20:07 ABG Total CO2 45 mEq/L (20-26) H 05/13/18 20:07 ABG O2 Saturation 89 % (95-98) L 05/13/18 20:07 ABG Base Excess 12 mEq/L (-2 to 3) H 05/13/18 20:07 VBG pH 7.18 pH Units (7.32-7.42) L* 05/09/18 23:02 VBG pCO2 109 mmHg (41-51) H* 05/09/18 23:02 VBG pO2 55 mmHg (25-50) H 05/09/18 23:02 VBG HCO3 41 mEq/L (21-27) H 05/09/18 23:02 Sodium 146 mEq/L (136-145) H 05/14/18 04:15 Carbon Dioxide 39 mEq/L (23-29) H 05/14/18 04:15 BUN 51 mg/dL (8-23) H 05/14/18 04:15 Est GFR (Non-Af Amer) 57 (> 60) L 05/14/18 04:15 BUN/Creatinine Ratio 53 (6-26) H 05/14/18 04:15 Glucose 173 mg/dL (70-105) H 05/14/18 04:15 POC Glucose 152 mg/dL (70-99) H 05/13/18 22:56 Calculated Osmolality 320 (280-300) H 05/14/18 04:15 Calcium 8.2 mg/dL (8.6-10.3) L 05/14/18 04:15 Venous Ioniz Calcium 1.07 mmol/L (1.15-1.35) L 05/14/18 04:25 AST 83 Units/L (13-39) H 05/14/18 04:15 ALT 92 Units/L (7-52) H 05/14/18 04:15 Serum Total Protein 5.8 g/dL (6.4-8.9) L 05/14/18 04:15 Albumin 3.0 g/dL (3.5-5.7) L 05/14/18 04:15 Urine Clarity Cloudy (Clear) A 05/10/18 00:20 Urine Protein 30 mg/dL (Neg-Trace) H 05/10/18 00:20 Ur Squamous Epith Cells Many per lpf (None-Few) H 05/10/18 00:20 Hyaline Casts Moderate per lpf (None-Few) H 05/10/18 00:20 RSV (PCR) DETECTED (Not Detect) A 05/10/18 02:33 - Microbiology Findings Microbiology Findings: Microbiology, Last 48 Hours 05/10/18 03:14 Sputum Culture - Preliminary Sputum Gram Negative Vince - Clinical Findings Intake & Output: Intake & Output 05/13/18 05/14/18 05/14/18 23:59 07:59 15:59 Intake Total 100 / 100 200 / 200 Output Total 1150 / 1150 500 / 500 Balance -1050 / -1050 -300 / -300 Consult Discharge Plan - Plan Referrals: Jim Figueroa MD [Primary Care Provider] - <Bethany Lopez - Last Filed: 05/14/18 18:45> Date of Encounter: 05/14/18 Objective PUL Vital signs: Last Vital Signs Temp 98.7 F 05/14/18 15:32 Pulse 86 05/14/18 17:00 Resp 22 05/14/18 17:00 BP 158/83 05/14/18 17:00 Pulse Ox 96 05/14/18 17:00 Results - Laboratory Findings CBC and BMP: 05/14/18 04:15 05/14/18 04:15 ABG ABG pH 7.32 pH Units (7.32-7.45) 05/13/18 20:07 ABG pCO2 82 mmHg (35-45) H* 05/13/18 20:07 ABG pO2 64 mmHg (85-104) L 05/13/18 20:07 ABG O2 Saturation 89 % (95-98) L 05/13/18 20:07 PT/INR, D-dimer PT 14.3 Seconds (9.4-12.1) H 05/10/18 08:20 Abnormal lab findings: Abnormal lab results WBC 15.9 K/mcL (4.3-11.1) H 05/14/18 04:15 MCH 27.1 pg (28.0-33.3) L 05/14/18 04:15 MCHC 30.5 g/dL (31.6-35.5) L 05/14/18 04:15 RDW 15.9 % (11.5-14.5) H 05/14/18 04:15 Neutrophils # 14.6 K/mcL (1.6-8.9) H 05/14/18 04:15 Hypochromasia Present (Not Present) A 05/09/18 22:10 PT 14.3 Seconds (9.4-12.1) H 05/10/18 08:20 ABG pCO2 82 mmHg (35-45) H* 05/13/18 20:07 ABG pO2 64 mmHg (85-104) L 05/13/18 20:07 ABG HCO3 43 mEq/L (21-27) H 05/13/18 20:07 ABG Total CO2 45 mEq/L (20-26) H 05/13/18 20:07 ABG O2 Saturation 89 % (95-98) L 05/13/18 20:07 ABG Base Excess 12 mEq/L (-2 to 3) H 05/13/18 20:07 VBG pH 7.18 pH Units (7.32-7.42) L* 05/09/18 23:02 VBG pCO2 109 mmHg (41-51) H* 05/09/18 23:02 VBG pO2 55 mmHg (25-50) H 05/09/18 23:02 VBG HCO3 41 mEq/L (21-27) H 05/09/18 23:02 Sodium 146 mEq/L (136-145) H 05/14/18 04:15 Carbon Dioxide 39 mEq/L (23-29) H 05/14/18 04:15 BUN 51 mg/dL (8-23) H 05/14/18 04:15 Est GFR (Non-Af Amer) 57 (> 60) L 05/14/18 04:15 BUN/Creatinine Ratio 53 (6-26) H 05/14/18 04:15 Glucose 173 mg/dL (70-105) H 05/14/18 04:15 POC Glucose 152 mg/dL (70-99) H 05/13/18 22:56 Calculated Osmolality 320 (280-300) H 05/14/18 04:15 Calcium 8.2 mg/dL (8.6-10.3) L 05/14/18 04:15 Venous Ioniz Calcium 1.07 mmol/L (1.15-1.35) L 05/14/18 04:25 AST 83 Units/L (13-39) H 05/14/18 04:15 ALT 92 Units/L (7-52) H 05/14/18 04:15 Serum Total Protein 5.8 g/dL (6.4-8.9) L 05/14/18 04:15 Albumin 3.0 g/dL (3.5-5.7) L 05/14/18 04:15 Urine Clarity Cloudy (Clear) A 05/10/18 00:20 Urine Protein 30 mg/dL (Neg-Trace) H 05/10/18 00:20 Ur Squamous Epith Cells Many per lpf (None-Few) H 05/10/18 00:20 Hyaline Casts Moderate per lpf (None-Few) H 05/10/18 00:20 RSV (PCR) DETECTED (Not Detect) A 05/10/18 02:33 - Microbiology Findings Microbiology Findings: Microbiology, Last 48 Hours 05/10/18 03:14 Sputum Culture - Final Sputum Stenotrophomonas maltophilia - Clinical Findings Intake & Output: Intake & Output 05/14/18 05/14/18 05/14/18 07:59 15:59 23:59 Intake Total 300 / 300 250 / 250 100 / 100 Output Total 500 / 500 500 / 500 Balance -200 / -200 -250 / -250 100 / 100 - Attending Attestation - Attending Attestation I saw and evaluated this patient and my medical decision-making was reviewed with the Resident Physician. I agree with the documented findings, disposition and treatment plan as described except to the extent set forth below. We independently had [id number] contact with the patient Patient seen and examined at bedside Labs, radiology, chart personally reviewed. Management was reviewed during multidisciplinary critical care rounds. RIVET MAKER: Patient is conscious following commands no focal neurological deficit metabolic encephalopathy is improving after improved gas exchange. 05/11 is deeply sedated and is not waking up of following commands I asked the nurse to reduce the sedation and wake her up so we can put her on spontaneous breathing trial 05/12 patient is conscious but not following commands but she was restless overnight we will try to do a spontaneous breathing trial today 05/13 patient is more awake following commands we will try to extubate today. 05/14 has episodic confusion but today she was alert awake following commands having good conversation Pulm: Patient presented with viral exacerbation of COPD with worsening V/Q mismatch causing acute on chronic hypoxic and hypercarbic respiratory failure patient needing intubation failed BiPAP therapy chest x-ray did not show evidence of any lobar pneumonia cover with broad-spectrum antibiotic as patient has background history of very severe obstructive ventilatory impairment. Adjusted tidal volume inspiratory time and respiratory rate to reduce air- trapping 05/11 patient has acceptable oxygenation and ventilation when she is more awake we will put her on spontaneous breathing trial if she passes a trial with good cough and gag reflex and she is not encephalopathy we will repeat a blood gas before extubating her. To continue treating for COPD exacerbation and possible pneumonia.. 05/12 patient still has significant bronchospasm with high I:E ratio has acceptable oxygenation and ventilation since patient has this RSV infection with a background of COPD expect she will have adequate prolonged recovery he will try to do spontaneous breathing trial if she passes it she will need a blood gas analysis to make sure she is not profoundly hypercarbic before she gets extubated with her mental status and agitation she might be a poor candidate for extubation to BiPAP. 05/13 this is the first day her clinical exam is lot better the ICU her I:E ratio lot better if patient passes responders breathing trial will extubate her to nasal cannula first and she will need BiPAP at night. 05/14 The sputum culture grew stenotrophomonas maltophilia susceptible to levofloxacin to continue antibiotics at least for 14 days to continue along steroids she will need at least a 3 week taper. Continue scheduled bronchodilators. Cards: Patient is hemodynamically unstable trend her troponins will get an echo most likely she is volume depleted lactic acid is normal no evidence of tissue hyperperfusion with patient has compromised urine output resuscitate with fluids if patient does not respond to that and we will start her on vasopressors. Culture sent. 05/11 patient is hemodynamically stable. 05/12 patient is hemodynamically stable no evidence of acute coronary syndrome. 05/13 Patient is hemodynamically stable 05/14 hemodynamically stable to continue diuresis as tolerated FEN-GI: Patient has abdominal tenderness with guarding and rigidity concern for intra-abdominal process will get a CT abdomen pelvis without contrast will keep her nothing by mouth 05/11 CT abdomen pelvis did not show any acute process i will keep her nothing by mouth as we are planning to extubate her. 05/12 if she does not pass her breathing trial will start her on minimal tube feeding. 05/13 patient is extubated will advance diet in the evening. 05/14 to advance diet as tolerated tolerated Renal: Labs and output reviewed kidney function lot better ID: sputum culture growing stenotrophomonas maltophilia sensitive to Levaquin please will need 14 days of antibiotics Heme/Onc: Thromboprophylaxis Endo: Glucose Monitored Integ/MSK: Skin Care per routine ICU Nursing Protocol to prevent ulcers. Lines: All lines examined without evidence of infection : Dispo: Patient to remain in ICU and transferred out tomorrow if the night is uneventful CODE:Full Code
[2018-05-14] MEDS: *HR* Metoprolol 5 MG/5 ML VIAL IVP PRN (14:26)
[2018-05-14] MEDS: Haloperidol Lactate 5 MG/ML VIAL IVP PRN (19:58)
[2018-05-14] MEDS: FentaNYL (PF) 1,000 MCG in 0.9 % Sodium Chloride 80 ML IVC SCH (23:20)
[2018-05-15] MEDS: Haloperidol Lactate 5 MG/ML VIAL IVP PRN ×2 (01:14→08:15)
[2018-05-15 02:09] LABS: ABG Base Excess 13 mEq/L (-2 to 3); ABG HCO3 42 mEq/L (21-27); ABG Oxygen Saturation 94 % (95-98); ABG PCO2 66 mmHg (35-45); ABG PH 7.41 pH Units (7.32-7.45); ABG PO2 72 mmHg (85-104); ABG TCO2 44 mEq/L (20-26); Blood Gas PEEP 6 cm H2O
[2018-05-15] MEDS ORDERED: Ziprasidone injection 20 MG/ML VIAL IM ONE ×2 (02:15→22:12)
[2018-05-15] MEDS: Ipratropium/Albuterol Neb 3 ML IH SCH ×5 (03:34→23:05)
[2018-05-15] MEDS: Insulin LISPRO 300 UNITS/3 ML VIAL SQ SCH ×5 (03:49→23:08)
[2018-05-15] MEDS: Piperacillin/Tazobactam 3.375 GM in 0.9 % Sodium Chloride Mini Bag 100 ML IVPB SCH (04:01)
[2018-05-15] MEDS: Dexmedetomidine HCl 400 MCG/100 ML MLS IVC SCH ×4 (04:02→23:29)
[2018-05-15 04:22] LABS: VBG Ionized Calcium 1.07 mmol/L (1.15-1.35)
[2018-05-15 04:24] LABS: Basophils # 0.1 K/mcL (0.0-0.2); Basophils % 0.4 %; Hematocrit 42.2 % (35.3-44.9); Hemoglobin 12.8 g/dL (11.5-15.4); Immature Granulocytes % 2.1 % (0-4); Lymphocytes # 0.7 K/mcL (0.6-4.6); Lymphocytes % 3.9 %; Mean Corpuscular HGB Conc 30.3 g/dL (31.6-35.5); Mean Corpuscular Hemoglobin 27.1 pg (28.0-33.3); Mean Corpuscular Volume 89.4 fL (83.0-100.0); Mean Platelet Volume 11.3 fL (9.4-12.4); Monocytes # 0.7 K/mcL (0.0-1.3); Monocytes % 4.4 %; Platelet Count 168 K/mcL (140-400); Red Blood Count 4.72 M/mcL (3.82-4.97); Red Cell Distribution Width 15.5 % (11.5-14.5); Segmented Neutrophils % 89.2 %
[2018-05-15 04:44] LABS: Alanine Aminotransferase 99 Units/L (7-52); Albumin 3.1 g/dL (3.5-5.7); Alkaline Phosphatase 62 Units/L (34-104); Aspartate Amino Transferase 69 Units/L (13-39); BUN/Creatinine Ratio 54 (6-26); Blood Urea Nitrogen 49 mg/dL (8-23); Calcium 8.5 mg/dL (8.6-10.3); Carbon Dioxide 36 mEq/L (23-29); Chloride 102 mEq/L (98-107); Glucose 147 mg/dL (70-105); Magnesium 2.3 mg/dL (1.6-2.6); Osmolality,Calculated 318 (280-300); Phosphorous 3.3 mg/dL (2.7-4.5); Potassium 4.4 mEq/L (3.5-5.1); Sodium 146 mEq/L (136-145); Total Protein 6.1 g/dL (6.4-8.9); eGFR For Non-African Americans > 60 (> 60)
[2018-05-15] MEDS: *HR* Heparin 5,000 UNIT/ML VIAL SQ SCH ×2 (05:32→20:43)
[2018-05-15] MEDS: Pantoprazole 40 MG VIAL IVP SCH (05:35)
--- NOTE | 2018-05-15 06:38 | Pulmonology Progress Note ---
<MayManuel W - Last Filed: 05/15/18 10:08> Date of Encounter: 05/15/18 Objective PUL Vital signs: Last Vital Signs Temp 97.8 F 05/15/18 07:30 Pulse 73 05/15/18 07:30 Resp 19 05/15/18 07:30 BP 157/91 05/15/18 07:30 Pulse Ox 100 05/15/18 07:30 Results - Laboratory Findings CBC and BMP: 05/15/18 04:05 05/15/18 04:05 ABG ABG pH 7.41 pH Units (7.32-7.45) 05/15/18 02:05 ABG pCO2 66 mmHg (35-45) H 05/15/18 02:05 ABG pO2 72 mmHg (85-104) L 05/15/18 02:05 ABG O2 Saturation 94 % (95-98) L 05/15/18 02:05 PT/INR, D-dimer PT 14.3 Seconds (9.4-12.1) H 05/10/18 08:20 Abnormal lab findings: Abnormal lab results WBC 16.8 K/mcL (4.3-11.1) H 05/15/18 04:05 MCH 27.1 pg (28.0-33.3) L 05/15/18 04:05 MCHC 30.3 g/dL (31.6-35.5) L 05/15/18 04:05 RDW 15.5 % (11.5-14.5) H 05/15/18 04:05 Neutrophils # 15.0 K/mcL (1.6-8.9) H 05/15/18 04:05 Hypochromasia Present (Not Present) A 05/09/18 22:10 PT 14.3 Seconds (9.4-12.1) H 05/10/18 08:20 ABG pCO2 66 mmHg (35-45) H 05/15/18 02:05 ABG pO2 72 mmHg (85-104) L 05/15/18 02:05 ABG HCO3 42 mEq/L (21-27) H 05/15/18 02:05 ABG Total CO2 44 mEq/L (20-26) H 05/15/18 02:05 ABG O2 Saturation 94 % (95-98) L 05/15/18 02:05 ABG Base Excess 13 mEq/L (-2 to 3) H 05/15/18 02:05 VBG pH 7.18 pH Units (7.32-7.42) L* 05/09/18 23:02 VBG pCO2 109 mmHg (41-51) H* 05/09/18 23:02 VBG pO2 55 mmHg (25-50) H 05/09/18 23:02 VBG HCO3 41 mEq/L (21-27) H 05/09/18 23:02 Sodium 146 mEq/L (136-145) H 05/15/18 04:05 Carbon Dioxide 36 mEq/L (23-29) H 05/15/18 04:05 BUN 49 mg/dL (8-23) H 05/15/18 04:05 BUN/Creatinine Ratio 54 (6-26) H 05/15/18 04:05 Glucose 147 mg/dL (70-105) H 05/15/18 04:05 POC Glucose 155 mg/dL (70-99) H 05/14/18 23:10 Calculated Osmolality 318 (280-300) H 05/15/18 04:05 Calcium 8.5 mg/dL (8.6-10.3) L 05/15/18 04:05 Venous Ioniz Calcium 1.07 mmol/L (1.15-1.35) L 05/15/18 04:19 AST 69 Units/L (13-39) H 05/15/18 04:05 ALT 99 Units/L (7-52) H 05/15/18 04:05 Serum Total Protein 6.1 g/dL (6.4-8.9) L 05/15/18 04:05 Albumin 3.1 g/dL (3.5-5.7) L 05/15/18 04:05 Albumin/Globulin Ratio 1.0 (1.1-2.2) L 05/15/18 04:05 Urine Clarity Cloudy (Clear) A 05/10/18 00:20 Urine Protein 30 mg/dL (Neg-Trace) H 05/10/18 00:20 Ur Squamous Epith Cells Many per lpf (None-Few) H 05/10/18 00:20 Hyaline Casts Moderate per lpf (None-Few) H 05/10/18 00:20 RSV (PCR) DETECTED (Not Detect) A 05/10/18 02:33 - Microbiology Findings Microbiology Findings: Microbiology, Last 48 Hours 05/09/18 22:56 Blood Culture - Final Peripheral Venipuncture No growth. Final report. 05/09/18 22:56 Blood Culture - Final Peripheral Venipuncture No growth. Final report. 05/10/18 03:14 Sputum Culture - Final Sputum Stenotrophomonas maltophilia - Clinical Findings Intake & Output: Intake & Output 05/14/18 05/14/18 05/15/18 15:59 23:59 07:59 Intake Total 250 / 250 500 / 500 100 / 100 Output Total 500 / 500 450 / 450 275 / 275 Balance -250 / -250 50 / 50 -175 / -175 Weight 83.7 kg Consult Discharge Plan - Plan Referrals: Jim Figueroa MD [Primary Care Provider] - - Attending Attestation I examined this patient and my medical decision-making was reviewed with the Resident Physician. I agree with the documented findings, disposition and treatment plan as described except to the extent set forth below. We independently had [id number] contact with the patient Patient seen and examined at bedside Labs, radiology, chart personally reviewed. Management was reviewed during multidisciplinary critical care rounds. [employer] SOLUTION ARCHITECT: Remeins delirious cont precedex.. Judicious use of Atpycal Antipsychotics. Avoid Benzos Pulm: Acute on chronic hypoxic respiratory failure s/t COPD exacerbation with Acute PNA. Tolerating BiPAP CONT BDs and Steroids Cards:: BP monitored and stable. GI: Cont to monitor Nutrition: NPO for now because of delirium/use of bipap Renal: UOP Monitored, Cont to Trend sCr and monitor Electrolytes. ID: Stenotrophomas + levaquin x 10 days. Heme/Onc: DVT prophylaxis given Endo: Glucose Monitored Integ/MSK: Skin Care per routine ICU Nursing Protocol to prevent ulcers. Lines: All lines examined without evidence of infection : Dispo: Stable for transfer to Step Down CODE: Full Code <Marilyn Renteria R - Last Filed: 05/15/18 13:36> Date of Encounter: 05/15/18 Time of Encounter: 06:38 Assessment and Plan (1) Acute on chronic respiratory failure with hypoxia and hypercapnia Current Visit: Yes Status: Acute 73-year-old female admitted for hypoxia, difficulty in breathing, altered mental status secondary to CO2 narcosis. EMS was called by family due to decreased O2 saturation, but patient was initially reluctant to come to ER for evaluation. Etiology likely secondary to COPD exacerbation. Patient met two sirs criteria upon arriving to ER with tachycardia, tachypnea. Did not meet sepsis criteria, as WBC was borderline at 11.2 - and has decreased to 9.3 this morning, CXR showed no focal consolidation. lactic acid normal. No known source of infection at this time. in ED, ABG showed pH: 7.12, PCO2 131, PO2 66. Patient failed to improve with BiPAP and was intubated in ER. Plan: blood cultures x2, sputum culture Respiratory infectious panel positive for RSV sputum cx positiive for S. maltoph sensitive to Levaquin - treat for 10 days Legionella and strep pneumo antigens negative scheduled DuoNebs Levaquin day 12/11 Solumedrol 20 Lasix given yesterday with increased UOP Extubated currently on BiPAP but has tolerated NC Haldol PRN for anxiety related to SOB Precedex for sedation (2) Acute exacerbation of chronic obstructive airways disease Current Visit: Yes Status: Acute Plan as #1 above (3) Altered mental status Current Visit: Yes Status: Acute Was able to follow some commands in ED - likely secondary to CO2 retention Continue to wean from sedation and assess mental status Plan as #1 above Qualifiers: Altered mental status type: somnolence Qualified Code(s): R40.0 - Somnolence (4) SARAHI (acute kidney injury) Current Visit: Yes Status: Resolved Pt had an increase in Cre from 1.10 on admission to 1.54 Cre has returned to baseline (5) Diastolic CHF Current Visit: Yes Status: Acute Last echo from 10/27/17 showed EF 70%, normal LV chamber size and function, mild diastolic dysfunction, mild aortic stenosis, no pulmonary hypertension Plan: diurese as needed. Qualifiers: Heart failure chronicity: chronic Qualified Code(s): I50.32 - Chronic diastolic (congestive) heart failure (6) Coronary artery disease Current Visit: Yes Status: Acute Qualifiers: Coronary Disease-Associated Artery/Lesion type: unspecified vessel or lesion type [place] vs. transplanted heart: unspecified whether [place] or transplanted heart Associated angina: angina presence unspecified Qualified Code(s): I25.10 - Atherosclerotic heart disease of [place] coronary artery without angina pectoris (7) Hypophosphatemia Current Visit: Yes Status: Resolved <1.0 on admission Repeat after Nutra-Phos was 4.5 - likely lab error Continue to monitor and replace as needed (8) DVT prophylaxis Current Visit: No Status: Acute Heparin SQ protonix for GI prophylaxis Subjective Principal diagnosis: Acute Respiratory failure Interval history: Pt has been agitated and has not slept per nursing staff. Was given Haldol earlier this morning which decreased agitation. Pt now resting comfortably in bed. Has been able to tolerate being off BiPAP as long as anxiety is controlled. More alert and aware when Palliative evaluated her this afternoon. Transferred to [address] [place] [address] Hinson at 1200 who accepted the patient. Objective PUL Vital signs: Last Vital Signs Temp 97.3 F L 05/15/18 03:56 Pulse 73 05/15/18 06:00 Resp 18 05/15/18 06:00 BP 142/80 05/15/18 06:00 Pulse Ox 99 05/15/18 06:00 General appearance: no acute distress, asleep Eyes: nonicteric ENT: oropharynx dry Effort: normal Auscultation: bilateral: diminished breath sounds Cardiovascular: regular rate and rhythm Gastrointestinal: soft, non-tender, non-distended Integumentary: normal Extremities: no cyanosis, no edema, pulses normal non-focal exam, pupils equal and round Results - Laboratory Findings CBC and BMP: 05/15/18 04:05 05/15/18 04:05 ABG ABG pH 7.41 pH Units (7.32-7.45) 05/15/18 02:05 ABG pCO2 66 mmHg (35-45) H 05/15/18 02:05 ABG pO2 72 mmHg (85-104) L 05/15/18 02:05 ABG O2 Saturation 94 % (95-98) L 05/15/18 02:05 PT/INR, D-dimer PT 14.3 Seconds (9.4-12.1) H 05/10/18 08:20 Abnormal lab findings: Abnormal lab results WBC 16.8 K/mcL (4.3-11.1) H 05/15/18 04:05 MCH 27.1 pg (28.0-33.3) L 05/15/18 04:05 MCHC 30.3 g/dL (31.6-35.5) L 05/15/18 04:05 RDW 15.5 % (11.5-14.5) H 05/15/18 04:05 Neutrophils # 15.0 K/mcL (1.6-8.9) H 05/15/18 04:05 Hypochromasia Present (Not Present) A 05/09/18 22:10 PT 14.3 Seconds (9.4-12.1) H 05/10/18 08:20 ABG pCO2 66 mmHg (35-45) H 05/15/18 02:05 ABG pO2 72 mmHg (85-104) L 05/15/18 02:05 ABG HCO3 42 mEq/L (21-27) H 05/15/18 02:05 ABG Total CO2 44 mEq/L (20-26) H 05/15/18 02:05 ABG O2 Saturation 94 % (95-98) L 05/15/18 02:05 ABG Base Excess 13 mEq/L (-2 to 3) H 05/15/18 02:05 VBG pH 7.18 pH Units (7.32-7.42) L* 05/09/18 23:02 VBG pCO2 109 mmHg (41-51) H* 05/09/18 23:02 VBG pO2 55 mmHg (25-50) H 05/09/18 23:02 VBG HCO3 41 mEq/L (21-27) H 05/09/18 23:02 Sodium 146 mEq/L (136-145) H 05/15/18 04:05 Carbon Dioxide 36 mEq/L (23-29) H 05/15/18 04:05 BUN 49 mg/dL (8-23) H 05/15/18 04:05 BUN/Creatinine Ratio 54 (6-26) H 05/15/18 04:05 Glucose 147 mg/dL (70-105) H 05/15/18 04:05 POC Glucose 155 mg/dL (70-99) H 05/14/18 23:10 Calculated Osmolality 318 (280-300) H 05/15/18 04:05 Calcium 8.5 mg/dL (8.6-10.3) L 05/15/18 04:05 Venous Ioniz Calcium 1.07 mmol/L (1.15-1.35) L 05/15/18 04:19 AST 69 Units/L (13-39) H 05/15/18 04:05 ALT 99 Units/L (7-52) H 05/15/18 04:05 Serum Total Protein 6.1 g/dL (6.4-8.9) L 05/15/18 04:05 Albumin 3.1 g/dL (3.5-5.7) L 05/15/18 04:05 Albumin/Globulin Ratio 1.0 (1.1-2.2) L 05/15/18 04:05 Urine Clarity Cloudy (Clear) A 05/10/18 00:20 Urine Protein 30 mg/dL (Neg-Trace) H 05/10/18 00:20 Ur Squamous Epith Cells Many per lpf (None-Few) H 05/10/18 00:20 Hyaline Casts Moderate per lpf (None-Few) H 05/10/18 00:20 RSV (PCR) DETECTED (Not Detect) A 05/10/18 02:33 - Microbiology Findings Microbiology Findings: Microbiology, Last 48 Hours 05/09/18 22:56 Blood Culture - Final Peripheral Venipuncture No growth. Final report. 05/09/18 22:56 Blood Culture - Final Peripheral Venipuncture No growth. Final report. 05/10/18 03:14 Sputum Culture - Final Sputum Stenotrophomonas maltophilia - Clinical Findings Intake & Output: Intake & Output 05/14/18 05/14/18 05/15/18 15:59 23:59 07:59 Intake Total 250 / 250 500 / 500 100 / 100 Output Total 500 / 500 450 / 450 275 / 275 Balance -250 / -250 50 / 50 -175 / -175 Weight 83.7 kg
[2018-05-15] MEDS: MethylPREDNISolone 40 MG/ML VIAL IVP SCH ×2 (08:02→18:06)
[2018-05-15] MEDS: Nystatin OINT 15 GM TUBE TP SCH ×4 (08:03→19:45)
[2018-05-15] MEDS: Levofloxacin 750 MG/150 ML 750 MG/150 ML BAG IVPB SCH (08:05)
[2018-05-15] MEDS: *HR* Metoprolol 5 MG/5 ML VIAL IVP PRN (08:15)
[2018-05-15] MEDS ORDERED: Levofloxacin 750 MG/150 ML 750 MG/150 ML BAG IVPB SCH (12:00)
[2018-05-15] MEDS ORDERED: Haloperidol Lactate 5 MG/ML VIAL IVP PRN ×2 (12:13→16:31)
[2018-05-15] MEDS ORDERED: Naloxone 0.4 MG/ML INJ IVP PRN ×2 (12:13→16:31)
[2018-05-15] MEDS ORDERED: Albuterol 2.5 MG/3 ML NEBULIZER IH PRN ×2 (12:13→16:31)
[2018-05-15] MEDS ORDERED: Dexmedetomidine HCl 400 MCG/100 ML MLS IVC SCH (12:13)
[2018-05-15] MEDS ORDERED: *HR* Dextrose 50 % in Water (Syg) 50 ML SYRINGE IVP PRN ×2 (12:13→16:31)
[2018-05-15] MEDS ORDERED: D5% in Water 1,000 ML IVC PRN ×2 (12:13→16:31)
[2018-05-15] MEDS ORDERED: Dextrose Gel 15 GM/37.5 ML TUBE PO PRN ×4 (12:13→16:31)
[2018-05-15] MEDS ORDERED: *HR* Metoprolol 5 MG/5 ML VIAL IVP PRN ×2 (12:13→16:31)
[2018-05-15] MEDS ORDERED: Nystatin OINT 15 GM TUBE TP SCH (13:00)
--- NOTE | 2018-05-15 13:03 | Palliative - Consult Note ---
Date of Encounter: 05/15/18 Time of Encounter: 11:00 - Assessment and Plan (1) Acute exacerbation of chronic obstructive airways disease Current Visit: Yes Status: Acute Assessment and plan: Management per ICU/primary team. Patient's oxygen saturation 98% on BiPAP during assessment. (2) Hypoxia Current Visit: Yes Status: Acute Assessment and plan: Denies dyspnea during assessment. BiPAP in place. (3) Diastolic CHF Current Visit: Yes Status: Acute Assessment and plan: Left Ventricle EF 65-75%. Qualifiers: Heart failure chronicity: chronic Qualified Code(s): I50.32 - Chronic d iastolic (congestive) heart failure (4) Altered mental status Current Visit: Yes Status: Acute Assessment and plan: Patient waxing and waning on mentation at this time. Qualifiers: Altered mental status type: somnolence Qualified Code(s): R40.0 - Somnolence (5) Anxiety Current Visit: Yes Status: Acute Assessment and plan: Patient reports some anxiety. Plan to avoid Benzos. Continue Haldol PRN and Precedex infusion. (6) Goals of care, counseling/discussion Current Visit: Yes Status: Acute Assessment and plan: Spoke with Patient's son Zion via telephone. Reported he would arrange meeting and return phone call to Palliative care to arrange family meeting today. Patient's son Paulo works out of town in [place], will be part of meeting via telephone. Zion reported he would call his sister Karlie to meet up at the hospital at the same time. [id number]: Conducted goals of care with family. Family concerned over nutrition at present time. Desire ECF rehab at [facility] at discharge. Desire to remain FULL CODE. Understands current disease process and desire more time for improvement in mentation. Children understand if deterioration occurs, will be required to make decisions on patient's behalf. Palliative will continue to follow per family request. Palliative-CN HPI - Data of Consult Patient: new to practice Consult date: 05/15/18 Requesting Physician: Davidson Saavedra MD Primary Care Provider: Jim Figueroa MD - Consult Narrative Palliative Care/Comfort Measures: Palliative care Reason for consult: End of treatment Goals; Goals of care/CODE STATUS History of present illness: Ms. Montenegro is a 73 year old female Arrived to [facility] on 05/09/18 for difficulty breathing, hypoxia, and AMS via EMS. Patient initially unsure if desired transfer to hospital upon squad arrival, but then agreed and had saturation drop to 70% with non-rebreather. PMH: COPD, coronary artery disease, hyperlipidemia, hypertension, osteoporosis. Chest x-ray showing: No acute findings. EKG showing: Sinus Rhythm. CT of head without contrast, showing: No acute intracranial abnormality. Patient initially treated with BiPAP, then intubated. Repeat Chest x-ray to confirm ETT placement; stable without acute cardiopulmonary abnormality. ECHO performed showing LVEF 65-70%. CT of abdomen/pelvis with no contrast showing: No acute findings; Hepatic steatosis; and Cholelithiasis without CT evidence of acute cholecystitis. Patient medically managed for: Acute on chronic respiratory failure with hypoxia and hypercapnia; Acute exacerbation of COPD; AMS; SARAHI; Diastolic CHF; CAD; and Hypophosphatemia. 05/13/18: Patient extubated to Oxymask/BiPAP, with increased anxiety at the removal of BiPAP. Acute delirium remains present, wax and waning. Patient deemed stable to transfer to Step Down. Palliative care consulted for Goals of Care discussion. Patient lying in bed with eyes open upon arrival for assessment. Patient looking around room. No family present at bedside. Patient alert and oriented to person and place; slightly disoriented to time. Precedex drip infusing to continue to control patients anxiety. Patient denies pain, nausea, vomiting, and shortness of breath. Patient reports continue anxiety. Patient remains on BiPAP during assessment. CC: Davidson Saavedra MD - Time Spent with Patient Time: Total time spent is greater than 50% in coordination of care (as documented) at patient's floor/unit and/or counseling patient: Past Med Surg Social Fam HX - Past Medical History Medical history: COPD, coronary artery disease, hyperlipidemia, hypertension, osteoporosis, other Additional medical history: lung problems Psychiatric history: no psych history - Past Surgical History Additional surgical history: Back surgery - Social History Smoking Status: Current every day smoker Smokeless Tobacco Status: No Alcohol use: none Drug use: none - Family History Mother History Unknown: Yes Hx Family Cardiac Disorders: Yes Medications and Allergies Alendronate Sodium 70 mg PO FR 10/26/17 [History] Amlodipine Besylate 10 mg PO DAILY 10/26/17 [History] Aspirin 81 mg PO DAILY 10/26/17 [History] Ergocalciferol (VITAMIN D2) [Vitamin D2] 50,000 unit PO QWEEK 10/26/17 [History] Lisinopril [Zestril] 40 mg PO DAILY 10/26/17 [History] Tiotropium [Spiriva] 1 puff IH DAILY 10/26/17 [History] Albuterol Sulfate [Ventolin Hfa] 2 puff IH Q4H PRN 05/10/18 [History] Budesonide/Formoterol 160/4.5 [Symbicort 160/4.5] 2 puff IH BID 05/10/18 [History] Furosemide [Lasix] 20 mg PO DAILY PRN 05/10/18 [History] Allergy/AdvReac Type Severity Reaction Status Date / Time No Known Allergies Allergy Verified 05/10/18 09:26 - Constitutional Constitutional ROS PAL: other (NPO due to BiPAP usage/intubation.) - Cardiovascular Cardiovascular ROS: dyspnea on exertion, no chest pain, no pedal edema - Respiratory Respiratory: dyspnea, dyspnea on exertion - Gastrointestinal Gastrointestinal: no abdominal pain - Neurological Neurological ROS: confusion (Wax and waning of mentation at this time.) - Psychiatric Psychiatric general PM: anxiety Palliative Care-Exam - Constitutional Vitals: Temp Pulse Resp BP Pulse Ox 97.8 F 68 22 134/87 98 05/15/18 07:30 05/15/18 11:30 05/15/18 11:30 05/15/18 11:30 05/15/18 11:30 General appearance: Present: mild distress, obese - Head Head Exam: Present: atraumatic, normal inspection - Eye Eye exam: Present: EOMI, normal appearance, PERRL Pupils: Present: normal accommodation, PERRL - ENT ENT exam: Present: mucous membranes dry, normal external ear exam - Expanded ENT Exam Mouth Exam: Present: dry mucosa. Absent: drooling - Neck Neck exam: Present: full ROM, normal inspection. Absent: tenderness - Respiratory Respiratory exam: Present: rhonchi, wheezes. Absent: accessory muscle use - Cardiovascular Cardiovascular exam: Present: +S1, +S2 - Expanded Cardiovascular Exam Peripheral pulses: 2+: Radial (L), Radial (R), Posterior Tibialis (L), Posterior Tibialis (R), Dorsalis Pedis (L) PM, Dorsalis Pedis (R) PM - GI/Abdominal Exam GI/Abdominal exam: Present: soft. Absent: guarding, normal bowel sounds (Hypoactive.) - Rectal Rectal exam: Present: deferred - Catheter Type: Urethral ([place]) - Extremities Exam Extremities exam: Present: full ROM (weakness noted.), normal inspection. Absent: calf tenderness, pedal edema - Neurological Exam Neurological exam: Present: alert. Absent: oriented X3 (Confusion to time.) - Expanded Neurological Exam Patient oriented to: Present: person, place. Absent: time (Unaware of year; correct president.) Coma Scale Eye Opening: To Voice Coma Scale Motor Response: Obeys Commands Coma Scale Verbal Response: Confused Coma Scale Total: 13 - Psychiatric Psychiatric exam: Present: anxious Internal Medicine - CN: Reslt - Labs CBC & Chem 7: 05/15/18 04:05 05/15/18 04:05 Labs: Short CBC 05/15/18 Range/Units 04:05 WBC 16.8 H (4.3-11.1) K/mcL Hgb 12.8 (11.5-15.4) g/dL Hct 42.2 (35.3-44.9) % Plt Count 168 (140-400) K/mcL Neutrophils # 15.0 H (1.6-8.9) K/mcL BMP 05/15/18 04:05 Sodium 146 H Potassium 4.4 Chloride 102 Carbon Dioxide 36 H BUN 49 H Creatinine 0.91 Glucose 147 H Calcium 8.5 L Liver Function 05/15/18 Range/Units 04:05 Total Bilirubin 1.0 (0.3-1.0) mg/dL AST 69 H (13-39) Units/L ALT 99 H (7-52) Units/L Alkaline Phosphatase 62 (34-104) Units/L Albumin 3.1 L (3.5-5.7) g/dL - ABG Interpretation ABG results: ABG ABG pH 7.41 pH Units (7.32-7.45) 05/15/18 02:05 ABG pCO2 66 mmHg (35-45) H 05/15/18 02:05 ABG pO2 72 mmHg (85-104) L 05/15/18 02:05 ABG O2 Saturation 94 % (95-98) L 05/15/18 02:05 PT/INR, D-dimer PT 14.3 Seconds (9.4-12.1) H 05/10/18 08:20 Consult Discharge Plan - Plan Referrals: Jim Figueroa MD [Primary Care Provider] - Palliative Quality Palliative Quality: Screen for Code Status: Yes, Screen for Goals of Care: Yes, Screen for Pain: Yes, If Pain Regimen Started, Initiate Bowel Regimen: NA, Screen for Nausea/Vomitting: Yes Code Status: 05/10/18 00:56 Resuscitation Status: Active [RES] Routine Comment: Resuscitation Status: Full Code
[2018-05-15] MEDS ORDERED: *HR* Heparin 5,000 UNIT/ML VIAL SQ SCH (14:00)
[2018-05-15] MEDS ORDERED: Ipratropium/Albuterol Neb 3 ML IH SCH (16:00)
[2018-05-15] MEDS ORDERED: Insulin LISPRO 300 UNITS/3 ML VIAL SQ SCH (16:00)
[2018-05-15] MEDS ORDERED: MethylPREDNISolone 40 MG/ML VIAL IVP SCH ×2 (18:00)
[2018-05-16] MEDS: Ipratropium/Albuterol Neb 3 ML IH SCH ×6 (03:47→23:39)
[2018-05-16 03:54] LABS: Basophils # 0.2 K/mcL (0.0-0.2); Basophils % 0.8 %; Hematocrit 43.3 % (35.3-44.9); Hemoglobin 13.3 g/dL (11.5-15.4); Immature Granulocytes % 3.9 % (0-4); Lymphocytes # 0.7 K/mcL (0.6-4.6); Lymphocytes % 3.5 %; Mean Corpuscular HGB Conc 30.7 g/dL (31.6-35.5); Mean Corpuscular Hemoglobin 27.1 pg (28.0-33.3); Mean Corpuscular Volume 88.4 fL (83.0-100.0); Monocytes # 1.1 K/mcL (0.0-1.3); Monocytes % 5.9 %; Neutrophils # 16.6 K/mcL (1.6-8.9); Platelet Count 173 K/mcL (140-400); Red Cell Distribution Width 15.2 % (11.5-14.5); Segmented Neutrophils % 85.9 %
[2018-05-16] MEDS: Insulin LISPRO 300 UNITS/3 ML VIAL SQ SCH ×4 (04:07→21:01)
[2018-05-16 04:12] LABS: Alanine Aminotransferase 79 Units/L (7-52); Albumin 3.1 g/dL (3.5-5.7); Albumin/Globulin Ratio 1.1 (1.1-2.2); Alkaline Phosphatase 62 Units/L (34-104); Aspartate Amino Transferase 39 Units/L (13-39); BUN/Creatinine Ratio 56 (6-26); Bilirubin,Total 0.8 mg/dL (0.3-1.0); Blood Urea Nitrogen 44 mg/dL (8-23); Calcium 8.7 mg/dL (8.6-10.3); Carbon Dioxide 36 mEq/L (23-29); Chloride 104 mEq/L (98-107); Globulin 2.7 g/dL (2.4-3.5); Glucose 141 mg/dL (70-105); Magnesium 2.4 mg/dL (1.6-2.6); Osmolality,Calculated 314 (280-300); Phosphorous 3.1 mg/dL (2.7-4.5); Potassium 4.8 mEq/L (3.5-5.1); Sodium 145 mEq/L (136-145); Total Protein 5.8 g/dL (6.4-8.9); eGFR For Non-African Americans > 60 (> 60)
[2018-05-16] MEDS: Dexmedetomidine HCl 400 MCG/100 ML MLS IVC SCH ×2 (04:46→08:43)
[2018-05-16] MEDS: MethylPREDNISolone 40 MG/ML VIAL IVP SCH ×2 (04:50→18:01)
[2018-05-16] MEDS: *HR* Heparin 5,000 UNIT/ML VIAL SQ SCH ×3 (04:52→21:02)
[2018-05-16] MEDS ORDERED: Pantoprazole 40 MG VIAL IVP SCH ×2 (06:30)
--- NOTE | 2018-05-16 07:13 | Pulmonology Progress Note ---
<MayAyes W - Last Filed: 05/16/18 09:10> Date of Encounter: 05/16/18 Objective PUL Vital signs: Last Vital Signs Temp 97.3 F L 05/16/18 04:00 Pulse 69 05/16/18 06:00 Resp 18 05/16/18 07:25 BP 103/68 05/16/18 07:25 Pulse Ox 98 05/16/18 07:25 Results - Laboratory Findings CBC and BMP: 05/16/18 03:40 05/16/18 03:40 ABG ABG pH 7.41 pH Units (7.32-7.45) 05/15/18 02:05 ABG pCO2 66 mmHg (35-45) H 05/15/18 02:05 ABG pO2 72 mmHg (85-104) L 05/15/18 02:05 ABG O2 Saturation 94 % (95-98) L 05/15/18 02:05 PT/INR, D-dimer PT 14.3 Seconds (9.4-12.1) H 05/10/18 08:20 Abnormal lab findings: Abnormal lab results WBC 19.3 K/mcL (4.3-11.1) H 05/16/18 03:40 MCH 27.1 pg (28.0-33.3) L 05/16/18 03:40 MCHC 30.7 g/dL (31.6-35.5) L 05/16/18 03:40 RDW 15.2 % (11.5-14.5) H 05/16/18 03:40 Neutrophils # 16.6 K/mcL (1.6-8.9) H 05/16/18 03:40 Hypochromasia Present (Not Present) A 05/09/18 22:10 PT 14.3 Seconds (9.4-12.1) H 05/10/18 08:20 ABG pCO2 66 mmHg (35-45) H 05/15/18 02:05 ABG pO2 72 mmHg (85-104) L 05/15/18 02:05 ABG HCO3 42 mEq/L (21-27) H 05/15/18 02:05 ABG Total CO2 44 mEq/L (20-26) H 05/15/18 02:05 ABG O2 Saturation 94 % (95-98) L 05/15/18 02:05 ABG Base Excess 13 mEq/L (-2 to 3) H 05/15/18 02:05 VBG pH 7.18 pH Units (7.32-7.42) L* 05/09/18 23:02 VBG pCO2 109 mmHg (41-51) H* 05/09/18 23:02 VBG pO2 55 mmHg (25-50) H 05/09/18 23:02 VBG HCO3 41 mEq/L (21-27) H 05/09/18 23:02 Carbon Dioxide 36 mEq/L (23-29) H 05/16/18 03:40 BUN 44 mg/dL (8-23) H 05/16/18 03:40 BUN/Creatinine Ratio 56 (6-26) H 05/16/18 03:40 Glucose 141 mg/dL (70-105) H 05/16/18 03:40 POC Glucose 111 mg/dL (70-99) H 05/15/18 23:06 Calculated Osmolality 314 (280-300) H 05/16/18 03:40 Venous Ioniz Calcium 1.07 mmol/L (1.15-1.35) L 05/15/18 04:19 ALT 79 Units/L (7-52) H 05/16/18 03:40 Serum Total Protein 5.8 g/dL (6.4-8.9) L 05/16/18 03:40 Albumin 3.1 g/dL (3.5-5.7) L 05/16/18 03:40 Urine Clarity Cloudy (Clear) A 05/10/18 00:20 Urine Protein 30 mg/dL (Neg-Trace) H 05/10/18 00:20 Ur Squamous Epith Cells Many per lpf (None-Few) H 05/10/18 00:20 Hyaline Casts Moderate per lpf (None-Few) H 05/10/18 00:20 RSV (PCR) DETECTED (Not Detect) A 05/10/18 02:33 - Microbiology Findings Microbiology Findings: Microbiology, Last 48 Hours 05/09/18 22:56 Blood Culture - Final Peripheral Venipuncture No growth. Final report. 05/09/18 22:56 Blood Culture - Final Peripheral Venipuncture No growth. Final report. 05/10/18 03:14 Sputum Culture - Final Sputum Stenotrophomonas maltophilia - Clinical Findings Intake & Output: Intake & Output 05/15/18 05/15/18 05/16/18 15:59 23:59 07:59 Intake Total 450 / 450 100 / 100 100 / 100 Output Total 400 / 400 550 / 550 200 / 200 Balance 50 / 50 -450 / -450 -100 / -100 Weight 82.6 kg Consult Discharge Plan - Plan Referrals: Jim Figueroa MD [Primary Care Provider] - - Attending Attestation I examined this patient and my medical decision-making was reviewed with the Resident Physician. I agree with the documented findings, disposition and treatment plan as described except to the extent set forth below. We chele albright had [id number] contact with the patient Patient seen and examined at bedside Labs, radiology, chart personally reviewed. Impression: * Acute on chronic hypoxic hypercapnic respiratory failure * Stenotrophomonas pneumonia * Acute exacerbation of COPD * Delirium (Mixed Type) Recs: -Continue noninvasive ventilation today for support we will attempt to wean to nasal cannula and based upon mental status can consider evaluation for by mouth -Continue Levaquin to complete a 10 day course in general terms this visit infection seen in individuals with chronic disease and portends an overall poor prognosis -Continue IV steroids and bronchodilators -She is benefiting from Precedex which can be continued -l focus on mormonism of sleep-wake cycle. avoid sensory deprivation, and avoid [employer] depressant medications as able. She is currently being monitored with stepdown criteria which is appropriate pulmonary will continue to follow for the active pulmonary issues <Marilyn Renteria - Last Filed: 05/16/18 10:30> Date of Encounter: 05/16/18 Time of Encounter: 07:11 Assessment and Plan (1) Acute on chronic respiratory failure with hypoxia and hypercapnia Current Visit: Yes Status: Acute 73-year-old female admitted for hypoxia, difficulty in breathing, altered mental status secondary to CO2 narcosis. EMS was called by family due to decreased O2 saturation, but patient was initially reluctant to come to ER for evaluation. Etiology likely secondary to COPD exacerbation. Patient met two sirs criteria upon arriving to ER with tachycardia, tachypnea. Did not meet sepsis criteria, as WBC was borderline at 11.2 - and has decreased to 9.3 this morning, CXR showed no focal consolidation. lactic acid normal. No known source of infection at this time. in ED, ABG showed pH: 7.12, PCO2 131, PO2 66. Patient failed to improve with BiPAP and was intubated in ER. Plan: blood cultures x2 with no growth Respiratory infectious panel positive for RSV sputum cx positiive for S. maltoph sensitive to Levaquin - treat for 10 days Legionella and strep pneumo antigens negative scheduled DuoNebs Levaquin day 12/11 Solumedrol 20 Lasix given yesterday with increased UOP Extubated currently on BiPAP but has tolerated NC Haldol PRN for anxiety related to SOB Precedex for sedation (2) Acute exacerbation of chronic obstructive airways disease Current Visit: Yes Status: Acute Plan as #1 above (3) Altered mental status Current Visit: Yes Status: Acute Was able to follow some commands in ED - likely secondary to CO2 retention Continue to wean from sedation and assess mental status Plan as #1 above Qualifiers: Altered mental status type: delirium Qualified Code(s): R41.0 - Disorienta tion, unspecified (4) SARAHI (acute kidney injury) Current Visit: Yes Status: Resolved Pt had an increase in Cre from 1.10 on admission to 1.54 Cre has returned to baseline (5) Diastolic CHF Current Visit: Yes Status: Acute Last echo from 10/27/17 showed EF 70%, normal LV chamber size and function, mild diastolic dysfunction, mild aortic stenosis, no pulmonary hypertension Plan: diurese as needed. Qualifiers: Heart failure chronicity: chronic Qualified Code(s): I50.32 - Chronic diastolic (congestive) heart failure (6) Coronary artery disease Current Visit: Yes Status: Acute Qualifiers: Coronary Disease-Associated Artery/Lesion type: unspecified vessel or lesion type [place] vs. transplanted heart: unspecified whether [place] or transplanted heart Associated angina: angina presence unspecified Qualified Code(s): I25.10 - Atherosclerotic heart disease of [place] coronary artery without angina pectoris (7) Hypophosphatemia Current Visit: Yes Status: Resolved <1.0 on admission Repeat after Nutra-Phos was 4.5 - likely lab error Continue to monitor and replace as needed (8) DVT prophylaxis Current Visit: No Status: Acute Heparin SQ protonix for GI prophylaxis Subjective Principal diagnosis: Acute Respiratory failure Interval history: Pt was transferred to Hospitalist service yesterday but we will continue to follow from a Pulmonology standpoint. Pt had increased agitation last night that had to be controlled with Geodon. Pt now resting comfortably in bed. Objective PUL Vital signs: Last Vital Signs Temp 97.3 F L 05/16/18 04:00 Pulse 69 05/16/18 06:00 Resp 12 05/16/18 06:00 BP 103/68 05/16/18 06:00 Pulse Ox 98 05/16/18 06:00 General appearance: no acute distress, asleep Eyes: nonicteric ENT: oropharynx dry Neck: supple Effort: mildly labored Auscultation: bilateral: diminished breath sounds Cardiovascular: regular rate and rhythm Gastrointestinal: soft, non-tender, non-distended Integumentary: normal Extremities: no edema, no clubbing, pulses normal non-focal exam, pupils equal and round Results - Laboratory Findings CBC and BMP: 05/16/18 03:40 05/16/18 03:40 ABG ABG pH 7.41 pH Units (7.32-7.45) 05/15/18 02:05 ABG pCO2 66 mmHg (35-45) H 05/15/18 02:05 ABG pO2 72 mmHg (85-104) L 05/15/18 02:05 ABG O2 Saturation 94 % (95-98) L 05/15/18 02:05 PT/INR, D-dimer PT 14.3 Seconds (9.4-12.1) H 05/10/18 08:20 Abnormal lab findings: Abnormal lab results WBC 19.3 K/mcL (4.3-11.1) H 05/16/18 03:40 MCH 27.1 pg (28.0-33.3) L 05/16/18 03:40 MCHC 30.7 g/dL (31.6-35.5) L 05/16/18 03:40 RDW 15.2 % (11.5-14.5) H 05/16/18 03:40 Neutrophils # 16.6 K/mcL (1.6-8.9) H 05/16/18 03:40 Hypochromasia Present (Not Present) A 05/09/18 22:10 PT 14.3 Seconds (9.4-12.1) H 05/10/18 08:20 ABG pCO2 66 mmHg (35-45) H 05/15/18 02:05 ABG pO2 72 mmHg (85-104) L 05/15/18 02:05 ABG HCO3 42 mEq/L (21-27) H 05/15/18 02:05 ABG Total CO2 44 mEq/L (20-26) H 05/15/18 02:05 ABG O2 Saturation 94 % (95-98) L 05/15/18 02:05 ABG Base Excess 13 mEq/L (-2 to 3) H 05/15/18 02:05 VBG pH 7.18 pH Units (7.32-7.42) L* 05/09/18 23:02 VBG pCO2 109 mmHg (41-51) H* 05/09/18 23:02 VBG pO2 55 mmHg (25-50) H 05/09/18 23:02 VBG HCO3 41 mEq/L (21-27) H 05/09/18 23:02 Carbon Dioxide 36 mEq/L (23-29) H 05/16/18 03:40 BUN 44 mg/dL (8-23) H 05/16/18 03:40 BUN/Creatinine Ratio 56 (6-26) H 05/16/18 03:40 Glucose 141 mg/dL (70-105) H 05/16/18 03:40 POC Glucose 111 mg/dL (70-99) H 05/15/18 23:06 Calculated Osmolality 314 (280-300) H 05/16/18 03:40 Venous Ioniz Calcium 1.07 mmol/L (1.15-1.35) L 05/15/18 04:19 ALT 79 Units/L (7-52) H 05/16/18 03:40 Serum Total Protein 5.8 g/dL (6.4-8.9) L 05/16/18 03:40 Albumin 3.1 g/dL (3.5-5.7) L 05/16/18 03:40 Urine Clarity Cloudy (Clear) A 05/10/18 00:20 Urine Protein 30 mg/dL (Neg-Trace) H 05/10/18 00:20 Ur Squamous Epith Cells Many per lpf (None-Few) H 05/10/18 00:20 Hyaline Casts Moderate per lpf (None-Few) H 05/10/18 00:20 RSV (PCR) DETECTED (Not Detect) A 05/10/18 02:33 - Microbiology Findings Microbiology Findings: Microbiology, Last 48 Hours 05/09/18 22:56 Blood Culture - Final Peripheral Venipuncture No growth. Final report. 05/09/18 22:56 Blood Culture - Final Peripheral Venipuncture No growth. Final report. 05/10/18 03:14 Sputum Culture - Final Sputum Stenotrophomonas maltophilia - Clinical Findings Intake & Output: Intake & Output 05/15/18 05/15/18 05/16/18 15:59 23:59 07:59 Intake Total 450 / 450 100 / 100 100 / 100 Output Total 400 / 400 550 / 550 200 / 200 Balance 50 / 50 -450 / -450 -100 / -100 Weight 82.6 kg
[2018-05-16] MEDS: Nystatin OINT 15 GM TUBE TP SCH ×5 (08:41→21:09)
[2018-05-16] MEDS ORDERED: Albuterol 2.5 MG/3 ML NEBULIZER IH PRN (08:59)
[2018-05-16] MEDS ORDERED: Naloxone 0.4 MG/ML INJ IVP PRN (08:59)
[2018-05-16] MEDS ORDERED: *HR* Dextrose 50 % in Water (Syg) 50 ML SYRINGE IVP PRN (08:59)
[2018-05-16] MEDS ORDERED: Dexmedetomidine HCl 400 MCG/100 ML MLS IVC SCH (08:59)
[2018-05-16] MEDS ORDERED: Dextrose Gel 15 GM/37.5 ML TUBE PO PRN ×2 (08:59)
[2018-05-16] MEDS ORDERED: D5% in Water 1,000 ML IVC PRN (08:59)
[2018-05-16] MEDS ORDERED: Levofloxacin 750 MG/150 ML 750 MG/150 ML BAG IVPB SCH ×2 (09:00)
--- NOTE | 2018-05-16 09:11 | Internal Med Progress Note ---
Hospitalist Progress Note - Encounter Date of Encounter: 05/16/18 Time of Encounter: 08:53 - Subjective Interval History: Patient seen and examined this morning. No acute overnight events. Now extubated. Off Bipap. On oxygen mask this morning. Sob improving. Alert. Not in distress. afebrile overnight. has monge in place. - Exam Vitals: Temp Pulse Resp BP Pulse Ox 97.3 F L 72 16 123/61 98 05/16/18 07:53 05/16/18 08:00 05/16/18 08:00 05/16/18 08:00 05/16/18 08:00 Exam: General: In no acute distress. Conversant. Obese. ENT; Dry mouth. Respiratory exam: no accessory muscle use. Diffuse rhonchi and wheezing over all lung mojica. Cardiovascular exam: RRR, +S1, +S2. no murmur, gallop, rubs. No JVD or pedal edema. GI/Abdominal exam: Non-tender, mildly distended, normal bowel sounds, soft, no peritoneal signs. Extremities exam: full ROM, no pedal edema, warm, pulses palpable in b/l lower extremities. no calf tenderness Neurological exam: CN II-XII intact, AO X1, no focal deficits. Difficult to understand however able to follow all commands. Skin exam: No skin rash, ulcer, purpura or ecchymosis. - Summary of Assessment and Plan Summary of Assessment and Plan: Acute on chronic respiratory failure with hypoxia and hypercapnia - BG NGTD 05/09 - Respiratory infectious panel positive for RSV - sputum cx positiive for S. maltoph 05/10 - Legionella and strep pneumo antigens negative - Likely related to COPD exacerbation and diastolic heart failure. - s/p Diuresis -2L negative. Hold diuresis for now. Appears close to euvolemia - c/w Levaquin for 10 days - scheduled DuoNebs and solumedrol - can be transferred out of ICU. Altered mental status - Off sedation. Now extubated. Following commands - appears to have improved. Likely related to CO2 retention and hypoxia SARAHI - Now appears to be at baseline - lisinopril on hold. will resume on DC. Diastolic CHF - ECHO wiht EF of 65-70, Mild diastolic dysfunction. no wall motion abnormality. - diurese as needed. Hold for now. DVT prophylaxis - c/w heparin Will get PT/OT - Time Spent with Patient Total time spent is greater than 50% in coordination of care (as documented) at patient's floor/unit and/or counseling patient: Internal Medicine: Result - Labs CBC & Chem 7: 05/16/18 03:40 05/16/18 03:40 Labs: Short CBC 05/16/18 Range/Units 03:40 WBC 19.3 H (4.3-11.1) K/mcL Hgb 13.3 (11.5-15.4) g/dL Hct 43.3 (35.3-44.9) % Plt Count 173 (140-400) K/mcL Neutrophils # 16.6 H (1.6-8.9) K/mcL BMP 05/16/18 03:40 Sodium 145 Potassium 4.8 Chloride 104 Carbon Dioxide 36 H BUN 44 H Creatinine 0.79 Glucose 141 H Calcium 8.7 Liver Function 05/16/18 Range/Units 03:40 Total Bilirubin 0.8 (0.3-1.0) mg/dL AST 39 (13-39) Units/L ALT 79 H (7-52) Units/L Alkaline Phosphatase 62 (34-104) Units/L Albumin 3.1 L (3.5-5.7) g/dL - ABG Interpretation ABG results: ABG ABG pH 7.41 pH Units (7.32-7.45) 05/15/18 02:05 ABG pCO2 66 mmHg (35-45) H 05/15/18 02:05 ABG pO2 72 mmHg (85-104) L 05/15/18 02:05 ABG O2 Saturation 94 % (95-98) L 05/15/18 02:05 PT/INR, D-dimer PT 14.3 Seconds (9.4-12.1) H 05/10/18 08:20 Consult Discharge Plan - Plan Referrals: Jim Figueroa MD [Primary Care Provider] -
[2018-05-16] MEDS ORDERED: MORPHINE SUL Oral CONC 10 MG/0.5 ML ORAL.SYG PO PRN (11:01)
[2018-05-16] MEDS ORDERED: Insulin LISPRO 300 UNITS/3 ML VIAL SQ SCH (12:00)
--- NOTE | 2018-05-16 14:05 | Palliative Progress Note ---
<Ashly Eller - Last Filed: 05/16/18 17:09> Date of Encounter: 05/16/18 Time of Encounter: 10:00 - Assessment and plan (1) Goals of care, counseling/discussion Current Visit: Yes Status: Acute Assessment and plan: Goals of care are still unclear. Ms. Montenegro does have more improvement in her mentation. Ms. Montenegro was awake, alert and oriented x3. We had a discussion about code status and we explained to her different types of code options and she decided she would like to remain full code. She noted she is fine getting chest compressions or intubation in an event she needed it. She noted she would not want to remain in a ventilator for a long time and if the time came to that she would want her daughter to decide but at this time she wants all life saving measures and understands the risks and benefits. Additionally tried to contact the daughter by phone but was unable to reach her. (2) Acute exacerbation of chronic obstructive airways disease Current Visit: Yes Status: Acute Assessment and plan: RSV positive with sputum culture positive for stenotrophomonas maltophilia. Her oxygen demand has decreased. She was requiring Bipap and is not tolerating nasal canula. (3) Altered mental status Current Visit: Yes Status: Resolved Assessment and plan: She is awake, alert and oriented to person, place and time today. Her altered mental status was likely secondary to hypoxia which has improved. (4) Hypoxia Current Visit: Yes Status: Acute Assessment and plan: Improvement in her oxygen status. She was on Bipap but now tolerating oxymask and on 6 liters of oxygen with 98% oxygen saturation. (5) Anxiety Current Visit: Yes Status: Acute Assessment and plan: Chronic anxiety. Continues to have situation anxiety. Was on precedex which has been stopped. Will start ativan PRN. - Time Spent With Patient Total time spent is greater than 50% in coordination of care (as documented) at patient's floor/unit and/or counseling patient: - Subjective Interval history: Ms. Montenegro was seen at bedside this afternoon. She was eating her lunch but said she had poor appetite because she did not like the food options. She was comfortable but seemed anxious. She noted other than difficulty breathing she had no other complaints. She also noted chronic anxiety and said it worsens when she is at a hospital or places she is not fully comfortable at. She denied fever, chills, nausea, emesis, chest pain or abdominal pain. - Constitutional Vitals: Abnormal lab results WBC 19.3 K/mcL (4.3-11.1) H 05/16/18 03:40 MCH 27.1 pg (28.0-33.3) L 05/16/18 03:40 MCHC 30.7 g/dL (31.6-35.5) L 05/16/18 03:40 RDW 15.2 % (11.5-14.5) H 05/16/18 03:40 Neutrophils # 16.6 K/mcL (1.6-8.9) H 05/16/18 03:40 Hypochromasia Present (Not Present) A 05/09/18 22:10 PT 14.3 Seconds (9.4-12.1) H 05/10/18 08:20 ABG pCO2 66 mmHg (35-45) H 05/15/18 02:05 ABG pO2 72 mmHg (85-104) L 05/15/18 02:05 ABG HCO3 42 mEq/L (21-27) H 05/15/18 02:05 ABG Total CO2 44 mEq/L (20-26) H 05/15/18 02:05 ABG O2 Saturation 94 % (95-98) L 05/15/18 02:05 ABG Base Excess 13 mEq/L (-2 to 3) H 05/15/18 02:05 VBG pH 7.18 pH Units (7.32-7.42) L* 05/09/18 23:02 VBG pCO2 109 mmHg (41-51) H* 05/09/18 23:02 VBG pO2 55 mmHg (25-50) H 05/09/18 23:02 VBG HCO3 41 mEq/L (21-27) H 05/09/18 23:02 Carbon Dioxide 36 mEq/L (23-29) H 05/16/18 03:40 BUN 44 mg/dL (8-23) H 05/16/18 03:40 BUN/Creatinine Ratio 56 (6-26) H 05/16/18 03:40 Glucose 141 mg/dL (70-105) H 05/16/18 03:40 POC Glucose 131 mg/dL (70-99) H 05/16/18 12:12 Calculated Osmolality 314 (280-300) H 05/16/18 03:40 Venous Ioniz Calcium 1.07 mmol/L (1.15-1.35) L 05/15/18 04:19 ALT 79 Units/L (7-52) H 05/16/18 03:40 Serum Total Protein 5.8 g/dL (6.4-8.9) L 05/16/18 03:40 Albumin 3.1 g/dL (3.5-5.7) L 05/16/18 03:40 Urine Clarity Cloudy (Clear) A 05/10/18 00:20 Urine Protein 30 mg/dL (Neg-Trace) H 05/10/18 00:20 Ur Squamous Epith Cells Many per lpf (None-Few) H 05/10/18 00:20 Hyaline Casts Moderate per lpf (None-Few) H 05/10/18 00:20 RSV (PCR) DETECTED (Not Detect) A 05/10/18 02:33 General appearance: Present: average body habitus, cooperative, no acute dis tress - Head Head exam: Present: atraumatic, normocephalic - Eye Eye exam: Present: EOMI, normal appearance, sclera anicteric - ENT ENT exam: Present: mucous membranes moist - Neck Neck exam: Present: full ROM, normal inspection - Respiratory Respiratory exam: Present: wheezes (all lung lobes ) - Cardiovascular Cardiovascular exam: Present: RRR, +S1, +S2, tachycardia. Absent: clicks, gallop - GI/Abdominal GI/Abdominal exam: Present: normal bowel sounds, soft. Absent: firm, tenderness - Extremities Exam Extremities exam: Present: normal inspection. Absent: pedal edema, tenderness - Psychiatric Psychiatric exam: Present: anxious, flat affect - Skin Skin exam: Present: dry, intact, normal color. Absent: rash Palliative Quality Palliative Quality: Screen for Code Status: Yes, Screen for Goals of Care: Yes, Screen for Pain: Yes, If Pain Regimen Started, Initiate Bowel Regimen: NA, Screen for Nausea/Vomitting: Yes Code Status: 05/10/18 00:56 Resuscitation Status: Active [RES] Routine Comment: Resuscitation Status: Full Code - Labs CBC & Chem 7: 05/16/18 03:40 05/16/18 03:40 Labs: Laboratory Results - last 24 hr 11/06/2005/15/18 05/15/18 03:35 07:21 11:45 WBC RBC Hgb Hct MCV MCH MCHC RDW Plt Count MPV Immature Gran % Seg Neutrophils % Lymphocytes % Monocytes % Eosinophils % Basophils % Neutrophils # Lymphocytes # Monocytes # Eosinophils # Basophils # Sodium Potassium Chloride Carbon Dioxide BUN Creatinine Est GFR ( Amer) Est GFR (Non-Af Amer) BUN/Creatinine Ratio Glucose POC Glucose 132 H 147 H 169 H Calculated Osmolality Calcium Phosphorus Magnesium Total Bilirubin AST ALT Alkaline Phosphatase Serum Total Protein Albumin Globulin Albumin/Globulin Ratio 05/15/18 05/15/18 05/16/18 19:34 23:06 03:40 WBC 19.3 H RBC 4.90 Hgb 13.3 Hct 43.3 MCV 88.4 MCH 27.1 L MCHC 30.7 L RDW 15.2 H Plt Count 173 MPV 11.0 Immature Gran % 3.9 Seg Neutrophils % 85.9 Lymphocytes % 3.5 Monocytes % 5.9 Eosinophils % 0.0 Basophils % 0.8 Neutrophils # 16.6 H Lymphocytes # 0.7 Monocytes # 1.1 Eosinophils # 0.0 Basophils # 0.2 Sodium Potassium Chloride Carbon Dioxide BUN Creatinine Est GFR ( Amer) Est GFR (Non-Af Amer) BUN/Creatinine Ratio Glucose POC Glucose 147 H 111 H Calculated Osmolality Calcium Phosphorus Magnesium Total Bilirubin AST ALT Alkaline Phosphatase Serum Total Protein Albumin Globulin Albumin/Globulin Ratio 05/16/18 05/16/18 03:40 12:12 WBC RBC Hgb Hct MCV MCH MCHC RDW Plt Count MPV Immature Gran % Seg Neutrophils % Lymphocytes % Monocytes % Eosinophils % Basophils % Neutrophils # Lymphocytes # Monocytes # Eosinophils # Basophils # Sodium 145 Potassium 4.8 Chloride 104 Carbon Dioxide 36 H BUN 44 H Creatinine 0.79 Est GFR ( Amer) > 60 Est GFR (Non-Af Amer) > 60 BUN/Creatinine Ratio 56 H Glucose 141 H POC Glucose 131 H Calculated Osmolality 314 H Calcium 8.7 Phosphorus 3.1 Magnesium 2.4 Total Bilirubin 0.8 AST 39 ALT 79 H Alkaline Phosphatase 62 Serum Total Protein 5.8 L Albumin 3.1 L Globulin 2.7 Albumin/Globulin Ratio 1.1 - ABG Interpretation ABG results: ABG ABG pH 7.41 pH Units (7.32-7.45) 05/15/18 02:05 ABG pCO2 66 mmHg (35-45) H 05/15/18 02:05 ABG pO2 72 mmHg (85-104) L 05/15/18 02:05 ABG O2 Saturation 94 % (95-98) L 05/15/18 02:05 PT/INR, D-dimer PT 14.3 Seconds (9.4-12.1) H 05/10/18 08:20 Consult Discharge Plan - Plan Referrals: Jim Figueroa MD [Primary Care Provider] - <Tram Crenshaw - Last Filed: 05/16/18 19:00> Date of Encounter: 05/16/18 - Time Spent With Patient Total time spent is greater than 50% in coordination of care (as documented) at patient's floor/unit and/or counseling patient: - Constitutional Vitals: Abnormal lab results WBC 19.3 K/mcL (4.3-11.1) H 05/16/18 03:40 MCH 27.1 pg (28.0-33.3) L 05/16/18 03:40 MCHC 30.7 g/dL (31.6-35.5) L 05/16/18 03:40 RDW 15.2 % (11.5-14.5) H 05/16/18 03:40 Neutrophils # 16.6 K/mcL (1.6-8.9) H 05/16/18 03:40 Hypochromasia Present (Not Present) A 05/09/18 22:10 PT 14.3 Seconds (9.4-12.1) H 05/10/18 08:20 ABG pCO2 66 mmHg (35-45) H 05/15/18 02:05 ABG pO2 72 mmHg (85-104) L 05/15/18 02:05 ABG HCO3 42 mEq/L (21-27) H 05/15/18 02:05 ABG Total CO2 44 mEq/L (20-26) H 05/15/18 02:05 ABG O2 Saturation 94 % (95-98) L 05/15/18 02:05 ABG Base Excess 13 mEq/L (-2 to 3) H 05/15/18 02:05 VBG pH 7.18 pH Units (7.32-7.42) L* 05/09/18 23:02 VBG pCO2 109 mmHg (41-51) H* 05/09/18 23:02 VBG pO2 55 mmHg (25-50) H 05/09/18 23:02 VBG HCO3 41 mEq/L (21-27) H 05/09/18 23:02 Carbon Dioxide 36 mEq/L (23-29) H 05/16/18 03:40 BUN 44 mg/dL (8-23) H 05/16/18 03:40 BUN/Creatinine Ratio 56 (6-26) H 05/16/18 03:40 Glucose 141 mg/dL (70-105) H 05/16/18 03:40 POC Glucose 134 mg/dL (70-99) H 05/16/18 16:43 Calculated Osmolality 314 (280-300) H 05/16/18 03:40 Venous Ioniz Calcium 1.07 mmol/L (1.15-1.35) L 05/15/18 04:19 ALT 79 Units/L (7-52) H 05/16/18 03:40 Serum Total Protein 5.8 g/dL (6.4-8.9) L 05/16/18 03:40 Albumin 3.1 g/dL (3.5-5.7) L 05/16/18 03:40 Urine Clarity Cloudy (Clear) A 05/10/18 00:20 Urine Protein 30 mg/dL (Neg-Trace) H 05/10/18 00:20 Ur Squamous Epith Cells Many per lpf (None-Few) H 05/10/18 00:20 Hyaline Casts Moderate per lpf (None-Few) H 05/10/18 00:20 RSV (PCR) DETECTED (Not Detect) A 05/10/18 02:33 - Attending Attestation I saw and evaluated the patient. Discussed with resident and agree with residents findings and plan as documented in the residents note except as follow: Pt was more alert today, and able to discuss GOC. She would like to remain full code, and demanded a trial of intubation and CPR. Unsure if pt able to fully comprehend risk and benefits of procedure. Attempted to reach pt's daughter, unable to reach. Patient remains full code. Palliative care will follow. Palliative Quality Code Status: 05/10/18 00:56 Resuscitation Status: Active [RES] Routine Comment: Resuscitation Status: Full Code - Labs CBC & Chem 7: 05/16/18 03:40 05/16/18 03:40 Labs: Laboratory Results - last 24 hr 05/15/18 05/15/18 05/15/18 03:35 07:21 11:45 WBC RBC Hgb Hct MCV MCH MCHC RDW Plt Count MPV Immature Gran % Seg Neutrophils % Lymphocytes % Monocytes % Eosinophils % Basophils % Neutrophils # Lymphocytes # Monocytes # Eosinophils # Basophils # Sodium Potassium Chloride Carbon Dioxide BUN Creatinine Est GFR ( Amer) Est GFR (Non-Af Amer) BUN/Creatinine Ratio Glucose POC Glucose 132 H 147 H 169 H Calculated Osmolality Calcium Phosphorus Magnesium Total Bilirubin AST ALT Alkaline Phosphatase Serum Total Protein Albumin Globulin Albumin/Globulin Ratio 05/15/18 05/15/18 05/16/18 19:34 23:06 03:40 WBC 19.3 H RBC 4.90 Hgb 13.3 Hct 43.3 MCV 88.4 MCH 27.1 L MCHC 30.7 L RDW 15.2 H Plt Count 173 MPV 11.0 Immature Gran % 3.9 Seg Neutrophils % 85.9 Lymphocytes % 3.5 Monocytes % 5.9 Eosinophils % 0.0 Basophils % 0.8 Neutrophils # 16.6 H Lymphocytes # 0.7 Monocytes # 1.1 Eosinophils # 0.0 Basophils # 0.2 Sodium Potassium Chloride Carbon Dioxide BUN Creatinine Est GFR ( Amer) Est GFR (Non-Af Amer) BUN/Creatinine Ratio Glucose POC Glucose 147 H 111 H Calculated Osmolality Calcium Phosphorus Magnesium Total Bilirubin AST ALT Alkaline Phosphatase Serum Total Protein Albumin Globulin Albumin/Globulin Ratio 05/16/18 05/16/18 05/16/18 03:40 12:12 16:42 WBC RBC Hgb Hct MCV MCH MCHC RDW Plt Count MPV Immature Gran % Seg Neutrophils % Lymphocytes % Monocytes % Eosinophils % Basophils % Neutrophils # Lymphocytes # Monocytes # Eosinophils # Basophils # Sodium 145 Potassium 4.8 Chloride 104 Carbon Dioxide 36 H BUN 44 H Creatinine 0.79 Est GFR ( Amer) > 60 Est GFR (Non-Af Amer) > 60 BUN/Creatinine Ratio 56 H Glucose 141 H POC Glucose 131 H 446 H* Calculated Osmolality 314 H Calcium 8.7 Phosphorus 3.1 Magnesium 2.4 Total Bilirubin 0.8 AST 39 ALT 79 H Alkaline Phosphatase 62 Serum Total Protein 5.8 L Albumin 3.1 L Globulin 2.7 Albumin/Globulin Ratio 1.1 05/16/18 16:43 WBC RBC Hgb Hct MCV MCH MCHC RDW Plt Count MPV Immature Gran % Seg Neutrophils % Lymphocytes % Monocytes % Eosinophils % Basophils % Neutrophils # Lymphocytes # Monocytes # Eosinophils # Basophils # Sodium Potassium Chloride Carbon Dioxide BUN Creatinine Est GFR ( Amer) Est GFR (Non-Af Amer) BUN/Creatinine Ratio Glucose POC Glucose 134 H Calculated Osmolality Calcium Phosphorus Magnesium Total Bilirubin AST ALT Alkaline Phosphatase Serum Total Protein Albumin Globulin Albumin/Globulin Ratio - ABG Interpretation ABG results: ABG ABG pH 7.41 pH Units (7.32-7.45) 05/15/18 02:05 ABG pCO2 66 mmHg (35-45) H 05/15/18 02:05 ABG pO2 72 mmHg (85-104) L 05/15/18 02:05 ABG O2 Saturation 94 % (95-98) L 05/15/18 02:05 PT/INR, D-dimer PT 14.3 Seconds (9.4-12.1) H 05/10/18 08:20
[2018-05-16] MEDS ORDERED: *HR* LORazepam 0.5 MG TABLET PO PRN (14:32)
[2018-05-16] MEDS: *HR* Metoprolol 5 MG/5 ML VIAL IVP PRN (14:51)
[2018-05-16] MEDS: Haloperidol Lactate 5 MG/ML VIAL IVP PRN (16:35)
--- NOTE | 2018-05-16 19:59 | Electrocardiograph Report ---
[address] [place], [place] [address] Test Date: 2018-05-14 Pat Name: Lina Montenegro Department: 112 Room: 2A43 Gender: F Line Helper: : 1945 Requested By: Venkat Cunha Order Number: [id number] Reading MD: Lilo Gerard Measurements Intervals [place] Rate: 90 P: 83 TX: 143 QRS: 83 QRSD: 89 T: 75 QT: 308 QTc: 355 Interpretive Statements SINUS RHYTHM POSSIBLE RIGHT ATRIAL ENLARGEMENT Electronically Signed On 05-16-2018 19:57:08 EST by Lilo Gerard
[2018-05-17] MEDS: Haloperidol Lactate 5 MG/ML VIAL IVP PRN (01:19)
[2018-05-17] MEDS: Ipratropium/Albuterol Neb 3 ML IH SCH ×6 (03:52→23:32)
[2018-05-17 04:43] LABS: Basophils # 0.1 K/mcL (0.0-0.2); Basophils % 0.7 %; Hematocrit 40.4 % (35.3-44.9); Hemoglobin 12.1 g/dL (11.5-15.4); Immature Granulocytes % 4.3 % (0-4); Lymphocytes # 0.3 K/mcL (0.6-4.6); Lymphocytes % 1.4 %; Mean Corpuscular Hemoglobin 27.3 pg (28.0-33.3); Mean Corpuscular Volume 91.2 fL (83.0-100.0); Mean Platelet Volume 11.6 fL (9.4-12.4); Monocytes # 1.2 K/mcL (0.0-1.3); Monocytes % 5.7 %; Platelet Count 173 K/mcL (140-400); Red Blood Count 4.43 M/mcL (3.82-4.97); Red Cell Distribution Width 15.9 % (11.5-14.5); Segmented Neutrophils % 87.9 %
[2018-05-17 05:00] LABS: Albumin/Globulin Ratio 1.3 (1.1-2.2); Bilirubin,Total 0.6 mg/dL (0.3-1.0); Calcium 8.6 mg/dL (8.6-10.3); Globulin 2.4 g/dL (2.4-3.5); Potassium 4.5 mEq/L (3.5-5.1); Total Protein 5.4 g/dL (6.4-8.9)
[2018-05-17] MEDS: *HR* Heparin 5,000 UNIT/ML VIAL SQ SCH ×3 (05:36→22:06)
[2018-05-17] MEDS: MethylPREDNISolone 40 MG/ML VIAL IVP SCH ×2 (05:36→17:27)
[2018-05-17] MEDS ORDERED: Pantoprazole 40 MG VIAL IVP SCH (06:30)
[2018-05-17] MEDS: Insulin LISPRO 300 UNITS/3 ML VIAL SQ SCH ×4 (08:05→22:07)
[2018-05-17] MEDS: Levofloxacin 750 MG/150 ML 750 MG/150 ML BAG IVPB SCH (08:11)
[2018-05-17] MEDS: Nystatin OINT 15 GM TUBE TP SCH ×4 (08:11→22:07)
[2018-05-17] MEDS ORDERED: Levofloxacin 750 MG/150 ML 750 MG/150 ML BAG IVPB SCH (09:00)
--- NOTE | 2018-05-17 09:45 | Palliative Progress Note ---
<Ashly Eller - Last Filed: 05/17/18 10:56> Date of Encounter: 05/17/18 Time of Encounter: 09:15 - Assessment and plan (1) Goals of care, counseling/discussion Current Visit: Yes Status: Acute Assessment and plan: Goals of care are still unclear. Ms. Montenegro does have more improvement in her mentation. Ms. Montenegro was awake, alert and oriented x3. She continues to express interest in remaining a full code. She does not have a good discharge plan. Currently talks about going to an apartment after she sells her house but does not know where she would like to go after her hospital stay. Additionally, tried to contact the daughter yesterday and today to discuss her current health and get a better understanding of her needs but was unable to reach her. Was able to reach her son, Mr. Zion Montenegro to discuss with him her current health status and discharge planning. He noted that it is not safe for her to go home. She is in denial and not able to care for herself. He mentioned that at home she is not hygienic and often has a bowel movement in bed. He also stated that she is supposed to be on 3 liters of oxygen at home and sometimes removes it and becomes confused thereafter. He believes she will benefit from a skilled facility rather than going back home as her health is deteriorating and has poor insight. We will have a family meeting at 3 pm yesterday with Mr. Zion Montenegro and Karlie, the daughter to discuss her goals of care and discharge planning. (2) Acute exacerbation of chronic obstructive airways disease Current Visit: Yes Status: Acute Assessment and plan: RSV positive with sputum culture positive for stenotrophomonas maltophilia. Her oxygen demand has decreased. She was requiring Bipap and is not tolerating nasal canula. (3) Altered mental status Current Visit: Yes Status: Resolved Assessment and plan: She is awake, alert and oriented to person, place and time today. Her altered mental status was likely secondary to hypoxia which has improved. (4) Hypoxia Current Visit: Yes Status: Acute Assessment and plan: Improvement in her oxygen status. She was on Bipap but now tolerating oxymask and on 6 liters of oxygen with 96% oxygen saturation. (5) Anxiety Current Visit: Yes Status: Acute Assessment and plan: Chronic anxiety. Continues to have situation anxiety. Continues to have entire body tremors. She denies being cold and notes it is normal for her. Unsure of the baseline of her tremors. Started ativan PRN yesterday. - Time Spent With Patient Total time spent is greater than 50% in coordination of care (as documented) at patient's floor/unit and/or counseling patient: - Subjective Interval history: Ms. Montenegro was seen at bedside this morning. She was comfortable in bed. She is has tremors and noted it is chronic. She had completed 60% of her breakfast this morning. She noted her shortness of breath has improved. She had a bowel movement yesterday. She denies fever, chills, nausea, emesis, chest pain, or abdominal pain. - Constitutional Vitals: Abnormal lab results WBC 20.5 K/mcL (4.3-11.1) H 05/17/18 04:12 MCH 27.3 pg (28.0-33.3) L 05/17/18 04:12 MCHC 30.0 g/dL (31.6-35.5) L 05/17/18 04:12 RDW 15.9 % (11.5-14.5) H 05/17/18 04:12 Immature Gran % 4.3 % (0-4) H 05/17/18 04:12 Neutrophils # 18.0 K/mcL (1.6-8.9) H 05/17/18 04:12 Lymphocytes # 0.3 K/mcL (0.6-4.6) L 05/17/18 04:12 Hypochromasia Present (Not Present) A 05/09/18 22:10 PT 14.3 Seconds (9.4-12.1) H 05/10/18 08:20 ABG pCO2 66 mmHg (35-45) H 05/15/18 02:05 ABG pO2 72 mmHg (85-104) L 05/15/18 02:05 ABG HCO3 42 mEq/L (21-27) H 05/15/18 02:05 ABG Total CO2 44 mEq/L (20-26) H 05/15/18 02:05 ABG O2 Saturation 94 % (95-98) L 05/15/18 02:05 ABG Base Excess 13 mEq/L (-2 to 3) H 05/15/18 02:05 VBG pH 7.18 pH Units (7.32-7.42) L* 05/09/18 23:02 VBG pCO2 109 mmHg (41-51) H* 05/09/18 23:02 VBG pO2 55 mmHg (25-50) H 05/09/18 23:02 VBG HCO3 41 mEq/L (21-27) H 05/09/18 23:02 Sodium 147 mEq/L (136-145) H 05/17/18 04:12 Carbon Dioxide 36 mEq/L (23-29) H 05/17/18 04:12 BUN 61 mg/dL (8-23) H 05/17/18 04:12 Est GFR ( Amer) 59 (> 60) L 05/17/18 04:12 Est GFR (Non-Af Amer) 49 (> 60) L 05/17/18 04:12 BUN/Creatinine Ratio 56 (6-26) H 05/17/18 04:12 Glucose 158 mg/dL (70-105) H 05/17/18 04:12 POC Glucose 154 mg/dL (70-99) H 05/17/18 00:29 Calculated Osmolality 325 (280-300) H 05/17/18 04:12 Venous Ioniz Calcium 1.07 mmol/L (1.15-1.35) L 05/15/18 04:19 ALT 75 Units/L (7-52) H 05/17/18 04:12 Serum Total Protein 5.4 g/dL (6.4-8.9) L 05/17/18 04:12 Albumin 3.0 g/dL (3.5-5.7) L 05/17/18 04:12 Urine Clarity Cloudy (Clear) A 05/10/18 00:20 Urine Protein 30 mg/dL (Neg-Trace) H 05/10/18 00:20 Ur Squamous Epith Cells Many per lpf (None-Few) H 05/10/18 00:20 Hyaline Casts Moderate per lpf (None-Few) H 05/10/18 00:20 RSV (PCR) DETECTED (Not Detect) A 05/10/18 02:33 General appearance: Present: average body habitus, cooperative, no acute distress - Head Head exam: Present: atraumatic, normocephalic - Eye Eye exam: Present: EOMI, sclera anicteric - ENT ENT exam: Present: mucous membranes moist - Respiratory Respiratory exam: Present: wheezes (diffuse through all lung lobes). Absent: rales, stridor - Cardiovascular Cardiovascular exam: Present: irregular rhythm, tachycardia. Absent: clicks - GI/Abdominal GI/Abdominal exam: Present: hypoactive bowel sounds, soft. Absent: distended, firm, tenderness - Extremities Exam Extremities exam: Absent: calf tenderness, pedal edema, tenderness - Neurological Exam Neurological exam: Present: alert, oriented X3 - Psychiatric Psychiatric exam: Present: anxious, flat affect, normal affect - Skin Skin exam: Present: dry, intact, warm - Additional findings Additional findings: very tremulous Palliative Quality Palliative Quality: Screen for Code Status: Yes, Screen for Goals of Care: Yes, Screen for Pain: Yes, If Pain Regimen Started, Initiate Bowel Regimen: NA, Screen for Nausea/Vomitting: Yes Code Status: 05/10/18 00:56 Resuscitation Status: Active [RES] Routine Comment: Resuscitation Status: Full Code - Labs CBC & Chem 7: 05/17/18 04:12 05/17/18 04:12 Labs: Laboratory Results - last 24 hr 05/16/18 05/16/18 05/16/18 03:58 07:20 11:16 WBC RBC Hgb Hct MCV MCH MCHC RDW Plt Count MPV Immature Gran % Seg Neutrophils % Lymphocytes % Monocytes % Eosinophils % Basophils % Neutrophils # Lymphocytes # Monocytes # Eosinophils # Basophils # Sodium Potassium Chloride Carbon Dioxide BUN Creatinine Est GFR ( Amer) Est GFR (Non-Af Amer) BUN/Creatinine Ratio Glucose POC Glucose 120 H 111 H 146 H Calculated Osmolality Calcium Total Bilirubin AST ALT Alkaline Phosphatase Serum Total Protein Albumin Globulin Albumin/Globulin Ratio 05/16/18 05/16/18 05/16/18 12:12 16:42 16:43 WBC RBC Hgb Hct MCV MCH MCHC RDW Plt Count MPV Immature Gran % Seg Neutrophils % Lymphocytes % Monocytes % Eosinophils % Basophils % Neutrophils # Lymphocytes # Monocytes # Eosinophils # Basophils # Sodium Potassium Chloride Carbon Dioxide BUN Creatinine Est GFR ( Amer) Est GFR (Non-Af Amer) BUN/Creatinine Ratio Glucose POC Glucose 131 H 446 H* 134 H Calculated Osmolality Calcium Total Bilirubin AST ALT Alkaline Phosphatase Serum Total Protein Albumin Globulin Albumin/Globulin Ratio 05/16/18 05/17/18 05/17/18 20:12 00:29 04:12 WBC 20.5 H RBC 4.43 Hgb 12.1 Hct 40.4 MCV 91.2 MCH 27.3 L MCHC 30.0 L RDW 15.9 H Plt Count 173 MPV 11.6 Immature Gran % 4.3 H Seg Neutrophils % 87.9 Lymphocytes % 1.4 Monocytes % 5.7 Eosinophils % 0.0 Basophils % 0.7 Neutrophils # 18.0 H Lymphocytes # 0.3 L Monocytes # 1.2 Eosinophils # 0.0 Basophils # 0.1 Sodium Potassium Chloride Carbon Dioxide BUN Creatinine Est GFR ( Amer) Est GFR (Non-Af Amer) BUN/Creatinine Ratio Glucose POC Glucose 191 H 154 H Calculated Osmolality Calcium Total Bilirubin AST ALT Alkaline Phosphatase Serum Total Protein Albumin Globulin Albumin/Globulin Ratio 05/17/18 04:12 WBC RBC Hgb Hct MCV MCH MCHC RDW Plt Count MPV Immature Gran % Seg Neutrophils % Lymphocytes % Monocytes % Eosinophils % Basophils % Neutrophils # Lymphocytes # Monocytes # Eosinophils # Basophils # Sodium 147 H Potassium 4.5 Chloride 103 Carbon Dioxide 36 H BUN 61 H Creatinine 1.09 Est GFR ( Amer) 59 L Est GFR (Non-Af Amer) 49 L BUN/Creatinine Ratio 56 H Glucose 158 H POC Glucose Calculated Osmolality 325 H Calcium 8.6 Total Bilirubin 0.6 AST 37 ALT 75 H Alkaline Phosphatase 53 Serum Total Protein 5.4 L Albumin 3.0 L Globulin 2.4 Albumin/Globulin Ratio 1.3 - ABG Interpretation ABG results: ABG ABG pH 7.41 pH Units (7.32-7.45) 05/15/18 02:05 ABG pCO2 66 mmHg (35-45) H 05/15/18 02:05 ABG pO2 72 mmHg (85-104) L 05/15/18 02:05 ABG O2 Saturation 94 % (95-98) L 05/15/18 02:05 PT/INR, D-dimer PT 14.3 Seconds (9.4-12.1) H 05/10/18 08:20 Consult Discharge Plan - Plan Referrals: Jim Figueroa MD [Primary Care Provider] - <Tram Crenshaw - Last Filed: 05/17/18 14:31> Date of Encounter: 05/17/18 - Time Spent With Patient Total time spent is greater than 50% in coordination of care (as documented) at patient's floor/unit and/or counseling patient: - Constitutional Vitals: Abnormal lab results WBC 20.5 K/mcL (4.3-11.1) H 05/17/18 04:12 MCH 27.3 pg (28.0-33.3) L 05/17/18 04:12 MCHC 30.0 g/dL (31.6-35.5) L 05/17/18 04:12 RDW 15.9 % (11.5-14.5) H 05/17/18 04:12 Immature Gran % 4.3 % (0-4) H 05/17/18 04:12 Neutrophils # 18.0 K/mcL (1.6-8.9) H 05/17/18 04:12 Lymphocytes # 0.3 K/mcL (0.6-4.6) L 05/17/18 04:12 Hypochromasia Present (Not Present) A 05/09/18 22:10 PT 14.3 Seconds (9.4-12.1) H 05/10/18 08:20 ABG pCO2 66 mmHg (35-45) H 05/15/18 02:05 ABG pO2 72 mmHg (85-104) L 05/15/18 02:05 ABG HCO3 42 mEq/L (21-27) H 05/15/18 02:05 ABG Total CO2 44 mEq/L (20-26) H 05/15/18 02:05 ABG O2 Saturation 94 % (95-98) L 05/15/18 02:05 ABG Base Excess 13 mEq/L (-2 to 3) H 05/15/18 02:05 VBG pH 7.18 pH Units (7.32-7.42) L* 05/09/18 23:02 VBG pCO2 109 mmHg (41-51) H* 05/09/18 23:02 VBG pO2 55 mmHg (25-50) H 05/09/18 23:02 VBG HCO3 41 mEq/L (21-27) H 05/09/18 23:02 Sodium 147 mEq/L (136-145) H 05/17/18 04:12 Carbon Dioxide 36 mEq/L (23-29) H 05/17/18 04:12 BUN 61 mg/dL (8-23) H 05/17/18 04:12 Est GFR ( Amer) 59 (> 60) L 05/17/18 04:12 Est GFR (Non-Af Amer) 49 (> 60) L 05/17/18 04:12 BUN/Creatinine Ratio 56 (6-26) H 05/17/18 04:12 Glucose 158 mg/dL (70-105) H 05/17/18 04:12 POC Glucose 154 mg/dL (70-99) H 05/17/18 00:29 Calculated Osmolality 325 (280-300) H 05/17/18 04:12 Venous Ioniz Calcium 1.07 mmol/L (1.15-1.35) L 05/15/18 04:19 ALT 75 Units/L (7-52) H 05/17/18 04:12 Serum Total Protein 5.4 g/dL (6.4-8.9) L 05/17/18 04:12 Albumin 3.0 g/dL (3.5-5.7) L 05/17/18 04:12 Urine Clarity Cloudy (Clear) A 05/10/18 00:20 Urine Protein 30 mg/dL (Neg-Trace) H 05/10/18 00:20 Ur Squamous Epith Cells Many per lpf (None-Few) H 05/10/18 00:20 Hyaline Casts Moderate per lpf (None-Few) H 05/10/18 00:20 RSV (PCR) DETECTED (Not Detect) A 05/10/18 02:33 - Attending Attestation I saw and evaluated the patient. Discussed with resident and agree with residents findings and plan as documented in the residents note: Ms Montenegro does not demonstrate enough insight in her answers and discussion of her clinical conditions and performance status. Son seams to be understanding. Family meeting scheduled tomorrow at 3pm with pt's care team. Palliative Quality Code Status: 05/10/18 00:56 Resuscitation Status: Active [RES] Routine Comment: Resuscitation Status: Full Code - Labs CBC & Chem 7: 05/17/18 04:12 05/17/18 04:12 Labs: Laboratory Results - last 24 hr 05/16/18 05/16/18 05/16/18 03:58 07:20 11:16 WBC RBC Hgb Hct MCV MCH MCHC RDW Plt Count MPV Immature Gran % Seg Neutrophils % Lymphocytes % Monocytes % Eosinophils % Basophils % Neutrophils # Lymphocytes # Monocytes # Eosinophils # Basophils # Sodium Potassium Chloride Carbon Dioxide BUN Creatinine Est GFR ( Amer) Est GFR (Non-Af Amer) BUN/Creatinine Ratio Glucose POC Glucose 120 H 111 H 146 H Calculated Osmolality Calcium Total Bilirubin AST ALT Alkaline Phosphatase Serum Total Protein Albumin Globulin Albumin/Globulin Ratio 05/16/18 05/16/18 05/16/18 16:42 16:43 20:12 WBC RBC Hgb Hct MCV MCH MCHC RDW Plt Count MPV Immature Gran % Seg Neutrophils % Lymphocytes % Monocytes % Eosinophils % Basophils % Neutrophils # Lymphocytes # Monocytes # Eosinophils # Basophils # Sodium Potassium Chloride Carbon Dioxide BUN Creatinine Est GFR ( Amer) Est GFR (Non-Af Amer) BUN/Creatinine Ratio Glucose POC Glucose 446 H* 134 H 191 H Calculated Osmolality Calcium Total Bilirubin AST ALT Alkaline Phosphatase Serum Total Protein Albumin Globulin Albumin/Globulin Ratio 05/17/18 05/17/18 05/17/18 00:29 04:12 04:12 WBC 20.5 H RBC 4.43 Hgb 12.1 Hct 40.4 MCV 91.2 MCH 27.3 L MCHC 30.0 L RDW 15.9 H Plt Count 173 MPV 11.6 Immature Gran % 4.3 H Seg Neutrophils % 87.9 Lymphocytes % 1.4 Monocytes % 5.7 Eosinophils % 0.0 Basophils % 0.7 Neutrophils # 18.0 H Lymphocytes # 0.3 L Monocytes # 1.2 Eosinophils # 0.0 Basophils # 0.1 Sodium 147 H Potassium 4.5 Chloride 103 Carbon Dioxide 36 H BUN 61 H Creatinine 1.09 Est GFR ( Amer) 59 L Est GFR (Non-Af Amer) 49 L BUN/Creatinine Ratio 56 H Glucose 158 H POC Glucose 154 H Calculated Osmolality 325 H Calcium 8.6 Total Bilirubin 0.6 AST 37 ALT 75 H Alkaline Phosphatase 53 Serum Total Protein 5.4 L Albumin 3.0 L Globulin 2.4 Albumin/Globulin Ratio 1.3 - ABG Interpretation ABG results: ABG ABG pH 7.41 pH Units (7.32-7.45) 05/15/18 02:05 ABG pCO2 66 mmHg (35-45) H 05/15/18 02:05 ABG pO2 72 mmHg (85-104) L 05/15/18 02:05 ABG O2 Saturation 94 % (95-98) L 05/15/18 02:05 PT/INR, D-dimer PT 14.3 Seconds (9.4-12.1) H 05/10/18 08:20 Palliative Scale - Palliative Performance Scale How ambulatory is this patient?: Mainly in bed What is patient's level of activity and evidence of disease?: Unable to do any work, Extensive disease How much self-care assistance does patient require?: Mainly assistance How much oral intake does the patient have?: Normal or reduced What is this patient's level of consciousness?: Full Palliative Performance Score: 40 %
--- NOTE | 2018-05-17 11:21 | Internal Med Progress Note ---
Hospitalist Progress Note - Encounter Date of Encounter: 05/17/18 Time of Encounter: 11:15 - Subjective Interval History: Patient seen and examined this morning. No acute overnight events. Somewhat agitated overnight per nurse. Off Bipap. On oxygen mask this morning. Sob improving. Not in distress. Is alert. feeling better. - Exam Vitals: Temp Pulse Resp BP Pulse Ox 97.7 F 120 19 147/72 98 05/17/18 10:57 05/17/18 10:57 05/17/18 10:57 05/17/18 10:57 05/17/18 10:57 Exam: General: In no acute distress. Conversant. Obese. ENT; Dry mouth. Respiratory exam: no accessory muscle use. Diffuse rhonchi and wheezing over al l lung mojica. Cardiovascular exam: RRR, +S1, +S2. no murmur, gallop, rubs. No JVD or pedal edema. GI/Abdominal exam: Non-tender, mildly distended, normal bowel sounds, soft, no peritoneal signs. Extremities exam: full ROM, no pedal edema, warm, pulses palpable in b/l lower extremities. no calf tenderness. Has Lt Neurological exam: CN II-XII intact, AO X1, no focal deficits. Difficult to understand however able to follow all commands. - Summary of Assessment and Plan Summary of Assessment and Plan: Acute on chronic respiratory failure with hypoxia and hypercapnia - BG NGTD 05/09 - Respiratory infectious panel positive for RSV - sputum cx positiive for S. maltoph 05/10 - Legionella and strep pneumo antigens negative - Likely related to COPD exacerbation and diastolic heart failure. - s/p Diuresis -2L negative. Hold diuresis for now. Appears close to euvolemia - c/w Levaquin for 10 days(day8). Leukocytosis likely related to steroid use. - Still with diffuse wheezing, however symptomatically improved. scheduled DuoNebs q4hr. solumedrol tapered to 30q12. - Will get PT/OT evaluation. Palliative care following. Poor overall prognosis given chronic disease. Patient is full code. Altered mental status - Now improved. Likely related to CO2 retention and hypoxia SARAHI - Improved. - Slightly worsened today. - lisinopril on hold. will resume on DC. - Monitor for now Diastolic CHF - ECHO wiht EF of 65-70, Mild diastolic dysfunction. no wall motion abnormality. - diurese as needed. Hold for now. DVT prophylaxis - c/w heparin - Time Spent with Patient Total time spent is greater than 50% in coordination of care (as documented) at patient's floor/unit and/or counseling patient: Internal Medicine: Result - Labs CBC & Chem 7: 05/17/18 04:12 05/17/18 04:12 Labs: Short CBC 05/17/18 Range/Units 04:12 WBC 20.5 H (4.3-11.1) K/mcL Hgb 12.1 (11.5-15.4) g/dL Hct 40.4 (35.3-44.9) % Plt Count 173 (140-400) K/mcL Neutrophils # 18.0 H (1.6-8.9) K/mcL BMP 05/17/18 04:12 Sodium 147 H Potassium 4.5 Chloride 103 Carbon Dioxide 36 H BUN 61 H Creatinine 1.09 Glucose 158 H Calcium 8.6 Liver Function 05/17/18 Range/Units 04:12 Total Bilirubin 0.6 (0.3-1.0) mg/dL AST 37 (13-39) Units/L ALT 75 H (7-52) Units/L Alkaline Phosphatase 53 (34-104) Units/L Albumin 3.0 L (3.5-5.7) g/dL - ABG Interpretation ABG results: ABG ABG pH 7.41 pH Units (7.32-7.45) 05/15/18 02:05 ABG pCO2 66 mmHg (35-45) H 05/15/18 02:05 ABG pO2 72 mmHg (85-104) L 05/15/18 02:05 ABG O2 Saturation 94 % (95-98) L 05/15/18 02:05 PT/INR, D-dimer PT 14.3 Seconds (9.4-12.1) H 05/10/18 08:20 Consult Discharge Plan - Plan Referrals: Jim Figueroa MD [Primary Care Provider] -
[2018-05-18] MEDS: Ipratropium/Albuterol Neb 3 ML IH SCH ×3 (03:46→11:37)
[2018-05-18] MEDS: *HR* Heparin 5,000 UNIT/ML VIAL SQ SCH ×3 (05:04→20:51)
[2018-05-18] MEDS: MethylPREDNISolone 40 MG/ML VIAL IVP SCH ×2 (05:04→17:03)
[2018-05-18 06:28] LABS: Basophils # 0.1 K/mcL (0.0-0.2); Basophils % 0.5 %; Hematocrit 39.6 % (35.3-44.9); Hemoglobin 11.8 g/dL (11.5-15.4); Immature Granulocytes % 3.7 % (0-4); Lymphocytes # 0.6 K/mcL (0.6-4.6); Lymphocytes % 2.6 %; Mean Corpuscular HGB Conc 29.8 g/dL (31.6-35.5); Mean Corpuscular Hemoglobin 27.3 pg (28.0-33.3); Mean Corpuscular Volume 91.7 fL (83.0-100.0); Mean Platelet Volume 11.6 fL (9.4-12.4); Monocytes # 1.5 K/mcL (0.0-1.3); Monocytes % 6.5 %; Neutrophils # 19.3 K/mcL (1.6-8.9); Platelet Count 144 K/mcL (140-400); Red Blood Count 4.32 M/mcL (3.82-4.97); Red Cell Distribution Width 16.1 % (11.5-14.5); Segmented Neutrophils % 86.7 %
[2018-05-18 06:36] LABS: BUN/Creatinine Ratio 60 (6-26); Blood Urea Nitrogen 58 mg/dL (8-23); Calcium 9.1 mg/dL (8.6-10.3); Carbon Dioxide 40 mEq/L (23-29); Chloride 105 mEq/L (98-107); Glucose 151 mg/dL (70-105); Osmolality,Calculated 325 (280-300); Potassium 4.1 mEq/L (3.5-5.1); Sodium 148 mEq/L (136-145); eGFR For Non-African Americans 56 (> 60)
[2018-05-18] MEDS: Insulin LISPRO 300 UNITS/3 ML VIAL SQ SCH ×4 (08:03→20:54)
[2018-05-18] MEDS: Levofloxacin 750 MG/150 ML 750 MG/150 ML BAG IVPB SCH (08:03)
[2018-05-18] MEDS: Nystatin OINT 15 GM TUBE TP SCH ×4 (08:04→20:54)
--- NOTE | 2018-05-18 10:07 | Palliative Progress Note ---
<Ashly Eller - Last Filed: 05/18/18 15:48> Date of Encounter: 05/18/18 Time of Encounter: 10:00 - Assessment and plan (1) Goals of care, counseling/discussion Current Visit: Yes Status: Acute Assessment and plan: Had a discussion with Ms. Montenegro about discharge planning. I asked her where she thinks she would go for residence after her discharge and she said she was unsure. I introduced the idea of detention facility and she was agreeable. PT evaluation states patient needs SNF upon discharge. Scheduled family meeting at 3 pm today to further discuss discharge planning. 15:10 Had a family meeting with Mr. Donovan, Ms. Montenegro's son, Ms. Ziegler, Ms. Montenegro's daughter and Lesley, the psychosocial rehabilitation counselor about goals of care. Per family Ms. Montenegro is unable to take care of herself at home. Her strength has dissi pated. She is unable to now even walk to the commode. Her daughter noted she has not been able to drive for the past 2 years and she continues to pay insurance on her car because she is not willing to accept that she is no longer able to do things she could in the past. They also noted that at home she cannot prepare food for herself. She is not able to take a bath on her own and even forgets to take her prescription medication as prescribed. They are concerned that she is not safe to return home as she cannot provide for herself. I informed the son that PT recommended SNF and Lesley asked for their preference in facilities. Lesley will discuss this with Ms. Montenegro and this morning Ms. Figueroa was understanding that she would require placement to SNF. Mr. Donovan also stated that she has been accepted to an [facility] assistance living but they because she now requires rehab he will have to determine if they can hold her wait list in the mean time. I also had a discussion with Ms. Montenegro today about her code status and after explaining the different options she noted when it is her time, let her go peacefully. She desired to be DNR-CCA. The family was present during that disc ussion and she signed the DNR state paper. (2) Acute exacerbation of chronic obstructive airways disease Current Visit: Yes Status: Acute Assessment and plan: RSV positive with sputum culture positive for stenotrophomonas maltophilia. Her oxygen demand has decreased. She is now on 4 liters of nasal canula, from oxymask yesterday. (3) Altered mental status Current Visit: Yes Status: Resolved Assessment and plan: She is awake, alert and oriented to person, place and time. Her altered mental status was likely secondary to hypoxia and hypercapnia which has improved. (4) Hypoxia Current Visit: Yes Status: Acute Assessment and plan: Improvement in her oxygen status. She was on Bipap now tolerating nasal canula, decreased oxygen demand from 6 liters oxymask to 4 liters nasal canula. (5) Anxiety Current Visit: Yes Status: Acute Assessment and plan: Chronic anxiety. Anxiety has significantly improved. Her tremors have improved significantly and she notes she is feeling less anxious today. Continue PRN ativ an. - Time Spent With Patient Total time spent is greater than 50% in coordination of care (as documented) at patient's floor/unit and/or counseling patient: - Subjective Interval history: Ms. Montenegro was seen at bedside this morning. She was on nasal canula and stated her breathing has improved. She was comfortable in bed. Her tremors are resolved. And she noted her anxiety has significantly improved. She had completed 50% of her breakfast this morning. She had a bowel movement today. She denies fever, chills, nausea, emesis, chest pain, or abdominal pain. - Constitutional Vitals: Abnormal lab results WBC 22.3 K/mcL (4.3-11.1) H 05/18/18 05:34 MCH 27.3 pg (28.0-33.3) L 05/18/18 05:34 MCHC 29.8 g/dL (31.6-35.5) L 05/18/18 05:34 RDW 16.1 % (11.5-14.5) H 05/18/18 05:34 Neutrophils # 19.3 K/mcL (1.6-8.9) H 05/18/18 05:34 Monocytes # 1.5 K/mcL (0.0-1.3) H 05/18/18 05:34 Hypochromasia Present (Not Present) A 05/09/18 22:10 PT 14.3 Seconds (9.4-12.1) H 05/10/18 08:20 ABG pCO2 66 mmHg (35-45) H 05/15/18 02:05 ABG pO2 72 mmHg (85-104) L 05/15/18 02:05 ABG HCO3 42 mEq/L (21-27) H 05/15/18 02:05 ABG Total CO2 44 mEq/L (20-26) H 05/15/18 02:05 ABG O2 Saturation 94 % (95-98) L 05/15/18 02:05 ABG Base Excess 13 mEq/L (-2 to 3) H 05/15/18 02:05 VBG pH 7.18 pH Units (7.32-7.42) L* 05/09/18 23:02 VBG pCO2 109 mmHg (41-51) H* 05/09/18 23:02 VBG pO2 55 mmHg (25-50) H 05/09/18 23:02 VBG HCO3 41 mEq/L (21-27) H 05/09/18 23:02 Sodium 148 mEq/L (136-145) H 05/18/18 05:34 Carbon Dioxide 40 mEq/L (23-29) H* 05/18/18 05:34 BUN 58 mg/dL (8-23) H 05/18/18 05:34 Est GFR (Non-Af Amer) 56 (> 60) L 05/18/18 05:34 BUN/Creatinine Ratio 60 (6-26) H 05/18/18 05:34 Glucose 151 mg/dL (70-105) H 05/18/18 05:34 POC Glucose 256 mg/dL (70-99) H 05/17/18 19:48 Calculated Osmolality 325 (280-300) H 05/18/18 05:34 Venous Ioniz Calcium 1.07 mmol/L (1.15-1.35) L 05/15/18 04:19 ALT 75 Units/L (7-52) H 05/17/18 04:12 Serum Total Protein 5.4 g/dL (6.4-8.9) L 05/17/18 04:12 Albumin 3.0 g/dL (3.5-5.7) L 05/17/18 04:12 Urine Clarity Cloudy (Clear) A 05/10/18 00:20 Urine Protein 30 mg/dL (Neg-Trace) H 05/10/18 00:20 Ur Squamous Epith Cells Many per lpf (None-Few) H 05/10/18 00:20 Hyaline Casts Moderate per lpf (None-Few) H 05/10/18 00:20 RSV (PCR) DETECTED (Not Detect) A 05/10/18 02:33 General appearance: Present: average body habitus, no acute distress - Head Head exam: Present: atraumatic, normocephalic - Eye Eye exam: Present: EOMI, normal appearance, sclera anicteric - ENT ENT exam: Present: mucous membranes moist - Respiratory Respiratory exam: Present: wheezes (diffuse wheezing through all lung lobes). Absent: rhonchi, stridor - Cardiovascular Cardiovascular exam: Present: RRR, +S1, +S2, tachycardia. Absent: clicks, gallop - GI/Abdominal GI/Abdominal exam: Present: normal bowel sounds, soft. Absent: distended, firm, guarding, tenderness - Extremities Exam Extremities exam: Absent: calf tenderness, pedal edema, tenderness - Psychiatric Psychiatric exam: Present: normal affect, normal mood - Skin Skin exam: Present: dry, intact, warm Palliative Quality Palliative Quality: Screen for Code Status: Yes, Screen for Goals of Care: Yes, Screen for Pain: Yes, If Pain Regimen Started, Initiate Bowel Regimen: NA, Screen for Nausea/Vomitting: Yes Code Status: 05/10/18 00:56 Resuscitation Status: Active [RES] Routine Comment: Resuscitation Status: Full Code - Labs CBC & Chem 7: 05/18/18 05:34 05/18/18 05:34 Labs: Laboratory Results - last 24 hr 05/17/18 05/17/18 05/17/18 06:45 10:56 15:47 WBC RBC Hgb Hct MCV MCH MCHC RDW Plt Count MPV Immature Gran % Seg Neutrophils % Lymphocytes % Monocytes % Eosinophils % Basophils % Neutrophils # Lymphocytes # Monocytes # Eosinophils # Basophils # Sodium Potassium Chloride Carbon Dioxide BUN Creatinine Est GFR ( Amer) Est GFR (Non-Af Amer) BUN/Creatinine Ratio Glucose POC Glucose 157 H 192 H 152 H Calculated Osmolality Calcium 05/17/18 05/18/18 05/18/18 19:48 05:34 05:34 WBC 22.3 H RBC 4.32 Hgb 11.8 Hct 39.6 MCV 91.7 MCH 27.3 L MCHC 29.8 L RDW 16.1 H Plt Count 144 MPV 11.6 Immature Gran % 3.7 Seg Neutrophils % 86.7 Lymphocytes % 2.6 Monocytes % 6.5 Eosinophils % 0.0 Basophils % 0.5 Neutrophils # 19.3 H Lymphocytes # 0.6 Monocytes # 1.5 H Eosinophils # 0.0 Basophils # 0.1 Sodium 148 H Potassium 4.1 Chloride 105 Carbon Dioxide 40 H* BUN 58 H Creatinine 0.97 Est GFR ( Amer) > 60 Est GFR (Non-Af Amer) 56 L BUN/Creatinine Ratio 60 H Glucose 151 H POC Glucose 256 H Calculated Osmolality 325 H Calcium 9.1 - ABG Interpretation ABG results: ABG ABG pH 7.41 pH Units (7.32-7.45) 05/15/18 02:05 ABG pCO2 66 mmHg (35-45) H 05/15/18 02:05 ABG pO2 72 mmHg (85-104) L 05/15/18 02:05 ABG O2 Saturation 94 % (95-98) L 05/15/18 02:05 PT/INR, D-dimer PT 14.3 Seconds (9.4-12.1) H 05/10/18 08:20 Palliative Scale - Palliative Performance Scale How ambulatory is this patient?: Mainly in bed What is patient's level of activity and evidence of disease?: Unable to do any work, Extensive disease How much self-care assistance does patient require?: Mainly assistance How much oral intake does the patient have?: Normal or reduced What is this patient's level of consciousness?: Full Palliative Performance Score: 40 % Consult Discharge Plan - Plan Referrals: Jim Figueroa MD [Primary Care Provider] - <Tram Crenshaw - Last Filed: 05/19/18 08:00> Date of Encounter: 05/19/18 - Time Spent With Patient Total time spent is greater than 50% in coordination of care (as documented) at patient's floor/unit and/or counseling patient: - Constitutional Vitals: Abnormal lab results WBC 28.2 K/mcL (4.3-11.1) H 05/19/18 05:16 MCH 27.0 pg (28.0-33.3) L 05/19/18 05:16 MCHC 29.2 g/dL (31.6-35.5) L 05/19/18 05:16 RDW 16.0 % (11.5-14.5) H 05/19/18 05:16 Plt Count 136 K/mcL (140-400) L 05/19/18 05:16 Neutrophils # 25.2 K/mcL (1.6-8.9) H 05/19/18 05:16 Lymphocytes # 0.5 K/mcL (0.6-4.6) L 05/19/18 05:16 Monocytes # 1.4 K/mcL (0.0-1.3) H 05/19/18 05:16 Hypochromasia Present (Not Present) A 05/09/18 22:10 PT 14.3 Seconds (9.4-12.1) H 05/10/18 08:20 ABG pCO2 66 mmHg (35-45) H 05/15/18 02:05 ABG pO2 72 mmHg (85-104) L 05/15/18 02:05 ABG HCO3 42 mEq/L (21-27) H 05/15/18 02:05 ABG Total CO2 44 mEq/L (20-26) H 05/15/18 02:05 ABG O2 Saturation 94 % (95-98) L 05/15/18 02:05 ABG Base Excess 13 mEq/L (-2 to 3) H 05/15/18 02:05 VBG pH 7.18 pH Units (7.32-7.42) L* 05/09/18 23:02 VBG pCO2 109 mmHg (41-51) H* 05/09/18 23:02 VBG pO2 55 mmHg (25-50) H 05/09/18 23:02 VBG HCO3 41 mEq/L (21-27) H 05/09/18 23:02 Sodium 148 mEq/L (136-145) H 05/18/18 05:34 Carbon Dioxide 44 mEq/L (23-29) H* 05/19/18 05:16 BUN 50 mg/dL (8-23) H 05/19/18 05:16 Est GFR (Non-Af Amer) 57 (> 60) L 05/19/18 05:16 BUN/Creatinine Ratio 53 (6-26) H 05/19/18 05:16 Glucose 163 mg/dL (70-105) H 05/19/18 05:16 POC Glucose 156 mg/dL (70-99) H 05/19/18 03:37 Calculated Osmolality 325 (280-300) H 05/18/18 05:34 Venous Ioniz Calcium 1.07 mmol/L (1.15-1.35) L 05/15/18 04:19 ALT 75 Units/L (7-52) H 05/17/18 04:12 Serum Total Protein 5.4 g/dL (6.4-8.9) L 05/17/18 04:12 Albumin 3.0 g/dL (3.5-5.7) L 05/17/18 04:12 Urine Clarity Cloudy (Clear) A 05/10/18 00:20 Urine Protein 30 mg/dL (Neg-Trace) H 05/10/18 00:20 Ur Squamous Epith Cells Many per lpf (None-Few) H 05/10/18 00:20 Hyaline Casts Moderate per lpf (None-Few) H 05/10/18 00:20 RSV (PCR) DETECTED (Not Detect) A 05/10/18 02:33 - Attending Attestation I performed a history and physical examination of the patient and discussed his management with the resident. I reviewed the residents note and agree with the documented findings and plan of care Palliative Quality Code Status: 05/10/18 00:56 Resuscitation Status: Active [RES] Routine Comment: Resuscitation Status: Full Code 05/18/18 16:06 CODE [Resuscitation Status: Active] [RES] Routine Comment: Resuscitation Status: DNR-Comfort Care-Arrest - Labs CBC & Chem 7: 05/19/18 05:16 05/19/18 05:16 Labs: Laboratory Results - last 24 hr 05/17/18 05/18/18 05/18/18 19:48 06:37 11:06 WBC RBC Hgb Hct MCV MCH MCHC RDW Plt Count MPV Immature Gran % Seg Neutrophils % Lymphocytes % Monocytes % Eosinophils % Basophils % Neutrophils # Lymphocytes # Monocytes # Eosinophils # Basophils # Platelet Estimate Carbon Dioxide BUN Creatinine Est GFR ( Amer) Est GFR (Non-Af Amer) BUN/Creatinine Ratio Glucose POC Glucose 256 H 142 H 252 H Calcium 05/18/18 05/18/18 05/19/18 15:16 23:55 03:37 WBC RBC Hgb Hct MCV MCH MCHC RDW Plt Count MPV Immature Gran % Seg Neutrophils % Lymphocytes % Monocytes % Eosinophils % Basophils % Neutrophils # Lymphocytes # Monocytes # Eosinophils # Basophils # Platelet Estimate Carbon Dioxide BUN Creatinine Est GFR ( Amer) Est GFR (Non-Af Amer) BUN/Creatinine Ratio Glucose POC Glucose 241 H 172 H 156 H Calcium 05/19/18 05/19/18 05:16 05:16 WBC 28.2 H RBC 4.66 Hgb 12.6 Hct 43.2 MCV 92.7 MCH 27.0 L MCHC 29.2 L RDW 16.0 H Plt Count 136 L MPV 12.2 Immature Gran % 3.5 Seg Neutrophils % 89.4 Lymphocytes % 1.7 Monocytes % 5.0 Eosinophils % 0.0 Basophils % 0.4 Neutrophils # 25.2 H Lymphocytes # 0.5 L Monocytes # 1.4 H Eosinophils # 0.0 Basophils # 0.1 Platelet Estimate Normal Carbon Dioxide 44 H* BUN 50 H Creatinine 0.95 Est GFR ( Amer) > 60 Est GFR (Non-Af Amer) 57 L BUN/Creatinine Ratio 53 H Glucose 163 H POC Glucose Calcium 9.1 - ABG Interpretation ABG results: ABG ABG pH 7.41 pH Units (7.32-7.45) 05/15/18 02:05 ABG pCO2 66 mmHg (35-45) H 05/15/18 02:05 ABG pO2 72 mmHg (85-104) L 05/15/18 02:05 ABG O2 Saturation 94 % (95-98) L 05/15/18 02:05 PT/INR, D-dimer PT 14.3 Seconds (9.4-12.1) H 05/10/18 08:20
--- NOTE | 2018-05-18 12:23 | Internal Med Progress Note ---
Hospitalist Progress Note - Encounter Date of Encounter: 05/18/18 Time of Encounter: 12:10 - Subjective Interval History: Patient seen and examined this morning. No acute overnight events. On nasal canula. Sob improving. Not in distress. Is alert. feeling better. No fever, chills, N/V/D. Had BM yesterday. - Exam Vitals: Temp Pulse Resp BP Pulse Ox 97.9 F 115 18 131/76 95 05/18/18 11:09 05/18/18 11:09 05/18/18 11:09 05/18/18 11:09 05/18/18 11:09 Exam: General: In no acute distress. Conversant. Obese. Respiratory exam: no accessory muscle use. Diffuse rhonchi and wheezing over all lung mojica. Improving. Crackles at base Cardiovascular exam: tachycardic, +S1, +S2. no murmur, gallop, rubs. No JVD or pedal edema. GI/Abdominal exam: Non-tender, mildly distended, normal bowel sounds, soft, no peritoneal signs. Extremities exam: full ROM, no pedal edema, warm, pulses palpable in b/l lower extremities. no calf tenderness. Has Lt Neurological exam: CN II-XII intact, AO X1, no focal deficits. No focal deficits. - Summary of Assessment and Plan Summary of Assessment and Plan: Acute on chronic respiratory failure with hypoxia and hypercapnia - BG NGTD 05/09 - Respiratory infectious panel positive for RSV - sputum cx positiive for S. maltoph 05/10 - Legionella and strep pneumo antigens negative - Likely related to COPD exacerbation and diastolic heart failure. - s/p Diuresis -2L negative. lasix were on hold. appears to have congestion today and increase in CO2. Will start lasix. - c/w Levaquin for 10 days(day8). Leukocytosis likely related to steroid use. - Still with diffuse wheezing, however symptomatically improved. scheduled DuoNebs q4hr. solumedrol tapered to 20q12. - Will get PT/OT evaluation. Palliative care following. Poor overall prognosis given chronic disease. Patient wants to be full code. HTN - resume home amlodipine - Hold lisinopril Altered mental status - Now improved. Likely related to CO2 retention and hypoxia SARAHI - Improved. - Started again on diuresis. - lisinopril on hold. will resume on DC. - Monitor for now. Diastolic CHF - ECHO wiht EF of 65-70, Mild diastolic dysfunction. no wall motion abnormality. - Restart lasix as with congestion and increase in CO2. DVT prophylaxis - c/w heparin - Time Spent with Patient Total time spent is greater than 50% in coordination of care (as documented) at patient's floor/unit and/or counseling patient: Internal Medicine: Result - Labs CBC & Chem 7: 05/18/18 05:34 05/18/18 05:34 Labs: Short CBC 05/18/18 Range/Units 05:34 WBC 22.3 H (4.3-11.1) K/mcL Hgb 11.8 (11.5-15.4) g/dL Hct 39.6 (35.3-44.9) % Plt Count 144 (140-400) K/mcL Neutrophils # 19.3 H (1.6-8.9) K/mcL BMP 05/18/18 05:34 Sodium 148 H Potassium 4.1 Chloride 105 Carbon Dioxide 40 H* BUN 58 H Creatinine 0.97 Glucose 151 H Calcium 9.1 - ABG Interpretation ABG results: ABG ABG pH 7.41 pH Units (7.32-7.45) 05/15/18 02:05 ABG pCO2 66 mmHg (35-45) H 05/15/18 02:05 ABG pO2 72 mmHg (85-104) L 05/15/18 02:05 ABG O2 Saturation 94 % (95-98) L 05/15/18 02:05 PT/INR, D-dimer PT 14.3 Seconds (9.4-12.1) H 05/10/18 08:20 Consult Discharge Plan - Plan Referrals: Jim Figueroa MD [Primary Care Provider] -
[2018-05-18] MEDS: Furosemide 20 MG/2 ML VIAL IVP SCH (13:12)
[2018-05-18] MEDS: amLODIPine 5 MG TABLET PO SCH (13:12)
[2018-05-18] MEDS ORDERED: Levalbuterol Neb 0.63 MG/3 ML IH PRN (14:59)
[2018-05-18] MEDS: Levalbuterol Neb 0.63 MG/3 ML IH SCH (21:40)
[2018-05-19 05:42] LABS: Basophils # 0.1 K/mcL (0.0-0.2); Basophils % 0.4 %; Hematocrit 43.2 % (35.3-44.9); Hemoglobin 12.6 g/dL (11.5-15.4); Immature Granulocytes % 3.5 % (0-4); Lymphocytes # 0.5 K/mcL (0.6-4.6); Lymphocytes % 1.7 %; Mean Corpuscular HGB Conc 29.2 g/dL (31.6-35.5); Mean Corpuscular Volume 92.7 fL (83.0-100.0); Mean Platelet Volume 12.2 fL (9.4-12.4); Monocytes # 1.4 K/mcL (0.0-1.3); Neutrophils # 25.2 K/mcL (1.6-8.9); Platelet Count 136 K/mcL (140-400); Red Blood Count 4.66 M/mcL (3.82-4.97); Segmented Neutrophils % 89.4 %
[2018-05-19] MEDS: MethylPREDNISolone 40 MG/ML VIAL IVP SCH ×2 (05:42→16:45)
[2018-05-19] MEDS: *HR* Heparin 5,000 UNIT/ML VIAL SQ SCH ×3 (05:43→22:03)
[2018-05-19 06:01] LABS: Platelet Estimate Normal (Normal)
[2018-05-19 06:15] LABS: BUN/Creatinine Ratio 53 (6-26); Blood Urea Nitrogen 50 mg/dL (8-23); Calcium 9.1 mg/dL (8.6-10.3); Carbon Dioxide 44 mEq/L (23-29); Glucose 163 mg/dL (70-105); eGFR For Non-African Americans 57 (> 60)
[2018-05-19] MEDS ORDERED: *HR* Rocuronium Bromide 100 MG/10 ML VIAL IVC ONE (07:10)
[2018-05-19] MEDS ORDERED: *HR* Etomidate 20 MG/10 ML AMPUL IVP ONE (07:10)
[2018-05-19] MEDS ORDERED: Isovue-370 500 ML INFUS..BTL IV ONE (07:18)
[2018-05-19] MEDS: Levofloxacin 750 MG/150 ML 750 MG/150 ML BAG IVPB SCH (07:56)
[2018-05-19] MEDS: Furosemide 20 MG/2 ML VIAL IVP SCH (07:57)
[2018-05-19] MEDS: amLODIPine 5 MG TABLET PO SCH (07:57)
[2018-05-19] MEDS: Nystatin OINT 15 GM TUBE TP SCH ×4 (07:58→22:03)
[2018-05-19] MEDS: Insulin LISPRO 300 UNITS/3 ML VIAL SQ SCH ×4 (08:01→22:05)
[2018-05-19 09:19] LABS: Chloride 103 mEq/L (98-107); Osmolality,Calculated 331 (280-300); Potassium 4.2 mEq/L (3.5-5.1); Sodium 152 mEq/L (136-145)
--- NOTE | 2018-05-19 09:54 | Palliative Progress Note ---
<Ashly Eller - Last Filed: 05/19/18 14:37> Date of Encounter: 05/19/18 Time of Encounter: 09:30 - Assessment and plan (1) Goals of care, counseling/discussion Current Visit: Yes Status: Acute Assessment and plan: Goals of care are clear. She is planning to go to SNF upon discharge for rehab as per PT recommendation. Also, had a family meeting yesterday. The family believes she is not safe to go back home as she needs improvement in her strength. probation worker is aware and is working on placement for rehab. Veronica aurelio no further changes. (2) Acute exacerbation of chronic obstructive airways disease Current Visit: Yes Status: Acute Assessment and plan: RSV positive with sputum culture positive for stenotrophomonas maltophilia. Her oxygen demand has decreased. She was on BiPAP this morning and has transitioned to nasal canula this afternoon. Is comfortable and not complaining of difficulty breathing. (3) Altered mental status Current Visit: Yes Status: Resolved Assessment and plan: Resolved. She is awake, alert and oriented to person, place and time. Her altered mental status was likely secondary to hypoxia and hypercapnia which has improved. (4) Hypoxia Current Visit: Yes Status: Acute Assessment and plan: Tachypnea this morning, respiratory rate of 30 this morning but has improved this afternoon to 16. Her oxygen saturation is 93%. (5) Anxiety Current Visit: Yes Status: Acute Assessment and plan: Chronic anxiety. Tremors have improved but has increased respiratory effort to respiratory rate of 30 this morning but improved this afternoon to respiratory rate of 16. Continue PRN ativan and added morphine PRN. - Time Spent With Patient Total time spent is greater than 50% in coordination of care (as documented) at patient's floor/unit and/or counseling patient: - Subjective Interval history: Ms. Monten[place]ro was seen at bedside this morning. She was on BiPAP. She noted at night she wears a BiPAP sometimes. Her breathing seemed shallow at a rate of 30. She denied feeling shortness of breath at the time. She ate her breakfast this morning. She denied fever, chills, nausea, emesis, shortness of breath, chest pain or abdominal pain. - Constitutional Vitals: Abnormal lab results WBC 28.2 K/mcL (4.3-11.1) H 05/19/18 05:16 MCH 27.0 pg (28.0-33.3) L 05/19/18 05:16 MCHC 29.2 g/dL (31.6-35.5) L 05/19/18 05:16 RDW 16.0 % (11.5-14.5) H 05/19/18 05:16 Plt Count 136 K/mcL (140-400) L 05/19/18 05:16 Neutrophils # 25.2 K/mcL (1.6-8.9) H 05/19/18 05:16 Lymphocytes # 0.5 K/mcL (0.6-4.6) L 05/19/18 05:16 Monocytes # 1.4 K/mcL (0.0-1.3) H 05/19/18 05:16 Hypochromasia Present (Not Present) A 05/09/18 22:10 PT 14.3 Seconds (9.4-12.1) H 05/10/18 08:20 ABG pCO2 66 mmHg (35-45) H 05/15/18 02:05 ABG pO2 72 mmHg (85-104) L 05/15/18 02:05 ABG HCO3 42 mEq/L (21-27) H 05/15/18 02:05 ABG Total CO2 44 mEq/L (20-26) H 05/15/18 02:05 ABG O2 Saturation 94 % (95-98) L 05/15/18 02:05 ABG Base Excess 13 mEq/L (-2 to 3) H 05/15/18 02:05 VBG pH 7.18 pH Units (7.32-7.42) L* 05/09/18 23:02 VBG pCO2 109 mmHg (41-51) H* 05/09/18 23:02 VBG pO2 55 mmHg (25-50) H 05/09/18 23:02 VBG HCO3 41 mEq/L (21-27) H 05/09/18 23:02 Sodium 152 mEq/L (136-145) H 05/19/18 05:16 Carbon Dioxide 44 mEq/L (23-29) H* 05/19/18 05:16 BUN 50 mg/dL (8-23) H 05/19/18 05:16 Est GFR (Non-Af Amer) 57 (> 60) L 05/19/18 05:16 BUN/Creatinine Ratio 53 (6-26) H 05/19/18 05:16 Glucose 163 mg/dL (70-105) H 05/19/18 05:16 POC Glucose 131 mg/dL (70-99) H 05/19/18 06:35 Calculated Osmolality 331 (280-300) H 05/19/18 05:16 Venous Ioniz Calcium 1.07 mmol/L (1.15-1.35) L 05/15/18 04:19 ALT 75 Units/L (7-52) H 05/17/18 04:12 Serum Total Protein 5.4 g/dL (6.4-8.9) L 05/17/18 04:12 Albumin 3.0 g/dL (3.5-5.7) L 05/17/18 04:12 Urine Clarity Cloudy (Clear) A 05/10/18 00:20 Urine Protein 30 mg/dL (Neg-Trace) H 05/10/18 00:20 Ur Squamous Epith Cells Many per lpf (None-Few) H 05/10/18 00:20 Hyaline Casts Moderate per lpf (None-Few) H 05/10/18 00:20 RSV (PCR) DETECTED (Not Detect) A 05/10/18 02:33 General appearance: Present: cooperative, no acute distress Exam: Appeared anxious due to shallow breaths - Head Head exam: Present: atraumatic, normocephalic - Eye Eye exam: Present: EOMI, normal appearance, sclera anicteric - ENT ENT exam: Present: mucous membranes moist, normal exam - Neck Neck exam: Present: normal inspection - Respiratory Respiratory exam: Absent: rales, rhonchi, stridor Additional comments: Increased respiratory rate of 30 with shallow breaths - Cardiovascular Cardiovascular exam: Present: tachycardia. Absent: clicks, gallop - GI/Abdominal GI/Abdominal exam: Present: normal bowel sounds, soft. Absent: firm, guarding, rigid, tenderness - Extremities Exam Extremities exam: Absent: calf tenderness, pedal edema, tenderness - Neurological Exam Neurological exam: Present: alert, oriented X3 - Psychiatric Psychiatric exam: Present: normal affect, normal mood - Skin Skin exam: Present: dry, intact, warm Palliative Quality Palliative Quality: Screen for Code Status: Yes, Screen for Goals of Care: Yes, Screen for Pain: Yes, If Pain Regimen Started, Initiate Bowel Regimen: NA, Screen for Nausea/Vomitting: Yes Code Status: 05/10/18 00:56 Resuscitation Status: Active [RES] Routine Comment: Resuscitation Status: Full Code 05/18/18 16:06 CODE [Resuscitation Status: Active] [RES] Routine Comment: Resuscitation Status: DNR-Comfort Care-Arrest - Labs CBC & Chem 7: 05/19/18 05:16 05/19/18 05:16 Labs: Laboratory Results - last 24 hr 05/18/18 05/18/18 05/18/18 06:37 11:06 15:16 WBC RBC Hgb Hct MCV MCH MCHC RDW Plt Count MPV Immature Gran % Seg Neutrophils % Lymphocytes % Monocytes % Eosinophils % Basophils % Neutrophils # Lymphocytes # Monocytes # Eosinophils # Basophils # Platelet Estimate Sodium Potassium Chloride Carbon Dioxide BUN Creatinine Est GFR ( Amer) Est GFR (Non-Af Amer) BUN/Creatinine Ratio Glucose POC Glucose 142 H 252 H 241 H Calculated Osmolality Calcium 05/18/18 05/19/18 05/19/18 23:55 03:37 05:16 WBC 28.2 H RBC 4.66 Hgb 12.6 Hct 43.2 MCV 92.7 MCH 27.0 L MCHC 29.2 L RDW 16.0 H Plt Count 136 L MPV 12.2 Immature Gran % 3.5 Seg Neutrophils % 89.4 Lymphocytes % 1.7 Monocytes % 5.0 Eosinophils % 0.0 Basophils % 0.4 Neutrophils # 25.2 H Lymphocytes # 0.5 L Monocytes # 1.4 H Eosinophils # 0.0 Basophils # 0.1 Platelet Estimate Normal Sodium Potassium Chloride Carbon Dioxide BUN Creatinine Est GFR ( Amer) Est GFR (Non-Af Amer) BUN/Creatinine Ratio Glucose POC Glucose 172 H 156 H Calculated Osmolality Calcium 05/19/18 05/19/18 05:16 06:35 WBC RBC Hgb Hct MCV MCH MCHC RDW Plt Count MPV Immature Gran % Seg Neutrophils % Lymphocytes % Monocytes % Eosinophils % Basophils % Neutrophils # Lymphocytes # Monocytes # Eosinophils # Basophils # Platelet Estimate Sodium 152 H Potassium 4.2 Chloride 103 Carbon Dioxide 44 H* BUN 50 H Creatinine 0.95 Est GFR ( Amer) > 60 Est GFR (Non-Af Amer) 57 L BUN/Creatinine Ratio 53 H Glucose 163 H POC Glucose 131 H Calculated Osmolality 331 H Calcium 9.1 - Impressions Impressions Chest CTA 05/19/18 08:00 IMPRESSION: No pulmonary emboli are identified. Mild pulmonary arterial enlargement which can be seen with pulmonary hypertension. Patchy Tree-in-bud opacities in the left lower lobe felt to represent acute bronchiolitis. Mild stranding seen adjacent to the distal body and tail the pancreas. Correlate with pancreatic enzymes as this can be seen with pancreatitis. The upper aspect of the kidneys are seen bilaterally, showing hydronephrosis which is a new finding compared to recent CT abdomen on 05/10/2018. Benign left adrenal adenoma for which no further follow-up is felt necessary. Cholelithiasis. D/ / Mehran Renee MD / Mehran Renee MD Interpreting Provider: Mehran Renee MD - ABG Interpretation ABG results: ABG ABG pH 7.41 pH Units (7.32-7.45) 05/15/18 02:05 ABG pCO2 66 mmHg (35-45) H 05/15/18 02:05 ABG pO2 72 mmHg (85-104) L 05/15/18 02:05 ABG O2 Saturation 94 % (95-98) L 05/15/18 02:05 PT/INR, D-dimer PT 14.3 Seconds (9.4-12.1) H 05/10/18 08:20 Palliative Scale - Palliative Performance Scale How ambulatory is this patient?: Mainly in bed What is patient's level of activity and evidence of disease?: Unable to do any work, Extensive disease How much self-care assistance does patient require?: Mainly assistance How much oral intake does the patient have?: Normal or reduced What is this patient's level of consciousness?: Full Palliative Performance Score: 40 % Consult Discharge Plan - Plan Referrals: Jim Figueroa MD [Primary Care Provider] - ([facility]) <Tram Crenshaw - Last Filed: 05/19/18 15:17> Date of Encounter: 05/19/18 - Time Spent With Patient Total time spent is greater than 50% in coordination of care (as documented) at patient's floor/unit and/or counseling patient: - Constitutional Vitals: Abnormal lab results WBC 28.2 K/mcL (4.3-11.1) H 05/19/18 05:16 MCH 27.0 pg (28.0-33.3) L 05/19/18 05:16 MCHC 29.2 g/dL (31.6-35.5) L 05/19/18 05:16 RDW 16.0 % (11.5-14.5) H 05/19/18 05:16 Plt Count 136 K/mcL (140-400) L 05/19/18 05:16 Neutrophils # 25.2 K/mcL (1.6-8.9) H 05/19/18 05:16 Lymphocytes # 0.5 K/mcL (0.6-4.6) L 05/19/18 05:16 Monocytes # 1.4 K/mcL (0.0-1.3) H 05/19/18 05:16 Hypochromasia Present (Not Present) A 05/09/18 22:10 PT 14.3 Seconds (9.4-12.1) H 05/10/18 08:20 ABG pCO2 66 mmHg (35-45) H 05/15/18 02:05 ABG pO2 72 mmHg (85-104) L 05/15/18 02:05 ABG HCO3 42 mEq/L (21-27) H 05/15/18 02:05 ABG Total CO2 44 mEq/L (20-26) H 05/15/18 02:05 ABG O2 Saturation 94 % (95-98) L 05/15/18 02:05 ABG Base Excess 13 mEq/L (-2 to 3) H 05/15/18 02:05 VBG pH 7.18 pH Units (7.32-7.42) L* 05/09/18 23:02 VBG pCO2 109 mmHg (41-51) H* 05/09/18 23:02 VBG pO2 55 mmHg (25-50) H 05/09/18 23:02 VBG HCO3 41 mEq/L (21-27) H 05/09/18 23:02 Sodium 152 mEq/L (136-145) H 05/19/18 05:16 Carbon Dioxide 44 mEq/L (23-29) H* 05/19/18 05:16 BUN 50 mg/dL (8-23) H 05/19/18 05:16 Est GFR (Non-Af Amer) 57 (> 60) L 05/19/18 05:16 BUN/Creatinine Ratio 53 (6-26) H 05/19/18 05:16 Glucose 163 mg/dL (70-105) H 05/19/18 05:16 POC Glucose 131 mg/dL (70-99) H 05/19/18 06:35 Calculated Osmolality 331 (280-300) H 05/19/18 05:16 Venous Ioniz Calcium 1.07 mmol/L (1.15-1.35) L 05/15/18 04:19 ALT 75 Units/L (7-52) H 05/17/18 04:12 Serum Total Protein 5.4 g/dL (6.4-8.9) L 05/17/18 04:12 Albumin 3.0 g/dL (3.5-5.7) L 05/17/18 04:12 Urine Protein 30 mg/dL (Neg-Trace) H 05/19/18 11:50 Urine Glucose (UA) 100 mg/dL (Normal) H 05/19/18 11:50 Urine Blood Small (Negative) H 05/19/18 11:50 Urine Microscopic RBC 5-15 per hpf (0-3) H 05/19/18 11:50 Urine Microscopic WBC 3-5 per hpf (0-3) H 05/19/18 11:50 Ur Squamous Epith Cells Many per lpf (None-Few) H 05/19/18 11:50 RSV (PCR) DETECTED (Not Detect) A 05/10/18 02:33 - Attending Attestation I performed a history and physical examination of the patient and discussed his management with the resident. I reviewed the residents note and agree with the documented findings and plan of care. Pt is stable at this point, and GOC are clear. Thanks for allowing us to care for this patient, palliative care will sign off. Please re-consult prn. Palliative Quality Code Status: 05/10/18 00:56 Resuscitation Status: Active [RES] Routine Comment: Resuscitation Status: Full Code 05/18/18 16:06 CODE [Resuscitation Status: Active] [RES] Routine Comment: Resuscitation Status: DNR-Comfort Care-Arrest - Labs CBC & Chem 7: 05/19/18 05:16 05/19/18 05:16 Labs: Laboratory Results - last 24 hr 05/18/18 05/18/18 05/18/18 06:37 11:06 15:16 WBC RBC Hgb Hct MCV MCH MCHC RDW Plt Count MPV Immature Gran % Seg Neutrophils % Lymphocytes % Monocytes % Eosinophils % Basophils % Neutrophils # Lymphocytes # Monocytes # Eosinophils # Basophils # Platelet Estimate Sodium Potassium Chloride Carbon Dioxide BUN Creatinine Est GFR ( Amer) Est GFR (Non-Af Amer) BUN/Creatinine Ratio Glucose POC Glucose 142 H 252 H 241 H Calculated Osmolality Calcium Urine Color Urine Clarity Urine pH Ur Specific [place] Urine Protein Urine Glucose (UA) Urine Ketones Urine Blood Urine Nitrite Urine Bilirubin Urine Urobilinogen Ur Leukocyte Esterase Urine Microscopic RBC Urine Microscopic WBC Ur Squamous Epith Cells Urine Bacteria Hyaline Casts Ur Culture Indicated? 05/18/18 05/19/18 05/19/18 23:55 03:37 05:16 WBC 28.2 H RBC 4.66 Hgb 12.6 Hct 43.2 MCV 92.7 MCH 27.0 L MCHC 29.2 L RDW 16.0 H Plt Count 136 L MPV 12.2 Immature Gran % 3.5 Seg Neutrophils % 89.4 Lymphocytes % 1.7 Monocytes % 5.0 Eosinophils % 0.0 Basophils % 0.4 Neutrophils # 25.2 H Lymphocytes # 0.5 L Monocytes # 1.4 H Eosinophils # 0.0 Basophils # 0.1 Platelet Estimate Normal Sodium Potassium Chloride Carbon Dioxide BUN Creatinine Est GFR ( Amer) Est GFR (Non-Af Amer) BUN/Creatinine Ratio Glucose POC Glucose 172 H 156 H Calculated Osmolality Calcium Urine Color Urine Clarity Urine pH Ur Specific [place] Urine Protein Urine Glucose (UA) Urine Ketones Urine Blood Urine Nitrite Urine Bilirubin Urine Urobilinogen Ur Leukocyte Esterase Urine Microscopic RBC Urine Microscopic WBC Ur Squamous Epith Cells Urine Bacteria Hyaline Casts Ur Culture Indicated? 05/19/18 05/19/18 05/19/18 05:16 06:35 11:50 WBC RBC Hgb Hct MCV MCH MCHC RDW Plt Count MPV Immature Gran % Seg Neutrophils % Lymphocytes % Monocytes % Eosinophils % Basophils % Neutrophils # Lymphocytes # Monocytes # Eosinophils # Basophils # Platelet Estimate Sodium 152 H Potassium 4.2 Chloride 103 Carbon Dioxide 44 H* BUN 50 H Creatinine 0.95 Est GFR ( Amer) > 60 Est GFR (Non-Af Amer) 57 L BUN/Creatinine Ratio 53 H Glucose 163 H POC Glucose 131 H Calculated Osmolality 331 H Calcium 9.1 Urine Color Yellow Urine Clarity Clear Urine pH 6.0 Ur Specific [place] 1.025 Urine Protein 30 H Urine Glucose (UA) 100 H Urine Ketones Negative Urine Blood Small H Urine Nitrite Negative Urine Bilirubin Negative Urine Urobilinogen Normal Ur Leukocyte Esterase Negative Urine Microscopic RBC 5-15 H Urine Microscopic WBC 3-5 H Ur Squamous Epith Cells Many H Urine Bacteria None Seen Hyaline Casts None Seen Ur Culture Indicated? NO - Impressions Impressions Chest CTA 05/19/18 08:00 IMPRESSION: No pulmonary emboli are identified. Mild pulmonary arterial enlargement which can be seen with pulmonary hypertension. Patchy Tree-in-bud opacities in the left lower lobe felt to represent acute bronchiolitis. Mild stranding seen adjacent to the distal body and tail the pancreas. Correlate with pancreatic enzymes as this can be seen with pancreatitis. The upper aspect of the kidneys are seen bilaterally, showing hydronephrosis which is a new finding compared to recent CT abdomen on 05/10/2018. Benign left adrenal adenoma for which no further follow-up is felt necessary. Cholelithiasis. D/ / Mehran Renee MD / Mehran Renee MD Interpreting Provider: Mehran Renee MD - ABG Interpretation ABG results: ABG ABG pH 7.41 pH Units (7.32-7.45) 05/15/18 02:05 ABG pCO2 66 mmHg (35-45) H 05/15/18 02:05 ABG pO2 72 mmHg (85-104) L 05/15/18 02:05 ABG O2 Saturation 94 % (95-98) L 05/15/18 02:05 PT/INR, D-dimer PT 14.3 Seconds (9.4-12.1) H 05/10/18 08:20 Palliative Scale - Palliative Performance Scale Palliative Performance Score: 50 %
[2018-05-19] MEDS: Levalbuterol Neb 0.63 MG/3 ML IH SCH ×2 (10:33→21:18)
--- NOTE | 2018-05-19 10:42 | Internal Med Progress Note ---
Hospitalist Progress Note - Encounter Date of Encounter: 05/19/18 Time of Encounter: 10:38 - Subjective Interval History: Patient seen and examined this morning. No acute overnight events. On nasal canula. However had to be put on BiPap later. No fever, chills, N/V/D. Had BM yesterday. Incontinent. - Exam Vitals: Temp Pulse Resp BP Pulse Ox 97.6 F 114 27 170/85 91 05/19/18 06:38 05/19/18 06:41 05/19/18 10:33 05/19/18 10:33 05/19/18 10:33 Exam: General: In respiratory distress. Had to be put on bipap. Conversant. Respiratory exam: no accessory muscle use. Crackles present over all lung fiend Cardiovascular exam: tachycardic, +S1, +S2. no murmur, gallop, rubs. No pedal edema. GI/Abdominal exam: Non-tender, mildly distended, normal bowel sounds, soft, no peritoneal signs. Extremities exam: full ROM, no pedal edema, warm, pulses palpable in b/l lower extremities. no calf tenderness. Neurological exam: CN II-XII intact, AO X2, no focal deficits. No focal deficits. - Summary of Assessment and Plan Summary of Assessment and Plan: Acute on chronic respiratory failure with hypoxia and hypercapnia - BG NGTD 05/09 - Respiratory infectious panel positive for RSV - sputum cx positiive for S. maltoph 05/10 - Legionella and strep pneumo antigens negative - Likely related to COPD exacerbation and diastolic heart failure. - s/p Diuresis -2L negative. lasix were on hold. Now restarted - Finished Levaquin for 10 days. Will stop today. Leukocytosis likely related to steroid use. - c/w solumedrol tapered to 20q12. - Palliative care following. Poor overall prognosis given chronic lung disease disease. Patient wants to be full code. - CT negative for PE without significantly congestion. Bronchiolitis present . Unclear reason for worsening respiratory status. Will result pulmonology. Tachycardic and leukocytosis - Unclear reason. Tachycardia slighly improved after changing duonebs to xopenex. - Leukocytosis possibly from steroid use. afebrile. - Finished 10 day course of levaquin. Send UA. - CTA negative for PE. Showed pancreatitis in tail. Pt without abdominal pain. will get lipase. Urinary retention - Hydronephrosis on CT. Will get US kidney.. - Bladder scan with urinary retention of 600 cc. Will put monge in. - Will get Urology consult. HTN - amlodipine resumed - Hold lisinopril. Elevated early today. Now improved. Altered mental status - Now improved. - CO2 increasing. Put patient on Bipap again and continue diuresis. SARAHI - Improved. - Started again on diuresis for CHF. - lisinopril on hold. will resume on DC. - Monitor for now. Diastolic CHF - ECHO wiht EF of 65-70, Mild diastolic dysfunction. no wall motion abnormality. - Restart lasix as with congestion and increase in CO2. - Started patient of bipap for respiratory distress. DVT prophylaxis - c/w heparin - Time Spent with Patient Total time spent is greater than 50% in coordination of care (as documented) at patient's floor/unit and/or counseling patient: Internal Medicine: Result - Labs CBC & Chem 7: 05/19/18 05:16 05/19/18 05:16 Labs: Short CBC 05/19/18 Range/Units 05:16 WBC 28.2 H (4.3-11.1) K/mcL Hgb 12.6 (11.5-15.4) g/dL Hct 43.2 (35.3-44.9) % Plt Count 136 L (140-400) K/mcL Neutrophils # 25.2 H (1.6-8.9) K/mcL BMP 05/19/18 05:16 Sodium 152 H Potassium 4.2 Chloride 103 Carbon Dioxide 44 H* BUN 50 H Creatinine 0.95 Glucose 163 H Calcium 9.1 - ABG Interpretation ABG results: ABG ABG pH 7.41 pH Units (7.32-7.45) 05/15/18 02:05 ABG pCO2 66 mmHg (35-45) H 05/15/18 02:05 ABG pO2 72 mmHg (85-104) L 05/15/18 02:05 ABG O2 Saturation 94 % (95-98) L 05/15/18 02:05 PT/INR, D-dimer PT 14.3 Seconds (9.4-12.1) H 05/10/18 08:20 - Impressions Impressions Chest CTA 05/19/18 08:00 IMPRESSION: No pulmonary emboli are identified. Mild pulmonary arterial enlargement which can be seen with pulmonary hypertension. Patchy Tree-in-bud opacities in the left lower lobe felt to represent acute bronchiolitis. Mild stranding seen adjacent to the distal body and tail the pancreas. Correlate with pancreatic enzymes as this can be seen with pancreatitis. The upper aspect of the kidneys are seen bilaterally, showing hydronephrosis which is a new finding compared to recent CT abdomen on 05/10/2018. Benign left adrenal adenoma for which no further follow-up is felt necessary. Cholelithiasis. D/ / Mehran Renee MD / Mehran Renee MD Interpreting Provider: Mehran Renee MD Consult Discharge Plan - Plan Referrals: Jim Figueroa MD [Primary Care Provider] - ([facility])
[2018-05-19 12:05] LABS: Bilirubin,Urine Negative (Negative); Blood,Urine Small (Negative); Clarity,Urine Clear (Clear); Color,Urine Yellow (Yellow); Glucose,Urine (UA) 100 mg/dL (Normal); Ketones,Urine Negative (Negative); Leukocyte Esterase,Urine Negative (Negative); Nitrite,Urine Negative (Negative); Protein,Urine 30 mg/dL (Neg-Trace); Specific Gravity,Urine 1.025 (1.010-1.025); Urobilinogen,Urine Normal (Normal)
[2018-05-19 12:08] LABS: Bacteria,Urine None Seen per hpf (None-Few); Hyaline Casts,Urine None Seen per lpf (None-Few); Squamous Epithelial Cell,Urine Many per lpf (None-Few)
--- NOTE | 2018-05-19 14:02 | Urology - Consult Note ---
<Pao Smith N - Last Filed: 05/19/18 13:57> Date of Encounter: 05/19/18 Time of Encounter: 13:57 - Assessment and Plan (1) Acute urinary retention Current Visit: Yes Status: Acute Assessment and plan: Patient is a 73-year-old female who presents with a history of acute urinary retention. Reviewed CT findings with the patient. Will await renal ultrasound to reevaluate for bilateral hydronephrosis and potential contributing factors. Hydronephrosis could be secondary to urinary retention. We will continue with Chatman decompression and follow Ms. Montenegro. Urology CN:[facility] Consult date: 05/19/18 Reason for consult Urology: Other (acute urinary retention) History of present illness: Patient is a 73-year-old female who presents with the history of acute urinary retention. Patient was admitted for COPD exacerbation and has multiple cardiopulmonary comorbidities. Patient states she has not previously experienced urinary retention and does not ever recall requiring Chatman catheterization in the past. Patient states she was urinating without difficulty until today. Patient states she experienced urgency and hesitancy but was unable to pass urine. Bladder scan revealed 600mL prior to catheteriztion. There is currently 500 mL in the bedside bag. CT of the abdomen and pelvis performed on 05/10/2018 at the time of admission showed no acute findings; however, chest CTA performed today revealed mild hydronephrosis on partially visualized upper kidneys bilaterally. Patient denies fever, chills, flank pain, gross hematuria. Patient denies a personal history of renal stones or cancer. Patient denies any known family history of renal stones or cancer. Patient currently has renal ultrasound pending. Past Med Surg Social Fam HX - Past Medical History Medical history: COPD, coronary artery disease, hyperlipidemia, hypertension, os teoporosis, other Additional medical history: lung problems Psychiatric history: no psych history - Past Surgical History Additional surgical history: Back surgery - Social History Smoking Status: Current every day smoker Smokeless Tobacco Status: No Alcohol use: none Drug use: none - Family History Mother History Unknown: Yes Hx Family Cardiac Disorders: Yes Medications and Allergies RX: Alendronate Sodium 70 mg PO FR 10/26/17 [History] RX: Amlodipine Besylate 10 mg PO DAILY 10/26/17 [History] RX: Aspirin 81 mg PO DAILY 10/26/17 [History] RX: Ergocalciferol (VITAMIN D2) [Vitamin D2] 50,000 unit PO QWEEK 10/26/17 [History] RX: Lisinopril [Zestril] 40 mg PO DAILY 10/26/17 [History] RX: Tiotropium [Spiriva] 1 puff IH DAILY 10/26/17 [History] Albuterol Sulfate [Ventolin Hfa] 2 puff IH Q4H PRN 05/10/18 [History] Furosemide [Lasix] 20 mg PO DAILY PRN 05/10/18 [History] RX: Budesonide/Formoterol 160/4.5 [Symbicort 160/4.5] 2 puff IH BID 05/10/18 [History] Allergy/AdvReac Type Severity Reaction Status Date / Time No Known Allergies Allergy Verified 05/10/18 09:26 Review of Systems - Constitutional no chills, no fatigue, no fever(s) - EENT Nose, mouth and throat: no dizziness, no headache(s), no sore throat - Cardiovascular no chest pain, no diaphoresis, no dyspnea - Respiratory no cough, no dyspnea - Gastrointestinal no abdominal pain, no nausea, no vomiting - Genitourinary Genitourinary: difficulty urinating, urinary hesitancy, urinary urgency, no dysuria, no flank pain, no hematuria, no urinary frequency, no urinary incontinence - Integumentary no erythema, no rash, no swelling - Neurological no confusion, no syncope - Psychiatric no anxiety, no confusion - Hematologic/Lymphatic no easy bleeding, no easy bruising - Allergic/Immunologic no throat swelling, no wheezing Exam Initial Vital Signs Temp Pulse Resp BP Pulse Ox 98.1 F 95 24 141/59 99 05/09/18 21:53 05/09/18 21:53 05/09/18 21:53 05/09/18 21:53 05/09/18 21:53 - General physical appearance Present: well developed, no distress, no pain - Eyes Present: PERRL, normal ocular movement - ENT Present: normal nares, no hearing loss - Neck Present: no masses, trachea midline - Respiratory Present: other (Bipap use ). Absent: normal respiratory effort - Cardiovascular Cardiovascular exam IM: RRR - Abdomen Abdomen: Present: soft, non tender - Genitourinary Present: other (clear urine draining into bedside bag ) - Integumentary Present: no rash, no abnormal pigmentation - Neurologic Present: normal coordination Urology Results - Labs 05/19/18 05:16 05/19/18 05:16 Abnormal lab results WBC 28.2 K/mcL (4.3-11.1) H 05/19/18 05:16 MCH 27.0 pg (28.0-33.3) L 05/19/18 05:16 MCHC 29.2 g/dL (31.6-35.5) L 05/19/18 05:16 RDW 16.0 % (11.5-14.5) H 05/19/18 05:16 Plt Count 136 K/mcL (140-400) L 05/19/18 05:16 Neutrophils # 25.2 K/mcL (1.6-8.9) H 05/19/18 05:16 Lymphocytes # 0.5 K/mcL (0.6-4.6) L 05/19/18 05:16 Monocytes # 1.4 K/mcL (0.0-1.3) H 05/19/18 05:16 Hypochromasia Present (Not Present) A 05/09/18 22:10 PT 14.3 Seconds (9.4-12.1) H 05/10/18 08:20 ABG pCO2 66 mmHg (35-45) H 05/15/18 02:05 ABG pO2 72 mmHg (85-104) L 05/15/18 02:05 ABG HCO3 42 mEq/L (21-27) H 05/15/18 02:05 ABG Total CO2 44 mEq/L (20-26) H 05/15/18 02:05 ABG O2 Saturation 94 % (95-98) L 05/15/18 02:05 ABG Base Excess 13 mEq/L (-2 to 3) H 05/15/18 02:05 VBG pH 7.18 pH Units (7.32-7.42) L* 05/09/18 23:02 VBG pCO2 109 mmHg (41-51) H* 05/09/18 23:02 VBG pO2 55 mmHg (25-50) H 05/09/18 23:02 VBG HCO3 41 mEq/L (21-27) H 05/09/18 23:02 Sodium 152 mEq/L (136-145) H 05/19/18 05:16 Carbon Dioxide 44 mEq/L (23-29) H* 05/19/18 05:16 BUN 50 mg/dL (8-23) H 05/19/18 05:16 Est GFR (Non-Af Amer) 57 (> 60) L 05/19/18 05:16 BUN/Creatinine Ratio 53 (6-26) H 05/19/18 05:16 Glucose 163 mg/dL (70-105) H 05/19/18 05:16 POC Glucose 131 mg/dL (70-99) H 05/19/18 06:35 Calculated Osmolality 331 (280-300) H 05/19/18 05:16 Venous Ioniz Calcium 1.07 mmol/L (1.15-1.35) L 05/15/18 04:19 ALT 75 Units/L (7-52) H 05/17/18 04:12 Serum Total Protein 5.4 g/dL (6.4-8.9) L 05/17/18 04:12 Albumin 3.0 g/dL (3.5-5.7) L 05/17/18 04:12 Urine Protein 30 mg/dL (Neg-Trace) H 05/19/18 11:50 Urine Glucose (UA) 100 mg/dL (Normal) H 05/19/18 11:50 Urine Blood Small (Negative) H 05/19/18 11:50 Urine Microscopic RBC 5-15 per hpf (0-3) H 05/19/18 11:50 Urine Microscopic WBC 3-5 per hpf (0-3) H 05/19/18 11:50 Ur Squamous Epith Cells Many per lpf (None-Few) H 05/19/18 11:50 RSV (PCR) DETECTED (Not Detect) A 05/10/18 02:33 Diabetes panel 05/19/18 Range/Units 05:16 Sodium 152 H (136-145) mEq/L Potassium 4.2 (3.5-5.1) mEq/L Chloride 103 (98-107) mEq/L Carbon Dioxide 44 H* (23-29) mEq/L BUN 50 H (8-23) mg/dL Creatinine 0.95 (0.60-1.20) mg/dL Glucose 163 H (70-105) mg/dL Calcium 9.1 (8.6-10.3) mg/dL Calcium panel 05/19/18 Range/Units 05:16 Calcium 9.1 (8.6-10.3) mg/dL Pituitary panel 05/19/18 Range/Units 05:16 Sodium 152 H (136-145) mEq/L Potassium 4.2 (3.5-5.1) mEq/L Chloride 103 (98-107) mEq/L Carbon Dioxide 44 H* (23-29) mEq/L BUN 50 H (8-23) mg/dL Creatinine 0.95 (0.60-1.20) mg/dL Glucose 163 H (70-105) mg/dL Calcium 9.1 (8.6-10.3) mg/dL Adrenal panel 05/19/18 Range/Units 05:16 Sodium 152 H (136-145) mEq/L Potassium 4.2 (3.5-5.1) mEq/L Chloride 103 (98-107) mEq/L Carbon Dioxide 44 H* (23-29) mEq/L BUN 50 H (8-23) mg/dL Creatinine 0.95 (0.60-1.20) mg/dL Glucose 163 H (70-105) mg/dL Calcium 9.1 (8.6-10.3) mg/dL All other labs normal. - Imaging CT scan - abdomen: report reviewed, image reviewed CT scan - pelvis: report reviewed, image reviewed (chest CTA reviewed) US - kidney/bladder: pending Consult Discharge Plan - Plan Referrals: Jim Figueroa MD [Primary Care Provider] - ([facility]) <Joni Holman - Last Filed: 05/20/18 09:10> Date of Encounter: 05/20/18 - Assessment and Plan (1) Acute urinary retention Current Visit: Yes Status: Acute Assessment and plan: pt seen and examined with PA. agree with plan. see note from 05/20 Exam Initial Vital Signs Temp Pulse Resp BP Pulse Ox 98.1 F 95 24 141/59 99 05/09/18 21:53 05/09/18 21:53 05/09/18 21:53 05/09/18 21:53 05/09/18 21:53 Urology Results - Labs 05/20/18 07:05 05/20/18 07:05 Abnormal lab results WBC 25.6 K/mcL (4.3-11.1) H 05/20/18 07:05 MCH 27.3 pg (28.0-33.3) L 05/20/18 07:05 MCHC 29.9 g/dL (31.6-35.5) L 05/20/18 07:05 RDW 16.2 % (11.5-14.5) H 05/20/18 07:05 Plt Count 120 K/mcL (140-400) L 05/20/18 07:05 Neutrophils # 22.4 K/mcL (1.6-8.9) H 05/20/18 07:05 Monocytes # 1.6 K/mcL (0.0-1.3) H 05/20/18 07:05 Hypochromasia Present (Not Present) A 05/09/18 22:10 Anisocytosis 1+ (Not Present) A 05/20/18 07:05 PT 14.3 Seconds (9.4-12.1) H 05/10/18 08:20 ABG pCO2 66 mmHg (35-45) H 05/15/18 02:05 ABG pO2 72 mmHg (85-104) L 05/15/18 02:05 ABG HCO3 42 mEq/L (21-27) H 05/15/18 02:05 ABG Total CO2 44 mEq/L (20-26) H 05/15/18 02:05 ABG O2 Saturation 94 % (95-98) L 05/15/18 02:05 ABG Base Excess 13 mEq/L (-2 to 3) H 05/15/18 02:05 VBG pH 7.18 pH Units (7.32-7.42) L* 05/09/18 23:02 VBG pCO2 109 mmHg (41-51) H* 05/09/18 23:02 VBG pO2 55 mmHg (25-50) H 05/09/18 23:02 VBG HCO3 41 mEq/L (21-27) H 05/09/18 23:02 Sodium 149 mEq/L (136-145) H 05/20/18 07:05 Carbon Dioxide 44 mEq/L (23-29) H* 05/20/18 07:05 BUN 49 mg/dL (8-23) H 05/20/18 07:05 BUN/Creatinine Ratio 58 (6-26) H 05/20/18 07:05 Glucose 152 mg/dL (70-105) H 05/20/18 07:05 POC Glucose 176 mg/dL (70-99) H 05/19/18 20:46 Calculated Osmolality 324 (280-300) H 05/20/18 07:05 Venous Ioniz Calcium 1.07 mmol/L (1.15-1.35) L 05/15/18 04:19 ALT 75 Units/L (7-52) H 05/17/18 04:12 Serum Total Protein 5.4 g/dL (6.4-8.9) L 05/17/18 04:12 Albumin 3.0 g/dL (3.5-5.7) L 05/17/18 04:12 Urine Protein 30 mg/dL (Neg-Trace) H 05/19/18 11:50 Urine Glucose (UA) 100 mg/dL (Normal) H 05/19/18 11:50 Urine Blood Small (Negative) H 05/19/18 11:50 Urine Microscopic RBC 5-15 per hpf (0-3) H 05/19/18 11:50 Urine Microscopic WBC 3-5 per hpf (0-3) H 05/19/18 11:50 Ur Squamous Epith Cells Many per lpf (None-Few) H 05/19/18 11:50 RSV (PCR) DETECTED (Not Detect) A 05/10/18 02:33 Diabetes panel 05/19/18 05/20/18 Range/Units 05:16 07:05 Sodium 152 H 149 H (136-145) mEq/L Potassium 4.2 4.1 (3.5-5.1) mEq/L Chloride 103 102 (98-107) mEq/L Carbon Dioxide 44 H* 44 H* (23-29) mEq/L BUN 50 H 49 H (8-23) mg/dL Creatinine 0.95 0.84 (0.60-1.20) mg/dL Glucose 163 H 152 H (70-105) mg/dL Calcium 9.1 9.0 (8.6-10.3) mg/dL Calcium panel 05/19/18 05/20/18 Range/Units 05:16 07:05 Calcium 9.1 9.0 (8.6-10.3) mg/dL Pituitary panel 05/19/18 05/20/18 Range/Units 05:16 07:05 Sodium 152 H 149 H (136-145) mEq/L Potassium 4.2 4.1 (3.5-5.1) mEq/L Chloride 103 102 (98-107) mEq/L Carbon Dioxide 44 H* 44 H* (23-29) mEq/L BUN 50 H 49 H (8-23) mg/dL Creatinine 0.95 0.84 (0.60-1.20) mg/dL Glucose 163 H 152 H (70-105) mg/dL Calcium 9.1 9.0 (8.6-10.3) mg/dL Adrenal panel 05/19/18 05/20/18 Range/Units 05:16 07:05 Sodium 152 H 149 H (136-145) mEq/L Potassium 4.2 4.1 (3.5-5.1) mEq/L Chloride 103 102 (98-107) mEq/L Carbon Dioxide 44 H* 44 H* (23-29) mEq/L BUN 50 H 49 H (8-23) mg/dL Creatinine 0.95 0.84 (0.60-1.20) mg/dL Glucose 163 H 152 H (70-105) mg/dL Calcium 9.1 9.0 (8.6-10.3) mg/dL All other labs normal.
--- NOTE | 2018-05-19 17:06 | Pulmonology Progress Note ---
Date of Encounter: 05/19/18 Time of Encounter: 15:10 Assessment and Plan (1) Abnormal CT of the chest Current Visit: Yes Status: Acute I have personally reviewed CT chest of the patient which shows few abnormalities and consistent with clinical presentation. Patient has presentation of pneumonia and bilateral pneumonia can give such picture with bronchiolitis, however clinically patient stated she is feeling better and to have follow-up CT chest in 2-3 months to ensure resolution of this abnormalities is recommended. At this time would recommend to continue clinical course and see management for her underlying COPD which could be a reason for abnormalities in the pulmonary vessels that was found in the CT chest. Obviously to confirm pulmonary arterial hypertension she will need right heart catheterization, however I do not feel at this time patient needs that. Screening echocardiogram in about 6 months would be reasonable. Continuation with bronchodilator for underlying COPD is recommended. Patient can follow-up as outpatient and please do not hesitate to call for any questions. Noninvasive ventilation for patients with COPD exac erbation is indicated. (2) Community acquired pneumonia Current Visit: No Status: Acute Qualifiers: Laterality: unspecified laterality Qualified Code(s): J18.9 - Pneumonia, u nspecified organism Subjective Principal diagnosis: Acute Respiratory failure Interval history: Patient stated that she is feeling better and she can breathe better. She is tolerating noninvasive ventilation. She denies any significant cough and she has no hemoptysis. Objective PUL Vital signs: Last Vital Signs Temp 97.5 F L 05/19/18 15:29 Pulse 102 05/19/18 15:29 Resp 20 05/19/18 15:29 BP 118/71 05/19/18 15:29 Pulse Ox 96 05/19/18 15:29 General: Patient is in no acute distress. HEENT: Normocephalic atraumatic, pupils are equal round and reactive to light and accommodation, anicteric sclera, nares is patent, mucous membranes moist, no JVD, trachea is midline Cardiovascular: Normal sinus rhythm, S1 and S2 audible, no murmur or rubs Respiratory: Scattered rhonchi bilaterally. No acute distress. No wheezing. Patient not using accessory muscles. Abdomen: Soft, nontender, nondistended, positive bowel sounds in all 4 quadrants Extremities: Warm, dry, trace lower extremity edema. Normal capillary refill. Neuro: Alert and oriented and follows commands. Grossly no neuro deficits. Skin: Warm to touch : No obvious abnormalities. Psych: Normal Results - Laboratory Findings CBC and BMP: 05/19/18 05:16 05/19/18 05:16 ABG ABG pH 7.41 pH Units (7.32-7.45) 05/15/18 02:05 ABG pCO2 66 mmHg (35-45) H 05/15/18 02:05 ABG pO2 72 mmHg (85-104) L 05/15/18 02:05 ABG O2 Saturation 94 % (95-98) L 05/15/18 02:05 PT/INR, D-dimer PT 14.3 Seconds (9.4-12.1) H 05/10/18 08:20 Abnormal lab findings: Abnormal lab results WBC 28.2 K/mcL (4.3-11.1) H 05/19/18 05:16 MCH 27.0 pg (28.0-33.3) L 05/19/18 05:16 MCHC 29.2 g/dL (31.6-35.5) L 05/19/18 05:16 RDW 16.0 % (11.5-14.5) H 05/19/18 05:16 Plt Count 136 K/mcL (140-400) L 05/19/18 05:16 Neutrophils # 25.2 K/mcL (1.6-8.9) H 05/19/18 05:16 Lymphocytes # 0.5 K/mcL (0.6-4.6) L 05/19/18 05:16 Monocytes # 1.4 K/mcL (0.0-1.3) H 05/19/18 05:16 Hypochromasia Present (Not Present) A 05/09/18 22:10 PT 14.3 Seconds (9.4-12.1) H 05/10/18 08:20 ABG pCO2 66 mmHg (35-45) H 05/15/18 02:05 ABG pO2 72 mmHg (85-104) L 05/15/18 02:05 ABG HCO3 42 mEq/L (21-27) H 05/15/18 02:05 ABG Total CO2 44 mEq/L (20-26) H 05/15/18 02:05 ABG O2 Saturation 94 % (95-98) L 05/15/18 02:05 ABG Base Excess 13 mEq/L (-2 to 3) H 05/15/18 02:05 VBG pH 7.18 pH Units (7.32-7.42) L* 05/09/18 23:02 VBG pCO2 109 mmHg (41-51) H* 05/09/18 23:02 VBG pO2 55 mmHg (25-50) H 05/09/18 23:02 VBG HCO3 41 mEq/L (21-27) H 05/09/18 23:02 Sodium 152 mEq/L (136-145) H 05/19/18 05:16 Carbon Dioxide 44 mEq/L (23-29) H* 05/19/18 05:16 BUN 50 mg/dL (8-23) H 05/19/18 05:16 Est GFR (Non-Af Amer) 57 (> 60) L 05/19/18 05:16 BUN/Creatinine Ratio 53 (6-26) H 05/19/18 05:16 Glucose 163 mg/dL (70-105) H 05/19/18 05:16 POC Glucose 131 mg/dL (70-99) H 05/19/18 06:35 Calculated Osmolality 331 (280-300) H 05/19/18 05:16 Venous Ioniz Calcium 1.07 mmol/L (1.15-1.35) L 05/15/18 04:19 ALT 75 Units/L (7-52) H 05/17/18 04:12 Serum Total Protein 5.4 g/dL (6.4-8.9) L 05/17/18 04:12 Albumin 3.0 g/dL (3.5-5.7) L 05/17/18 04:12 Urine Protein 30 mg/dL (Neg-Trace) H 05/19/18 11:50 Urine Glucose (UA) 100 mg/dL (Normal) H 05/19/18 11:50 Urine Blood Small (Negative) H 05/19/18 11:50 Urine Microscopic RBC 5-15 per hpf (0-3) H 05/19/18 11:50 Urine Microscopic WBC 3-5 per hpf (0-3) H 05/19/18 11:50 Ur Squamous Epith Cells Many per lpf (None-Few) H 05/19/18 11:50 RSV (PCR) DETECTED (Not Detect) A 05/10/18 02:33 - Diagnostic Findings CT scan - chest: report reviewed, image reviewed - Clinical Findings Intake & Output: Intake & Output 05/19/18 05/19/18 05/19/18 07:59 15:59 23:59 Intake Total 250 / 250 840 / 840 Output Total 0 / 0 1075 / 1075 Balance 250 / 250 -235 / -235 Weight 81.8 kg Consult Discharge Plan - Plan Referrals: Jim Figueroa MD [Primary Care Provider] - ([facility])
[2018-05-20] MEDS: MethylPREDNISolone 40 MG/ML VIAL IVP SCH (06:32)
[2018-05-20] MEDS: *HR* Heparin 5,000 UNIT/ML VIAL SQ SCH ×3 (06:32→22:35)
[2018-05-20 07:33] LABS: Lymphocytes % 2.8 %; Mean Corpuscular Hemoglobin 27.3 pg (28.0-33.3); Red Cell Distribution Width 16.2 % (11.5-14.5)
[2018-05-20 07:36] LABS: Basophils # 0.1 K/mcL (0.0-0.2); Basophils % 0.5 %; Hematocrit 41.2 % (35.3-44.9); Hemoglobin 12.3 g/dL (11.5-15.4); Lymphocytes # 0.7 K/mcL (0.6-4.6); Mean Corpuscular HGB Conc 29.9 g/dL (31.6-35.5); Mean Corpuscular Volume 91.6 fL (83.0-100.0); Mean Platelet Volume 11.9 fL (9.4-12.4); Monocytes # 1.6 K/mcL (0.0-1.3); Monocytes % 6.2 %; Neutrophils # 22.4 K/mcL (1.6-8.9); Platelet Count 120 K/mcL (140-400); Segmented Neutrophils % 87.5 %
[2018-05-20 07:58] LABS: BUN/Creatinine Ratio 58 (6-26); Blood Urea Nitrogen 49 mg/dL (8-23); Carbon Dioxide 44 mEq/L (23-29); Chloride 102 mEq/L (98-107); Glucose 152 mg/dL (70-105); Osmolality,Calculated 324 (280-300); Potassium 4.1 mEq/L (3.5-5.1); Sodium 149 mEq/L (136-145); eGFR For Non-African Americans > 60 (> 60)
--- NOTE | 2018-05-20 08:15 | Internal Med Progress Note ---
Hospitalist Progress Note - Encounter Date of Encounter: 05/20/18 Time of Encounter: 08:15 - Subjective Interval History: Patient seen and examined this morning. No acute overnight events. On nasal canula in chair. No fever, chills, N/V/D. Had BM yesterday. Has monge in place. - Exam Vitals: Temp Pulse Resp BP Pulse Ox 98.2 F 107 19 148/75 91 05/20/18 07:19 05/20/18 07:19 05/20/18 07:19 05/20/18 07:19 05/20/18 07:19 Exam: General: In no respiratory distress. Conversant. Respiratory exam: no accessory muscle use. secretory sounds present transmitted on all lung field. Cardiovascular exam: tachycardic, +S1, +S2. no murmur, gallop, rubs. No pedal edema. GI/Abdominal exam: Non-tender, mildly distended, normal bowel sounds, soft, no peritoneal signs. Extremities exam: full ROM, no pedal edema, warm, pulses palpable in b/l lower extremities. no calf tenderness. Neurological exam: CN II-XII intact, AO X2, no focal deficits. No focal deficits. - Summary of Assessment and Plan Summary of Assessment and Plan: Acute on chronic respiratory failure with hypoxia and hypercapnia - BG NGTD 05/09 - Respiratory infectious panel positive for RSV - sputum cx positiive for S. maltoph 05/10 - Legionella and strep pneumo antigens negative - Likely related to COPD exacerbation and diastolic heart failure. Possible component of Pulm HTN. - s/p Diuresis. hold for now. - Finished Levaquin for 10 days. Leukocytosis likely related to steroid use now improving. - Solumedrol switch to PO prednisone 40 - Palliative care following. Poor overall prognosis given chronic lung disease disease. Patient wants to be full code. - CT negative for PE without significantly congestion. Bronchiolitis likely from pneumonia. Worsening respiratory status likely from underlying COPD. c/w treament as above and c/w Bipap. Will get Bipap qualification. Tachycardic and leukocytosis - Unclear reason. Tachycardia improved. - Leukocytosis possibly from steroid use. afebrile. improving - Finished 10 day course of levaquin. - CTA negative for PE. Showed pancreatitis in tail. Pt without abdominal pain. lipase minimally elevated. Will add hepatic panel and obtain abdominal ultrasound. Hold diuresis Hypernatremia - Improved today - Possibly from hyperglycemia from steroid use.. - Improving. Urinary retention - Hydronephrosis on CT. resolved on US kidney. - c/w monge - Urology following HTN - amlodipine resumed - Hold lisinopril. Elevated early today. Now improved. Altered mental status - Now improved. - CO2 increasing. Put patient on Bipap again. SARAHI - Improved. - holding diuresis given minimally elevated lipase - lisinopril on hold. will resume on DC. - Monitor for now. Diastolic CHF - ECHO wiht EF of 65-70, Mild diastolic dysfunction. no wall motion abnormality. - holding lasix as above - Started patient of bipap for respiratory distress. DVT prophylaxis - c/w heparin - Time Spent with Patient Total time spent is greater than 50% in coordination of care (as documented) at patient's floor/unit and/or counseling patient: Internal Medicine: Result - Labs CBC & Chem 7: 05/20/18 07:05 05/20/18 07:05 Labs: Short CBC 05/20/18 Range/Units 07:05 WBC 25.6 H (4.3-11.1) K/mcL Hgb 12.3 (11.5-15.4) g/dL Hct 41.2 (35.3-44.9) % Plt Count 120 L (140-400) K/mcL BMP 05/19/18 05/20/18 05:16 07:05 Sodium 152 H 149 H Potassium 4.2 4.1 Chloride 103 102 Carbon Dioxide 44 H* BUN 49 H Creatinine 0.84 Glucose 152 H Calcium 9.0 Urine 05/19/18 Range/Units 11:50 Urine Color Yellow (Yellow) Urine Clarity Clear (Clear) Urine pH 6.0 (5.0-8.0) pH Units Ur Specific [place] 1.025 (1.010-1.025) Urine Protein 30 H (Neg-Trace) mg/dL Urine Glucose (UA) 100 H (Normal) mg/dL - ABG Interpretation ABG results: ABG ABG pH 7.41 pH Units (7.32-7.45) 05/15/18 02:05 ABG pCO2 66 mmHg (35-45) H 05/15/18 02:05 ABG pO2 72 mmHg (85-104) L 05/15/18 02:05 ABG O2 Saturation 94 % (95-98) L 05/15/18 02:05 PT/INR, D-dimer PT 14.3 Seconds (9.4-12.1) H 05/10/18 08:20 - Impressions Impressions Chest CTA 05/19/18 08:00 IMPRESSION: No pulmonary emboli are identified. Mild pulmonary arterial enlargement which can be seen with pulmonary hypertension. Patchy Tree-in-bud opacities in the left lower lobe felt to represent acute bronchiolitis. Mild stranding seen adjacent to the distal body and tail the pancreas. Correlate with pancreatic enzymes as this can be seen with pancreatitis. The upper aspect of the kidneys are seen bilaterally, showing hydronephrosis which is a new finding compared to recent CT abdomen on 05/10/2018. Benign left adrenal adenoma for which no further follow-up is felt necessary. Cholelithiasis. D/ / Mehran Renee MD / Mehran Renee MD Interpreting Provider: Mehran Renee MD Retroperitoneum Ultrasound 05/19/18 10:08 IMPRESSION: 1. No evidence of hydronephrosis. 2. Simple cyst at the lower pole of the left kidney. D/ / Luisito Bernal MD / Luisito Bernal MD Interpreting Provider: Luisito Bernal MD Consult Discharge Plan - Plan Referrals: Jim Figueroa MD [Primary Care Provider] - ([facility])
[2018-05-20 08:28] LABS: Anisocytosis 1+ (Not Present); Platelet Estimate Normal (Normal)
--- NOTE | 2018-05-20 09:17 | Urology Progress Note ---
Date of Encounter: 05/20/18 Time of Encounter: 09:15 - Assessment and Plan (1) Acute urinary retention Current Visit: Yes Status: Acute Assessment and plan: Renal ultrasound shows that the hydronephrosis has resolved. I suspect that she developed urinary retention which then contributed to the hydronephrosis seen on previous imaging. The retention was likely due to multiple factors including diuresis and significant comorbidities. Continue Chatman catheter for at least 7 days prior to removal. Progress Note Narrative: Patient reports that she is not bothered by her Chatman catheter. Objective Initial Vital Signs Temp Pulse Resp BP Pulse Ox 98.1 F 95 24 141/59 99 05/09/18 21:53 05/09/18 21:53 05/09/18 21:53 05/09/18 21:53 05/09/18 21:53 - General physical appearance Present: no distress - Additional Exam Chatman catheter draining clear urine - Labs 05/20/18 07:05 05/20/18 07:05 Diabetes panel 05/19/18 05/20/18 Range/Units 05:16 07:05 Sodium 152 H 149 H (136-145) mEq/L Potassium 4.2 4.1 (3.5-5.1) mEq/L Chloride 103 102 (98-107) mEq/L Carbon Dioxide 44 H* 44 H* (23-29) mEq/L BUN 50 H 49 H (8-23) mg/dL Creatinine 0.95 0.84 (0.60-1.20) mg/dL Glucose 163 H 152 H (70-105) mg/dL Calcium 9.1 9.0 (8.6-10.3) mg/dL Calcium panel 05/19/18 05/20/18 Range/Units 05:16 07:05 Calcium 9.1 9.0 (8.6-10.3) mg/dL Pituitary panel 05/19/18 05/20/18 Range/Units 05:16 07:05 Sodium 152 H 149 H (136-145) mEq/L Potassium 4.2 4.1 (3.5-5.1) mEq/L Chloride 103 102 (98-107) mEq/L Carbon Dioxide 44 H* 44 H* (23-29) mEq/L BUN 50 H 49 H (8-23) mg/dL Creatinine 0.95 0.84 (0.60-1.20) mg/dL Glucose 163 H 152 H (70-105) mg/dL Calcium 9.1 9.0 (8.6-10.3) mg/dL Adrenal panel 05/19/18 05/20/18 Range/Units 05:16 07:05 Sodium 152 H 149 H (136-145) mEq/L Potassium 4.2 4.1 (3.5-5.1) mEq/L Chloride 103 102 (98-107) mEq/L Carbon Dioxide 44 H* 44 H* (23-29) mEq/L BUN 50 H 49 H (8-23) mg/dL Creatinine 0.95 0.84 (0.60-1.20) mg/dL Glucose 163 H 152 H (70-105) mg/dL Calcium 9.1 9.0 (8.6-10.3) mg/dL Consult Discharge Plan - Plan Referrals: Jim Figueroa MD [Primary Care Provider] - ([facility])
[2018-05-20] MEDS: Levalbuterol Neb 0.63 MG/3 ML IH SCH ×2 (09:49→21:59)
[2018-05-20] MEDS: Nystatin OINT 15 GM TUBE TP SCH ×4 (10:33→22:36)
[2018-05-20] MEDS: Insulin LISPRO 300 UNITS/3 ML VIAL SQ SCH ×4 (10:33→22:35)
[2018-05-20] MEDS: amLODIPine 5 MG TABLET PO SCH (10:33)
[2018-05-20] MEDS: Furosemide 20 MG/2 ML VIAL IVP SCH (10:33)
[2018-05-20] MEDS: *HR* Metoprolol 5 MG/5 ML VIAL IVP PRN (10:34)
[2018-05-20 12:39] LABS: Lipase 180 Units/L (11-82)
[2018-05-20 15:02] LABS: Alanine Aminotransferase 57 Units/L (7-52); Albumin 3.1 g/dL (3.5-5.7); Albumin/Globulin Ratio 1.1 (1.1-2.2); Alkaline Phosphatase 53 Units/L (34-104); Aspartate Amino Transferase 24 Units/L (13-39); Bilirubin,Direct 0.1 mg/dL (0.0-0.2); Bilirubin,Indirect 0.5 mg/dL (0.0-1.2); Bilirubin,Total 0.6 mg/dL (0.3-1.0); Globulin 2.7 g/dL (2.4-3.5); Total Protein 5.8 g/dL (6.4-8.9)
[2018-05-20] MEDS: predniSONE 20 MG TABLET PO SCH (16:55)
[2018-05-21 04:38] LABS: ABG Base Excess 18 mEq/L (-2 to 3); ABG HCO3 49 mEq/L (21-27); ABG Oxygen Saturation 86 % (95-98); ABG PCO2 90 mmHg (35-45); ABG PH 7.34 pH Units (7.32-7.45); ABG PO2 58 mmHg (85-104); ABG TCO2 > 50 mEq/L (20-26)
[2018-05-21] MEDS: *HR* Heparin 5,000 UNIT/ML VIAL SQ SCH ×3 (06:14→21:35)
[2018-05-21 06:27] LABS: Basophils % 0.3 %
[2018-05-21 06:28] LABS: Basophils # 0.1 K/mcL (0.0-0.2); Hematocrit 42.1 % (35.3-44.9); Hemoglobin 12.6 g/dL (11.5-15.4); Immature Granulocytes % 2.3 % (0-4); Lymphocytes # 0.7 K/mcL (0.6-4.6); Lymphocytes % 2.7 %; Mean Corpuscular HGB Conc 29.9 g/dL (31.6-35.5); Mean Corpuscular Hemoglobin 27.3 pg (28.0-33.3); Mean Corpuscular Volume 91.3 fL (83.0-100.0); Mean Platelet Volume 12.6 fL (9.4-12.4); Monocytes # 1.6 K/mcL (0.0-1.3); Monocytes % 5.8 %; Neutrophils # 24.1 K/mcL (1.6-8.9); Platelet Count 112 K/mcL (140-400); Red Blood Count 4.61 M/mcL (3.82-4.97); Red Cell Distribution Width 15.6 % (11.5-14.5); Segmented Neutrophils % 88.9 %
[2018-05-21 06:39] LABS: Platelet Estimate Slight Decrease (Normal)
[2018-05-21 06:48] LABS: BUN/Creatinine Ratio 65 (6-26); Blood Urea Nitrogen 56 mg/dL (8-23); Carbon Dioxide 42 mEq/L (23-29); Chloride 100 mEq/L (98-107); Glucose 178 mg/dL (70-105); Osmolality,Calculated 328 (280-300); Potassium 3.8 mEq/L (3.5-5.1); Sodium 149 mEq/L (136-145); eGFR For Non-African Americans > 60 (> 60)
[2018-05-21] MEDS: Levalbuterol Neb 0.63 MG/3 ML IH SCH ×2 (07:45→19:54)
[2018-05-21 07:59] LABS: ABG Base Excess 17 mEq/L (-2 to 3); ABG HCO3 47 mEq/L (21-27); ABG Oxygen Saturation 92 % (95-98); ABG PCO2 82 mmHg (35-45); ABG PH 7.37 pH Units (7.32-7.45); ABG PO2 72 mmHg (85-104); ABG TCO2 50 mEq/L (20-26); Blood Gas PEEP 6 cm H2O; Blood Gas Pressure Support 12 cm H2O
--- NOTE | 2018-05-21 08:57 | Electrocardiograph Report ---
[address] [place], [place] [address] Test Date: 2018-05-18 Pat Name: Lina Montenegro Department: 109 Room: 2A43 Gender: F Pipe Insulator: : 1945 Requested By: [place] Steve Order Number: [id number] Reading MD: Lilo Gerard Measurements Intervals [place] Rate: 115 P: 65 UT: 129 QRS: 74 QRSD: 92 T: 78 QT: 288 QTc: 356 Interpretive Statements SINUS TACHYCARDIA POSSIBLE RIGHT ATRIAL ENLARGEMENT ABNORMAL RHYTHM ECG Electronically Signed On 05-21-2018 8:55:28 EST by Lilo Gerard
[2018-05-21] MEDS: predniSONE 20 MG TABLET PO SCH (09:41)
[2018-05-21] MEDS: Nystatin OINT 15 GM TUBE TP SCH ×4 (09:41→21:01)
[2018-05-21] MEDS: amLODIPine 5 MG TABLET PO SCH (09:41)
[2018-05-21] MEDS: Insulin LISPRO 300 UNITS/3 ML VIAL SQ SCH ×4 (09:42→21:00)
[2018-05-21] MEDS: *HR* Metoprolol 5 MG/5 ML VIAL IVP PRN (11:09)
--- NOTE | 2018-05-21 13:09 | Internal Med Progress Note ---
Hospitalist Progress Note - Encounter Date of Encounter: 05/21/18 Time of Encounter: 08:46 - Subjective Interval History: Patient seen and examined this morning. No acute overnight events. On nasal canula in chair this morning. Overnight BiPAP qualification testing. No fever, chills, N/V/D. Has monge in place. - Exam Vitals: Temp Pulse Resp BP Pulse Ox 98.5 F 103 23 143/80 96 05/21/18 11:41 05/21/18 11:41 05/21/18 11:41 05/21/18 11:41 05/21/18 11:41 Exam: General: In no respiratory distress. Conversant. Respiratory exam: no accessory muscle use. secretory sounds present transmitted on all lung field. Cardiovascular exam: tachycardic, +S1, +S2. no murmur, gallop, rubs. No pedal edema. GI/Abdominal exam: Non-tender, mildly distended, normal bowel sounds, soft, no peritoneal signs. Extremities exam: full ROM, 1+ pedal edema, warm, pulses palpable in b/l lower extremities. no calf tenderness. Neurological exam: CN II-XII intact, AO X2, no focal deficits. No focal defi cits. - Summary of Assessment and Plan Summary of Assessment and Plan: Acute on chronic respiratory failure with hypoxia and hypercapnia - BG NGTD 05/09 - Respiratory infectious panel positive for RSV - sputum cx positiive for S. maltoph 05/10 - Legionella and strep pneumo antigens negative - Likely related to COPD exacerbation and diastolic heart failure. Possible component of Pulm HTN. - s/p Diuresis. hold for now. - Finished Levaquin for 10 days. Leukocytosis likely related to steroid use. - Solumedrol switch to PO prednisone 40 - Palliative care following. Poor overall prognosis given chronic lung disease disease. Patient wants to be full code. - CT negative for PE without significantly congestion. Bronchiolitis likely from pneumonia. Worsening respiratory status likely from underlying COPD. c/w treament as above and c/w Bipap. - Had Bipap qualification yesterday and hence had abnormal abg this morning. Tachycardic and leukocytosis - Unclear reason. Tachycardia improved. - Leukocytosis possibly from steroid use. afebrile. improving - Finished 10 day course of levaquin. - CTA negative for PE. Showed pancreatitis in tail. Pt without abdominal pain. lipase minimally elevated. - hepatic panel unremarkable. Hold diuresis - Monitor off antibiotics. Hypernatremia - Possibly from hyperglycemia from steroid use vs diuretics. - monitor for now. - Will give 500 cc of d5-0.45 NS. Urinary retention - Hydronephrosis on CT. - resolved on US kidney yesterday. - c/w monge for 7 days prior to removal - Urology following HTN - amlodipine resumed - Hold lisinopril. Elevated early today. Now improved. Altered mental status - Now improved. Likely from CO2 retention. - c/w Bipap use. SARAHI - Improved. - holding diuresis given minimally elevated lipase - lisinopril on hold. will resume on DC. - Monitor for now. Diastolic CHF - ECHO with EF of 65-70, Mild diastolic dysfunction. no wall motion abnormality. - holding lasix as above - c/w bipap DVT prophylaxis - c/w heparin Plan for DC to SNF. - Time Spent with Patient Total time spent is greater than 50% in coordination of care (as documented) at patient's floor/unit and/or counseling patient: Internal Medicine: Result - Labs CBC & Chem 7: 05/21/18 05:52 05/21/18 05:52 Labs: Short CBC 05/21/18 Range/Units 05:52 WBC 27.1 H (4.3-11.1) K/mcL Hgb 12.6 (11.5-15.4) g/dL Hct 42.1 (35.3-44.9) % Plt Count 112 L (140-400) K/mcL Neutrophils # 24.1 H (1.6-8.9) K/mcL BMP 05/20/18 05/21/18 07:05 05:52 Sodium 149 H 149 H Potassium 4.1 3.8 Chloride 102 100 Carbon Dioxide 44 H* 42 H* BUN 49 H 56 H Creatinine 0.84 0.86 Glucose 152 H 178 H Calcium 9.0 9.0 Liver Function 05/20/18 Range/Units 07:05 Total Bilirubin 0.6 (0.3-1.0) mg/dL Direct Bilirubin 0.1 (0.0-0.2) mg/dL AST 24 (13-39) Units/L ALT 57 H (7-52) Units/L Alkaline Phosphatase 53 (34-104) Units/L Albumin 3.1 L (3.5-5.7) g/dL - ABG Interpretation ABG results: ABG ABG pH 7.37 pH Units (7.32-7.45) 05/21/18 07:51 ABG pCO2 82 mmHg (35-45) H* 05/21/18 07:51 ABG pO2 72 mmHg (85-104) L 05/21/18 07:51 ABG O2 Saturation 92 % (95-98) L 05/21/18 07:51 PT/INR, D-dimer PT 14.3 Seconds (9.4-12.1) H 05/10/18 08:20 Consult Discharge Plan - Plan Referrals: Jim Figueroa MD [Primary Care Provider] - (F)
[2018-05-21] MEDS: D5% in 0.45% NACL 500 ML IVC SCH (17:51)
[2018-05-22] MEDS: D5% in 0.45% NACL 500 ML IVC SCH ×2 (00:59→05:46)
[2018-05-22 04:22] LABS: Basophils # 0.1 K/mcL (0.0-0.2); Basophils % 0.3 %; Hematocrit 37.5 % (35.3-44.9); Hemoglobin 11.2 g/dL (11.5-15.4); Lymphocytes # 0.6 K/mcL (0.6-4.6); Lymphocytes % 2.7 %; Mean Corpuscular HGB Conc 29.9 g/dL (31.6-35.5); Mean Corpuscular Hemoglobin 27.3 pg (28.0-33.3); Mean Corpuscular Volume 91.2 fL (83.0-100.0); Mean Platelet Volume 11.9 fL (9.4-12.4); Monocytes # 1.1 K/mcL (0.0-1.3); Monocytes % 4.8 %; Neutrophils # 21.3 K/mcL (1.6-8.9); Platelet Count 105 K/mcL (140-400); Red Blood Count 4.11 M/mcL (3.82-4.97); Red Cell Distribution Width 15.7 % (11.5-14.5); Segmented Neutrophils % 90.2 %
[2018-05-22 04:47] LABS: BUN/Creatinine Ratio 64 (6-26); Blood Urea Nitrogen 47 mg/dL (8-23); Calcium 8.4 mg/dL (8.6-10.3); Carbon Dioxide > 45 mEq/L (23-29); Chloride 101 mEq/L (98-107); Glucose 170 mg/dL (70-105); Osmolality,Calculated 324 (280-300); Potassium 4.2 mEq/L (3.5-5.1); Sodium 149 mEq/L (136-145); eGFR For Non-African Americans > 60 (> 60)
[2018-05-22 04:50] LABS: Platelet Estimate Normal (Normal)
[2018-05-22] MEDS: *HR* Heparin 5,000 UNIT/ML VIAL SQ SCH ×3 (05:47→21:06)
[2018-05-22] MEDS: Insulin LISPRO 300 UNITS/3 ML VIAL SQ SCH ×4 (07:56→20:57)
[2018-05-22] MEDS: amLODIPine 5 MG TABLET PO SCH (08:02)
[2018-05-22] MEDS: predniSONE 20 MG TABLET PO SCH (08:02)
[2018-05-22] MEDS: Nystatin OINT 15 GM TUBE TP SCH ×4 (08:06→21:06)
[2018-05-22] MEDS ORDERED: Furosemide 20 MG/2 ML VIAL IVP ONE (08:11)
[2018-05-22] MEDS: Levalbuterol Neb 0.63 MG/3 ML IH SCH ×2 (11:13→21:50)
--- NOTE | 2018-05-22 13:39 | Discharge Summary ---
- NOTES TO OUTPATIENT PROVIDER Notes to Outpatient Provider: Follow patient's CBC given after resolution of current acute illness is currently elevated likely secondary to steroid use. Patient now started on BiPAP for COPD. Orders not resulted at time of discharge: Pending orders 05/11/18 03:02 Ionized Calcium,venous blood AM 0400 05/15/18 10:40 Bedside Swallowing Evaluation [EVAL] Stat Date of Encounter: 05/22/18 Time of Encounter: 12:36 - Discharge Diagnosis (1) Acute on chronic respiratory failure with hypoxia and hypercapnia Priority: Primary Status: Acute (2) Acute urinary retention Priority: Secondary Status: Acute (3) Altered mental status Priority: Secondary Status: Acute Qualifiers: Altered mental status type: delirium Qualified Code(s): R41.0 - Disorien tation, unspecified (4) Anxiety Priority: Secondary Status: Acute (5) COPD exacerbation Priority: Primary Status: Acute (6) Diastolic CHF Priority: Secondary Status: Acute Qualifiers: Heart failure chronicity: chronic Qualified Code(s): I50.32 - Chronic diastolic (congestive) heart failure (7) Goals of care, counseling/discussion Priority: Secondary Status: Acute (8) Hyperlipidemia Priority: Secondary Status: Acute Qualifiers: Hyperlipidemia type: unspecified Qualified Code(s): E78.5 - Hyperlipidemia, unspecified (9) Hypertension Priority: Secondary Status: Acute Qualifiers: Hypertension type: essential hypertension Qualified Code(s): I10 - Essential (primary) hypertension (10) SARAHI (acute kidney injury) Priority: Secondary Status: Resolved Hospital course: Ms. Montenegro is a 73 year old female past medical history of COPD, hypertension, spinal stenosis, CAD, diastolic heart failure came in with shortness of breath altered mental status and hypoxia. Patient was started on treatment for COPD exacerbation with DuoNeb's steroids and empiric antibiotics. Patient was initially started on BiPAP however needed to be intubated in ER. Patient was managed in ICU for 6 days days after she was extubated on third day. Patient was put on BiPAP after and transferred to regular floor. Palliative care consult was obtained given her history of chronic lung disease after having discussion with family patient is at her to go to rehabilitation and remained full code. Patient's sputum culture was positive for S.maltophilia. Respiratory infectious panel was positive for RSV. Legionella strep pneumo was negative. Patient was diuresed about 2 L while in ICU after which it was held. Patient finish 10 day course of [place] before being transferred out of ICU. Her he CAD resolved after IV fluids. Patient had gradual improvement while she was on floor however develop acute urinary retention and hydronephrosis and needed Chatman catheter placement. Urology recommended to continue Chatman for at least 7 days. Patient has been relatively stable and has been qualified for BiPAP . Patient has been hemodynamically stable or past few days and her tachycardia has more or less resolved. Needed diuresing for her shortness of breath. Still with the elevated white count which likely is from steroid use which is currently being tapered. Patient would be discharged with a 4 more days of steroids to complete 2 week of steroids. Patient has been started on amlodipine for blood pressure along with lisinopril. Patient is stable to be discharged to rehabilitation. Will need follow-up CBC CMP within one week. Discharge discussed with: patient, nurse, social work - Time Spent with Patient Total time spent providing and/or coordinating discharge services: Greater than 30 minutes (45) - Discharge Medications Prescriptions: amLODIPine [Norvasc] 10 mg PO DAILY 30 Days #30 tablet predniSONE [PredniSONE] 40 mg PO DAILY 4 Days #4 tablet Home Medications: Alendronate Sodium 70 mg PO FR 10/26/17 [History] Amlodipine Besylate 10 mg PO DAILY 10/26/17 [History] Aspirin 81 mg PO DAILY 10/26/17 [History] Ergocalciferol (VITAMIN D2) [Vitamin D2] 50,000 unit PO QWEEK 10/26/17 [History] Lisinopril [Zestril] 40 mg PO DAILY 10/26/17 [History] Tiotropium [Spiriva] 1 puff IH DAILY 10/26/17 [History] Albuterol Sulfate [Ventolin Hfa] 2 puff IH Q4H PRN 05/10/18 [History] Budesonide/Formoterol 160/4.5 [Symbicort 160/4.5] 2 puff IH BID 05/10/18 [History] Furosemide [Lasix] 20 mg PO DAILY PRN 05/10/18 [History] amLODIPine [Norvasc] 10 mg PO DAILY 30 Days #30 tablet 05/22/18 [Rx] predniSONE [PredniSONE] 40 mg PO DAILY 4 Days #4 tablet 05/22/18 [Rx] Allergies/Adverse Reactions: Allergy/AdvReac Type Severity Reaction Status Date / Time No Known Allergies Allergy Verified 05/10/18 09:26 Date of admission: 05/10/18 00:52 Primary care physician: Jim Figueroa MD Consults: 05/10/18 02:15 Consult to Staffing Consultant [CONS] Routine Reason for SW Consult: Discharge assistacne, currently uses home health, potential need for ECF 05/10/18 03:43 Consult to Critical Care [CONS] Routine Consulting Provider: Pulm Crit Care & Sleep Tiline Reason for Consult: acute hypoxic hypercapnic respiratory failure secondary to COPD exacerbation. patient is intubated, needs vent management. Call Completed: Yes 05/10/18 10:06 Consult to Invasive Line Access Team [CONS] Routine Reason for Consult: Picc Line Insertion Critically ill in ICU w/need for multiple venous access Line Type: PICC 05/15/18 09:17 Consult to Nurse Navigator [CONS] Routine Comment: 05/15/18 10:40 Consult to Palliative Care [CONS] Stat Comment: Consulting Provider: Palliative Care Debbi Reason for Consult: end of treatment goals Call Completed: Yes Consult to Speech Therapy [CONS] Stat Comment: Evaluate, develop and implement POC Reason for Consult: swallow eval Call Completed: Yes 05/16/18 10:41 Consult to Occupational Therapy [CONS] Stat Comment: Evaluate, develop and implement POC Reason for Consult: Eval and Treat. Does patient have active BEDREST order?: No Is patient medically & hemodynamically stable?: Yes Consult to Physical Therapy [CONS] Stat Comment: Evaluate, develop and implement POC Reason for Consult: Eval and Treat. Does patient have active BEDREST order?: No Is patient medically & hemodynamically stable?: Yes 05/19/18 11:35 Consult to Urology [CONS] Routine Consulting Provider: Urology Debbi Reason for Consult: urinary retention Call Completed: Yes 05/19/18 11:36 Consult to Pulmonology [CONS] Routine Consulting Provider: Pulm Crit Care & Sleep Debbi Reason for Consult: respiratory distress, pulmonary hypertension Call Completed: Yes Discharging clinician: Rome Morael - Constitutional Vitals: Temp Pulse Resp BP Pulse Ox 97.5 F L 103 18 124/67 95 05/22/18 11:36 05/22/18 11:36 05/22/18 11:36 05/22/18 11:36 05/22/18 11:36 Exam: General: In no respiratory distress. Conversant. Respiratory exam: no accessory muscle use. secretory sounds present transmitted on all lung field. Cardiovascular exam: RRR, +S1, +S2. no murmur, gallop, rubs. 1+ pedal edema. GI/Abdominal exam: Non-tender, mildly distended, normal bowel sounds, soft, no peritoneal signs. Extremities exam: full ROM, 1+ pedal edema, warm, pulses palpable in b/l lower extremities. no calf tenderness. Neurological exam: CN II-XII intact, AO X3, no focal deficits. No focal deficits. - Patient Status Disposition: Transfer SNF Condition: Serious - Discharge Instructions Follow Up With: Jim Figueroa MD [Primary Care Provider] - (ECF) - Diet and Activity Activity: as per physical therapy
--- NOTE | 2018-05-22 14:37 | Physician Discharge Referral ---
ExtendedCare Referral Info [facility] Institutional Level of Care: Skilled - Diagnosis (1) Pneumonia Status: Acute (2) Acute on chronic respiratory failure with hypoxia and hypercapnia Status: Acute (3) Acute urinary retention Status: Acute (4) Altered mental status Status: Acute (5) Anxiety Status: Acute (6) COPD exacerbation Status: Acute (7) Diastolic CHF Status: Acute (8) Goals of care, counseling/discussion Status: Acute (9) Hyperlipidemia Status: Acute (10) Hypertension Status: Acute (11) SARAHI (acute kidney injury) Status: Resolved - Transfer Medications Prescriptions: amLODIPine [Norvasc] 10 mg PO DAILY 30 Days #30 tablet predniSONE [PredniSONE] 40 mg PO DAILY 4 Days #4 tablet Home Medications: Alendronate Sodium 70 mg PO FR 10/26/17 [History] Amlodipine Besylate 10 mg PO DAILY 10/26/17 [History] Aspirin 81 mg PO DAILY 10/26/17 [History] Ergocalciferol (VITAMIN D2) [Vitamin D2] 50,000 unit PO QWEEK 10/26/17 [History] Lisinopril [Zestril] 40 mg PO DAILY 10/26/17 [History] Tiotropium [Spiriva] 1 puff IH DAILY 10/26/17 [History] Albuterol Sulfate [Ventolin Hfa] 2 puff IH Q4H PRN 05/10/18 [History] Budesonide/Formoterol 160/4.5 [Symbicort 160/4.5] 2 puff IH BID 05/10/18 [History] Furosemide [Lasix] 20 mg PO DAILY PRN 05/10/18 [History] amLODIPine [Norvasc] 10 mg PO DAILY 30 Days #30 tablet 05/22/18 [Rx] predniSONE [PredniSONE] 40 mg PO DAILY 4 Days #4 tablet 05/22/18 [Rx] Allergies/Adverse Reactions: Allergy/AdvReac Type Severity Reaction Status Date / Time No Known Allergies Allergy Verified 05/10/18 09:26 - Respiratory Orders Smoking Cessation: Smoking cessation has been advised. For more information, call the [place] Tobacco Quit Line at 9-369-SMUY-NOW. - Rehabiliation Orders Rehab Orders: Evaluation for Physical Therapy CERTIFICATION: I certify that the transfer of the above named patient to an Extended Care Facility is necessary for the continuing treatment of the diagnosis listed. The above information is true and accurate reflection of patient's current condition. Confidential - Redisclosure prohibited without a patient's written consent.
[2018-05-22] MEDS: *HR* Metoprolol 5 MG/5 ML VIAL IVP PRN (15:25)
[2018-05-23] MEDS: *HR* Heparin 5,000 UNIT/ML VIAL SQ SCH ×2 (05:59→16:51)
--- NOTE | 2018-05-23 07:52 | Internal Med Progress Note ---
Hospitalist Progress Note - Encounter Date of Encounter: 05/23/18 Time of Encounter: 09:00 - Subjective Interval History: No acute events overnight - Exam Vitals: Temp Pulse Resp BP Pulse Ox 97.5 F L 90 16 128/59 90 05/23/18 07:33 05/23/18 07:33 05/23/18 07:33 05/23/18 07:33 05/23/18 07:33 Exam: General: In no respiratory distress. Conversant. Respiratory exam: no accessory muscle use. secretory sounds present transmitted on all lung field. Cardiovascular exam: RRR, +S1, +S2. no murmur, gallop, rubs. 1+ pedal edema. GI/Abdominal exam: Non-tender, mildly distended, normal bowel sounds, soft, no peritoneal signs. Extremities exam: full ROM, 1+ pedal edema, warm, pulses palpable in b/l lower extremities. no calf tenderness. Neurological exam: CN II-XII intact, AO X3, no focal deficits. No focal deficits. - Assessment and Plan (1) Acute on chronic respiratory failure with hypoxia and hypercapnia Current Visit: Yes Status: Acute Assessment and Plan: Likely secondary to COPD exacerbation, viral pneumonia and diastolic CHF Completed course of levaquin and steorids. Plan to d/c on po prednisone and lasix as needed (2) COPD exacerbation Current Visit: Yes Status: Acute Assessment and Plan: Resolved. Continue BIPAP. Completed course of levaquin complete course of steroids (3) Hypertension Current Visit: Yes Status: Acute Assessment and Plan: Stable. Continue amlodipine (4) Diastolic CHF Current Visit: Yes Status: Acute Assessment and Plan: Lasix as needed (5) Altered mental status Current Visit: Yes Status: Acute Assessment and Plan: Resolved. Likely secondary to CO2 retention (6) SARAHI (acute kidney injury) Current Visit: Yes Status: Resolved Assessment and Plan: Improved with diuresis (7) Goals of care, counseling/discussion Current Visit: Yes Status: Acute Assessment and Plan: Discharge to rehab DVT Prophylaxis: On heparin - Time Spent with Patient Total time spent is greater than 50% in coordination of care (as documented) at patient's floor/unit and/or counseling patient: Internal Medicine: Result - Labs CBC & Chem 7: 05/22/18 03:40 05/22/18 03:40 - ABG Interpretation ABG results: ABG ABG pH 7.37 pH Units (7.32-7.45) 05/21/18 07:51 ABG pCO2 82 mmHg (35-45) H* 05/21/18 07:51 ABG pO2 72 mmHg (85-104) L 05/21/18 07:51 ABG O2 Saturation 92 % (95-98) L 05/21/18 07:51 PT/INR, D-dimer PT 14.3 Seconds (9.4-12.1) H 05/10/18 08:20 Consult Discharge Plan - Plan Referrals: Jim Figueroa MD [Primary Care Provider] - (ECF) Prescriptions: amLODIPine [Norvasc] 10 mg PO DAILY 30 Days #30 tablet predniSONE [PredniSONE] 40 mg PO DAILY 4 Days #4 tablet (3) Hypertension Qualifiers: Hypertension type: essential hypertension Qualified Code(s): I10 - Essential (primary) hypertension (4) Diastolic CHF Qualifiers: Heart failure chronicity: chronic Qualified Code(s): I50.32 - Chronic d iastolic (congestive) heart failure (5) Altered mental status Qualifiers: Altered mental status type: delirium Qualified Code(s): R41.0 - Disor ientation, unspecified
[2018-05-23] MEDS ORDERED: predniSONE 20 MG TABLET PO SCH (09:00)
[2018-05-23] MEDS: Insulin LISPRO 300 UNITS/3 ML VIAL SQ SCH ×3 (10:38→16:51)
[2018-05-23] MEDS: Levalbuterol Neb 0.63 MG/3 ML IH SCH (10:40)
[2018-05-23] MEDS: amLODIPine 5 MG TABLET PO SCH (10:51)
[2018-05-23] MEDS: *HR* Metoprolol 5 MG/5 ML VIAL IVP PRN (10:52)
[2018-05-23] MEDS: Nystatin OINT 15 GM TUBE TP SCH ×3 (10:52→16:52)
[2018-05-23 16:23] VITALS: BP 131/76
== END 2018-05-23 18:20 | DRG 208 ==
LOC: EMEROOARM 21:50 → SUATTDRO 05-10 00:52 → ICNU 05-10 00:52 → 2ANU 05-16 12:06
PROVIDERS: ADMIT Internal Medicine; ATTEND Internal Medicine